=== PATIENT | female | born 1960 | race Caucasian/White ===

== ENCOUNTER 2018-06-08 13:00 | Inpatient (IN) | END 2018-06-13 19:36 | DRG 871 ==

== ENCOUNTER 2018-06-18 10:13 | Emergency (ER) | END 2018-06-18 15:00 | disposition home or self-care (01) ==

== ENCOUNTER 2018-08-02 13:46 | Inpatient (IN) | payer MEDICARE ==
[~2018-08-02] VITALS: Ht 160 cm; Wt 52.5 kg
[~2018-08-02 13:46] MED LIST: DOCU-144 PO; Insulin Glargine SC; LACT20SO2 GTB; LYR75 PO; MIDO10TA PO; NEPH PO; NOVO3I SC; PANT40TA4 PO; RIFA550T4 PO; SEVE800T7 PO; TRAM50TA PO
[2018-08-02] MEDS ORDERED: PANTOPRAZOLE 40 MG INJ IV STA (14:16)
[2018-08-02] MEDS ORDERED: ONDANSETRON 4 MG INJ IV STA (14:16)
[2018-08-02] MEDS ORDERED: PANTOPRAZOLE IV 80 MG in SOD CHLORIDE 0.9% 100 ML IVPB STA (14:16)
[2018-08-02] MEDS ORDERED: PANTOPRAZOLE IV 80 MG in SOD CHLORIDE 0.9% 100 ML IV STA (14:16)
[2018-08-02] MEDS ORDERED: METOCLOPRAMIDE 10 MG INJ IV ONE (14:30)
[2018-08-02] MEDS ORDERED: LANT3I SC (14:56)
[2018-08-02] MEDS: FENTAnyl 50 MCG/ML VIAL IV PRN ×2 (14:56→18:34)
[2018-08-02] MEDS ORDERED: NEPH PO (14:59)
[2018-08-02] MEDS ORDERED: FAMOTIDINE 20 MG INJ IV ONE (15:00)
[2018-08-02] MEDS ORDERED: ONDANSETRON 4 MG INJ IV PRN ×2 (15:00→17:00)
[2018-08-02] MEDS ORDERED: ACETAMINOPHEN 325 MG TAB PO PRN (15:00)
--- NOTE | 2018-08-02 15:15 | ERD ---
ER Documentation Chief Complaint Chief Complaint BIB RA FOR EVAL OF HEMATEMESIS. HX OF HD DID NOT GO TODAY HPI This is a 57-year-old female with a history of end-stage renal disease on hemodialysis every Sunday and Sunday. The patient also has a history of diabetes mellitus type 2. 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 The patient was recently discharged from [facility] yesterday after she had a significant workup and treated for spontaneous bacterial peritonitis with Salmonella bacteremia. She was also encephalopathic but this had resolved. The patient has had pleural effusions and had a thoracentesis on her previous evaluation. The patient this morning upon awakening states she felt very nauseous at her rehab facility. Her daughter was there. Her daughter is also here to provide history and indicated that at 8 AM her mother had an episode of coffee-ground emesis. This was 7 hours prior to arrival. Roughly 1 hour after that she had another episode of coffee-ground emesis. She started to complain of diffuse abdominal pain and a bandlike headache. She was scheduled to have dialysis today but this was missed due to the symptoms and she was immediately transferred to the hospital for further evaluation. There is been no rectal bleeding. The patient indicates that the abdominal pain is more present in the right flank region. The patient does not have a history of alcohol abuse. ROS All systems reviewed and are negative except as per history of present illness. Medications Home Meds Active Scripts Lactulose* (Lactulose*) 20 Gm/30 Ml Solution, 20 GM GTB Q12, #30 Prov:PATRICK LYONS 07/25/18 Rifaximin* (Xifaxan*) 550 Mg Tablet, 550 MG PO BID, #30 TAB Prov:PATRICK LYONS 07/25/18 Reported Medications Multivit/Ca Carb/B Cmplx/Fa* (Brandie-Ledy*) 1 Tab Tab, 1 TAB PO DAILY, TAB 08/02/18 Insulin Glargine* (Lantus*) 100 Unit/Ml Soln, 8 UNIT SC QHS, #1 VIAL 08/02/18 Docusate Sodium* (Colace*) 100 Mg Capsule, 100 MG PO BID, #60 CAP 06/08/18 Tramadol Hcl* (Ultram*) 50 Mg Tablet, 50 MG PO TID PRN for PAIN -04/03, TAB 06/08/18 Sevelamer Carbonate* (Renvela*) 800 Mg Tablet, 0.8 GM PO WITH MEALS, TAB 06/08/18 Pantoprazole* (Pantoprazole*) 40 Mg Tablet.dr, 40 MG PO AC BREAKFAST, TAB 06/08/18 Midodrine* (Midodrine*) 10 Mg Tablet, 10 MG PO TID, TAB HOLD FOR SBP>130 06/08/18 Pregabalin* (Lyrica*) 75 Mg Capsule, 75 MG PO DAILY, CAP 06/08/18 Discontinued Reported Medications Multivit/Ca Carb/B Cmplx/Fa* (Brandie-Ledy*) 1 Tab Tab, 1 TAB PO DAILY, TAB 06/08/18 Discontinued Scripts [Insulin Glargine] 100 UNITS/ML SOLN No Conflict Check, 8 UNITS SC DAILY@1999, #1 VIAL Prov:PATRICK LYONS 07/25/18 Insulin Aspart* (Novolog Insulin Pen*) 100 Unit/Ml Soln, 3 UNIT SC WITH MEALS, #1 VIAL Prov:PATRICK LYONS 07/25/18 Allergies Allergies: Coded Allergies: No Known Allergy (Unverified , 08/02/18) PMhx/Soc History of Surgery: Yes Anesthesia Reaction: No Hx Neurological Disorder: Yes Hx Respiratory Disorders: No Hx Cardiac Disorders: Yes Hx Psychiatric Problems: No Hx Miscellaneous Medical Probl: Yes (HD) Hx Alcohol Use: No Hx Substance Use: No Hx Tobacco Use: No Smoking Status: Never smoker Physical Exam Vitals Vital Signs Date Temp Pulse Resp B/P (MAP) Pulse Ox O2 O2 Flow FiO2 Time Delivery Rate 08/02/18 Nasal 2 14:21 Cannula 08/02/18 97.8 121 18 100/55 99 13:56 (70) Physical Exam Constitutional:Well-developed. Well-nourished. Patient actively vomiting coffee-ground emesis. HEENT:Normocephalic. Atraumatic.Pupils were equal round reactive to light. Moist mucous membranes.No tonsillar exudates. Conjunctival pallor. Neck: No nuchal rigidity. No lymphadenopathy. No posterior cervical spine tenderness or step-offs. Respiratory: Not using accessory muscles of respiration.Lungs were clear to auscultation bilaterally. No rhonchi. No rales. No wheezing. Cardiovascular: Regular rate regular rhythm.No murmurs. No rubs were appreciated.S1, S2 normal. Distal pulses are palpable 2+ bilaterally. GI: Abdomen was soft. Nontender. No fluid thrill or tense ascites. Non Distended. No pulsatile abdominal masses or bruits. No rebound. No guarding. Bowel sounds were present and normal. Ecchymosis over the right lower quadrant and right flank region with mild tenderness and no rebound or guarding. Muscle skeletal: Full range of motion of both the upper and lower extremities bilaterally.Normal muscle tone.No assymetrical calf tenderness or swelling. Skin: No petechia, no purpura. No lesions on the palms or the soles of the feet. No maculopapular rash. Diffuse pallor. Positive thrill and bruit of the left upper extremity AV fistula NEURO: Patient was alert, awake, orientated x3.No facial droop. Gait unobserved as patient was too weak to ambulate. Result Diagram: 08/02/18 1415 08/02/18 1415 Results 24 hrs Laboratory Tests Test 08/02/18 14:15 White Blood Count 11.5 10^3/ul Red Blood Count 2.26 10^6/ul Hemoglobin 7.1 g/dl Hematocrit 23.8 % Mean Corpuscular Volume 105.3 fl Mean Corpuscular Hemoglobin 31.4 pg Mean Corpuscular Hemoglobin Concent 29.8 g/dl Red Cell Distribution Width 25.2 % Platelet Count 34 10^3/UL Mean Platelet Volume 14.1 fl Immature Granulocytes % 0.600 % Neutrophils % % Lymphocytes % % Monocytes % % Eosinophils % % Basophils % % Nucleated Red Blood Cells % 0.3 /100WBC Immature Granulocytes # 0.070 10^3/ul Neutrophils # 10^3/ul Lymphocytes # 10^3/ul Monocytes # 10^3/ul Eosinophils # 10^3/ul Basophils # 10^3/ul Nucleated Red Blood Cells # 10^3/ul Prothrombin Time 18.1 Sec Prothrombin Time Ratio 1.4 INR International Normalized Ratio 1.49 Activated Partial Thromboplast Time 36.4 Sec Sodium Level 137 mmol/L Potassium Level 4.8 mmol/L Chloride Level 100 mmol/L Carbon Dioxide Level 16 mmol/L Anion Gap 21 Blood Urea Nitrogen 38 mg/dl Creatinine 4.23 mg/dl Est Glomerular Filtrat Rate mL/min 11 mL/min Glucose Level 180 mg/dl Calcium Level 9.3 mg/dl Total Bilirubin 0.5 mg/dl Direct Bilirubin 0.00 mg/dl Indirect Bilirubin 0.5 mg/dl Aspartate Amino Transf (AST/SGOT) 22 IU/L Alanine Aminotransferase (ALT/SGPT) < 6 IU/L Alkaline Phosphatase 128 IU/L Troponin I < 0.012 ng/ml Total Protein 7.3 g/dl Albumin 2.8 g/dl Globulin 4.50 g/dl Albumin/Globulin Ratio 0.62 Amylase Level 44 U/L Lipase 73 U/L Current Medications Medications Dose Sig/Alecia Start Time Status Last (Trade) Ordered Route PRN Stop Time Admin Dose Reason Admin 40 mg ONCE STAT 08/02/18 DC 08/02/18 Pantoprazole IV 14:16 08/02/18 14:23 (Protonix 14:17 Iv) Pantoprazole 100 ml @ ONCE STAT 08/02/18 Cancel 80 mg/Sodium 400 mls/hr IVPB 14:16 08/02/18 Chloride 14:30 Pantoprazole 100 ml @ ONCE STAT 08/02/18 80 mg/Sodium 10 mls/hr IV 14:16 08/03/18 Chloride 00:15 Ondansetron 4 mg ONCE STAT 08/02/18 DC 08/02/18 HCl (Zofran IV 14:16 08/02/18 14:23 Inj) 14:17 10 mg ONCE ONCE 08/02/18 DC 08/02/18 Metoclopramid IV 14:30 08/02/18 14:34 e HCl 14:31 (Reglan) Famotidine 20 mg ONCE ONCE 08/02/18 DC 08/02/18 (Pepcid Iv) IV 15:00 08/02/18 14:56 15:01 Fentanyl 50 mcg Q3H PRN 08/02/18 08/02/18 (Sublimaze) IV SEVERE 15:00 14:56 PAIN LEVEL 7-10 Ondansetron 4 mg ER BRIDGE 08/02/18 HCl (Zofran PRN IV 15:00 08/03/18 Inj) NAUSEA/VOMITI 14:59 NG 650 mg ER BRIDGE 08/02/18 Acetaminophen PRN PO 15:00 08/03/18 (Tylenol .MILD PAIN 14:59 Tab) 1-3 OR TEMP Procedures/MDM The patient presented to the emergency department with a presentation of gastrointestinal bleeding. My differential diagnosis included but was not limited to peptic ulcer disease, gastric or esophageal erosions, gastritis, esophageal varices, Yasmin-Echavarria tear, tumor or arteriovenous malformations. The patient was immediately placed on a hot tamale worker continuous pulse oximetry and IV access was established by nursing staff. The patient had coffe e-ground emesis immediately was placed on Protonix IV Pepcid and a Protonix drip. The patient was given antiemetics. The patient did have ecchymosis in the right lower quadrant of her abdomen therefore I did feel it was necessary to obtain a CT scan. This was reviewed by myself and the radiologist there is no signs of intra-abdominal hemorrhage. Her daughter stated that 3 weeks ago she did have a mechanical trip and fall that could have resulted in the ecchymosis. The patient was also complaining of a bandlike headache. She was a very poor historian I did feel is necessary to obtain a CT scan of her head which showed no intracerebral hemorrhage mass-effect or midline shift. The patient was typed and screened. She will be admitted in serious condition to the telemetry service as her emesis had resolved. She will be admitted to the hospitalist Dr. Stover. Critical Care: Time: 70 minutes Treatments/Evaluations: Close monitoring and treatment of unstable vital signs, cardiorespiratory, and neurologic status, while maintaining tight balance of fluid, respiratory, and cardiac interventions. Time does not include performing any of the above billable procedures. 12 Lead EKG tracing ordered and reviewed by myself showed: Sinus tachycardia 122 nonsignificant Q waves present in the inferior leads II, III and aVF bpm and no arrhythmia. DC interval normal. QRS duration normal. No ST segment elevation No ST segment depression. No changes consistent with acute ischemia. Departure Diagnosis: Primary Impression: Hematemesis Nausea presence: with nausea Qualified Codes: K92.0 - Hematemesis Additional Impression: Encephalopathy acute Condition: Serious DVAID ESPAÑA MD Aug 02, 2018 15:15
[2018-08-02 16:22] VITALS: BP 105/64; PULSE 112; RESP 16
--- NOTE | 2018-08-02 16:40 | PREAC ---
Date/Time of Note Date/Time of Note DATE: 08/02/18 TIME: 16:38 Anesthesia Eval and Record Evaluation Time Pre-Procedure Interview DATE: 08/02/18 TIME: 16:38 Age 57 Sex female NPO: 8 hrs Preoperative diagnosis ANEMIA, GI BLEED Planned procedure EGD Past Medical History Past Medical History: Includes Cardio: HTN Endo: Diabetes Renal: ESRD on dialysis Hepatic: Cirrhosis Heme: Anemia Surgery & Anesthesia Issues No known issue Meds Anticoagulation: No Beta Maurisio within 24 hr: No Reason Beta Maurisio not given: Pt. not on B-Maurisio Active Scripts Lactulose* (Lactulose*) 20 Gm/30 Ml Solution, 20 GM GTB Q12, #30 Prov:PATRICK LYONS 07/25/18 Rifaximin* (Xifaxan*) 550 Mg Tablet, 550 MG PO BID, #30 TAB Prov:PATRICK LYONS 07/25/18 Reported Medications Multivit/Ca Carb/B Cmplx/Fa* (Brandie-Ledy*) 1 Tab Tab, 1 TAB PO DAILY, TAB 08/02/18 Insulin Glargine* (Lantus*) 100 Unit/Ml Soln, 8 UNIT SC QHS, #1 VIAL 08/02/18 Docusate Sodium* (Colace*) 100 Mg Capsule, 100 MG PO BID, #60 CAP 06/08/18 Tramadol Hcl* (Ultram*) 50 Mg Tablet, 50 MG PO TID PRN for PAIN -04/03, TAB 06/08/18 Sevelamer Carbonate* (Renvela*) 800 Mg Tablet, 0.8 GM PO WITH MEALS, TAB 06/08/18 Pantoprazole* (Pantoprazole*) 40 Mg Tablet.dr, 40 MG PO AC BREAKFAST, TAB 06/08/18 Midodrine* (Midodrine*) 10 Mg Tablet, 10 MG PO TID, TAB HOLD FOR SBP>130 06/08/18 Pregabalin* (Lyrica*) 75 Mg Capsule, 75 MG PO DAILY, CAP 06/08/18 Discontinued Reported Medications Multivit/Ca Carb/B Cmplx/Fa* (Brandie-Ledy*) 1 Tab Tab, 1 TAB PO DAILY, TAB 06/08/18 Discontinued Scripts [Insulin Glargine] 100 UNITS/ML SOLN No Conflict Check, 8 UNITS SC DAILY@1999, #1 VIAL Prov:PATRICK LYONS 07/25/18 Insulin Aspart* (Novolog Insulin Pen*) 100 Unit/Ml Soln, 3 UNIT SC WITH MEALS, #1 VIAL Prov:PATRICK LYONS 07/25/18 Current Medications Pantoprazole 80 mg/Sodium Chloride 100 ml @ 10 mls/hr ONCE STAT IV Last administered on 08/02/18at 14:16; Admin Dose 10 MLS/HR; Start 08/02/18 at 14:16; Stop 08/03/18 at 00:15 Fentanyl (Sublimaze) 50 mcg Q3H PRN IV SEVERE PAIN LEVEL 7-10 Last administered on 08/02/18at 14:56; Admin Dose 50 MCG; Start 08/02/18 at 15:00 Ondansetron HCl (Zofran Inj) 4 mg ER BRIDGE PRN IV NAUSEA/VOMITING; Start 08/02/18 at 15:00; Stop 08/03/18 at 14:59 Acetaminophen (Tylenol Tab) 650 mg ER BRIDGE PRN PO .MILD PAIN 1-3 OR TEMP; Start 08/02/18 at 15:00; Stop 08/03/18 at 14:59 Meds reviewed: Yes Allergies Coded Allergies: No Known Allergy (Unverified , 08/02/18) Allergies Reviewed: Yes Labs/Studies Labs Reviewed: Reviewed by anesthesiologist Result Diagram: 08/02/18 1415 08/02/18 1415 Laboratory Tests 08/02/18 14:15 Blood Bank Test 08/02/18 14:46 Antibody Screen NEGATIVE Blood Type B POSITIVE test: N/A Pre-procedure Exam Last vitals Vital Signs Date Temp Pulse Resp B/P (MAP) Pulse Ox O2 O2 Flow FiO2 Time Delivery Rate 08/02/18 Nasal 2 14:21 Cannula 08/02/18 97.8 121 18 100/55 99 13:56 (70) Airway: Adequate mouth opening, Adequate thyromental dist Mallampati: Mallampati II Teeth: Normal Lung: Normal Heart: Normal ASA Physical Status ASA physical status: 3 Emergency: None Planned Anesthetic General/MAC: MAC Planned Pain Management Parenteral pain med Pre-operative Attestations Prior to commencing anesthesia and surgery, the patient was re-evaluated, there was verification of: *The patient's identity *The results of appropriate recent lab work and preoperative vital signs *The above evaluation not changing prior to induction *Anesthetic plan, risk benefits, alternative and complications discussed with patient/family; questions answered; patient/family understands, accepts and wishes to proceed. DAREN BERNARDO Aug 02, 2018 16:40
[2018-08-02] MEDS ORDERED: LABETALOL HCL 20MG INJ IV PRN (17:00)
[2018-08-02] MEDS ORDERED: MEPERIDINE 25 MG INJ IV PRN (17:00)
[2018-08-02] MEDS ORDERED: hydrALAzine 20 MG INJ IV PRN (17:00)
[2018-08-02] MEDS ORDERED: DIPHENHYDRAMINE 50 MG INJ IV PRN (17:00)
[2018-08-02] MEDS ORDERED: ALBUTEROL 0.083% (NEB) 2.5 MG/3 ML AMP HHN PRN (17:00)
[2018-08-02] MEDS ORDERED: EPHEDrine SULFATE 50 MG/5 ML SYG IV PRN (17:00)
--- NOTE | 2018-08-02 17:15 | PAC ---
Date/Time of Note Date/Time of Note DATE: 08/02/18 TIME: 17:15 Post-Anesthesia Notes Post-Anesthesia Note Last documented vital signs Vital Signs Date Temp Pulse Resp B/P (MAP) Pulse Ox O2 O2 Flow FiO2 Time Delivery Rate 08/02/18 98.2 112 16 105/64 100 Room Air 17:14 (78) 08/02/18 2 14:21 Activity: WNL Respiratory function: WNL Cardiovascular function: WNL Mental status: Baseline Pain reasonably controlled: Yes Hydration appropriate: Yes Nausea/Vomiting absent: Yes DAREN BERNARDO Aug 02, 2018 17:15
--- NOTE | 2018-08-02 17:21 | HPN ---
Date/Time of Note Date/Time of Note DATE: 08/02/18 TIME: 17:21 Interval H&P Admission Note Pt. seen H&P reviewed: No system changes SOFYA ASCENCIO MD Aug 02, 2018 17:21
--- NOTE | 2018-08-02 17:21 | CONS ---
Assessment/Plan Assessment/Plan Assessment/Plan (Daily) Assessment: Upper GI bleeding. Rule out variceal versus not variceal. Encephalopathy. Recent episode of spontaneous bacterial peritonitis History of post necrotic cirrhosis. History of chronic renal failure. History of diabetes mellitus. Plan: Urgent EGD. Further recommendation will depend on our findings. Consultation Date/Type/Reason Admit Date/Time Date of Consultation: Aug 02, 2018 Type of Consult Gastroenterology/hepatology Reason for Consultation Gastrointestinal bleeding Date/Time of Note DATE: 08/02/18 TIME: 17:13 Hx of Present Illness 57-year-old female with multiple comorbidities including chronic renal failure on dialysis, diabetes mellitus, hepatitis C induced cirrhosis. The patient was recently hospitalized and treated for spontaneous bacterial peritonitis. Patient was recently discharged. She is brought back in today with complaints of changes in mental status and episodes of hematemesis/coffee-ground emesis. Patient is moderately anemic. At this point patient will be evaluated urgently with endoscopy given her previous history the possibility of esophageal varices appears to be significant. The procedure was explained to the patient's daughter who understands Risks, benefits and alternatives. 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 Recent episode of SBP Chronic renal failure on hemodialysis. Diabetes mellitus. Poor nutrition. Home Meds Active Scripts Lactulose* (Lactulose*) 20 Gm/30 Ml Solution, 20 GM GTB Q12, #30 Prov:PATRICK LYONS 07/25/18 Rifaximin* (Xifaxan*) 550 Mg Tablet, 550 MG PO BID, #30 TAB Prov:PATRICK LYONS 07/25/18 Reported Medications Multivit/Ca Carb/B Cmplx/Fa* (Brandie-Ledy*) 1 Tab Tab, 1 TAB PO DAILY, TAB 08/02/18 Insulin Glargine* (Lantus*) 100 Unit/Ml Soln, 8 UNIT SC QHS, #1 VIAL 08/02/18 Docusate Sodium* (Colace*) 100 Mg Capsule, 100 MG PO BID, #60 CAP 06/08/18 Tramadol Hcl* (Ultram*) 50 Mg Tablet, 50 MG PO TID PRN for PAIN 1-04/03, TAB 06/08/18 Sevelamer Carbonate* (Renvela*) 800 Mg Tablet, 0.8 GM PO WITH MEALS, TAB 06/08/18 Pantoprazole* (Pantoprazole*) 40 Mg Tablet.dr, 40 MG PO AC BREAKFAST, TAB 06/08/18 Midodrine* (Midodrine*) 10 Mg Tablet, 10 MG PO TID, TAB HOLD FOR SBP>130 06/08/18 Pregabalin* (Lyrica*) 75 Mg Capsule, 75 MG PO DAILY, CAP 06/08/18 Discontinued Reported Medications Multivit/Ca Carb/B Cmplx/Fa* (Brandie-Ledy*) 1 Tab Tab, 1 TAB PO DAILY, TAB 06/08/18 Discontinued Scripts [Insulin Glargine] 100 UNITS/ML SOLN No Conflict Check, 8 UNITS SC DAILY@1999, #1 VIAL Prov:SERENAKENNETH GLASGOWFrankie 07/25/18 Insulin Aspart* (Novolog Insulin Pen*) 100 Unit/Ml Soln, 3 UNIT SC WITH MEALS, #1 VIAL Prov:SERENA,PATRICK 07/25/18 Medications Current Medications Pantoprazole 80 mg/Sodium Chloride 100 ml @ 10 mls/hr ONCE STAT IV Last administered on 08/02/18at 14:16; Admin Dose 10 MLS/HR; Start 08/02/18 at 14:16; Stop 08/03/18 at 00:15 Fentanyl (Sublimaze) 50 mcg Q3H PRN IV SEVERE PAIN LEVEL 7-10 Last administered on 08/02/18at 14:56; Admin Dose 50 MCG; Start 08/02/18 at 15:00 Ondansetron HCl (Zofran Inj) 4 mg ER BRIDGE PRN IV NAUSEA/VOMITING; Start 08/02/18 at 15:00; Stop 08/03/18 at 14:59 Acetaminophen (Tylenol Tab) 650 mg ER BRIDGE PRN PO .MILD PAIN 1-3 OR TEMP; Start 08/02/18 at 15:00; Stop 08/03/18 at 14:59 Ondansetron HCl (Zofran Inj) 4 mg PACU ORDER PRN IV NAUSEA/VOMITING; Start 08/02/18 at 17:00; Stop 08/02/18 at 21:00 Labetalol HCl (Labetalol) 5 mg PACU ORDER PRN IV HIGH BLOOD PRESSURE; Start 08/02/18 at 17:00; Stop 08/02/18 at 21:00 Hydralazine HCl (Apresoline) 5 mg PACU ORDER PRN IV HIGH BLOOD PRESSURE; Start 08/02/18 at 17:00; Stop 08/02/18 at 21:00 Ephedrine Sulfate 5 mg PACU ORDER PRN IV BLOOD PRESSURE SUPPORT; Start 08/02/18 at 17:00; Stop 08/02/18 at 21:00 Albuterol (Proventil 0.083% (Neb)) 2.5 mg PACU ORDER PRN HHN .WHEEZING; Start 08/02/18 at 17:00; Stop 08/02/18 at 21:00 Meperidine HCl (Demerol) 25 mg PACU ORDER PRN IV .RIGORS; Start 08/02/18 at 17:00; Stop 08/02/18 at 21:00 Diphenhydramine HCl (Benadryl) 25 mg PACU ORDER PRN IV .PRURITUS; Start 08/02/18 at 17:00; Stop 08/02/18 at 21:00 Allergies: Coded Allergies: No Known Allergy (Unverified , 08/02/18) Past Surgical History Past Surgical Hx: no surgical history, other Social History Smoking Status: Never smoker Exam/Review of Systems Exam Vitals Vital Signs Date Temp Pulse Resp B/P (MAP) Pulse Ox O2 O2 Flow FiO2 Time Delivery Rate 08/02/18 98.2 112 16 105/64 100 Room Air 16:22 (78) 08/02/18 2 14:21 Exam PHYSICAL EXAMINATION: GENERAL: Well developed, Poorly nourished, alert, Confused SKIN: No lesions, + stigmata chronic liver disease, no evidence of bleeding diathesis LYMPHATIC: No palpable lymphadenopathy. HEAD: Normocephalic, atraumatic, no tenderness. EYES: Pupils equal reactive to light and accommodation, full extraocular movements, sclera clear, non-icteric, no discharge. EARS/NOSE AND THROAT: Ears normal, nose normal, oropharynx normal, oral membranes well hydrated without lesions. NECK: Supple, no masses, thyroid normal, JVP within normal limits, carotids normal without bruits. CHEST: Inspection within normal limits. CARDIOVASCULAR: Heart: Regular rate and rhythm, no murmurs, gallops or rubs. Peripheral pulses present within normal limits, no cyanosis, clubbing or edemas. No pulsatile abdominal mass RESPIRATORY: Lungs clear to auscultation and percussion, no wheezing, no rubs GASTROINTESTINAL AND LIVER: Abdomen: Soft, non tenderness, non-distended, no hernias, no masses, no organomegaly, no ascites, no guarding, no rebound tenderness, normoactive bowel sounds. Rectal: Deferred. GENITOURINARY: [Female genitalia within normal limits.] EXTREMITIES: No cyanosis, clubbing or edema. Results Result Diagram: 08/02/18 1415 08/02/18 1415 Results 24hrs Laboratory Tests Test 08/02/18 14:15 08/02/18 14:46 White Blood Count 11.5 H Red Blood Count 2.26 #L Hemoglobin 7.1 #L Hematocrit 23.8 #L Mean Corpuscular Volume 105.3 H Mean Corpuscular Hemoglobin 31.4 Mean Corpuscular Hemoglobin Concent 29.8 L Red Cell Distribution Width 25.2 #H Platelet Count 34 #L Mean Platelet Volume 14.1 H Immature Granulocytes % 0.600 H Neutrophils % Segmented Neutrophils % (Manual) 95 H Lymphocytes % Lymphocytes % (Manual) 2 L Monocytes % Monocytes % (Manual) 3 Eosinophils % Basophils % Nucleated Red Blood Cells % 0.3 H Immature Granulocytes # 0.070 H Neutrophils # Lymphocytes (Manual) 0.2 L Lymphocytes # Monocytes # Monocytes # (Manual) 0.3 Eosinophils # Basophils # Nucleated Red Blood Cells # Platelet Estimate DECREASED Giant Platelets 3 H Polychromasia 2+ Hypochromasia 1+ Anisocytosis 2+ Macrocytosis 2+ Prothrombin Time 18.1 H Prothrombin Time Ratio 1.4 INR International Normalized Ratio 1.49 Activated Partial Thromboplast Time 36.4 H Sodium Level 137 Potassium Level 4.8 Chloride Level 100 Carbon Dioxide Level 16 L Anion Gap 21 H Blood Urea Nitrogen 38 H Creatinine 4.23 H Est Glomerular Filtrat Rate mL/min 11 L Glucose Level 180 Calcium Level 9.3 Total Bilirubin 0.5 Direct Bilirubin 0.00 Indirect Bilirubin 0.5 Aspartate Amino Transf (AST/SGOT) 22 Alanine Aminotransferase (ALT/SGPT) < 6 L Alkaline Phosphatase 128 H Troponin I < 0.012 Total Protein 7.3 Albumin 2.8 L Globulin 4.50 H Albumin/Globulin Ratio 0.62 Amylase Level 44 Lipase 73 Ammonia < 9 L Medications Medication Current Medications Pantoprazole 80 mg/Sodium Chloride 100 ml @ 10 mls/hr ONCE STAT IV Last administered on 08/02/18at 14:16; Admin Dose 10 MLS/HR; Start 08/02/18 at 14:16; Stop 08/03/18 at 00:15 Fentanyl (Sublimaze) 50 mcg Q3H PRN IV SEVERE PAIN LEVEL 7-10 Last administered on 08/02/18at 14:56; Admin Dose 50 MCG; Start 08/02/18 at 15:00 Ondansetron HCl (Zofran Inj) 4 mg ER BRIDGE PRN IV NAUSEA/VOMITING; Start 08/02/18 at 15:00; Stop 08/03/18 at 14:59 Acetaminophen (Tylenol Tab) 650 mg ER BRIDGE PRN PO .MILD PAIN 1-3 OR TEMP; Start 08/02/18 at 15:00; Stop 08/03/18 at 14:59 Ondansetron HCl (Zofran Inj) 4 mg PACU ORDER PRN IV NAUSEA/VOMITING; Start 08/02/18 at 17:00; Stop 08/02/18 at 21:00 Labetalol HCl (Labetalol) 5 mg PACU ORDER PRN IV HIGH BLOOD PRESSURE; Start 08/02/18 at 17:00; Stop 08/02/18 at 21:00 Hydralazine HCl (Apresoline) 5 mg PACU ORDER PRN IV HIGH BLOOD PRESSURE; Start 08/02/18 at 17:00; Stop 08/02/18 at 21:00 Ephedrine Sulfate 5 mg PACU ORDER PRN IV BLOOD PRESSURE SUPPORT; Start 08/02/18 at 17:00; Stop 08/02/18 at 21:00 Albuterol (Proventil 0.083% (Neb)) 2.5 mg PACU ORDER PRN HHN .WHEEZING; Start 08/02/18 at 17:00; Stop 08/02/18 at 21:00 Meperidine HCl (Demerol) 25 mg PACU ORDER PRN IV .RIGORS; Start 08/02/18 at 17:00; Stop 08/02/18 at 21:00 Diphenhydramine HCl (Benadryl) 25 mg PACU ORDER PRN IV .PRURITUS; Start 08/02/18 at 17:00; Stop 08/02/18 at 21:00 SOFYA ASCENCIO MD Aug 02, 2018 17:21
[2018-08-02] MEDS ORDERED: traMADol 50 MG TAB PO PRN (17:30)
[2018-08-02 18:00] VITALS: BP 105/57; PULSE 112; RESP 18
[2018-08-02] MEDS: INSULIN ASPART [NOVOLOG] 3 ML PEN SC SCH ×2 (18:00→21:24)
[2018-08-02] MEDS: SEVELAMER CARBONATE 0.8 GM PKT PO SCH (18:00)
--- NOTE | 2018-08-02 18:32 | CONS ---
Assessment/Plan Assessment/Plan Assessment/Plan (Daily) 1. ESRD on HD - MWF schedule , missed HD today 2. Upper GI bleeding variceal vs Non variceal bleeding 3. H/o Liver Cirrhosis 4. H/o HTN 5. Severe anemia duet to acute blood loss anemia 6. let basilar inftilrates with pleural effusion Plan: seen in ED< started on Protonix gtt for GI bleeding s/p GI consult in ED, plan for EGD to rule out variceal vs non variceal bleeding will plan for HD in AM with 2 units PRBC trnasfusion K normal, continue lasix Thanks for consultation, I will continue to follow up will start epogen 6000 units TTS Consultation Date/Type/Reason Admit Date/Time 08/02/2018 Date of Consultation: Aug 02, 2018 Type of Consult NEPHROLOGY Reason for Consultation ESRD on HD missed HD, Presented with GI bleeding, Fluid overload Requesting Provider: REGINA ORNELAS MD Date/Time of Note DATE: 08/02/18 TIME: 18:32 Hx of Present Illness 57 F with PMHx of HTN, 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 pt was sent back from SNF today due to vomiitn gof blood and Hematemesis. she was seen by GI in ED- started on protonix gtt- and plan for EGD Pt is due for her HD tomorrow and her K is stable now, Hb 7.1 on admission . Constitutional: poor po Eyes: no complaints ENT: dysphagia, other (vomiting of blood ) Respiratory: no complaints Cardiovascular: no complaints Gastrointestinal: pain, vomiting, other (vomiting of blood ) Genitourinary: no complaints Musculoskeletal: no complaints Skin: no complaints Neurologic: no complaints Endocrine: no complaints Lymphatic: no complaints Psychological: anxiety Immunologic: no complaints Past Medical History Medical History: hypertension, other Home Meds Active Scripts Lactulose* (Lactulose*) 20 Gm/30 Ml Solution, 20 GM GTB Q12, #30 Prov:PATRICK LYONS 07/25/18 Rifaximin* (Xifaxan*) 550 Mg Tablet, 550 MG PO BID, #30 TAB Prov:PATRICK LYONS 07/25/18 Reported Medications Multivit/Ca Carb/B Cmplx/Fa* (Brandie-Ledy*) 1 Tab Tab, 1 TAB PO DAILY, TAB 08/02/18 Insulin Glargine* (Lantus*) 100 Unit/Ml Soln, 8 UNIT SC QHS, #1 VIAL 08/02/18 Docusate Sodium* (Colace*) 100 Mg Capsule, 100 MG PO BID, #60 CAP 06/08/18 Tramadol Hcl* (Ultram*) 50 Mg Tablet, 50 MG PO TID PRN for PAIN -04/03, TAB 06/08/18 Sevelamer Carbonate* (Renvela*) 800 Mg Tablet, 0.8 GM PO WITH MEALS, TAB 06/08/18 Pantoprazole* (Pantoprazole*) 40 Mg Tablet.dr, 40 MG PO AC BREAKFAST, TAB 06/08/18 Midodrine* (Midodrine*) 10 Mg Tablet, 10 MG PO TID, TAB HOLD FOR SBP>130 06/08/18 Pregabalin* (Lyrica*) 75 Mg Capsule, 75 MG PO DAILY, CAP 06/08/18 Discontinued Reported Medications Multivit/Ca Carb/B Cmplx/Fa* (Brandie-Ledy*) 1 Tab Tab, 1 TAB PO DAILY, TAB 06/08/18 Discontinued Scripts [Insulin Glargine] 100 UNITS/ML SOLN No Conflict Check, 8 UNITS SC DAILY@1999, #1 VIAL Prov:PATRICK LYONS 07/25/18 Insulin Aspart* (Novolog Insulin Pen*) 100 Unit/Ml Soln, 3 UNIT SC WITH MEALS, #1 VIAL Prov:PATRICK LYONS 07/25/18 Medications Current Medications Pantoprazole 80 mg/Sodium Chloride 100 ml @ 10 mls/hr ONCE STAT IV Last administered on 08/02/18at 14:16; Admin Dose 10 MLS/HR; Start 08/02/18 at 14:16; Stop 08/03/18 at 00:15 Fentanyl (Sublimaze) 50 mcg Q3H PRN IV SEVERE PAIN LEVEL 7-10 Last administered on 08/02/18at 14:56; Admin Dose 50 MCG; Start 08/02/18 at 15:00 Ondansetron HCl (Zofran Inj) 4 mg ER BRIDGE PRN IV NAUSEA/VOMITING; Start 08/02/18 at 15:00; Stop 08/03/18 at 14:59 Acetaminophen (Tylenol Tab) 650 mg ER BRIDGE PRN PO .MILD PAIN 1-3 OR TEMP; Start 08/02/18 at 15:00; Stop 08/03/18 at 14:59 Ondansetron HCl (Zofran Inj) 4 mg PACU ORDER PRN IV NAUSEA/VOMITING; Start 08/02/18 at 17:00; Stop 08/02/18 at 21:00 Labetalol HCl (Labetalol) 5 mg PACU ORDER PRN IV HIGH BLOOD PRESSURE; Start 08/02/18 at 17:00; Stop 08/02/18 at 21:00 Hydralazine HCl (Apresoline) 5 mg PACU ORDER PRN IV HIGH BLOOD PRESSURE; Start 08/02/18 at 17:00; Stop 08/02/18 at 21:00 Ephedrine Sulfate 5 mg PACU ORDER PRN IV BLOOD PRESSURE SUPPORT; Start 08/02/18 at 17:00; Stop 08/02/18 at 21:00 Albuterol (Proventil 0.083% (Neb)) 2.5 mg PACU ORDER PRN HHN .WHEEZING; Start 08/02/18 at 17:00; Stop 08/02/18 at 21:00 Meperidine HCl (Demerol) 25 mg PACU ORDER PRN IV .RIGORS; Start 08/02/18 at 17:00; Stop 08/02/18 at 21:00 Diphenhydramine HCl (Benadryl) 25 mg PACU ORDER PRN IV .PRURITUS; Start 08/02/18 at 17:00; Stop 08/02/18 at 21:00 Insulin Glargine (Lantus) 8 units QHS SC ; Start 08/02/18 at 21:00 Lactulose (Enulose) 20 gm Q12 GTB ; Start 08/02/18 at 21:00 Midodrine (Proamatine) 10 mg TID PO ; Start 08/02/18 at 21:00 Multivit/Ca Carb/ B Cmplx/FA/Prenat (Brandie-Ledy) 1 tab DAILY PO ; Start 08/03/18 at 09:00 Pregabalin (Lyrica) 75 mg DAILY PO ; Start 08/03/18 at 09:00 Rifaximin (Xifaxan) 550 mg BID PO ; Start 08/02/18 at 21:00 Sevelamer Carbonate (Renvela) 0.8 gm WITH MEALS PO ; Start 08/02/18 at 18:00 Tramadol HCl (Ultram) 50 mg TID PRN PO PAIN 1-1010; Start 08/02/18 at 17:30 Insulin Aspart (Novolog Insulin Pen) NOVOLOG *MILD* ALGORITHM WITH MEALS BEDTIME SC ; Start 08/02/18 at 18:00 Allergies: Coded Allergies: No Known Allergy (Unverified , 08/02/18) Past Surgical History Past Surgical Hx: other (LUE AVG) Family History Significant Family History: no pertinent family hx Social History Alcohol Use: none Smoking Status: Never smoker Drug Use: none Exam/Review of Systems Exam Vitals Vital Signs Date Temp Pulse Resp B/P (MAP) Pulse Ox O2 O2 Flow FiO2 Time Delivery Rate 08/02/18 98.2 112 16 105/64 100 Room Air 16:22 (78) 08/02/18 2 14:21 Constitutional: distress Head: normocephalic Eyes: nl conjunctiva, other (no jaundice , pale conjunctiva) ENMT: nl external ears & nose Neck: supple, non-tender Respiratory: clear to auscultation, normal air movement, diminished breath sounds Cardiovascular: regular rate and rhythm, nl pulses Gastrointestinal: soft, non-tender Musculoskeletal: joint tenderness, muscle weakness Extremities: normal pulses Neurological: other (little tired, weak, lethragic ) Lymph: nl lymph nodes Results Result Diagram: 08/02/18 1415 08/02/18 1415 Results 24hrs Laboratory Tests Test 08/02/18 14:15 08/02/18 14:46 White Blood Count 11.5 H Red Blood Count 2.26 #L Hemoglobin 7.1 #L Hematocrit 23.8 #L Mean Corpuscular Volume 105.3 H Mean Corpuscular Hemoglobin 31.4 Mean Corpuscular Hemoglobin Concent 29.8 L Red Cell Distribution Width 25.2 #H Platelet Count 34 #L Mean Platelet Volume 14.1 H Immature Granulocytes % 0.600 H Neutrophils % Segmented Neutrophils % (Manual) 95 H Lymphocytes % Lymphocytes % (Manual) 2 L Monocytes % Monocytes % (Manual) 3 Eosinophils % Basophils % Nucleated Red Blood Cells % 0.3 H Immature Granulocytes # 0.070 H Neutrophils # Lymphocytes (Manual) 0.2 L Lymphocytes # Monocytes # Monocytes # (Manual) 0.3 Eosinophils # Basophils # Nucleated Red Blood Cells # Platelet Estimate DECREASED Giant Platelets 3 H Polychromasia 2+ Hypochromasia 1+ Anisocytosis 2+ Macrocytosis 2+ Prothrombin Time 18.1 H Prothrombin Time Ratio 1.4 INR International Normalized Ratio 1.49 Activated Partial Thromboplast Time 36.4 H Sodium Level 137 Potassium Level 4.8 Chloride Level 100 Carbon Dioxide Level 16 L Anion Gap 21 H Blood Urea Nitrogen 38 H Creatinine 4.23 H Est Glomerular Filtrat Rate mL/min 11 L Glucose Level 180 Calcium Level 9.3 Total Bilirubin 0.5 Direct Bilirubin 0.00 Indirect Bilirubin 0.5 Aspartate Amino Transf (AST/SGOT) 22 Alanine Aminotransferase (ALT/SGPT) < 6 L Alkaline Phosphatase 128 H Troponin I < 0.012 Total Protein 7.3 Albumin 2.8 L Globulin 4.50 H Albumin/Globulin Ratio 0.62 Amylase Level 44 Lipase 73 Ammonia < 9 L Medications Medication Current Medications Pantoprazole 80 mg/Sodium Chloride 100 ml @ 10 mls/hr ONCE STAT IV Last administered on 08/02/18at 14:16; Admin Dose 10 MLS/HR; Start 08/02/18 at 14:16; Stop 08/03/18 at 00:15 Fentanyl (Sublimaze) 50 mcg Q3H PRN IV SEVERE PAIN LEVEL 7-10 Last administered on 08/02/18at 14:56; Admin Dose 50 MCG; Start 08/02/18 at 15:00 Ondansetron HCl (Zofran Inj) 4 mg ER BRIDGE PRN IV NAUSEA/VOMITING; Start 08/02/18 at 15:00; Stop 08/03/18 at 14:59 Acetaminophen (Tylenol Tab) 650 mg ER BRIDGE PRN PO .MILD PAIN 1-3 OR TEMP; Start 08/02/18 at 15:00; Stop 08/03/18 at 14:59 Ondansetron HCl (Zofran Inj) 4 mg PACU ORDER PRN IV NAUSEA/VOMITING; Start 08/02/18 at 17:00; Stop 08/02/18 at 21:00 Labetalol HCl (Labetalol) 5 mg PACU ORDER PRN IV HIGH BLOOD PRESSURE; Start 08/02/18 at 17:00; Stop 08/02/18 at 21:00 Hydralazine HCl (Apresoline) 5 mg PACU ORDER PRN IV HIGH BLOOD PRESSURE; Start 08/02/18 at 17:00; Stop 08/02/18 at 21:00 Ephedrine Sulfate 5 mg PACU ORDER PRN IV BLOOD PRESSURE SUPPORT; Start 08/02/18 at 17:00; Stop 08/02/18 at 21:00 Albuterol (Proventil 0.083% (Neb)) 2.5 mg PACU ORDER PRN HHN .WHEEZING; Start 08/02/18 at 17:00; Stop 08/02/18 at 21:00 Meperidine HCl (Demerol) 25 mg PACU ORDER PRN IV .RIGORS; Start 08/02/18 at 17:00; Stop 08/02/18 at 21:00 Diphenhydramine HCl (Benadryl) 25 mg PACU ORDER PRN IV .PRURITUS; Start 08/02/18 at 17:00; Stop 08/02/18 at 21:00 Insulin Glargine (Lantus) 8 units QHS SC ; Start 08/02/18 at 21:00 Lactulose (Enulose) 20 gm Q12 GTB ; Start 08/02/18 at 21:00 Midodrine (Proamatine) 10 mg TID PO ; Start 08/02/18 at 21:00 Multivit/Ca Carb/ B Cmplx/FA/Prenat (Brandie-Ledy) 1 tab DAILY PO ; Start 08/03/18 at 09:00 Pregabalin (Lyrica) 75 mg DAILY PO ; Start 08/03/18 at 09:00 Rifaximin (Xifaxan) 550 mg BID PO ; Start 08/02/18 at 21:00 Sevelamer Carbonate (Renvela) 0.8 gm WITH MEALS PO ; Start 08/02/18 at 18:00 Tramadol HCl (Ultram) 50 mg TID PRN PO PAIN 1-10/10; Start 08/02/18 at 17:30 Insulin Aspart (Novolog Insulin Pen) NOVOLOG *MILD* ALGORITHM WITH MEALS BEDTIME SC ; Start 08/02/18 at 18:00 FERNANDA RODRIGUEZ MD Aug 02, 2018 18:32
[2018-08-02] MEDS ORDERED: SOD CHLORIDE 0.9% 250 ML IV* ONE (18:39)
[2018-08-02 19:00] VITALS: PULSE 107
[2018-08-02] MEDS ORDERED: SODIUM CHLORIDE 0.9% 1L BAG IV PRN (19:00)
[2018-08-02] MEDS ORDERED: HEPARIN 1000 UNITS/ML 10 ML INJ CATHETER SCH (19:00)
--- NOTE | 2018-08-02 19:13 | HP ---
Date/Time of Note Date/Time of Note DATE: 08/02/18 TIME: 19:09 Assessment/Plan VTE Prophylaxis Pharmacological prophylaxis: heparin Lines/Catheters IV Catheter Type (from Nrsg): Peripheral IV Assessment/Plan Hospital Course 57 yo female with h/o ESRD, cirrohsis, DMII recently discharged after hospitalization for SBP and salmonella bacteremia who returns with hematemasis and found to have PUD Acute blood loss anemia 2/2 bleeding peptic ulcer: - Transfuse PRN > Hgb 7 - IV PPI Cirrhosis: - Continue lactulose and rifaxin - No varices on EGD today DMII: - Basal/bolus insulin Protein/calorie malnutrition: - Family again requesting enteral feedings, will discuss again tomorrow as currently NPO ESRD: - Missed HD today. HD per Dr Pascual Discharge back to SNF when stable Result Diagram: 08/02/18 1415 08/02/18 1415 Results 24hrs Laboratory Tests Test 08/02/18 14:15 08/02/18 14:46 08/02/18 18:54 White Blood Count 11.5 H Red Blood Count 2.26 #L Hemoglobin 7.1 #L Hematocrit 23.8 #L Mean Corpuscular Volume 105.3 H Mean Corpuscular Hemoglobin 31.4 Mean Corpuscular Hemoglobin Concent 29.8 L Red Cell Distribution Width 25.2 #H Platelet Count 34 #L Mean Platelet Volume 14.1 H Immature Granulocytes % 0.600 H Neutrophils % Segmented Neutrophils % (Manual) 95 H Lymphocytes % Lymphocytes % (Manual) 2 L Monocytes % Monocytes % (Manual) 3 Eosinophils % Basophils % Nucleated Red Blood Cells % 0.3 H Immature Granulocytes # 0.070 H Neutrophils # Lymphocytes (Manual) 0.2 L Lymphocytes # Monocytes # Monocytes # (Manual) 0.3 Eosinophils # Basophils # Nucleated Red Blood Cells # Platelet Estimate DECREASED Giant Platelets 3 H Polychromasia 2+ Hypochromasia 1+ Anisocytosis 2+ Macrocytosis 2+ Prothrombin Time 18.1 H Prothrombin Time Ratio 1.4 INR International Normalized Ratio 1.49 Activated Partial Thromboplast Time 36.4 H Sodium Level 137 Potassium Level 4.8 Chloride Level 100 Carbon Dioxide Level 16 L Anion Gap 21 H Blood Urea Nitrogen 38 H Creatinine 4.23 H Est Glomerular Filtrat Rate mL/min 11 L Glucose Level 180 Calcium Level 9.3 Total Bilirubin 0.5 Direct Bilirubin 0.00 Indirect Bilirubin 0.5 Aspartate Amino Transf (AST/SGOT) 22 Alanine Aminotransferase (ALT/SGPT) < 6 L Alkaline Phosphatase 128 H Troponin I < 0.012 Total Protein 7.3 Albumin 2.8 L Globulin 4.50 H Albumin/Globulin Ratio 0.62 Amylase Level 44 Lipase 73 Ammonia < 9 L Bedside Glucose 200 HPI/ROS Admit Date/Time Admit Date/Time 08/02/2018 Hx of Present Illness 57 yo female with cirrhosis, ESRD on HD, DMII who was recently hospitalized here for hepatic encephelopathy with SBP and salmonella bacteremia who returns today with hematemasis and abdominal pain Pain started last night in epigastrium. Then she developed hematemasis and was rushed to the ED. She underwent urgent EGD which was negative for varices but did show numerous peptic ulcers. She has had no further bleeding. She is currently sedated following endoscopy PMH/Family/Social Past Medical History Cirrhosis ESRD DMII Medical History: hypertension, other Medications Current Medications Pantoprazole 80 mg/Sodium Chloride 100 ml @ 10 mls/hr ONCE STAT IV Last administered on 08/02/18at 14:16; Admin Dose 10 MLS/HR; Start 08/02/18 at 14:16; Stop 08/03/18 at 00:15 Fentanyl (Sublimaze) 50 mcg Q3H PRN IV SEVERE PAIN LEVEL 7-10 Last administered on 08/02/18at 14:56; Admin Dose 50 MCG; Start 08/02/18 at 15:00 Ondansetron HCl (Zofran Inj) 4 mg ER BRIDGE PRN IV NAUSEA/VOMITING; Start 08/02/18 at 15:00; Stop 08/03/18 at 14:59 Acetaminophen (Tylenol Tab) 650 mg ER BRIDGE PRN PO .MILD PAIN 1-3 OR TEMP; Start 08/02/18 at 15:00; Stop 08/03/18 at 14:59 Ondansetron HCl (Zofran Inj) 4 mg PACU ORDER PRN IV NAUSEA/VOMITING; Start 08/02/18 at 17:00; Stop 08/02/18 at 21:00 Labetalol HCl (Labetalol) 5 mg PACU ORDER PRN IV HIGH BLOOD PRESSURE; Start 08/02/18 at 17:00; Stop 08/02/18 at 21:00 Hydralazine HCl (Apresoline) 5 mg PACU ORDER PRN IV HIGH BLOOD PRESSURE; Start 08/02/18 at 17:00; Stop 08/02/18 at 21:00 Ephedrine Sulfate 5 mg PACU ORDER PRN IV BLOOD PRESSURE SUPPORT; Start 08/02/18 at 17:00; Stop 08/02/18 at 21:00 Albuterol (Proventil 0.083% (Neb)) 2.5 mg PACU ORDER PRN HHN .WHEEZING; Start 08/02/18 at 17:00; Stop 08/02/18 at 21:00 Meperidine HCl (Demerol) 25 mg PACU ORDER PRN IV .RIGORS; Start 08/02/18 at 17:00; Stop 08/02/18 at 21:00 Diphenhydramine HCl (Benadryl) 25 mg PACU ORDER PRN IV .PRURITUS; Start 08/02/18 at 17:00; Stop 08/02/18 at 21:00 Insulin Glargine (Lantus) 8 units QHS SC ; Start 08/02/18 at 21:00 Lactulose (Enulose) 20 gm Q12 GTB ; Start 08/02/18 at 21:00 Midodrine (Proamatine) 10 mg TID PO ; Start 08/02/18 at 21:00 Multivit/Ca Carb/ B Cmplx/FA/Prenat (Brandie-Ledy) 1 tab DAILY PO ; Start 08/03/18 at 09:00 Pregabalin (Lyrica) 75 mg DAILY PO ; Start 08/03/18 at 09:00 Rifaximin (Xifaxan) 550 mg BID PO ; Start 08/02/18 at 21:00 Sevelamer Carbonate (Renvela) 0.8 gm WITH MEALS PO ; Start 08/02/18 at 18:00 Tramadol HCl (Ultram) 50 mg TID PRN PO PAIN 1-10/10; Start 08/02/18 at 17:30 Insulin Aspart (Novolog Insulin Pen) NOVOLOG *MILD* ALGORITHM WITH MEALS BEDTIME SC ; Start 08/02/18 at 18:00 Heparin Sodium (Porcine) (Heparin (1000 Units/ml)) 4,000 unit AFTER DIALYSIS CATHETER ; Start 08/02/18 at 19:00 Albumin Human 100 ml @ 100 mls/hr WITH DIALYSIS PRN IV SBP <90 DURING DIALYSIS; Start 08/02/18 at 19:00 Sodium Chloride (NS) -To prime the dialy... DIRECTED FOR HD PRN IV HD; Start 08/02/18 at 19:00 Pantoprazole (Protonix Iv) 40 mg BID@06,18 IV ; Start 08/03/18 at 06:00 Coded Allergies: No Known Allergy (Unverified , 08/02/18) Past Surgical History Past Surgical Hx: no surgical history, other (LUE AVG) Family History Significant Family History: no pertinent family hx Social History Alcohol Use: none Smoking Status: Never smoker Drug Use: none Exam/Review of Systems Vital Signs Vitals Vital Signs Date Temp Pulse Resp B/P (MAP) Pulse Ox O2 O2 Flow FiO2 Time Delivery Rate 08/02/18 107 19:00 08/02/18 98.2 16 105/64 100 Room Air 16:22 (78) 08/02/18 2 14:21 Exam Exam Lethargic s/p sedation Appears comfortable Neck veins flat Breathing comfortably RRR Clear lungs Abdomen mildly distended but soft and nontender LUE AVF Mild peripheral edema bilaterally REGINA ORNELAS MD Aug 02, 2018 19:13
[2018-08-02 19:42] VITALS: BP 93/53; PULSE 97; RESP 18
[2018-08-02 19:58] VITALS: Ht 160 cm; Wt 52.5 kg
[2018-08-02 20:00] VITALS: PULSE 109
[2018-08-02] MEDS: LACTULOSE 30ML CUP GTB SCH (20:27)
[2018-08-02] MEDS: RIFAXIMIN 550 MG TAB PO SCH (20:27)
[2018-08-02] MEDS: MIDODRINE 5 MG TAB PO SCH (20:27)
[2018-08-02] MEDS ORDERED: PENDING SANTYL ORDER FOR WOUND CARE XX PRN (20:30)
[2018-08-02] MEDS: INSULIN GLARGINE [LANTus] (100 UNITS/ML) SYG SC SCH (21:24)
[2018-08-02] MEDS: COLLAGENASE 5 GM (UD JAR) TOP SCH (21:28)
[2018-08-02 23:54] VITALS: BP 113/56; PULSE 110; RESP 18
[2018-08-03] VITALS (28 sets, daily range): BP systolic 84–138; BP diastolic 43–91; PULSE 107–151; RESP 14–35
[2018-08-03] MEDS: morphine 2 MG INJ IV PRN ×4 (01:30→20:11)
[2018-08-03] MEDS: PANTOPRAZOLE 40 MG INJ IV SCH ×2 (05:20→18:28)
[2018-08-03] MEDS ORDERED: GLUCOSE GEL 15 GRAM TUBE BUCCAL PRN (06:30)
[2018-08-03] MEDS ORDERED: GLUCOSE GEL 15 GRAM TUBE PO PRN ×2 (06:30)
[2018-08-03] MEDS ORDERED: GLUCAGON 1 MG INJ IM PRN (06:30)
[2018-08-03] MEDS ORDERED: DEXTROSE 50% 50 ML SYRINGE IV PRN ×2 (06:30)
[2018-08-03] MEDS: SEVELAMER CARBONATE 0.8 GM PKT PO SCH ×3 (07:32→17:55)
[2018-08-03] MEDS: LACTULOSE 30ML CUP GTB SCH ×2 (08:06→21:00)
[2018-08-03] MEDS: MIDODRINE 5 MG TAB PO SCH ×3 (08:06→21:00)
[2018-08-03] MEDS: PREGABALIN 75 MG CAP PO SCH (08:06)
[2018-08-03] MEDS: MULTIVIT/CA CARB/B CMPLX/FA TAB PO SCH (08:07)
[2018-08-03] MEDS: RIFAXIMIN 550 MG TAB PO SCH ×2 (08:07→21:00)
[2018-08-03] MEDS ORDERED: IOHEXOL 300MG/ML 150 ML BTL ONE (08:42)
[2018-08-03] MEDS ORDERED: SOD CHLORIDE 0.9% 100 ML ONE (08:42)
[2018-08-03] MEDS: INSULIN ASPART [NOVOLOG] 3 ML PEN SC SCH ×4 (09:00→21:00)
[2018-08-03] MEDS: COLLAGENASE 5 GM (UD JAR) TOP SCH (09:40)
--- NOTE | 2018-08-03 11:43 | CONS ---
Consultation Date/Type/Reason Admit Date/Time Aug 02, 2018 at 15:01 Initial Consult Date 08/02/18 Type of Consult NEPHROLOGY Requesting Provider: REGINA ORNELAS MD Date/Time of Note DATE: 08/03/18 TIME: 11:43 Exam/Review of Systems Exam Vitals Vital Signs Date Temp Pulse Resp B/P (MAP) Pulse Ox O2 O2 Flow FiO2 Time Delivery Rate 08/03/18 97.5 125 14 107/58 97 Nasal 11:10 (74) Cannula 08/02/18 2 14:21 Intake and Output 08/02/18 08/02/18 08/03/18 1515:00 23:00 07:00 IntakeIntake Total 0 ml BalanceBalance 0 ml Results Result Diagram: 08/03/18 0747 08/03/18 0747 Results 24hrs Laboratory Tests Test 08/02/18 14:15 08/02/18 14:46 08/02/18 18:54 08/02/18 21:14 White Blood Count 11.5 H Red Blood Count 2.26 #L Hemoglobin 7.1 #L Hematocrit 23.8 #L Mean Corpuscular Volume 105.3 H Mean Corpuscular 31.4 Hemoglobin Mean Corpuscular 29.8 L Hemoglobin Concent Red Cell Distribution 25.2 #H Width Platelet Count 34 #L Mean Platelet Volume 14.1 H Immature Granulocytes % 0.600 H Neutrophils % Segmented Neutrophils 95 H % (Manual) Lymphocytes % Lymphocytes % (Manual) 2 L Monocytes % Monocytes % (Manual) 3 Eosinophils % Basophils % Nucleated Red Blood 0.3 H Cells % Immature Granulocytes # 0.070 H Neutrophils # Lymphocytes (Manual) 0.2 L Lymphocytes # Monocytes # Monocytes # (Manual) 0.3 Eosinophils # Basophils # Nucleated Red Blood Cells # Platelet Estimate DECREASED Giant Platelets 3 H Polychromasia 2+ Hypochromasia 1+ Anisocytosis 2+ Macrocytosis 2+ Prothrombin Time 18.1 H Prothrombin Time Ratio 1.4 INR International 1.49 Normalized Ratio Activated 36.4 H Partial Thromboplast Time Sodium Level 137 Potassium Level 4.8 Chloride Level 100 Carbon Dioxide Level 16 L Anion Gap 21 H Blood Urea Nitrogen 38 H Creatinine 4.23 H Est Glomerular Filtrat 11 L Rate mL/min Glucose Level 180 Calcium Level 9.3 Total Bilirubin 0.5 Direct Bilirubin 0.00 Indirect Bilirubin 0.5 Aspartate Amino 22 Transf (AST/SGOT) Alanine < 6 L Aminotransferase (ALT/SG PT) Alkaline Phosphatase 128 H Troponin I < 0.012 Total Protein 7.3 Albumin 2.8 L Globulin 4.50 H Albumin/Globulin Ratio 0.62 Amylase Level 44 Lipase 73 Ammonia < 9 L Bedside Glucose 200 208 Test 08/03/18 01:28 08/03/18 06:43 08/03/18 07:47 08/03/18 09:37 Bedside Glucose 170 159 181 White Blood Count 12.1 H Red Blood Count 1.95 L Hemoglobin 6.2 *L Hematocrit 20.3 L Mean Corpuscular Volume 104.1 H Mean Corpuscular 31.8 Hemoglobin Mean Corpuscular 30.5 L Hemoglobin Concent Red Cell Distribution 24.6 H Width Platelet Count 34 L Mean Platelet Volume Immature Granulocytes % 0.400 Neutrophils % 90.8 H Lymphocytes % 4.4 L Monocytes % 3.7 Eosinophils % 0.5 Basophils % 0.2 Nucleated Red Blood 0.2 H Cells % Immature Granulocytes # 0.050 H Neutrophils # 11.0 H Lymphocytes # 0.5 L Monocytes # 0.5 Eosinophils # 0.1 Basophils # 0.0 Nucleated Red Blood 0.0 Cells # Prothrombin Time 18.7 H Prothrombin Time Ratio 1.5 INR International 1.55 Normalized Ratio Activated 39.1 H Partial Thromboplast Time Sodium Level 138 Potassium Level 4.3 Chloride Level 104 Carbon Dioxide Level 21 Anion Gap 13 # Blood Urea Nitrogen 48 H Creatinine 4.39 H Est Glomerular Filtrat 10 L Rate mL/min Glucose Level 154 Calcium Level 8.9 Magnesium Level 2.1 Total Bilirubin 0.3 Direct Bilirubin 0.00 Indirect Bilirubin 0.3 Aspartate Amino 19 Transf (AST/SGOT) Alanine 11 L Aminotransferase (ALT/SG PT) Alkaline Phosphatase 97 Total Protein 6.1 # Albumin 2.2 L Globulin 3.90 H Albumin/Globulin Ratio 0.56 Medications Medication Current Medications Fentanyl (Sublimaze) 50 mcg Q3H PRN IV SEVERE PAIN LEVEL 7-10 Last administered on 08/02/18at 14:56; Admin Dose 50 MCG; Start 08/02/18 at 15:00 Ondansetron HCl (Zofran Inj) 4 mg ER BRIDGE PRN IV NAUSEA/VOMITING; Start 08/02/18 at 15:00; Stop 08/03/18 at 14:59 Acetaminophen (Tylenol Tab) 650 mg ER BRIDGE PRN PO .MILD PAIN 1-3 OR TEMP; Start 08/02/18 at 15:00; Stop 08/03/18 at 14:59 Insulin Glargine (Lantus) 8 units QHS SC Last administered on 08/02/18at 21:24; Admin Dose 8 UNITS; Start 08/02/18 at 21:00 Lactulose (Enulose) 20 gm Q12 GTB ; Start 08/02/18 at 21:00 Midodrine (Proamatine) 10 mg TID PO ; Start 08/02/18 at 21:00 Multivit/Ca Carb/ B Cmplx/FA/Prenat (Brandie-Ledy) 1 tab DAILY PO ; Start 08/03/18 at 09:00 Pregabalin (Lyrica) 75 mg DAILY PO ; Start 08/03/18 at 09:00 Rifaximin (Xifaxan) 550 mg BID PO ; Start 08/02/18 at 21:00 Sevelamer Carbonate (Renvela) 0.8 gm WITH MEALS PO ; Start 08/02/18 at 18:00 Tramadol HCl (Ultram) 50 mg TID PRN PO PAIN 1-10/10; Start 08/02/18 at 17:30 Heparin Sodium (Porcine) (Heparin (1000 Units/ml)) 4,000 unit AFTER DIALYSIS CATHETER ; Start 08/02/18 at 19:00 Albumin Human 100 ml @ 100 mls/hr WITH DIALYSIS PRN IV SBP <90 DURING DIALYSIS; Start 08/02/18 at 19:00 Sodium Chloride (NS) -To prime the dialy... DIRECTED FOR HD PRN IV HD; Start 08/02/18 at 19:00 Pantoprazole (Protonix Iv) 40 mg BID@06,18 IV Last administered on 08/03/18at 05:20; Admin Dose 40 MG; Start 08/03/18 at 06:00 Miscellaneous Information (Pending Santyl Order For Wound Care) This patient marie... PRN PRN XX WOUND CARE; Start 08/02/18 at 20:30 Collagenase (Santyl) 1 applic DAILY TOP Last administered on 08/03/18at 09:40; Admin Dose 1 APPLIC; Start 08/02/18 at 20:30 Morphine Sulfate (morphine) 2 mg Q4H PRN IV SEVERE PAIN LEVEL 7-10 Last administered on 08/03/18at 10:22; Admin Dose 2 MG; Start 08/02/18 at 20:30 Insulin Aspart (Novolog Insulin Pen) NOVOLOG *MILD* ALGORI... Q4 SC ; Start 08/03/18 at 09:00 Miscellaneous Information 1 ea NOTE XX ; Start 08/03/18 at 06:30 Glucose (Glutose) 15 gm Q15M PRN PO DECREASED GLUCOSE; Start 08/03/18 at 06:30 Glucose (Glutose) 22.5 gm Q15M PRN PO DECREASED GLUCOSE; Start 08/03/18 at 06:30 Dextrose (D50w Syringe) 25 ml Q15M PRN IV DECREASED GLUCOSE; Start 08/03/18 at 06:30 Dextrose (D50w Syringe) 50 ml Q15M PRN IV DECREASED GLUCOSE; Start 08/03/18 at 06:30 Glucagon (Glucagen) 1 mg Q15M PRN IM DECREASED GLUCOSE; Start 08/03/18 at 06:30 Glucose (Glutose) 15 gm Q15M PRN BUCCAL DECREASED GLUCOSE; Start 08/03/18 at 06:30 FERNANDA RODRIGUEZ MD Aug 03, 2018 11:43
--- NOTE | 2018-08-03 13:25 | CONS ---
Assessment/Plan Assessment/Plan Assessment/Plan (Daily) 1. ESRD on HD - MWF schedule , missed HD yesterday- will get HD; 1 unit PRBC with HD today 2. Upper GI bleeding variceal vs Non variceal bleeding 3. H/o Liver Cirrhosis 4. H/o HTN 5. Severe anemia duet to acute blood loss anemia 6. left basilar infiltrates with pleural effusion 7. Thrombocytopenia Plan: cont on Protonix gtt for GI bleeding s/p GI consult, plan for EGD to rule out variceal vs non variceal bleeding HD today K normal, continue lasix will start epogen 6000 units TTS Patient seen in collaboration with Dr Jesusita Pascual. dw staff. Daughter at bed side- all Qs answered. We will continue to follow up Consultation Date/Type/Reason Admit Date/Time Aug 02, 2018 at 15:01 Initial Consult Date 08/02/18 Type of Consult NEPHROLOGY Requesting Provider: REGINA ORNELAS MD Date/Time of Note DATE: 08/03/18 TIME: 13:24 24 HR Interval Summary Free Text/Dictation - resting; comfortable Hgb low- 2 prbc infusion today daughter at bed side- all Qs`answered Constitutional: requiring O2 Exam/Review of Systems Exam Vitals Vital Signs Date Temp Pulse Resp B/P (MAP) Pulse Ox O2 O2 Flow FiO2 Time Delivery Rate 08/03/18 119 12:02 08/03/18 97.5 14 107/58 97 Nasal 11:10 (74) Cannula 08/02/18 2 14:21 Intake and Output 08/02/18 08/02/18 08/03/18 1515:00 23:00 07:00 IntakeIntake Total 0 ml BalanceBalance 0 ml Constitutional: alert, well developed, frail Psych: nl mood/affect Eyes: nl lids, nl sclera ENMT: nl external ears & nose Neck: non-tender Respiratory: diminished breath sounds (at bases bilatrally) Gastrointestinal: soft, non-tender Musculoskeletal: muscle weakness Extremities: normal pulses Neurological: other (alert/ sleepy ) Results Result Diagram: 08/03/18 0747 08/03/18 0747 Results 24hrs Laboratory Tests Test 08/02/18 14:15 08/02/18 14:46 08/02/18 18:54 08/02/18 21:14 White Blood Count 11.5 H Red Blood Count 2.26 #L Hemoglobin 7.1 #L Hematocrit 23.8 #L Mean Corpuscular Volume 105.3 H Mean Corpuscular 31.4 Hemoglobin Mean Corpuscular 29.8 L Hemoglobin Concent Red Cell Distribution 25.2 #H Width Platelet Count 34 #L Mean Platelet Volume 14.1 H Immature Granulocytes % 0.600 H Neutrophils % Segmented Neutrophils 95 H % (Manual) Lymphocytes % Lymphocytes % (Manual) 2 L Monocytes % Monocytes % (Manual) 3 Eosinophils % Basophils % Nucleated Red Blood 0.3 H Cells % Immature Granulocytes # 0.070 H Neutrophils # Lymphocytes (Manual) 0.2 L Lymphocytes # Monocytes # Monocytes # (Manual) 0.3 Eosinophils # Basophils # Nucleated Red Blood Cells # Platelet Estimate DECREASED Giant Platelets 3 H Polychromasia 2+ Hypochromasia 1+ Anisocytosis 2+ Macrocytosis 2+ Prothrombin Time 18.1 H Prothrombin Time Ratio 1.4 INR International 1.49 Normalized Ratio Activated 36.4 H Partial Thromboplast Time Sodium Level 137 Potassium Level 4.8 Chloride Level 100 Carbon Dioxide Level 16 L Anion Gap 21 H Blood Urea Nitrogen 38 H Creatinine 4.23 H Est Glomerular Filtrat 11 L Rate mL/min Glucose Level 180 Calcium Level 9.3 Total Bilirubin 0.5 Direct Bilirubin 0.00 Indirect Bilirubin 0.5 Aspartate Amino 22 Transf (AST/SGOT) Alanine < 6 L Aminotransferase (ALT/SG PT) Alkaline Phosphatase 128 H Troponin I < 0.012 Total Protein 7.3 Albumin 2.8 L Globulin 4.50 H Albumin/Globulin Ratio 0.62 Amylase Level 44 Lipase 73 Ammonia < 9 L Bedside Glucose 200 208 Test 08/03/18 01:28 08/03/18 06:43 08/03/18 07:47 08/03/18 09:37 Bedside Glucose 170 159 181 White Blood Count 12.1 H Red Blood Count 1.95 L Hemoglobin 6.2 *L Hematocrit 20.3 L Mean Corpuscular Volume 104.1 H Mean Corpuscular 31.8 Hemoglobin Mean Corpuscular 30.5 L Hemoglobin Concent Red Cell Distribution 24.6 H Width Platelet Count 34 L Mean Platelet Volume Immature Granulocytes % 0.400 Neutrophils % 90.8 H Lymphocytes % 4.4 L Monocytes % 3.7 Eosinophils % 0.5 Basophils % 0.2 Nucleated Red Blood 0.2 H Cells % Immature Granulocytes # 0.050 H Neutrophils # 11.0 H Lymphocytes # 0.5 L Monocytes # 0.5 Eosinophils # 0.1 Basophils # 0.0 Nucleated Red Blood 0.0 Cells # Prothrombin Time 18.7 H Prothrombin Time Ratio 1.5 INR International 1.55 Normalized Ratio Activated 39.1 H Partial Thromboplast Time Sodium Level 138 Potassium Level 4.3 Chloride Level 104 Carbon Dioxide Level 21 Anion Gap 13 # Blood Urea Nitrogen 48 H Creatinine 4.39 H Est Glomerular Filtrat 10 L Rate mL/min Glucose Level 154 Calcium Level 8.9 Magnesium Level 2.1 Total Bilirubin 0.3 Direct Bilirubin 0.00 Indirect Bilirubin 0.3 Aspartate Amino 19 Transf (AST/SGOT) Alanine 11 L Aminotransferase (ALT/SG PT) Alkaline Phosphatase 97 Total Protein 6.1 # Albumin 2.2 L Globulin 3.90 H Albumin/Globulin Ratio 0.56 Medications Medication Current Medications Fentanyl (Sublimaze) 50 mcg Q3H PRN IV SEVERE PAIN LEVEL 7-10 Last administered on 08/02/18at 14:56; Admin Dose 50 MCG; Start 08/02/18 at 15:00 Ondansetron HCl (Zofran Inj) 4 mg ER BRIDGE PRN IV NAUSEA/VOMITING; Start 08/02/18 at 15:00; Stop 08/03/18 at 14:59 Acetaminophen (Tylenol Tab) 650 mg ER BRIDGE PRN PO .MILD PAIN 1-3 OR TEMP; Start 08/02/18 at 15:00; Stop 08/03/18 at 14:59 Insulin Glargine (Lantus) 8 units QHS SC Last administered on 08/02/18at 21:24; Admin Dose 8 UNITS; Start 08/02/18 at 21:00 Lactulose (Enulose) 20 gm Q12 GTB ; Start 08/02/18 at 21:00 Midodrine (Proamatine) 10 mg TID PO ; Start 08/02/18 at 21:00 Multivit/Ca Carb/ B Cmplx/FA/Prenat (Brandie-Ledy) 1 tab DAILY PO ; Start 08/03/18 at 09:00 Pregabalin (Lyrica) 75 mg DAILY PO ; Start 08/03/18 at 09:00 Rifaximin (Xifaxan) 550 mg BID PO ; Start 08/02/18 at 21:00 Sevelamer Carbonate (Renvela) 0.8 gm WITH MEALS PO ; Start 08/02/18 at 18:00 Tramadol HCl (Ultram) 50 mg TID PRN PO PAIN 1-10/10; Start 08/02/18 at 17:30 Heparin Sodium (Porcine) (Heparin (1000 Units/ml)) 4,000 unit AFTER DIALYSIS CATHETER ; Start 08/02/18 at 19:00 Albumin Human 100 ml @ 100 mls/hr WITH DIALYSIS PRN IV SBP <90 DURING DIALYSIS; Start 08/02/18 at 19:00 Sodium Chloride (NS) -To prime the dialy... DIRECTED FOR HD PRN IV HD; Start 08/02/18 at 19:00 Pantoprazole (Protonix Iv) 40 mg BID@06,18 IV Last administered on 08/03/18at 05:20; Admin Dose 40 MG; Start 08/03/18 at 06:00 Miscellaneous Information (Pending Santyl Order For Wound Care) This patient marie... PRN PRN XX WOUND CARE; Start 08/02/18 at 20:30 Collagenase (Santyl) 1 applic DAILY TOP Last administered on 08/03/18at 09:40; Admin Dose 1 APPLIC; Start 08/02/18 at 20:30 Insulin Aspart (Novolog Insulin Pen) NOVOLOG *MILD* ALGORI... Q4 SC ; Start 08/03/18 at 09:00 Miscellaneous Information 1 ea NOTE XX ; Start 08/03/18 at 06:30 Glucose (Glutose) 15 gm Q15M PRN PO DECREASED GLUCOSE; Start 08/03/18 at 06:30 Glucose (Glutose) 22.5 gm Q15M PRN PO DECREASED GLUCOSE; Start 08/03/18 at 06:30 Dextrose (D50w Syringe) 25 ml Q15M PRN IV DECREASED GLUCOSE; Start 08/03/18 at 06:30 Dextrose (D50w Syringe) 50 ml Q15M PRN IV DECREASED GLUCOSE; Start 08/03/18 at 06:30 Glucagon (Glucagen) 1 mg Q15M PRN IM DECREASED GLUCOSE; Start 08/03/18 at 06:30 Glucose (Glutose) 15 gm Q15M PRN BUCCAL DECREASED GLUCOSE; Start 08/03/18 at 06:30 Morphine Sulfate (morphine) 2 mg Q4H PRN IV SEVERE PAIN LEVEL 7-10; Start 08/03/18 at 13:30 Lorazepam (Ativan) 1 mg Q8H PRN IV anixety; Start 08/03/18 at 13:30 [place] Aug 03, 2018 13:25
--- NOTE | 2018-08-03 13:38 | PN ---
Date/Time of Note Date/Time of Note DATE: 08/03/18 TIME: 13:24 Assessment/Plan VTE Prophylaxis Risk score (from Ns)>0 risk: 9 SCD applied (from Ns): Yes Pharmacological prophylaxis: heparin Lines/Catheters IV Catheter Type (from Nrs): Peripheral IV Assessment/Plan Hospital Course 57 yo female with h/o ESRD, cirrohsis, DMII recently discharged after hospitalization for SBP and salmonella bacteremia who returns with hematemasis and found to have PUD Acute blood loss anemia 2/2 bleeding peptic ulcer: - Transfuse PRN > Hgb 7 - IV PPI - Maintain NPO for now, pending GI clearance Leg cramps: - Suspect related to cirrhosis and uremia. Morphine PRN, try to limit as possible Cirrhosis: - Continue lactulose and rifaxin - No varices on EGD today DMII: - Basal/bolus insulin Protein/calorie malnutrition: - Family again requesting enteral feedings, will discuss again tomorrow as currently NPO ESRD: - HD per Dr Pascual Discharge back to SNF when stable Again have offered hospice/palliative but daughters decline this Result Diagram: 08/03/18 0747 08/03/18 0747 Results 24hrs Laboratory Tests Test 08/02/18 14:15 08/02/18 14:46 08/02/18 18:54 08/02/18 21:14 White Blood Count 11.5 H Red Blood Count 2.26 #L Hemoglobin 7.1 #L Hematocrit 23.8 #L Mean Corpuscular Volume 105.3 H Mean Corpuscular 31.4 Hemoglobin Mean Corpuscular 29.8 L Hemoglobin Concent Red Cell Distribution 25.2 #H Width Platelet Count 34 #L Mean Platelet Volume 14.1 H Immature Granulocytes % 0.600 H Neutrophils % Segmented Neutrophils 95 H % (Manual) Lymphocytes % Lymphocytes % (Manual) 2 L Monocytes % Monocytes % (Manual) 3 Eosinophils % Basophils % Nucleated Red Blood 0.3 H Cells % Immature Granulocytes # 0.070 H Neutrophils # Lymphocytes (Manual) 0.2 L Lymphocytes # Monocytes # Monocytes # (Manual) 0.3 Eosinophils # Basophils # Nucleated Red Blood Cells # Platelet Estimate DECREASED Giant Platelets 3 H Polychromasia 2+ Hypochromasia 1+ Anisocytosis 2+ Macrocytosis 2+ Prothrombin Time 18.1 H Prothrombin Time Ratio 1.4 INR International 1.49 Normalized Ratio Activated 36.4 H Partial Thromboplast Time Sodium Level 137 Potassium Level 4.8 Chloride Level 100 Carbon Dioxide Level 16 L Anion Gap 21 H Blood Urea Nitrogen 38 H Creatinine 4.23 H Est Glomerular Filtrat 11 L Rate mL/min Glucose Level 180 Calcium Level 9.3 Total Bilirubin 0.5 Direct Bilirubin 0.00 Indirect Bilirubin 0.5 Aspartate Amino 22 Transf (AST/SGOT) Alanine < 6 L Aminotransferase (ALT/SG PT) Alkaline Phosphatase 128 H Troponin I < 0.012 Total Protein 7.3 Albumin 2.8 L Globulin 4.50 H Albumin/Globulin Ratio 0.62 Amylase Level 44 Lipase 73 Ammonia < 9 L Bedside Glucose 200 208 Test 08/03/18 01:28 08/03/18 06:43 08/03/18 07:47 08/03/18 09:37 Bedside Glucose 170 159 181 White Blood Count 12.1 H Red Blood Count 1.95 L Hemoglobin 6.2 *L Hematocrit 20.3 L Mean Corpuscular Volume 104.1 H Mean Corpuscular 31.8 Hemoglobin Mean Corpuscular 30.5 L Hemoglobin Concent Red Cell Distribution 24.6 H Width Platelet Count 34 L Mean Platelet Volume Immature Granulocytes % 0.400 Neutrophils % 90.8 H Lymphocytes % 4.4 L Monocytes % 3.7 Eosinophils % 0.5 Basophils % 0.2 Nucleated Red Blood 0.2 H Cells % Immature Granulocytes # 0.050 H Neutrophils # 11.0 H Lymphocytes # 0.5 L Monocytes # 0.5 Eosinophils # 0.1 Basophils # 0.0 Nucleated Red Blood 0.0 Cells # Prothrombin Time 18.7 H Prothrombin Time Ratio 1.5 INR International 1.55 Normalized Ratio Activated 39.1 H Partial Thromboplast Time Sodium Level 138 Potassium Level 4.3 Chloride Level 104 Carbon Dioxide Level 21 Anion Gap 13 # Blood Urea Nitrogen 48 H Creatinine 4.39 H Est Glomerular Filtrat 10 L Rate mL/min Glucose Level 154 Calcium Level 8.9 Magnesium Level 2.1 Total Bilirubin 0.3 Direct Bilirubin 0.00 Indirect Bilirubin 0.3 Aspartate Amino 19 Transf (AST/SGOT) Alanine 11 L Aminotransferase (ALT/SG PT) Alkaline Phosphatase 97 Total Protein 6.1 # Albumin 2.2 L Globulin 3.90 H Albumin/Globulin Ratio 0.56 Subjective 24 Hr Interval Summary Free Text/Dictation Patinet with intermittent painful leg cramping. Her daughters are essenitally demanding morhpine be given for this. I explained the risk of oversedation (which seems present clinically) but they are willing to take this risk. I again offered referral to hospice care but they are against this. Patient is unable to participate in conversation. Daughters also requesting NG tube to be placed to provide nutrition. Exam/Review of Systems Exam Vitals Vital Signs Date Temp Pulse Resp B/P (MAP) Pulse Ox O2 O2 Flow FiO2 Time Delivery Rate 08/03/18 119 12:02 08/03/18 97.5 14 107/58 97 Nasal 11:10 (74) Cannula 08/02/18 2 14:21 Intake and Output 08/02/18 08/02/18 08/03/18 1515:00 23:00 07:00 IntakeIntake Total 0 ml BalanceBalance 0 ml Exam Lethargic, does not appear in any distress Arousable to stimuli RRR Breathign mildly labroed, + JVD Belly nontender + peripheral edema Results Results 24hrs Laboratory Tests Test 08/02/18 14:15 08/02/18 14:46 08/02/18 18:54 08/02/18 21:14 White Blood Count 11.5 H Red Blood Count 2.26 #L Hemoglobin 7.1 #L Hematocrit 23.8 #L Mean Corpuscular Volume 105.3 H Mean Corpuscular 31.4 Hemoglobin Mean Corpuscular 29.8 L Hemoglobin Concent Red Cell Distribution 25.2 #H Width Platelet Count 34 #L Mean Platelet Volume 14.1 H Immature Granulocytes % 0.600 H Neutrophils % Segmented Neutrophils 95 H % (Manual) Lymphocytes % Lymphocytes % (Manual) 2 L Monocytes % Monocytes % (Manual) 3 Eosinophils % Basophils % Nucleated Red Blood 0.3 H Cells % Immature Granulocytes # 0.070 H Neutrophils # Lymphocytes (Manual) 0.2 L Lymphocytes # Monocytes # Monocytes # (Manual) 0.3 Eosinophils # Basophils # Nucleated Red Blood Cells # Platelet Estimate DECREASED Giant Platelets 3 H Polychromasia 2+ Hypochromasia 1+ Anisocytosis 2+ Macrocytosis 2+ Prothrombin Time 18.1 H Prothrombin Time Ratio 1.4 INR International 1.49 Normalized Ratio Activated 36.4 H Partial Thromboplast Time Sodium Level 137 Potassium Level 4.8 Chloride Level 100 Carbon Dioxide Level 16 L Anion Gap 21 H Blood Urea Nitrogen 38 H Creatinine 4.23 H Est Glomerular Filtrat 11 L Rate mL/min Glucose Level 180 Calcium Level 9.3 Total Bilirubin 0.5 Direct Bilirubin 0.00 Indirect Bilirubin 0.5 Aspartate Amino 22 Transf (AST/SGOT) Alanine < 6 L Aminotransferase (ALT/SG PT) Alkaline Phosphatase 128 H Troponin I < 0.012 Total Protein 7.3 Albumin 2.8 L Globulin 4.50 H Albumin/Globulin Ratio 0.62 Amylase Level 44 Lipase 73 Ammonia < 9 L Bedside Glucose 200 208 Test 08/03/18 01:28 08/03/18 06:43 08/03/18 07:47 08/03/18 09:37 Bedside Glucose 170 159 181 White Blood Count 12.1 H Red Blood Count 1.95 L Hemoglobin 6.2 *L Hematocrit 20.3 L Mean Corpuscular Volume 104.1 H Mean Corpuscular 31.8 Hemoglobin Mean Corpuscular 30.5 L Hemoglobin Concent Red Cell Distribution 24.6 H Width Platelet Count 34 L Mean Platelet Volume Immature Granulocytes % 0.400 Neutrophils % 90.8 H Lymphocytes % 4.4 L Monocytes % 3.7 Eosinophils % 0.5 Basophils % 0.2 Nucleated Red Blood 0.2 H Cells % Immature Granulocytes # 0.050 H Neutrophils # 11.0 H Lymphocytes # 0.5 L Monocytes # 0.5 Eosinophils # 0.1 Basophils # 0.0 Nucleated Red Blood 0.0 Cells # Prothrombin Time 18.7 H Prothrombin Time Ratio 1.5 INR International 1.55 Normalized Ratio Activated 39.1 H Partial Thromboplast Time Sodium Level 138 Potassium Level 4.3 Chloride Level 104 Carbon Dioxide Level 21 Anion Gap 13 # Blood Urea Nitrogen 48 H Creatinine 4.39 H Est Glomerular Filtrat 10 L Rate mL/min Glucose Level 154 Calcium Level 8.9 Magnesium Level 2.1 Total Bilirubin 0.3 Direct Bilirubin 0.00 Indirect Bilirubin 0.3 Aspartate Amino 19 Transf (AST/SGOT) Alanine 11 L Aminotransferase (ALT/SG PT) Alkaline Phosphatase 97 Total Protein 6.1 # Albumin 2.2 L Globulin 3.90 H Albumin/Globulin Ratio 0.56 Medications Medication Current Medications Fentanyl (Sublimaze) 50 mcg Q3H PRN IV SEVERE PAIN LEVEL 7-10 Last administered on 08/02/18at 14:56; Admin Dose 50 MCG; Start 08/02/18 at 15:00 Ondansetron HCl (Zofran Inj) 4 mg ER BRIDGE PRN IV NAUSEA/VOMITING; Start 08/02/18 at 15:00; Stop 08/03/18 at 14:59 Acetaminophen (Tylenol Tab) 650 mg ER BRIDGE PRN PO .MILD PAIN 1-3 OR TEMP; Start 08/02/18 at 15:00; Stop 08/03/18 at 14:59 Insulin Glargine (Lantus) 8 units QHS SC Last administered on 08/02/18at 21:24; Admin Dose 8 UNITS; Start 08/02/18 at 21:00 Lactulose (Enulose) 20 gm Q12 GTB ; Start 08/02/18 at 21:00 Midodrine (Proamatine) 10 mg TID PO ; Start 08/02/18 at 21:00 Multivit/Ca Carb/ B Cmplx/FA/Prenat (Brandie-Ledy) 1 tab DAILY PO ; Start 08/03/18 at 09:00 Pregabalin (Lyrica) 75 mg DAILY PO ; Start 08/03/18 at 09:00 Rifaximin (Xifaxan) 550 mg BID PO ; Start 08/02/18 at 21:00 Sevelamer Carbonate (Renvela) 0.8 gm WITH MEALS PO ; Start 08/02/18 at 18:00 Tramadol HCl (Ultram) 50 mg TID PRN PO PAIN 1-04/03; Start 08/02/18 at 17:30 Heparin Sodium (Porcine) (Heparin (1000 Units/ml)) 4,000 unit AFTER DIALYSIS CATHETER ; Start 08/02/18 at 19:00 Albumin Human 100 ml @ 100 mls/hr WITH DIALYSIS PRN IV SBP <90 DURING DIALYSIS; Start 08/02/18 at 19:00 Sodium Chloride (NS) -To prime the dialy... DIRECTED FOR HD PRN IV HD; Start 08/02/18 at 19:00 Pantoprazole (Protonix Iv) 40 mg BID@06,18 IV Last administered on 08/03/18at 05:20; Admin Dose 40 MG; Start 08/03/18 at 06:00 Miscellaneous Information (Pending Santyl Order For Wound Care) This patient marie... PRN PRN XX WOUND CARE; Start 08/02/18 at 20:30 Collagenase (Santyl) 1 applic DAILY TOP Last administered on 08/03/18at 09:40; Admin Dose 1 APPLIC; Start 08/02/18 at 20:30 Insulin Aspart (Novolog Insulin Pen) NOVOLOG *MILD* ALGORI... Q4 SC ; Start 08/03/18 at 09:00 Miscellaneous Information 1 ea NOTE XX ; Start 08/03/18 at 06:30 Glucose (Glutose) 15 gm Q15M PRN PO DECREASED GLUCOSE; Start 08/03/18 at 06:30 Glucose (Glutose) 22.5 gm Q15M PRN PO DECREASED GLUCOSE; Start 08/03/18 at 06:30 Dextrose (D50w Syringe) 25 ml Q15M PRN IV DECREASED GLUCOSE; Start 08/03/18 at 06:30 Dextrose (D50w Syringe) 50 ml Q15M PRN IV DECREASED GLUCOSE; Start 08/03/18 at 06:30 Glucagon (Glucagen) 1 mg Q15M PRN IM DECREASED GLUCOSE; Start 08/03/18 at 06:30 Glucose (Glutose) 15 gm Q15M PRN BUCCAL DECREASED GLUCOSE; Start 08/03/18 at 06:30 Morphine Sulfate (morphine) 2 mg Q4H PRN IV SEVERE PAIN LEVEL 7-10; Start 08/03/18 at 13:30 Lorazepam (Ativan) 1 mg Q8H PRN IV anixety; Start 08/03/18 at 13:30 REGINA ORNELAS MD Aug 03, 2018 13:34
--- NOTE | 2018-08-03 14:15 | PN ---
Date/Time of Note Date/Time of Note DATE: 08/03/18 TIME: 13:50 Assessment/Plan VTE Prophylaxis Risk score (from [facility] [place]0 risk: 9 SCD applied (from [facility] [place]): Yes Pharmacological prophylaxis: NA/contraindicated Pharm contraindication: liver dx Lines/Catheters IV Catheter Type (from [facility]): Peripheral IV Assessment/Plan Assessment/Plan Assessment: Upper GI bleeding. S/p EGD 08/02/18 - Atypical Duodenal Ulcer -GOO -Moderate diffuse gastritis -Severe erosive esophagitis Rule out variceal versus not variceal. Encephalopathy. Liver cirrhosis d/t Hep C - treated. Constipation Recent episode of spontaneous bacterial peritonitis History of post necrotic cirrhosis. History of chronic renal failure. History of diabetes mellitus. Plan: GI cocktail Continue Protonix gtt. Stool for H Pylori Monitor H and H Transfuse for Hgb less then 7.5 Patient seen in collaboration with Dr. Patrick Subjective: Patient remains slightly confused. C/o severe epigastric pain. CT of the abdomen shows Cirrhosis with ascites and Constipation. Will insert NG tube and order upper GI series to R/O obstruction. Once obstruction ruled out OK to start feeding. Transfusion in progress for Hgb of 6.2. Continue observation. PHYSICAL EXAMINATION: GENERAL: Well developed, Poorly nourished, alert, Confused SKIN: No lesions, + stigmata chronic liver disease, no evidence of bleeding diathesis LYMPHATIC: No palpable lymphadenopathy. HEAD: Normocephalic, atraumatic, no tenderness. EYES: Pupils equal reactive to light and accommodation, full extraocular movements, sclera clear, non-icteric, no discharge. EARS/NOSE AND THROAT: Ears normal, nose normal, oropharynx normal, oral membranes well hydrated without lesions. NECK: Supple, no masses, thyroid normal, JVP within normal limits, carotids normal without bruits. CHEST: Inspection within normal limits. CARDIOVASCULAR: Heart: Regular rate and rhythm, no murmurs, gallops or rubs. Peripheral pulses present within normal limits, no cyanosis, clubbing or edemas. No pulsatile abdominal mass RESPIRATORY: Lungs clear to auscultation and percussion, no wheezing, no rubs GASTROINTESTINAL AND LIVER: Abdomen: Soft, upper abdominal tenderness, non- distended, no hernias, no masses, no organomegaly, ascites, no guarding, no rebound tenderness, normoactive bowel sounds. Rectal: Deferred. GENITOURINARY: Female genitalia within normal limits. EXTREMITIES: No cyanosis, clubbing or edema. Result Diagram: 08/03/18 0747 08/03/18 0747 Results 24hrs Laboratory Tests Test 08/02/18 14:15 08/02/18 14:46 08/02/18 18:54 08/02/18 21:14 White Blood Count 11.5 H Red Blood Count 2.26 #L Hemoglobin 7.1 #L Hematocrit 23.8 #L Mean Corpuscular Volume 105.3 H Mean Corpuscular 31.4 Hemoglobin Mean Corpuscular 29.8 L Hemoglobin Concent Red Cell Distribution 25.2 #H Width Platelet Count 34 #L Mean Platelet Volume 14.1 H Immature Granulocytes % 0.600 H Neutrophils % Segmented Neutrophils 95 H % (Manual) Lymphocytes % Lymphocytes % (Manual) 2 L Monocytes % Monocytes % (Manual) 3 Eosinophils % Basophils % Nucleated Red Blood 0.3 H Cells % Immature Granulocytes # 0.070 H Neutrophils # Lymphocytes (Manual) 0.2 L Lymphocytes # Monocytes # Monocytes # (Manual) 0.3 Eosinophils # Basophils # Nucleated Red Blood Cells # Platelet Estimate DECREASED Giant Platelets 3 H Polychromasia 2+ Hypochromasia 1+ Anisocytosis 2+ Macrocytosis 2+ Prothrombin Time 18.1 H Prothrombin Time Ratio 1.4 INR International 1.49 Normalized Ratio Activated 36.4 H Partial Thromboplast Time Sodium Level 137 Potassium Level 4.8 Chloride Level 100 Carbon Dioxide Level 16 L Anion Gap 21 H Blood Urea Nitrogen 38 H Creatinine 4.23 H Est Glomerular Filtrat 11 L Rate mL/min Glucose Level 180 Calcium Level 9.3 Total Bilirubin 0.5 Direct Bilirubin 0.00 Indirect Bilirubin 0.5 Aspartate Amino 22 Transf (AST/SGOT) Alanine < 6 L Aminotransferase (ALT/SG PT) Alkaline Phosphatase 128 H Troponin I < 0.012 Total Protein 7.3 Albumin 2.8 L Globulin 4.50 H Albumin/Globulin Ratio 0.62 Amylase Level 44 Lipase 73 Ammonia < 9 L Bedside Glucose 200 208 Test 08/03/18 01:28 08/03/18 06:43 08/03/18 07:47 08/03/18 09:37 Bedside Glucose 170 159 181 White Blood Count 12.1 H Red Blood Count 1.95 L Hemoglobin 6.2 *L Hematocrit 20.3 L Mean Corpuscular Volume 104.1 H Mean Corpuscular 31.8 Hemoglobin Mean Corpuscular 30.5 L Hemoglobin Concent Red Cell Distribution 24.6 H Width Platelet Count 34 L Mean Platelet Volume Immature Granulocytes % 0.400 Neutrophils % 90.8 H Lymphocytes % 4.4 L Monocytes % 3.7 Eosinophils % 0.5 Basophils % 0.2 Nucleated Red Blood 0.2 H Cells % Immature Granulocytes # 0.050 H Neutrophils # 11.0 H Lymphocytes # 0.5 L Monocytes # 0.5 Eosinophils # 0.1 Basophils # 0.0 Nucleated Red Blood 0.0 Cells # Prothrombin Time 18.7 H Prothrombin Time Ratio 1.5 INR International 1.55 Normalized Ratio Activated 39.1 H Partial Thromboplast Time Sodium Level 138 Potassium Level 4.3 Chloride Level 104 Carbon Dioxide Level 21 Anion Gap 13 # Blood Urea Nitrogen 48 H Creatinine 4.39 H Est Glomerular Filtrat 10 L Rate mL/min Glucose Level 154 Calcium Level 8.9 Magnesium Level 2.1 Total Bilirubin 0.3 Direct Bilirubin 0.00 Indirect Bilirubin 0.3 Aspartate Amino 19 Transf (AST/SGOT) Alanine 11 L Aminotransferase (ALT/SG PT) Alkaline Phosphatase 97 Total Protein 6.1 # Albumin 2.2 L Globulin 3.90 H Albumin/Globulin Ratio 0.56 Test 08/03/18 13:44 Bedside Glucose 140 CC: SOFYA PATRICK MD ; Exam/Review of Systems Exam Vitals Vital Signs Date Temp Pulse Resp B/P (MAP) Pulse Ox O2 O2 Flow FiO2 Time Delivery Rate 08/03/18 119 12:02 08/03/18 97.5 14 107/58 97 Nasal 11:10 (74) Cannula 08/02/18 2 14:21 Intake and Output 08/02/18 08/02/18 08/03/18 1515:00 23:00 07:00 IntakeIntake Total 0 ml BalanceBalance 0 ml Results Results 24hrs Laboratory Tests Test 08/02/18 14:15 08/02/18 14:46 08/02/18 18:54 08/02/18 21:14 White Blood Count 11.5 H Red Blood Count 2.26 #L Hemoglobin 7.1 #L Hematocrit 23.8 #L Mean Corpuscular Volume 105.3 H Mean Corpuscular 31.4 Hemoglobin Mean Corpuscular 29.8 L Hemoglobin Concent Red Cell Distribution 25.2 #H Width Platelet Count 34 #L Mean Platelet Volume 14.1 H Immature Granulocytes % 0.600 H Neutrophils % Segmented Neutrophils 95 H % (Manual) Lymphocytes % Lymphocytes % (Manual) 2 L Monocytes % Monocytes % (Manual) 3 Eosinophils % Basophils % Nucleated Red Blood 0.3 H Cells % Immature Granulocytes # 0.070 H Neutrophils # Lymphocytes (Manual) 0.2 L Lymphocytes # Monocytes # Monocytes # (Manual) 0.3 Eosinophils # Basophils # Nucleated Red Blood Cells # Platelet Estimate DECREASED Giant Platelets 3 H Polychromasia 2+ Hypochromasia 1+ Anisocytosis 2+ Macrocytosis 2+ Prothrombin Time 18.1 H Prothrombin Time Ratio 1.4 INR International 1.49 Normalized Ratio Activated 36.4 H Partial Thromboplast Time Sodium Level 137 Potassium Level 4.8 Chloride Level 100 Carbon Dioxide Level 16 L Anion Gap 21 H Blood Urea Nitrogen 38 H Creatinine 4.23 H Est Glomerular Filtrat 11 L Rate mL/min Glucose Level 180 Calcium Level 9.3 Total Bilirubin 0.5 Direct Bilirubin 0.00 Indirect Bilirubin 0.5 Aspartate Amino 22 Transf (AST/SGOT) Alanine < 6 L Aminotransferase (ALT/SG PT) Alkaline Phosphatase 128 H Troponin I < 0.012 Total Protein 7.3 Albumin 2.8 L Globulin 4.50 H Albumin/Globulin Ratio 0.62 Amylase Level 44 Lipase 73 Ammonia < 9 L Bedside Glucose 200 208 Test 08/03/18 01:28 08/03/18 06:43 08/03/18 07:47 08/03/18 09:37 Bedside Glucose 170 159 181 White Blood Count 12.1 H Red Blood Count 1.95 L Hemoglobin 6.2 *L Hematocrit 20.3 L Mean Corpuscular Volume 104.1 H Mean Corpuscular 31.8 Hemoglobin Mean Corpuscular 30.5 L Hemoglobin Concent Red Cell Distribution 24.6 H Width Platelet Count 34 L Mean Platelet Volume Immature Granulocytes % 0.400 Neutrophils % 90.8 H Lymphocytes % 4.4 L Monocytes % 3.7 Eosinophils % 0.5 Basophils % 0.2 Nucleated Red Blood 0.2 H Cells % Immature Granulocytes # 0.050 H Neutrophils # 11.0 H Lymphocytes # 0.5 L Monocytes # 0.5 Eosinophils # 0.1 Basophils # 0.0 Nucleated Red Blood 0.0 Cells # Prothrombin Time 18.7 H Prothrombin Time Ratio 1.5 INR International 1.55 Normalized Ratio Activated 39.1 H Partial Thromboplast Time Sodium Level 138 Potassium Level 4.3 Chloride Level 104 Carbon Dioxide Level 21 Anion Gap 13 # Blood Urea Nitrogen 48 H Creatinine 4.39 H Est Glomerular Filtrat 10 L Rate mL/min Glucose Level 154 Calcium Level 8.9 Magnesium Level 2.1 Total Bilirubin 0.3 Direct Bilirubin 0.00 Indirect Bilirubin 0.3 Aspartate Amino 19 Transf (AST/SGOT) Alanine 11 L Aminotransferase (ALT/SG PT) Alkaline Phosphatase 97 Total Protein 6.1 # Albumin 2.2 L Globulin 3.90 H Albumin/Globulin Ratio 0.56 Test 08/03/18 13:44 Bedside Glucose 140 Medications Medication Current Medications Fentanyl (Sublimaze) 50 mcg Q3H PRN IV SEVERE PAIN LEVEL 7-10 Last administered on 08/02/18at 14:56; Admin Dose 50 MCG; Start 08/02/18 at 15:00 Ondansetron HCl (Zofran Inj) 4 mg ER BRIDGE PRN IV NAUSEA/VOMITING; Start 08/02/18 at 15:00; Stop 08/03/18 at 14:59 Acetaminophen (Tylenol Tab) 650 mg ER BRIDGE PRN PO .MILD PAIN 1-3 OR TEMP; Start 08/02/18 at 15:00; Stop 08/03/18 at 14:59 Insulin Glargine (Lantus) 8 units QHS SC Last administered on 08/02/18at 21:24; Admin Dose 8 UNITS; Start 08/02/18 at 21:00 Lactulose (Enulose) 20 gm Q12 GTB ; Start 08/02/18 at 21:00 Midodrine (Proamatine) 10 mg TID PO ; Start 08/02/18 at 21:00 Multivit/Ca Carb/ B Cmplx/FA/Prenat (Brandie-Ledy) 1 tab DAILY PO ; Start 08/03/18 at 09:00 Pregabalin (Lyrica) 75 mg DAILY PO ; Start 08/03/18 at 09:00 Rifaximin (Xifaxan) 550 mg BID PO ; Start 08/02/18 at 21:00 Sevelamer Carbonate (Renvela) 0.8 gm WITH MEALS PO ; Start 08/02/18 at 18:00 Tramadol HCl (Ultram) 50 mg TID PRN PO PAIN 1-10/10; Start 08/02/18 at 17:30 Heparin Sodium (Porcine) (Heparin (1000 Units/ml)) 4,000 unit AFTER DIALYSIS CATHETER ; Start 08/02/18 at 19:00 Albumin Human 100 ml @ 100 mls/hr WITH DIALYSIS PRN IV SBP <90 DURING DIALYSIS; Start 08/02/18 at 19:00 Sodium Chloride (NS) -To prime the dialy... DIRECTED FOR HD PRN IV HD; Start 08/02/18 at 19:00 Pantoprazole (Protonix Iv) 40 mg BID@06,18 IV Last administered on 08/03/18at 05:20; Admin Dose 40 MG; Start 08/03/18 at 06:00 Miscellaneous Information (Pending Santyl Order For Wound Care) This patient marie... PRN PRN XX WOUND CARE; Start 08/02/18 at 20:30 Collagenase (Santyl) 1 applic DAILY TOP Last administered on 08/03/18at 09:40; Admin Dose 1 APPLIC; Start 08/02/18 at 20:30 Insulin Aspart (Novolog Insulin Pen) NOVOLOG *MILD* ALGORI... Q4 SC ; Start 08/03/18 at 09:00 Miscellaneous Information 1 ea NOTE XX ; Start 08/03/18 at 06:30 Glucose (Glutose) 15 gm Q15M PRN PO DECREASED GLUCOSE; Start 08/03/18 at 06:30 Glucose (Glutose) 22.5 gm Q15M PRN PO DECREASED GLUCOSE; Start 08/03/18 at 06:30 Dextrose (D50w Syringe) 25 ml Q15M PRN IV DECREASED GLUCOSE; Start 08/03/18 at 06:30 Dextrose (D50w Syringe) 50 ml Q15M PRN IV DECREASED GLUCOSE; Start 08/03/18 at 06:30 Glucagon (Glucagen) 1 mg Q15M PRN IM DECREASED GLUCOSE; Start 08/03/18 at 06:30 Glucose (Glutose) 15 gm Q15M PRN BUCCAL DECREASED GLUCOSE; Start 08/03/18 at 06:30 Morphine Sulfate (morphine) 2 mg Q4H PRN IV SEVERE PAIN LEVEL 7-10; Start 08/03/18 at 13:30 Lorazepam (Ativan) 1 mg Q8H PRN IV anixety; Start 08/03/18 at 13:30 KINGSLEY ZUNIGA NP Aug 03, 2018 14:06
[2018-08-03] MEDS ORDERED: LIDOCAINE/MYLANTA 40 ML BTL PO ONE (15:30)
[2018-08-03] MEDS: LORAZEPAM 2 MG INJ IV PRN (18:28)
[2018-08-03] MEDS: ALBUMIN HUMAN 25% 100 ML IV PRN (20:26)
[2018-08-03] MEDS: INSULIN GLARGINE [LANTus] (100 UNITS/ML) SYG SC SCH (21:00)
[2018-08-03] MEDS: BALSAM PERU/CASTOR OIL 60 GM TUBE TOP SCH (21:00)
[2018-08-03] MEDS ORDERED: LEVALBUTEROL (NEB) 1.25 MG/0.5 ML AMP HHN PRN (23:25)
[2018-08-03] MEDS ORDERED: LEVALBUTEROL (NEB) 1.25 MG/0.5 ML AMP ONE (23:29)
--- NOTE | 2018-08-03 23:47 | EN ---
Date/Time of Note Date/Time of Note DATE: 08/03/18 TIME: 23:47 Event Note Medicine Medicine Event Note MIXER OPERATOR [employer]OT METAL note MIXER OPERATOR [employer]AL was called at approximately 23:08 PM. MIXER OPERATOR [employer] was called as patient was noted to be in respiratory distress as well as hypoxic and hypertensive. Patient was seen and examined at the bedside. Patient appeared to be in acute respiratory distress. Patient had undergone dialysis earlier however it had to be finished early secondary to patient's blood pressure was not tolerating the dialysis. She did receive dialysis earlier along with 2 units of packed red blood cells as the patient was dealing with GI bleed. Patient was noted to have dry blood in her tongue. Oxygenation at the bedside was very difficult to obtain using multiple pulse ox monitors were the highest coming at around 87% on nonrebreather. Stat chest x-ray was ordered which did show almost complete whiteout of bilateral lungs. Vitals: Blood pressure: 120/68 heart rate 130s, respirations 27 satting 87% on nonrebreather. Temp 98 General: Patient in visible respiratory distress, pulling off her nonrebreather mask CVS: Sinus tachycardia Lungs: Bilateral rales/wheezing, coarse breath sounds, labored breathing Neuro: Alert and oriented x1 ABG: PH 7.4/CO2 38/O2 52/bicarb 24 Stat chest x-ray: Complete whiteout of bilateral lungs which looks worse from previous chest x-ray Assessment and plan: #1 Acute hypoxic respiratory failure: Stat breathing treatment of Xopenex, will transfer the patient to the ICU and put the patient on BiPAP. Stat CBC BMP and lactate acid level. Will call nephro to set up emergent dialysis as the patient does appear to be volume overloaded likely from her blood transfusions that she received secondary to her GI bleed. I did call the daughter and discussed the case with her and she will be arriving with her sisters to the ICU to see the patient and they will decide on further goals of care. Greater than 35 minutes of critical care time was spent on care management this patient. AMEYA SHETH Aug 03, 2018 23:47
[2018-08-04] VITALS (105 sets, daily range): BP systolic 66–138; BP diastolic 43–79; PULSE 99–154; RESP 24–40
[2018-08-04] MEDS ORDERED: LORAZEPAM 2 MG INJ IV ONE (00:30)
[2018-08-04] MEDS: INSULIN ASPART [NOVOLOG] 3 ML PEN SC SCH ×6 (01:00→21:02)
[2018-08-04] MEDS ORDERED: ALBUMIN HUMAN 25% 100 ML IV STA (01:48)
[2018-08-04] MEDS ORDERED: PHENYLephrine 20MG IN 250 ML 250 ML ONE (02:25)
--- NOTE | 2018-08-04 02:37 | QN ---
Documentation Comment Extensive discussion had with 3 daughters at the bedside. I did explain the patient's situation to the daughters. They understand that their mother is really sick. They would like to make her a DNR but okay to intubate. At the current time they would like to do dialysis and see if she would be able to tolerate it. They are also okay with getting a central line if needed. AMEYA SHETH Aug 04, 2018 02:37
[2018-08-04] MEDS: PHENYLephrine 80 MG in DEXTROSE 5% 242 ML IV SCH ×2 (02:46→07:39)
[2018-08-04] MEDS ORDERED: ALBUMIN HUMAN 25% 100 ML IV ONE (03:00)
[2018-08-04] MEDS ORDERED: LIDOCAINE 1% (MPF) 5 ML VIAL SC ONE (03:30)
[2018-08-04] MEDS: NORepinephrine 8MG/250 ML (PMX 250 ML IV SCH (04:37)
[2018-08-04] MEDS ORDERED: VANCOMYCIN IV PER PHARMACY XX SCH ×2 (05:00→11:00)
[2018-08-04] MEDS: ALBUMIN HUMAN 25% 100 ML IV PRN ×2 (06:00→08:15)
[2018-08-04] MEDS ORDERED: VANCOMYCIN 1 GM 250 ML IVPB ONE (07:00)
[2018-08-04] MEDS ORDERED: SUCCINYLCHOLINE CHLORIDE 100 MG/5 ML SYG IV ONE (07:00)
[2018-08-04] MEDS ORDERED: ETOMIDATE 20 MG INJ ONE (07:00)
[2018-08-04] MEDS: SEVELAMER CARBONATE 0.8 GM PKT PO SCH ×3 (07:35→17:54)
[2018-08-04] MEDS: LORAZEPAM 2 MG INJ IV PRN (08:35)
[2018-08-04] MEDS: PANTOPRAZOLE 40 MG INJ IV SCH ×2 (08:48→17:54)
[2018-08-04] MEDS: PIPER-TAZO 2.25 GM (PMX) 50 ML IVPB SCH ×3 (08:53→22:42)
[2018-08-04] MEDS: MIDODRINE 5 MG TAB PO SCH ×3 (08:57→20:48)
[2018-08-04] MEDS: LACTULOSE 30ML CUP GTB SCH ×4 (08:57→21:00)
[2018-08-04] MEDS: PREGABALIN 75 MG CAP PO SCH (08:57)
[2018-08-04] MEDS: MULTIVIT/CA CARB/B CMPLX/FA TAB PO SCH (08:57)
[2018-08-04] MEDS: RIFAXIMIN 550 MG TAB PO SCH (08:57)
[2018-08-04] MEDS: BALSAM PERU/CASTOR OIL 60 GM TUBE TOP SCH ×2 (09:08→21:10)
[2018-08-04] MEDS: COLLAGENASE 5 GM (UD JAR) TOP SCH (09:09)
[2018-08-04] MEDS ORDERED: DEXTROSE 5% 1,000 ML IV SCH (09:30)
[2018-08-04] MEDS ORDERED: FENTAnyl 50 MCG/ML VIAL IV ONE (10:30)
--- NOTE | 2018-08-04 10:39 | PN ---
Date/Time of Note Date/Time of Note DATE: 08/04/18 TIME: 10:30 Assessment/Plan VTE Prophylaxis Risk score (from Ns)>0 risk: 5 SCD applied (from [facility] [place]): Yes SCD contraindicated: low risk/ambulating Pharmacological prophylaxis: NA/contraindicated Pharm contraindication: bleeding Lines/Catheters IV Catheter Type (from [facility]): Intraosseous Central line still needed: Yes Urinary Cath still in place: No Assessment/Plan Hospital Course 57 yo female with h/o ESRD, cirrohsis, DMII recently discharged after hospitalization for SBP and salmonella bacteremia who returns with hematemasis and found to have PUD PULM Acute respiratory failure: - XR suggestive of pneumonia, she is now on broad spectrum antibiotics with vancomycin and zosyn - Intubation CV: Septic shock: - Vasopressors to MAP > 65 HEME: Thrombocytopenia: - Transfuse platelets PRN Acute blood loss anemia 2/2 bleeding peptic ulcer: - Transfuse PRN > Hgb 7 - IV PPI - Maintain NPO for now, pending GI clearance GI: Cirrhosis: - Continue lactulose and rifaxin - No varices on EGD today PUD: - IV PPI ENDO DMII: - Basal/bolus insulin Protein/calorie malnutrition: - Family again requesting enteral feedings, will discuss again tomorrow as currently NPO ESRD: - HD per Dr Pascual DNR. Poor prognosis. Again have offered hospice/palliative but daughters decli ne this Result Diagram: 08/03/18 2313 08/03/18 2313 Results 24hrs Laboratory Tests Test 08/03/18 13:44 08/03/18 18:01 08/03/18 20:51 08/03/18 23:13 Bedside Glucose 140 156 111 White Blood 13.1 H Count Red Blood Count 3.29 #L Hemoglobin 11.0 #L Hematocrit 33.5 #L Mean 101.8 H Corpuscular Volume Mean 33.4 H Corpuscular Hemoglobin Mean 32.8 Corpuscular Hemoglobin Conc ent Red Cell 20.1 H Distribution Width Platelet Count 38 L Mean Platelet 11.9 H Volume Immature 0.700 H Granulocytes % Neutrophils % Segmented 75 Neutrophils % (Manual) Band 19 H Neutrophils % (Manual) Lymphocytes % Lymphocytes % 4 L (Manual) Monocytes % Monocytes % 2 (Manual) Eosinophils % Basophils % Nucleated Red 0.2 H Blood Cells % Immature 0.090 H Granulocytes # Neutrophils # Neutrophils # 10.1 H (Manual) Band 2.4 H Neutrophils # Lymphocytes 0.5 L (Manual) Lymphocytes # Monocytes # Monocytes # 0.2 L (Manual) Eosinophils # Basophils # Nucleated Red Blood Cells # Platelet SIG DECREASED Estimate Giant Platelets 3 H Polychromasia 3+ Hypochromasia 1+ Poikilocytosis 1+ Anisocytosis 2+ Macrocytosis 2+ Sodium Level 144 Potassium Level 4.6 Chloride Level 105 Carbon Dioxide 26 Level Anion Gap 13 Blood Urea 23 #H Nitrogen Creatinine 2.36 #H Est Glomerular 21 L Filtrat Rate mL/min Glucose Level 110 # Calcium Level 9.1 Total Bilirubin 1.2 Direct 0.40 #H Bilirubin Indirect 0.8 Bilirubin Aspartate Amino 42 Transf (AST/SGO T) Alanine 13 Aminotransferas e (ALT/SGPT) Alkaline 111 Phosphatase Total Protein 7.7 # Albumin 3.2 #L Globulin 4.50 H Albumin/Globuli 0.71 n Ratio Test 08/03/18 23:20 08/04/18 01:00 08/04/18 01:24 08/04/18 03:38 Blood Gas Blood arterial Blood arterial Specimen Source Arterial Blood 08/03/2018 11:20: 08/04/2018 1:10: Date Drawn 53 PM 24 AM Arterial Blood 7.423 7.420 pH (Temp corrected ) Arterial Blood 38.4 38.4 pCO2 (Temp correct) Arterial Blood 52.5 *L 92.9 pO2 (Temp corrected ) Arterial Blood 24.5 24.3 HCO3 Arterial Blood 0.2 0 Base Excess Arterial Blood 87.2 L 97.1 Oxygen Saturati on Barrie Test ACCEPTAB ACCEPTAB Arterial Blood Right Radial Right Radial Gas Puncture Site Arterial 1.0 0.7 Blood Carboxyhe moglobin Arterial Blood 0.2 0.2 Methemoglobin Blood Gas A-a 622.1 H 581.7 H O2 Differential Oxyhemoglobin 86.2 L 96.2 Percent Blood Gas 37.0 37.0 Temperature Blood Gas MASK - NRB MASK - BIPAP Modality FiO2 100.0 100.0 Blood Gas Claude SHETH MD Critical Value Read Back Blood Gas MICHEAL BURTON Notified Whom Blood Gas 08/03/2018 11:34: 08/04/2018 1:19: Notified Time 36 PM 04 AM Blood Gas 16.0 Respiration Rate Blood Gas 25 Actual Respiration Rat e Blood Gas 10 Pressure Support Blood Gas 15/5 IPAP/EPAP Ratio Bedside Glucose 103 Lactic Acid 3.8 *H Level Test 08/04/18 05:29 08/04/18 09:00 08/04/18 09:17 08/04/18 10:00 Bedside Glucose 119 193 219 White Blood Pending Count Red Blood Count Pending Hemoglobin Pending Hematocrit Pending Mean Pending Corpuscular Volume Mean Pending Corpuscular Hemoglobin Mean Pending Corpuscular Hemoglobin Conc ent Red Cell Pending Distribution Width Platelet Count Pending Mean Platelet Pending Volume Subjective 24 Hr Interval Summary Free Text/Dictation The patient decompensated overnight, went into respiratory distress. XR showing diffuse patchy infiltrates b/l. Started on BIPAP and antibiotics. Now on two vasopressors via I/O line in shoulder. She was made DNR in accordance with family wishes Discussed with the patient's daughters at bedside that she is at advanced state of illness at baseline, and is now critically ill and unlikely to survive. I stated that intubation is necessary if we want to pursue aggressive care and I again offered alternative option of palliative care. They want to pursue every option to prolong life so agree to intubation. Exam/Review of Systems Exam Vitals Vital Signs Date Temp Pulse Resp B/P (MAP) Pulse Ox O2 O2 Flow FiO2 Time Delivery Rate 08/04/18 114 28 112/67 09:30 (82) 08/04/18 BIPAP 09:00 08/04/18 97.8 08:00 08/04/18 100 08:00 08/04/18 100 05:35 08/03/18 15.0 23:25 Intake and Output 08/03/18 08/03/18 08/04/18 1515:00 23:00 07:00 IntakeIntake Total 0 ml 416.85 ml OutputOutput Total 2000 ml 0 ml BalanceBalance -2000 ml 416.85 ml Exam Lethargic Tachypneic on BIPAP Accessory muscle use Dry oral mucosa + JVD Tachy, regular Rhoncorous Cachectic appearance Results Results 24hrs Laboratory Tests Test 08/03/18 13:44 08/03/18 18:01 08/03/18 20:51 08/03/18 23:13 Bedside Glucose 140 156 111 White Blood 13.1 H Count Red Blood Count 3.29 #L Hemoglobin 11.0 #L Hematocrit 33.5 #L Mean 101.8 H Corpuscular Volume Mean 33.4 H Corpuscular Hemoglobin Mean 32.8 Corpuscular Hemoglobin Conc ent Red Cell 20.1 H Distribution Width Platelet Count 38 L Mean Platelet 11.9 H Volume Immature 0.700 H Granulocytes % Neutrophils % Segmented 75 Neutrophils % (Manual) Band 19 H Neutrophils % (Manual) Lymphocytes % Lymphocytes % 4 L (Manual) Monocytes % Monocytes % 2 (Manual) Eosinophils % Basophils % Nucleated Red 0.2 H Blood Cells % Immature 0.090 H Granulocytes # Neutrophils # Neutrophils # 10.1 H (Manual) Band 2.4 H Neutrophils # Lymphocytes 0.5 L (Manual) Lymphocytes # Monocytes # Monocytes # 0.2 L (Manual) Eosinophils # Basophils # Nucleated Red Blood Cells # Platelet SIG DECREASED Estimate Giant Platelets 3 H Polychromasia 3+ Hypochromasia 1+ Poikilocytosis 1+ Anisocytosis 2+ Macrocytosis 2+ Sodium Level 144 Potassium Level 4.6 Chloride Level 105 Carbon Dioxide 26 Level Anion Gap 13 Blood Urea 23 #H Nitrogen Creatinine 2.36 #H Est Glomerular 21 L Filtrat Rate mL/min Glucose Level 110 # Calcium Level 9.1 Total Bilirubin 1.2 Direct 0.40 #H Bilirubin Indirect 0.8 Bilirubin Aspartate Amino 42 Transf (AST/SGO T) Alanine 13 Aminotransferas e (ALT/SGPT) Alkaline 111 Phosphatase Total Protein 7.7 # Albumin 3.2 #L Globulin 4.50 H Albumin/Globuli 0.71 n Ratio Test 08/03/18 23:20 08/04/18 01:00 08/04/18 01:24 08/04/18 03:38 Blood Gas Blood arterial Blood arterial Specimen Source Arterial Blood 08/03/2018 11:20: 08/04/2018 1:10: Date Drawn 53 PM 24 AM Arterial Blood 7.423 7.420 pH (Temp corrected ) Arterial Blood 38.4 38.4 pCO2 (Temp correct) Arterial Blood 52.5 *L 92.9 pO2 (Temp corrected ) Arterial Blood 24.5 24.3 HCO3 Arterial Blood 0.2 0 Base Excess Arterial Blood 87.2 L 97.1 Oxygen Saturati on Barrie Test ACCEPTAB ACCEPTAB Arterial Blood Right Radial Right Radial Gas Puncture Site Arterial 1.0 0.7 Blood Carboxyhe moglobin Arterial Blood 0.2 0.2 Methemoglobin Blood Gas A-a 622.1 H 581.7 H O2 Differential Oxyhemoglobin 86.2 L 96.2 Percent Blood Gas 37.0 37.0 Temperature Blood Gas MASK - NRB MASK - BIPAP Modality FiO2 100.0 100.0 Blood Gas Claude SHETH MD Critical Value Read Back Blood Gas MICHEAL MICHEAL Notified Whom Blood Gas 08/03/2018 11:34: 08/04/2018 1:19: Notified Time 36 PM 04 AM Blood Gas 16.0 Respiration Rate Blood Gas 25 Actual Respiration Rat e Blood Gas 10 Pressure Support Blood Gas 15/ IPAP/EPAP Ratio Bedside Glucose 103 Lactic Acid 3.8 *H Level Test 08/04/18 05:29 08/04/18 09:00 08/04/18 09:17 08/04/18 10:00 Bedside Glucose 119 193 219 White Blood Pending Count Red Blood Count Pending Hemoglobin Pending Hematocrit Pending Mean Pending Corpuscular Volume Mean Pending Corpuscular Hemoglobin Mean Pending Corpuscular Hemoglobin Conc ent Red Cell Pending Distribution Width Platelet Count Pending Mean Platelet Pending Volume Medications Medication Current Medications Fentanyl (Sublimaze) 50 mcg Q3H PRN IV SEVERE PAIN LEVEL 7-10 Last administered on 08/02/18at 14:56; Admin Dose 50 MCG; Start 08/02/18 at 15:00 Insulin Glargine (Lantus) 8 units QHS SC Last administered on 08/02/18at 21:24; Admin Dose 8 UNITS; Start 08/02/18 at 21:00 Lactulose (Enulose) 20 gm Q12 GTB ; Start 08/02/18 at 21:00 Midodrine (Proamatine) 10 mg TID PO ; Start 08/02/18 at 21:00 Multivit/Ca Carb/ B Cmplx/FA/Prenat (Brandie-Ledy) 1 tab DAILY PO ; Start 08/03/18 at 09:00 Pregabalin (Lyrica) 75 mg DAILY PO ; Start 08/03/18 at 09:00 Rifaximin (Xifaxan) 550 mg BID PO ; Start 08/02/18 at 21:00 Sevelamer Carbonate (Renvela) 0.8 gm WITH MEALS PO ; Start 08/02/18 at 18:00 Tramadol HCl (Ultram) 50 mg TID PRN PO PAIN 1-04/03; Start 08/02/18 at 17:30 Heparin Sodium (Porcine) (Heparin (1000 Units/ml)) 4,000 unit AFTER DIALYSIS CATHETER ; Start 08/02/18 at 19:00 Albumin Human 100 ml @ 100 mls/hr WITH DIALYSIS PRN IV SBP <90 DURING DIALYSIS Last administered on 08/04/18at 06:00; Admin Dose 100 MLS/HR; Start 08/02/18 at 19:00 Sodium Chloride (NS) -To prime the dialy... DIRECTED FOR HD PRN IV HD; Start 08/02/18 at 19:00 Pantoprazole (Protonix Iv) 40 mg BID@06,18 IV Last administered on 08/04/18at 08:48; Admin Dose 40 MG; Start 08/03/18 at 06:00 Miscellaneous Information (Pending Santyl Order For Wound Care) This patient marie... PRN PRN XX WOUND CARE; Start 08/02/18 at 20:30 Collagenase (Santyl) 1 applic DAILY TOP Last administered on 08/04/18at 09:09; Admin Dose 1 APPLIC; Start 08/02/18 at 20:30 Insulin Aspart (Novolog Insulin Pen) NOVOLOG *MILD* ALGORI... Q4 SC ; Start 08/03/18 at 09:00 Miscellaneous Information 1 ea NOTE XX ; Start 08/03/18 at 06:30 Glucose (Glutose) 15 gm Q15M PRN PO DECREASED GLUCOSE; Start 08/03/18 at 06:30 Glucose (Glutose) 22.5 gm Q15M PRN PO DECREASED GLUCOSE; Start 08/03/18 at 06:30 Dextrose (D50w Syringe) 25 ml Q15M PRN IV DECREASED GLUCOSE; Start 08/03/18 at 06:30 Dextrose (D50w Syringe) 50 ml Q15M PRN IV DECREASED GLUCOSE Last administered on 08/04/18at 08:41; Admin Dose 50 ML; Start 08/03/18 at 06:30 Glucagon (Glucagen) 1 mg Q15M PRN IM DECREASED GLUCOSE; Start 08/03/18 at 06:30 Glucose (Glutose) 15 gm Q15M PRN BUCCAL DECREASED GLUCOSE; Start 08/03/18 at 06:30 Morphine Sulfate (morphine) 2 mg Q4H PRN IV SEVERE PAIN LEVEL 7-10 Last administered on 08/03/18 20:11; Admin Dose 2 MG; Start 08/03/18 at 13:30 Lorazepam (Ativan) 1 mg Q8H PRN IV anixety Last administered on 08/04/18 08:35; Admin Dose 1 MG; Start 08/03/18 at 13:30 Levalbuterol (Xopenex Neb) 1.25 mg Q4H RESP THERAPY PRN HHN SHORTNESS OF BREATH; Start 08/03/18 at 23:25 Phenylephrine HCl 80 mg/Dextrose 250 ml @ 18.75 mls/ hr TITRATE IV Last administered on 08/04/18 07:39; Admin Dose 56.25 MLS/HR; Start 08/04/18 at 02:30 Norepinephrine 250 ml @ 1.875 mls/ hr TITRATE IV Last administered on 08/04/18 04:37; Admin Dose 1.875 MLS/HR; Start 08/04/18 at 04:00 Vancomycin HCl (Vanco Iv Per Pharmacy) VANCOMYCIN PER PHARMACY PER PROTOCOL XX ; Start 08/04/18 at 05:00 Piperacillin Sod/ Tazobactam Sod 50 ml @ 100 mls/hr Q8 IVPB Last administered on 08/04/18 08:53; Admin Dose 100 MLS/HR; Start 08/04/18 at 06:00 Dextrose 1,000 ml @ 50 mls/hr Q20H IV Last administered on 08/04/18 09:38; Admin Dose 50 MLS/HR; Start 08/04/18 at 09:30 REGINA ORNELAS MD Aug 04, 2018 10:39
--- NOTE | 2018-08-04 10:41 | CONS ---
Assessment/Plan Assessment/Plan Assessment/Plan (Daily) IMP: 1. Septic Shock 2. Multifocal pneumonia 3. Hypoxemic Resp Failure 4. UGIB 5. ESLD with numerous complications 6. ERSD on HD RECS: 1. Needs intubation 2. CV access 3. Broad spectrum abx 4. IVFs/colloids 5. Follow H/H and coags; replete as needed 6. PPI gtt +/- octreotide 7. Hydrocortisone 50 mg IV q6; vit C and thiamine 8. Lactulose and rifaxamin 9. May not tolerate HD; may need CRRT 10. Prognosis very poor; discussed in detail with family. 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 The patient was recently hospitalized and treated for spontaneous bacterial peritonitis. Patient was recently discharged. She is brought back in yesterday with complaints of changes in mental status and episodes of hematemesis/coffee-ground emesis. Over night noted to have multifocal pneumonia with increased oxygen requirements and bipap as well as 2 pressors. Subjective hx not possible: pt non-verbal Past Medical History Medical History: hypertension, other Home Meds Active Scripts Lactulose* (Lactulose*) 20 Gm/30 Ml Solution, 20 GM GTB Q12, #30 Prov:PATRICK LYONS 07/25/18 Rifaximin* (Xifaxan*) 550 Mg Tablet, 550 MG PO BID, #30 TAB Prov:PATRICK LYONS 07/25/18 Reported Medications Multivit/Ca Carb/B Cmplx/Fa* (Brandie-Ledy*) 1 Tab Tab, 1 TAB PO DAILY, TAB 08/02/18 Insulin Glargine* (Lantus*) 100 Unit/Ml Soln, 8 UNIT SC QHS, #1 VIAL 08/02/18 Docusate Sodium* (Colace*) 100 Mg Capsule, 100 MG PO BID, #60 CAP 06/08/18 Tramadol Hcl* (Ultram*) 50 Mg Tablet, 50 MG PO TID PRN for PAIN -04/03, TAB 06/08/18 Sevelamer Carbonate* (Renvela*) 800 Mg Tablet, 0.8 GM PO WITH MEALS, TAB 06/08/18 Pantoprazole* (Pantoprazole*) 40 Mg Tablet.dr, 40 MG PO AC BREAKFAST, TAB 06/08/18 Midodrine* (Midodrine*) 10 Mg Tablet, 10 MG PO TID, TAB HOLD FOR SBP>130 06/08/18 Pregabalin* (Lyrica*) 75 Mg Capsule, 75 MG PO DAILY, CAP 06/08/18 Discontinued Reported Medications Multivit/Ca Carb/B Cmplx/Fa* (Brandie-Ledy*) 1 Tab Tab, 1 TAB PO DAILY, TAB 06/08/18 Discontinued Scripts [Insulin Glargine] 100 UNITS/ML SOLN No Conflict Check, 8 UNITS SC DAILY@1999, #1 VIAL Prov:PATRICK LYONS 07/25/18 Insulin Aspart* (Novolog Insulin Pen*) 100 Unit/Ml Soln, 3 UNIT SC WITH MEALS, #1 VIAL Prov:PATRICK LYONS 07/25/18 Medications Current Medications Fentanyl (Sublimaze) 50 mcg Q3H PRN IV SEVERE PAIN LEVEL 7-10 Last administered on 08/02/18at 14:56; Admin Dose 50 MCG; Start 08/02/18 at 15:00 Insulin Glargine (Lantus) 8 units QHS SC Last administered on 08/02/18at 21:24; Admin Dose 8 UNITS; Start 08/02/18 at 21:00 Lactulose (Enulose) 20 gm Q12 GTB ; Start 08/02/18 at 21:00 Midodrine (Proamatine) 10 mg TID PO ; Start 08/02/18 at 21:00 Multivit/Ca Carb/ B Cmplx/FA/Prenat (Brandie-Ledy) 1 tab DAILY PO ; Start 08/03/18 at 09:00 Pregabalin (Lyrica) 75 mg DAILY PO ; Start 08/03/18 at 09:00 Rifaximin (Xifaxan) 550 mg BID PO ; Start 08/02/18 at 21:00 Sevelamer Carbonate (Renvela) 0.8 gm WITH MEALS PO ; Start 08/02/18 at 18:00 Tramadol HCl (Ultram) 50 mg TID PRN PO PAIN 1-04/03; Start 08/02/18 at 17:30 Heparin Sodium (Porcine) (Heparin (1000 Units/ml)) 4,000 unit AFTER DIALYSIS CA THETER ; Start 08/02/18 at 19:00 Albumin Human 100 ml @ 100 mls/hr WITH DIALYSIS PRN IV SBP <90 DURING DIALYSIS Last administered on 08/04/18at 06:00; Admin Dose 100 MLS/HR; Start 08/02/18 at 19:00 Sodium Chloride (NS) -To prime the dialy... DIRECTED FOR HD PRN IV HD; Start 08/02/18 at 19:00 Pantoprazole (Protonix Iv) 40 mg BID@06,18 IV Last administered on 08/04/18at 08:48; Admin Dose 40 MG; Start 08/03/18 at 06:00 Miscellaneous Information (Pending Santyl Order For Wound Care) This patient marie. .. PRN PRN XX WOUND CARE; Start 08/02/18 at 20:30 Collagenase (Santyl) 1 applic DAILY TOP Last administered on 08/04/18at 09:09; Admin Dose 1 APPLIC; Start 08/02/18 at 20:30 Insulin Aspart (Novolog Insulin Pen) NOVOLOG *MILD* ALGORI... Q4 SC ; Start 08/03/18 at 09:00 Miscellaneous Information 1 ea NOTE XX ; Start 08/03/18 at 06:30 Glucose (Glutose) 15 gm Q15M PRN PO DECREASED GLUCOSE; Start 08/03/18 at 06:30 Glucose (Glutose) 22.5 gm Q15M PRN PO DECREASED GLUCOSE; Start 08/03/18 at 06:30 Dextrose (D50w Syringe) 25 ml Q15M PRN IV DECREASED GLUCOSE; Start 08/03/18 at 06:30 Dextrose (D50w Syringe) 50 ml Q15M PRN IV DECREASED GLUCOSE Last administered on 08/04/18at 08:41; Admin Dose 50 ML; Start 08/03/18 at 06:30 Glucagon (Glucagen) 1 mg Q15M PRN IM DECREASED GLUCOSE; Start 08/03/18 at 06:30 Glucose (Glutose) 15 gm Q15M PRN BUCCAL DECREASED GLUCOSE; Start 08/03/18 at 06:30 Morphine Sulfate (morphine) 2 mg Q4H PRN IV SEVERE PAIN LEVEL 7-10 Last administered on 08/03/18at 20:11; Admin Dose 2 MG; Start 08/03/18 at 13:30 Lorazepam (Ativan) 1 mg Q8H PRN IV anixety Last administered on 08/04/18at 08 :35; Admin Dose 1 MG; Start 08/03/18 at 13:30 Levalbuterol (Xopenex Neb) 1.25 mg Q4H RESP THERAPY PRN HHN SHORTNESS OF BREATH; Start 08/03/18 at 23:25 Phenylephrine HCl 80 mg/Dextrose 250 ml @ 18.75 mls/ hr TITRATE IV Last administered on 08/04/18at 07:39; Admin Dose 56.25 MLS/HR; Start 08/04/18 at 02:30 Norepinephrine 250 ml @ 1.875 mls/ hr TITRATE IV Last administered on 08/04/18at 04:37; Admin Dose 1.875 MLS/HR; Start 08/04/18 at 04:00 Vancomycin HCl (Vanco Iv Per Pharmacy) VANCOMYCIN PER PHARMACY PER PROTOCOL XX ; Start 08/04/18 at 05:00 Piperacillin Sod/ Tazobactam Sod 50 ml @ 100 mls/hr Q8 IVPB Last administered on 08/04/18at 08:53; Admin Dose 100 MLS/HR; Start 08/04/18 at 06:00 Dextrose 1,000 ml @ 50 mls/hr Q20H IV Last administered on 08/04/18at 09:38; Admin Dose 50 MLS/HR; Start 08/04/18 at 09:30 Allergies: Coded Allergies: No Known Allergy (Unverified , 08/02/18) Past Surgical History Past Surgical Hx: no surgical history, other (LUE AVG) Social History Alcohol Use: none Smoking Status: Never smoker Drug Use: none Exam/Review of Systems Exam Vitals Vital Signs Date Temp Pulse Resp B/P (MAP) Pulse Ox O2 O2 Flow FiO2 Time Delivery Rate 08/04/18 114 28 112/67 09:30 (82) 08/04/18 BIPAP 09:00 08/04/18 97.8 08:00 08/04/18 100 08:00 08/04/18 100 05:35 08/03/18 15.0 23:25 Intake and Output 208/03/18 08/04/18 1515:00 23:00 07:00 IntakeIntake Total 0 ml 416.85 ml OutputOutput Total 2000 ml 0 ml BalanceBalance -2000 ml 416.85 ml Constitutional: non-verbal Head: normocephalic, atraumatic Eyes: nl conjunctiva, icteric ENMT: nl external ears & nose, nl lips & teeth, mucosa pink and moist Neck: supple, non-tender Respiratory: crackles/rales, diminished breath sounds, intercostal retraction, labored breathing Cardiovascular: regular rate and rhythm Gastrointestinal: soft, ascites Musculoskeletal: nl extremities to inspection Extremities: normal pulses Neurological: confused Results Result Diagram: 08/03/18 2313 08/03/18 2313 Results 24hrs Laboratory Tests Test 08/03/18 13:44 08/03/18 18:01 08/03/18 20:51 08/03/18 23:13 Bedside Glucose 140 156 111 White Blood 13.1 H Count Red Blood Count 3.29 #L Hemoglobin 11.0 #L Hematocrit 33.5 #L Mean 101.8 H Corpuscular Volume Mean 33.4 H Corpuscular Hemoglobin Mean 32.8 Corpuscular Hemoglobin Conc ent Red Cell 20.1 H Distribution Width Platelet Count 38 L Mean Platelet 11.9 H Volume Immature 0.700 H Granulocytes % Neutrophils % Segmented 75 Neutrophils % (Manual) Band 19 H Neutrophils % (Manual) Lymphocytes % Lymphocytes % 4 L (Manual) Monocytes % Monocytes % 2 (Manual) Eosinophils % Basophils % Nucleated Red 0.2 H Blood Cells % Immature 0.090 H Granulocytes # Neutrophils # Neutrophils # 10.1 H (Manual) Band 2.4 H Neutrophils # Lymphocytes 0.5 L (Manual) Lymphocytes # Monocytes # Monocytes # 0.2 L (Manual) Eosinophils # Basophils # Nucleated Red Blood Cells # Platelet SIG DECREASED Estimate Giant Platelets 3 H Polychromasia 3+ Hypochromasia 1+ Poikilocytosis 1+ Anisocytosis 2+ Macrocytosis 2+ Sodium Level 144 Potassium Level 4.6 Chloride Level 105 Carbon Dioxide 26 Level Anion Gap 13 Blood Urea 23 #H Nitrogen Creatinine 2.36 #H Est Glomerular 21 L Filtrat Rate mL/min Glucose Level 110 # Calcium Level 9.1 Total Bilirubin 1.2 Direct 0.40 #H Bilirubin Indirect 0.8 Bilirubin Aspartate Amino 42 Transf (AST/SGO T) Alanine 13 Aminotransferas e (ALT/SGPT) Alkaline 111 Phosphatase Total Protein 7.7 # Albumin 3.2 #L Globulin 4.50 H Albumin/Globuli 0.71 n Ratio Test 08/03/18 23:20 08/04/18 01:00 08/04/18 01:24 08/04/18 03:38 Blood Gas Blood arterial Blood arterial Specimen Source Arterial Blood 08/03/2018 11:20: 08/04/2018 1:10: Date Drawn 53 PM 24 AM Arterial Blood 7.423 7.420 pH (Temp corrected ) Arterial Blood 38.4 38.4 pCO2 (Temp correct) Arterial Blood 52.5 *L 92.9 pO2 (Temp corrected ) Arterial Blood 24.5 24.3 HCO3 Arterial Blood 0.2 0 Base Excess Arterial Blood 87.2 L 97.1 Oxygen Saturati on Barrie Test ACCEPTAB ACCEPTAB Arterial Blood Right Radial Right Radial Gas Puncture Site Arterial 1.0 0.7 Blood Carboxyhe moglobin Arterial Blood 0.2 0.2 Methemoglobin Blood Gas A-a 622.1 H 581.7 H O2 Differential Oxyhemoglobin 86.2 L 96.2 Percent Blood Gas 37.0 37.0 Temperature Blood Gas MASK - NRB MASK - BIPAP Modality FiO2 100.0 100.0 Blood Gas Claude SHETH MD Critical Value Read Back Blood Gas MICHEAL BURTON Notified Whom Blood Gas 08/03/2018 11:34: 08/04/2018 1:19: Notified Time 36 PM 04 AM Blood Gas 16.0 Respiration Rate Blood Gas 25 Actual Respiration Rat e Blood Gas 10 Pressure Support Blood Gas 15/5 IPAP/EPAP Ratio Bedside Glucose 103 Lactic Acid 3.8 *H Level Test 08/04/18 05:29 08/04/18 09:00 08/04/18 09:17 08/04/18 10:00 Bedside Glucose 119 193 219 White Blood Pending Count Red Blood Count Pending Hemoglobin Pending Hematocrit Pending Mean Pending Corpuscular Volume Mean Pending Corpuscular Hemoglobin Mean Pending Corpuscular Hemoglobin Conc ent Red Cell Pending Distribution Width Platelet Count Pending Mean Platelet Pending Volume Medications Medication Current Medications Fentanyl (Sublimaze) 50 mcg Q3H PRN IV SEVERE PAIN LEVEL 7-10 Last administered on 08/02/18at 14:56; Admin Dose 50 MCG; Start 08/02/18 at 15:00 Insulin Glargine (Lantus) 8 units QHS SC Last administered on 08/02/18at 21:24; Admin Dose 8 UNITS; Start 08/02/18 at 21:00 Lactulose (Enulose) 20 gm Q12 GTB ; Start 08/02/18 at 21:00 Midodrine (Proamatine) 10 mg TID PO ; Start 08/02/18 at 21:00 Multivit/Ca Carb/ B Cmplx/FA/Prenat (Brandie-Ledy) 1 tab DAILY PO ; Start 08/03/18 at 09:00 Pregabalin (Lyrica) 75 mg DAILY PO ; Start 08/03/18 at 09:00 Rifaximin (Xifaxan) 550 mg BID PO ; Start 08/02/18 at 21:00 Sevelamer Carbonate (Renvela) 0.8 gm WITH MEALS PO ; Start 08/02/18 at 18:00 Tramadol HCl (Ultram) 50 mg TID PRN PO PAIN -04/03; Start 08/02/18 at 17:30 Heparin Sodium (Porcine) (Heparin (1000 Units/ml)) 4,000 unit AFTER DIALYSIS CATHETER ; Start 08/02/18 at 19:00 Albumin Human 100 ml @ 100 mls/hr WITH DIALYSIS PRN IV SBP <90 DURING DIALYSIS Last administered on 08/04/18at 06:00; Admin Dose 100 MLS/HR; Start 08/02/18 at 19:00 Sodium Chloride (NS) -To prime the dialy... DIRECTED FOR HD PRN IV HD; Start 08/02/18 at 19:00 Pantoprazole (Protonix Iv) 40 mg BID@06,18 IV Last administered on 08/04/18at 08:48; Admin Dose 40 MG; Start 08/03/18 at 06:00 Miscellaneous Information (Pending Santyl Order For Wound Care) This patient marie... PRN PRN XX WOUND CARE; Start 08/02/18 at 20:30 Collagenase (Santyl) 1 applic DAILY TOP Last administered on 08/04/18at 09:09; Admin Dose 1 APPLIC; Start 08/02/18 at 20:30 Insulin Aspart (Novolog Insulin Pen) NOVOLOG *MILD* ALGORI... Q4 SC ; Start 08/03/18 at 09:00 Miscellaneous Information 1 ea NOTE XX ; Start 08/03/18 at 06:30 Glucose (Glutose) 15 gm Q15M PRN PO DECREASED GLUCOSE; Start 08/03/18 at 06:30 Glucose (Glutose) 22.5 gm Q15M PRN PO DECREASED GLUCOSE; Start 08/03/18 at 06:30 Dextrose (D50w Syringe) 25 ml Q15M PRN IV DECREASED GLUCOSE; Start 08/03/18 at 06:30 Dextrose (D50w Syringe) 50 ml Q15M PRN IV DECREASED GLUCOSE Last administered on 08/04/18at 08:41; Admin Dose 50 ML; Start 08/03/18 at 06:30 Glucagon (Glucagen) 1 mg Q15M PRN IM DECREASED GLUCOSE; Start 08/03/18 at 06:30 Glucose (Glutose) 15 gm Q15M PRN BUCCAL DECREASED GLUCOSE; Start 08/03/18 at 06:30 Morphine Sulfate (morphine) 2 mg Q4H PRN IV SEVERE PAIN LEVEL 7-10 Last administered on 08/03/18at 20:11; Admin Dose 2 MG; Start 08/03/18 at 13:30 Lorazepam (Ativan) 1 mg Q8H PRN IV anixety Last administered on 08/04/18at 08:35; Admin Dose 1 MG; Start 08/03/18 at 13:30 Levalbuterol (Xopenex Neb) 1.25 mg Q4H RESP THERAPY PRN HHN SHORTNESS OF BREATH; Start 08/03/18 at 23:25 Phenylephrine HCl 80 mg/Dextrose 250 ml @ 18.75 mls/ hr TITRATE IV Last administered on 08/04/18at 07:39; Admin Dose 56.25 MLS/HR; Start 08/04/18 at 02:30 Norepinephrine 250 ml @ 1.875 mls/ hr TITRATE IV Last administered on 08/04/18at 04:37; Admin Dose 1.875 MLS/HR; Start 08/04/18 at 04:00 Vancomycin HCl (Vanco Iv Per Pharmacy) VANCOMYCIN PER PHARMACY PER PROTOCOL XX ; Start 08/04/18 at 05:00 Piperacillin Sod/ Tazobactam Sod 50 ml @ 100 mls/hr Q8 IVPB Last administered on 08/04/18at 08:53; Admin Dose 100 MLS/HR; Start 08/04/18 at 06:00 Dextrose 1,000 ml @ 50 mls/hr Q20H IV Last administered on 08/04/18at 09:38; Admin Dose 50 MLS/HR; Start 08/04/18 at 09:30 LOLI COBOS MD Aug 04, 2018 10:41
[2018-08-04] MEDS ORDERED: ALBUMIN HUMAN 25% 50 ML IV ONE (11:00)
--- NOTE | 2018-08-04 11:02 | EN ---
Date/Time of Note Date/Time of Note DATE: 08/04/18 TIME: 11:02 Event Note Medicine Medicine Event Note PROCEDURE: intubation INDICATION: respiratory failure and septic shock PROCEDURE CULTURE MEDIA LABORATORY ASSISTANT: Katelynn CONSENT: Consent was implied due to the emergent nature of the procedure. MEDS: Fentanyl 50 mcg IV Etomidate 10 mg IV Succinylcholine 60 mg IV PROCEDURE SUMMARY: The patient was placed on 1.0 FiO2 via BiPAP. Upon induction of anesthesia, a grade II view was noted. Using a MAC 3 blade on a Weatherly fiberoptic laryngoscope, a 7.5 ET tube was advanced past the vocal cords and secured at 21 cm at lips. Cuff inflated. Maintained SpO2 above 95% at all times. +ET CO2 and bilateral breath sounds. ESTIMATED BLOOD LOSS: None LOLI COBOS MD Aug 04, 2018 11:02
--- NOTE | 2018-08-04 11:05 | EN ---
Date/Time of Note Date/Time of Note DATE: 08/04/18 TIME: 11:03 Event Note Medicine Medicine Event Note PROCEDURE: Fiberoptic-guided placement of orogastric tube. INDICATION: need for enteral access PROCEDURE BELT PUNCHER: Katelynn CONSENT: Consent was implied due to the emergent nature of the procedure. MEDS: See intubation note PROCEDURE SUMMARY: Upon induction of anesthesia following endotracheal intubation, the fiberoptic laryngoscope was used to direct the placement of a 14 F NG tube. Tube was secured at 50 cm. ESTIMATED BLOOD LOSS: None LOLI COBOS MD Aug 04, 2018 11:05
[2018-08-04] MEDS ORDERED: MIDAZOLAM 1 MG/ML 2 ML INJ ONE (11:24)
[2018-08-04] MEDS ORDERED: FENTAnyl (DRIP) 1000 mcg/100mL 100 ML IV SCH (11:30)
[2018-08-04] MEDS ORDERED: MIDAZOLAM 1 MG/ML 2 ML INJ IV ONE (11:30)
--- NOTE | 2018-08-04 12:03 | PRO ---
Date/Time of Note Date/Time of Note DATE: 08/04/18 TIME: 12:01 Femoral CV Placement PROCEDURE NOTE PROCEDURE: Femoral central venous catheter INDICATION: Need for intravenous access due to septic shock PROCEDURE SUBWAY CAR REPAIRER: Katelynn CONSENT: Consent was implied due to the emergent nature of the procedure. PROCEDURE SUMMARY: The patient was prepped and draped in the usual sterile manner. 1% lidocaine was used to numb the region. The vessel was localized using bedside U/S. The finder needle was used to locate the right femoral vein. A triple lumen 8.5 Nepali 20 cm catheter was inserted using the Seldinger technique. All ports aspirate and flushed without difficulty. The patient tolerated the procedure well without any immediate complications. The line was sutured into place and the area was cleaned and Tegaderm applied. ESTIMATED BLOOD LOSS: 2 ml LOLI COBOS MD Aug 04, 2018 12:03
[2018-08-04] MEDS: DEXMEDETOMIDINE HCL 200 MCG in SOD CHLORIDE 0.9% 48 ML IV SCH ×2 (12:28→18:59)
--- NOTE | 2018-08-04 12:59 | CONS ---
Assessment/Plan Assessment/Plan Assessment/Plan (Daily) DO NOT RESUSCITATE CODE status -Respirator distress- sp INTUBATED - cont ICU CARE - Pulmonary follows - pressors per PMD 1. ESRD on HD - MWF schedule , missed HD yesterday- will get HD; 1 unit PRBC 2. Upper GI bleeding variceal vs Non variceal bleeding 3. H/o Liver Cirrhosis 4. H/o HTN 5. Severe anemia duet to acute blood loss anemia 6. let basilar inftilrates with pleural effusion Plan: seen in ED< started on Protonix gtt for GI bleeding s/p GI consult in ED, plan for EGD to rule out variceal vs non variceal bleeding HD in TODAY with 2 units PRBC transfusion K normal, continue lasix will start epogen 6000 units TTS Consultation Date/Type/Reason Admit Date/Time Aug 02, 2018 at 15:01 Initial Consult Date 08/02/18 Type of Consult nephroloy Reason for Consultation ESRD Requesting Provider: REGINA ORNELAS MD Date/Time of Note DATE: 08/04/18 TIME: 12:56 24 HR Interval Summary Free Text/Dictation SP [employer] this morning. Cont ICU care; on pressors - sp intubation - will get central line today - HD today-2.5 L removed Subjective hx not possible: pt non-verbal Constitutional: requiring IVF, requiring O2 Exam/Review of Systems Exam Vitals Vital Signs Date Temp Pulse Resp B/P (MAP) Pulse Ox O2 O2 Flow FiO2 Time Delivery Rate 08/04/18 104 30 100 100 10:50 08/04/18 112/67 09:30 (82) 08/04/18 BIPAP 09:00 08/04/18 97.8 08:00 08/03/18 15.0 23:25 Intake and Output 08/03/18 08/03/18 08/04/18 1515:00 23:00 07:00 IntakeIntake Total 0 ml 416.85 ml OutputOutput Total 2000 ml 0 ml BalanceBalance -2000 ml 416.85 ml Constitutional: well developed, non-verbal Psych: nl mood/affect Eyes: nl lids ENMT: nl external ears & nose Neck: non-tender, other (ET tube intact) Respiratory: diminished breath sounds Cardiovascular: nl pulses Gastrointestinal: soft Musculoskeletal: nl extremities to inspection Results Result Diagram: 08/04/18 1000 08/04/18 1000 Results 24hrs Laboratory Tests Test 08/03/18 13:44 08/03/18 18:01 08/03/18 20:51 08/03/18 23:13 Bedside Glucose 140 156 111 White Blood 13.1 H Count Red Blood Count 3.29 #L Hemoglobin 11.0 #L Hematocrit 33.5 #L Mean 101.8 H Corpuscular Volume Mean 33.4 H Corpuscular Hemoglobin Mean 32.8 Corpuscular Hemoglobin Conc ent Red Cell 20.1 H Distribution Width Platelet Count 38 L Mean Platelet 11.9 H Volume Immature 0.700 H Granulocytes % Neutrophils % Segmented 75 Neutrophils % (Manual) Band 19 H Neutrophils % (Manual) Lymphocytes % Lymphocytes % 4 L (Manual) Monocytes % Monocytes % 2 (Manual) Eosinophils % Basophils % Nucleated Red 0.2 H Blood Cells % Immature 0.090 H Granulocytes # Neutrophils # Neutrophils # 10.1 H (Manual) Band 2.4 H Neutrophils # Lymphocytes 0.5 L (Manual) Lymphocytes # Monocytes # Monocytes # 0.2 L (Manual) Eosinophils # Basophils # Nucleated Red Blood Cells # Platelet SIG DECREASED Estimate Giant Platelets 3 H Polychromasia 3+ Hypochromasia 1+ Poikilocytosis 1+ Anisocytosis 2+ Macrocytosis 2+ Sodium Level 144 Potassium Level 4.6 Chloride Level 105 Carbon Dioxide 26 Level Anion Gap 13 Blood Urea 23 #H Nitrogen Creatinine 2.36 #H Est Glomerular 21 L Filtrat Rate mL/min Glucose Level 110 # Calcium Level 9.1 Total Bilirubin 1.2 Direct 0.40 #H Bilirubin Indirect 0.8 Bilirubin Aspartate Amino 42 Transf (AST/SGO T) Alanine 13 Aminotransferas e (ALT/SGPT) Alkaline 111 Phosphatase Total Protein 7.7 # Albumin 3.2 #L Globulin 4.50 H Albumin/Globuli 0.71 n Ratio Test 08/03/18 23:20 08/04/18 01:00 08/04/18 01:24 08/04/18 03:38 Blood Gas Blood arterial Blood arterial Specimen Source Arterial Blood 08/03/2018 11:20: 08/04/2018 1:10: Date Drawn 53 PM 24 AM Arterial Blood 7.423 7.420 pH (Temp corrected ) Arterial Blood 38.4 38.4 pCO2 (Temp correct) Arterial Blood 52.5 *L 92.9 pO2 (Temp corrected ) Arterial Blood 24.5 24.3 HCO3 Arterial Blood 0.2 0 Base Excess Arterial Blood 87.2 L 97.1 Oxygen Saturati on Barrie Test ACCEPTAB ACCEPTAB Arterial Blood Right Radial Right Radial Gas Puncture Site Arterial 1.0 0.7 Blood Carboxyhe moglobin Arterial Blood 0.2 0.2 Methemoglobin Blood Gas A-a 622.1 H 581.7 H O2 Differential Oxyhemoglobin 86.2 L 96.2 Percent Blood Gas 37.0 37.0 Temperature Blood Gas MASK - NRB MASK - BIPAP Modality FiO2 100.0 100.0 Blood Gas Claude SHETH MD Critical Value Read Back Blood Gas MICHEAL BURTON Notified Whom Blood Gas 08/03/2018 11:34: 08/04/2018 1:19: Notified Time 36 PM 04 AM Blood Gas 16.0 Respiration Rate Blood Gas 25 Actual Respiration Rat e Blood Gas 10 Pressure Support Blood Gas 15/5 IPAP/EPAP Ratio Bedside Glucose 103 Lactic Acid 3.8 *H Level Test 08/04/18 05:29 08/04/18 09:00 08/04/18 09:17 08/04/18 10:00 Bedside Glucose 119 193 219 White Blood 11.8 H Count Red Blood Count 2.91 L Hemoglobin 9.7 L Hematocrit 29.9 L Mean 102.7 H Corpuscular Volume Mean 33.3 H Corpuscular Hemoglobin Mean 32.4 Corpuscular Hemoglobin Conc ent Red Cell 20.8 H Distribution Width Platelet Count 29 #*L Mean Platelet 12.4 H Volume Immature 0.300 Granulocytes % Neutrophils % Segmented 84 H Neutrophils % (Manual) Band 13 H Neutrophils % (Manual) Lymphocytes % Lymphocytes % 1 L (Manual) Monocytes % Monocytes % 1 (Manual) Eosinophils % Basophils % Metamyelocytes 1 H % (manual) Nucleated Red 0.3 H Blood Cells % Immature 0.030 Granulocytes # Neutrophils # Neutrophils # 10.1 H (Manual) Band 1.5 H Neutrophils # Lymphocytes 0.1 L (Manual) Lymphocytes # Monocytes # Monocytes # 0.1 L (Manual) Eosinophils # Basophils # Metamyelocytes 0.1 H # Nucleated Red Blood Cells # Platelet SIG DECREASED Estimate Giant Platelets 4 H Polychromasia 3+ Anisocytosis 2+ Macrocytosis 2+ Sodium Level 142 Potassium Level 4.0 Chloride Level 100 Carbon Dioxide 24 Level Anion Gap 18 H Blood Urea 17 Nitrogen Creatinine 1.80 H Est Glomerular 29 L Filtrat Rate mL/min Glucose Level 204 Calcium Level 9.1 Total Bilirubin 2.5 H Direct 1.10 #H Bilirubin Indirect 1.4 H Bilirubin Aspartate Amino 41 Transf (AST/SGO T) Alanine 12 L Aminotransferas e (ALT/SGPT) Alkaline 84 Phosphatase Total Protein 7.1 Albumin 4.0 Globulin 3.10 Albumin/Globuli 1.29 n Ratio Test 08/04/18 10:51 Blood Gas Blood arterial Specimen Source Arterial Blood 08/04/2018 12:32 Date Drawn :01 PM Arterial Blood 7.453 H pH (Temp corrected ) Arterial Blood 34.5 L pCO2 (Temp correct) Arterial Blood 139.2 H pO2 (Temp corrected ) Arterial Blood 23.6 HCO3 Arterial Blood -0.1 Base Excess Arterial Blood 98.2 H Oxygen Saturati on Barrie Test ACCEPTAB Arterial Blood Right Radial Gas Puncture Site Arterial 0.5 Blood Carboxyhe moglobin Arterial Blood 0.1 Methemoglobin Blood Gas A-a 539.3 H O2 Differential Oxyhemoglobin 97.6 Percent Blood Gas 37.0 Temperature Blood Gas 30.0 Respiration Rate Blood Gas 30 Actual Respiration Rat e Blood Gas VENT - AC Modality FiO2 100.0 Blood Gas Tidal 350.0 Volume Blood Gas Low 5.0 PEEP Setting Blood Gas DT Notified Whom Blood Gas 08/04/2018 12:49 Notified Time :13 PM Medications Medication Current Medications Fentanyl (Sublimaze) 50 mcg Q3H PRN IV SEVERE PAIN LEVEL 7-10 Last administered on 08/02/18at 14:56; Admin Dose 50 MCG; Start 08/02/18 at 15:00 Insulin Glargine (Lantus) 8 units QHS SC Last administered on 08/02/18at 21:24; Admin Dose 8 UNITS; Start 08/02/18 at 21:00 Lactulose (Enulose) 20 gm Q12 GTB ; Start 08/02/18 at 21:00 Midodrine (Proamatine) 10 mg TID PO ; Start 08/02/18 at 21:00 Multivit/Ca Carb/ B Cmplx/FA/Prenat (Brandie-Ledy) 1 tab DAILY PO ; Start 08/03/18 at 09:00 Sevelamer Carbonate (Renvela) 0.8 gm WITH MEALS PO ; Start 08/02/18 at 18:00 Tramadol HCl (Ultram) 50 mg TID PRN PO PAIN 1-04/03; Start 08/02/18 at 17:30 Heparin Sodium (Porcine) (Heparin (1000 Units/ml)) 4,000 unit AFTER DIALYSIS CATHETER ; Start 08/02/18 at 19:00 Albumin Human 100 ml @ 100 mls/hr WITH DIALYSIS PRN IV SBP <90 DURING DIALYSIS Last administered on 08/04/18at 06:00; Admin Dose 100 MLS/HR; Start 08/02/18 at 19:00 Sodium Chloride (NS) -To prime the dialy... DIRECTED FOR HD PRN IV HD; Start 08/02/18 at 19:00 Pantoprazole (Protonix Iv) 40 mg BID@06,18 IV Last administered on 08/04/18at 08:48; Admin Dose 40 MG; Start 08/03/18 at 06:00 Miscellaneous Information (Pending Santyl Order For Wound Care) This patient marie... PRN PRN XX WOUND CARE; Start 08/02/18 at 20:30 Collagenase (Santyl) 1 applic DAILY TOP Last administered on 08/04/18at 09:09; Admin Dose 1 APPLIC; Start 08/02/18 at 20:30 Insulin Aspart (Novolog Insulin Pen) NOVOLOG *MILD* ALGORI... Q4 SC ; Start 08/03/18 at 09:00 Miscellaneous Information 1 ea NOTE XX ; Start 08/03/18 at 06:30 Glucose (Glutose) 15 gm Q15M PRN PO DECREASED GLUCOSE; Start 08/03/18 at 06:30 Glucose (Glutose) 22.5 gm Q15M PRN PO DECREASED GLUCOSE; Start 08/03/18 at 06:30 Dextrose (D50w Syringe) 25 ml Q15M PRN IV DECREASED GLUCOSE; Start 08/03/18 at 06:30 Dextrose (D50w Syringe) 50 ml Q15M PRN IV DECREASED GLUCOSE Last administered on 08/04/18at 08:41; Admin Dose 50 ML; Start 08/03/18 at 06:30 Glucagon (Glucagen) 1 mg Q15M PRN IM DECREASED GLUCOSE; Start 08/03/18 at 06:30 Glucose (Glutose) 15 gm Q15M PRN BUCCAL DECREASED GLUCOSE; Start 08/03/18 at 06:30 Morphine Sulfate (morphine) 2 mg Q4H PRN IV SEVERE PAIN LEVEL 7-10 Last administered on 08/03/18 20:11; Admin Dose 2 MG; Start 08/03/18 at 13:30 Lorazepam (Ativan) 1 mg Q8H PRN IV anixety Last administered on 08/04/18 08:35; Admin Dose 1 MG; Start 08/03/18 at 13:30 Levalbuterol (Xopenex Neb) 1.25 mg Q4H RESP THERAPY PRN HHN SHORTNESS OF BREATH; Start 08/03/18 at 23:25 Phenylephrine HCl 80 mg/Dextrose 250 ml @ 18.75 mls/ hr TITRATE IV Last administered on 08/04/18 07:39; Admin Dose 56.25 MLS/HR; Start 08/04/18 at 02:30 Norepinephrine 250 ml @ 1.875 mls/ hr TITRATE IV Last administered on 08/04/18a t 04:37; Admin Dose 1.875 MLS/HR; Start 08/04/18 at 04:00 Vancomycin HCl (Vanco Iv Per Pharmacy) VANCOMYCIN PER PHARMACY PER PROTOCOL XX ; Start 08/04/18 at 05:00 Piperacillin Sod/ Tazobactam Sod 50 ml @ 100 mls/hr Q8 IVPB Last administered on 08/04/18 08:53; Admin Dose 100 MLS/HR; Start 08/04/18 at 06:00 Dextrose 1,000 ml @ 50 mls/hr Q20H IV Last administered on 08/04/18 09:38; Admin Dose 50 MLS/HR; Start 08/04/18 at 09:30 Hydrocortisone (Solu-Cortef) 100 mg Q8 IV ; Start 08/04/18 at 14:00 Rifaximin (Xifaxan) 550 mg BID NGT ; Start 08/04/18 at 11:00 Lactulose (Enulose) 20 gm Q6 GTB ; Start 08/04/18 at 12:00 Fentanyl 100 ml @ 5 mls/hr TITRATE IV Last administered on 08/04/18 12:35; A dmin Dose 2.5 MLS/HR; Start 08/04/18 at 11:30 Dexmedetomidine HCl 200 mcg/ Sodium Chloride 50 ml @ 2.63 mls/hr TITRATE IV Last administered on 2/10/19at 12:28; Admin Dose 2.63 MLS/HR; Start 08/04/18 at 12:30 [place] [place] Aug 04, 2018 12:59
[2018-08-04] MEDS: RIFAXIMIN 550 MG TAB NGT SCH ×2 (13:06→20:48)
--- NOTE | 2018-08-04 13:40 | PN ---
Date/Time of Note Date/Time of Note DATE: 08/04/18 TIME: 13:03 Assessment/Plan VTE Prophylaxis Risk score (from Ns)>0 risk: 5 SCD applied (from Ns): Yes Pharmacological prophylaxis: NA/contraindicated Pharm contraindication: bleeding Lines/Catheters IV C[facility]ter Type (from [facility]): Intraosseous Central line still needed: Yes Urinary Cath still in place: No Assessment/Plan Assessment/Plan Assessment: Status post respiratory distress Upper GI bleeding. S/p EGD 08/02/18 - Atypical Duodenal Ulcer -GOO -Moderate diffuse gastritis -Severe erosive esophagitis Rule out variceal versus not variceal. Encephalopathy. Thrombocytopenia Liver cirrhosis d/t Hep C - treated. Constipation Recent episode of spontaneous bacterial peritonitis History of post necrotic cirrhosis. History of chronic renal failure. History of diabetes mellitus. Plan: Continue Protonix Monitor H and H Transfuse for Hgb less then 7.5 Patient seen in collaboration with Dr. Patrick Subjective: Patient went into respiratory distress, was transferred to ICU and intubated today. She is currently on pressors, sedated. No evidence of upper GI bleeding. No stool today. Hemoglobin today is 9.7. Continue observation. PHYSICAL EXAMINATION: GENERAL: Well developed, Poorly nourished, sedated, on the ventilator, intubated, in no acute distress SKIN: No lesions, + stigmata chronic liver disease, no evidence of bleeding diathesis LYMPHATIC: No palpable lymphadenopathy. HEAD: Normocephalic, atraumatic, no tenderness. EYES: Pupils equal reactive to light and accommodation, full extraocular movements, sclera clear, non-icteric, no discharge. EARS/NOSE AND THROAT: Ears normal, nose normal, oropharynx normal, oral membranes well hydrated without lesions. OG tube in place NECK: Supple, no masses, thyroid normal, JVP within normal limits, carotids normal without bruits. CHEST: Inspection within normal limits. CARDIOVASCULAR: Heart: Regular rate and rhythm, no murmurs, gallops or rubs. Peripheral pulses present within normal limits, no cyanosis, clubbing or edemas. No pulsatile abdominal mass RESPIRATORY: Lungs clear to auscultation and percussion, no wheezing, no rubs GASTROINTESTINAL AND LIVER: Abdomen: Soft, upper abdominal tenderness, non- distended, no hernias, no masses, no organomegaly, ascites, no guarding, no rebound tenderness, normoactive bowel sounds. Rectal: Deferred. GENITOURINARY: Female genitalia within normal limits. EXTREMITIES: No cyanosis, clubbing, lower extremities edema. Result Diagram: 08/04/18 1000 08/04/18 1000 Results 24hrs Laboratory Tests Test 08/03/18 13:44 08/03/18 18:01 08/03/18 20:51 08/03/18 23:13 Bedside Glucose 140 156 111 White Blood 13.1 H Count Red Blood Count 3.29 #L Hemoglobin 11.0 #L Hematocrit 33.5 #L Mean 101.8 H Corpuscular Volume Mean 33.4 H Corpuscular Hemoglobin Mean 32.8 Corpuscular Hemoglobin Conc ent Red Cell 20.1 H Distribution Width Platelet Count 38 L Mean Platelet 11.9 H Volume Immature 0.700 H Granulocytes % Neutrophils % Segmented 75 Neutrophils % (Manual) Band 19 H Neutrophils % (Manual) Lymphocytes % Lymphocytes % 4 L (Manual) Monocytes % Monocytes % 2 (Manual) Eosinophils % Basophils % Nucleated Red 0.2 H Blood Cells % Immature 0.090 H Granulocytes # Neutrophils # Neutrophils # 10.1 H (Manual) Band 2.4 H Neutrophils # Lymphocytes 0.5 L (Manual) Lymphocytes # Monocytes # Monocytes # 0.2 L (Manual) Eosinophils # Basophils # Nucleated Red Blood Cells # Platelet SIG DECREASED Estimate Giant Platelets 3 H Polychromasia 3+ Hypochromasia 1+ Poikilocytosis 1+ Anisocytosis 2+ Macrocytosis 2+ Sodium Level 144 Potassium Level 4.6 Chloride Level 105 Carbon Dioxide 26 Level Anion Gap 13 Blood Urea 23 #H Nitrogen Creatinine 2.36 #H Est Glomerular 21 L Filtrat Rate mL/min Glucose Level 110 # Calcium Level 9.1 Total Bilirubin 1.2 Direct 0.40 #H Bilirubin Indirect 0.8 Bilirubin Aspartate Amino 42 Transf (AST/SGO T) Alanine 13 Aminotransferas e (ALT/SGPT) Alkaline 111 Phosphatase Total Protein 7.7 # Albumin 3.2 #L Globulin 4.50 H Albumin/Globuli 0.71 n Ratio Test 08/03/18 23:20 08/04/18 01:00 08/04/18 01:24 08/04/18 03:38 Blood Gas Blood arterial Blood arterial Specimen Source Arterial Blood 08/03/2018 11:20: 08/04/2018 1:10: Date Drawn 53 PM 24 AM Arterial Blood 7.423 7.420 pH (Temp corrected ) Arterial Blood 38.4 38.4 pCO2 (Temp correct) Arterial Blood 52.5 *L 92.9 pO2 (Temp corrected ) Arterial Blood 24.5 24.3 HCO3 Arterial Blood 0.2 0 Base Excess Arterial Blood 87.2 L 97.1 Oxygen Saturati on Barrie Test ACCEPTAB ACCEPTAB Arterial Blood Right Radial Right Radial Gas Puncture Site Arterial 1.0 0.7 Blood Carboxyhe moglobin Arterial Blood 0.2 0.2 Methemoglobin Blood Gas A-a 622.1 H 581.7 H O2 Differential Oxyhemoglobin 86.2 L 96.2 Percent Blood Gas 37.0 37.0 Temperature Blood Gas MASK - NRB MASK - BIPAP Modality FiO2 100.0 100.0 Blood Gas Claude SHETH MD Critical Value Read Back Blood Gas MICHEAL BURTON Notified Whom Blood Gas 08/03/2018 11:34: 08/04/2018 1:19: Notified Time 36 PM 04 AM Blood Gas 16.0 Respiration Rate Blood Gas 25 Actual Respiration Rat e Blood Gas 10 Pressure Support Blood Gas 15/5 IPAP/EPAP Ratio Bedside Glucose 103 Lactic Acid 3.8 *H Level Test 08/04/18 05:29 08/04/18 09:00 08/04/18 09:17 08/04/18 10:00 Bedside Glucose 119 193 219 White Blood 11.8 H Count Red Blood Count 2.91 L Hemoglobin 9.7 L Hematocrit 29.9 L Mean 102.7 H Corpuscular Volume Mean 33.3 H Corpuscular Hemoglobin Mean 32.4 Corpuscular Hemoglobin Conc ent Red Cell 20.8 H Distribution Width Platelet Count 29 #*L Mean Platelet 12.4 H Volume Immature 0.300 Granulocytes % Neutrophils % Segmented 84 H Neutrophils % (Manual) Band 13 H Neutrophils % (Manual) Lymphocytes % Lymphocytes % 1 L (Manual) Monocytes % Monocytes % 1 (Manual) Eosinophils % Basophils % Metamyelocytes 1 H % (manual) Nucleated Red 0.3 H Blood Cells % Immature 0.030 Granulocytes # Neutrophils # Neutrophils # 10.1 H (Manual) Band 1.5 H Neutrophils # Lymphocytes 0.1 L (Manual) Lymphocytes # Monocytes # Monocytes # 0.1 L (Manual) Eosinophils # Basophils # Metamyelocytes 0.1 H # Nucleated Red Blood Cells # Platelet SIG DECREASED Estimate Giant Platelets 4 H Polychromasia 3+ Anisocytosis 2+ Macrocytosis 2+ Sodium Level 142 Potassium Level 4.0 Chloride Level 100 Carbon Dioxide 24 Level Anion Gap 18 H Blood Urea 17 Nitrogen Creatinine 1.80 H Est Glomerular 29 L Filtrat Rate mL/min Glucose Level 204 Calcium Level 9.1 Total Bilirubin 2.5 H Direct 1.10 #H Bilirubin Indirect 1.4 H Bilirubin Aspartate Amino 41 Transf (AST/SGO T) Alanine 12 L Aminotransferas e (ALT/SGPT) Alkaline 84 Phosphatase Total Protein 7.1 Albumin 4.0 Globulin 3.10 Albumin/Globuli 1.29 n Ratio Test 08/04/18 10:51 Blood Gas Blood arterial Specimen Source Arterial Blood 08/04/2018 12:32 Date Drawn :01 PM Arterial Blood 7.453 H pH (Temp corrected ) Arterial Blood 34.5 L pCO2 (Temp correct) Arterial Blood 139.2 H pO2 (Temp corrected ) Arterial Blood 23.6 HCO3 Arterial Blood -0.1 Base Excess Arterial Blood 98.2 H Oxygen Saturati on Barrie Test ACCEPTAB Arterial Blood Right Radial Gas Puncture Site Arterial 0.5 Blood Carboxyhe moglobin Arterial Blood 0.1 Methemoglobin Blood Gas A-a 539.3 H O2 Differential Oxyhemoglobin 97.6 Percent Blood Gas 37.0 Temperature Blood Gas 30.0 Respiration Rate Blood Gas 30 Actual Respiration Rat e Blood Gas VENT - AC Modality FiO2 100.0 Blood Gas Tidal 350.0 Volume Blood Gas Low 5.0 PEEP Setting Blood Gas DT Notified Whom Blood Gas 08/04/2018 12:49 Notified Time :13 PM CC: SOFYA PATRICK MD ; Exam/Review of Systems Exam Vitals Vital Signs Date Temp Pulse Resp B/P (MAP) Pulse Ox O2 O2 Flow FiO2 Time Delivery Rate 08/04/18 104 30 100 100 10:50 08/04/18 112/67 09:30 (82) 08/04/18 BIPAP 09:00 08/04/18 97.8 08:00 08/03/18 15.0 23:25 Intake and Output 08/03/18 08/03/18 08/04/18 1515:00 23:00 07:00 IntakeIntake Total 0 ml 416.85 ml OutputOutput Total 2000 ml 0 ml BalanceBalance -2000 ml 416.85 ml Results Results 24hrs Laboratory Tests Test 08/03/18 13:44 08/03/18 18:01 08/03/18 20:51 08/03/18 23:13 Bedside Glucose 140 156 111 White Blood 13.1 H Count Red Blood Count 3.29 #L Hemoglobin 11.0 #L Hematocrit 33.5 #L Mean 101.8 H Corpuscular Volume Mean 33.4 H Corpuscular Hemoglobin Mean 32.8 Corpuscular Hemoglobin Conc ent Red Cell 20.1 H Distribution Width Platelet Count 38 L Mean Platelet 11.9 H Volume Immature 0.700 H Granulocytes % Neutrophils % Segmented 75 Neutrophils % (Manual) Band 19 H Neutrophils % (Manual) Lymphocytes % Lymphocytes % 4 L (Manual) Monocytes % Monocytes % 2 (Manual) Eosinophils % Basophils % Nucleated Red 0.2 H Blood Cells % Immature 0.090 H Granulocytes # Neutrophils # Neutrophils # 10.1 H (Manual) Band 2.4 H Neutrophils # Lymphocytes 0.5 L (Manual) Lymphocytes # Monocytes # Monocytes # 0.2 L (Manual) Eosinophils # Basophils # Nucleated Red Blood Cells # Platelet SIG DECREASED Estimate Giant Platelets 3 H Polychromasia 3+ Hypochromasia 1+ Poikilocytosis 1+ Anisocytosis 2+ Macrocytosis 2+ Sodium Level 144 Potassium Level 4.6 Chloride Level 105 Carbon Dioxide 26 Level Anion Gap 13 Blood Urea 23 #H Nitrogen Creatinine 2.36 #H Est Glomerular 21 L Filtrat Rate mL/min Glucose Level 110 # Calcium Level 9.1 Total Bilirubin 1.2 Direct 0.40 #H Bilirubin Indirect 0.8 Bilirubin Aspartate Amino 42 Transf (AST/SGO T) Alanine 13 Aminotransferas e (ALT/SGPT) Alkaline 111 Phosphatase Total Protein 7.7 # Albumin 3.2 #L Globulin 4.50 H Albumin/Globuli 0.71 n Ratio Test 08/03/18 23:20 08/04/18 01:00 08/04/18 01:24 08/04/18 03:38 Blood Gas Blood arterial Blood arterial Specimen Source Arterial Blood 08/03/2018 11:20: 08/04/2018 1:10: Date Drawn 53 PM 24 AM Arterial Blood 7.423 7.420 pH (Temp corrected ) Arterial Blood 38.4 38.4 pCO2 (Temp correct) Arterial Blood 52.5 *L 92.9 pO2 (Temp corrected ) Arterial Blood 24.5 24.3 HCO3 Arterial Blood 0.2 0 Base Excess Arterial Blood 87.2 L 97.1 Oxygen Saturati on Barrie Test ACCEPTAB ACCEPTAB Arterial Blood Right Radial Right Radial Gas Puncture Site Arterial 1.0 0.7 Blood Carboxyhe moglobin Arterial Blood 0.2 0.2 Methemoglobin Blood Gas A-a 622.1 H 581.7 H O2 Differential Oxyhemoglobin 86.2 L 96.2 Percent Blood Gas 37.0 37.0 Temperature Blood Gas MASK - NRB MASK - BIPAP Modality FiO2 100.0 100.0 Blood Gas Claude SHETH MD Critical Value Read Back Blood Gas MICHEAL BURTON Notified Whom Blood Gas 08/03/2018 11:34: 08/04/2018 1:19: Notified Time 36 PM 04 AM Blood Gas 16.0 Respiration Rate Blood Gas 25 Actual Respiration Rat e Blood Gas 10 Pressure Support Blood Gas 15/5 IPAP/EPAP Ratio Bedside Glucose 103 Lactic Acid 3.8 *H Level Test 08/04/18 05:29 08/04/18 09:00 08/04/18 09:17 08/04/18 10:00 Bedside Glucose 119 193 219 White Blood 11.8 H Count Red Blood Count 2.91 L Hemoglobin 9.7 L Hematocrit 29.9 L Mean 102.7 H Corpuscular Volume Mean 33.3 H Corpuscular Hemoglobin Mean 32.4 Corpuscular Hemoglobin Conc ent Red Cell 20.8 H Distribution Width Platelet Count 29 #*L Mean Platelet 12.4 H Volume Immature 0.300 Granulocytes % Neutrophils % Segmented 84 H Neutrophils % (Manual) Band 13 H Neutrophils % (Manual) Lymphocytes % Lymphocytes % 1 L (Manual) Monocytes % Monocytes % 1 (Manual) Eosinophils % Basophils % Metamyelocytes 1 H % (manual) Nucleated Red 0.3 H Blood Cells % Immature 0.030 Granulocytes # Neutrophils # Neutrophils # 10.1 H (Manual) Band 1.5 H Neutrophils # Lymphocytes 0.1 L (Manual) Lymphocytes # Monocytes # Monocytes # 0.1 L (Manual) Eosinophils # Basophils # Metamyelocytes 0.1 H # Nucleated Red Blood Cells # Platelet SIG DECREASED Estimate Giant Platelets 4 H Polychromasia 3+ Anisocytosis 2+ Macrocytosis 2+ Sodium Level 142 Potassium Level 4.0 Chloride Level 100 Carbon Dioxide 24 Level Anion Gap 18 H Blood Urea 17 Nitrogen Creatinine 1.80 H Est Glomerular 29 L Filtrat Rate mL/min Glucose Level 204 Calcium Level 9.1 Total Bilirubin 2.5 H Direct 1.10 #H Bilirubin Indirect 1.4 H Bilirubin Aspartate Amino 41 Transf (AST/SGO T) Alanine 12 L Aminotransferas e (ALT/SGPT) Alkaline 84 Phosphatase Total Protein 7.1 Albumin 4.0 Globulin 3.10 Albumin/Globuli 1.29 n Ratio Test 08/04/18 10:51 Blood Gas Blood arterial Specimen Source Arterial Blood 08/04/2018 12:32 Date Drawn :01 PM Arterial Blood 7.453 H pH (Temp corrected ) Arterial Blood 34.5 L pCO2 (Temp correct) Arterial Blood 139.2 H pO2 (Temp corrected ) Arterial Blood 23.6 HCO3 Arterial Blood -0.1 Base Excess Arterial Blood 98.2 H Oxygen Saturati on Barrie Test ACCEPTAB Arterial Blood Right Radial Gas Puncture Site Arterial 0.5 Blood Carboxyhe moglobin Arterial Blood 0.1 Methemoglobin Blood Gas A-a 539.3 H O2 Differential Oxyhemoglobin 97.6 Percent Blood Gas 37.0 Temperature Blood Gas 30.0 Respiration Rate Blood Gas 30 Actual Respiration Rat e Blood Gas VENT - AC Modality FiO2 100.0 Blood Gas Tidal 350.0 Volume Blood Gas Low 5.0 PEEP Setting Blood Gas DT Notified Whom Blood Gas 08/04/2018 12:49 Notified Time :13 PM Medications Medication Current Medications Fentanyl (Sublimaze) 50 mcg Q3H PRN IV SEVERE PAIN LEVEL 7-10 Last administered on 08/02/18at 14:56; Admin Dose 50 MCG; Start 08/02/18 at 15:00 Insulin Glargine (Lantus) 8 units QHS SC Last administered on 08/02/18at 21:24; Admin Dose 8 UNITS; Start 08/02/18 at 21:00 Lactulose (Enulose) 20 gm Q12 GTB ; Start 08/02/18 at 21:00 Midodrine (Proamatine) 10 mg TID PO ; Start 08/02/18 at 21:00 Multivit/Ca Carb/ B Cmplx/FA/Prenat (Brandie-Ledy) 1 tab DAILY PO ; Start 08/03/18 at 09:00 Sevelamer Carbonate (Renvela) 0.8 gm WITH MEALS PO ; Start 08/02/18 at 18:00 Tramadol HCl (Ultram) 50 mg TID PRN PO PAIN 1-10/10; Start 08/02/18 at 17:30 Heparin Sodium (Porcine) (Heparin (1000 Units/ml)) 4,000 unit AFTER DIALYSIS CATHETER ; Start 08/02/18 at 19:00 Albumin Human 100 ml @ 100 mls/hr WITH DIALYSIS PRN IV SBP <90 DURING DIALYSIS Last administered on 08/04/18at 06:00; Admin Dose 100 MLS/HR; Start 08/02/18 at 19:00 Sodium Chloride (NS) -To prime the dialy... DIRECTED FOR HD PRN IV HD; Start 08/02/18 at 19:00 Pantoprazole (Protonix Iv) 40 mg BID@06,18 IV Last administered on 08/04/18at 08:48; Admin Dose 40 MG; Start 08/03/18 at 06:00 Miscellaneous Information (Pending Santyl Order For Wound Care) This patient marie... PRN PRN XX WOUND CARE; Start 08/02/18 at 20:30 Collagenase (Santyl) 1 applic DAILY TOP Last administered on 08/04/18at 09:09; Admin Dose 1 APPLIC; Start 08/02/18 at 20:30 Insulin Aspart (Novolog Insulin Pen) NOVOLOG *MILD* ALGORI... Q4 SC ; Start 08/03/18 at 09:00 Miscellaneous Information 1 ea NOTE XX ; Start 08/03/18 at 06:30 Glucose (Glutose) 15 gm Q15M PRN PO DECREASED GLUCOSE; Start 08/03/18 at 06:30 Glucose (Glutose) 22.5 gm Q15M PRN PO DECREASED GLUCOSE; Start 08/03/18 at 06:30 Dextrose (D50w Syringe) 25 ml Q15M PRN IV DECREASED GLUCOSE; Start 08/03/18 at 06:30 Dextrose (D50w Syringe) 50 ml Q15M PRN IV DECREASED GLUCOSE Last administered on 08/04/18at 08:41; Admin Dose 50 ML; Start 08/03/18 at 06:30 Glucagon (Glucagen) 1 mg Q15M PRN IM DECREASED GLUCOSE; Start 08/03/18 at 06:30 Glucose (Glutose) 15 gm Q15M PRN BUCCAL DECREASED GLUCOSE; Start 08/03/18 at 06:30 Morphine Sulfate (morphine) 2 mg Q4H PRN IV SEVERE PAIN LEVEL 7-10 Last administered on 08/03/18 20:11; Admin Dose 2 MG; Start 08/03/18 at 13:30 Lorazepam (Ativan) 1 mg Q8H PRN IV anixety Last administered on 08/04/18 08:35; Admin Dose 1 MG; Start 08/03/18 at 13:30 Levalbuterol (Xopenex Neb) 1.25 mg Q4H RESP THERAPY PRN HHN SHORTNESS OF BREATH; Start 08/03/18 at 23:25 Phenylephrine HCl 80 mg/Dextrose 250 ml @ 18.75 mls/ hr TITRATE IV Last administered on 08/04/18 07:39; Admin Dose 56.25 MLS/HR; Start 08/04/18 at 02:30 Norepinephrine 250 ml @ 1.875 mls/ hr TITRATE IV Last administered on 08/04/18 04:37; Admin Dose 1.875 MLS/HR; Start 08/04/18 at 04:00 Vancomycin HCl (Vanco Iv Per Pharmacy) VANCOMYCIN PER PHARMACY PER PROTOCOL XX ; Start 08/04/18 at 05:00 Piperacillin Sod/ Tazobactam Sod 50 ml @ 100 mls/hr Q8 IVPB Last administered on 08/04/18 08:53; Admin Dose 100 MLS/HR; Start 08/04/18 at 06:00 Dextrose 1,000 ml @ 50 mls/hr Q20H IV Last administered on 08/04/18 09:38; Admin Dose 50 MLS/HR; Start 08/04/18 at 09:30 Hydrocortisone (Solu-Cortef) 100 mg Q8 IV ; Start 08/04/18 at 14:00 Rifaximin (Xifaxan) 550 mg BID NGT ; Start 08/04/18 at 11:00 Lactulose (Enulose) 20 gm Q6 GTB ; Start 08/04/18 at 12:00 Fentanyl 100 ml @ 5 mls/hr TITRATE IV Last administered on 08/04/18 12:35; Admin Dose 2.5 MLS/HR; Start 08/04/18 at 11:30 Dexmedetomidine HCl 200 mcg/ Sodium Chloride 50 ml @ 2.63 mls/hr TITRATE IV Last administered on 08/04/18 12:28; Admin Dose 2.63 MLS/HR; Start 08/04/18 at 12:30 KINGSLEY ZUNIGA [employer] Aug 04, 2018 13:13
[2018-08-04] MEDS: HYDROCORTISONE 100 MG INJ IV SCH ×2 (14:18→22:42)
[2018-08-04] MEDS: INSULIN GLARGINE [LANTus] (100 UNITS/ML) SYG SC SCH (21:01)
[2018-08-04] MEDS: FENTAnyl (DRIP) 1000 mcg/100mL 100 ML IV SCH (21:31)
[2018-08-05] VITALS (116 sets, daily range): BP systolic 84–142; BP diastolic 44–70; PULSE 68–117; RESP 22–31
[2018-08-05] MEDS: LACTULOSE 30ML CUP GTB SCH ×5 (00:29→23:49)
[2018-08-05] MEDS: NORepinephrine 8MG/250 ML (PMX 250 ML IV SCH (00:31)
[2018-08-05] MEDS: INSULIN ASPART [NOVOLOG] 3 ML PEN SC SCH ×6 (01:33→22:20)
[2018-08-05] MEDS: DEXMEDETOMIDINE HCL 200 MCG in SOD CHLORIDE 0.9% 48 ML IV SCH ×3 (03:09→21:09)
[2018-08-05] MEDS: PIPER-TAZO 2.25 GM (PMX) 50 ML IVPB SCH ×3 (05:56→23:45)
[2018-08-05] MEDS: PANTOPRAZOLE 40 MG INJ IV SCH ×2 (05:56→18:03)
[2018-08-05] MEDS: HYDROCORTISONE 100 MG INJ IV SCH ×3 (05:56→22:00)
[2018-08-05] MEDS: ALBUMIN HUMAN 25% 100 ML IV SCH ×2 (05:57→07:33)
[2018-08-05] MEDS: FENTAnyl (DRIP) 1000 mcg/100mL 100 ML IV SCH ×2 (07:34→21:12)
[2018-08-05] MEDS: SEVELAMER CARBONATE 0.8 GM PKT PO SCH ×3 (09:44→18:01)
[2018-08-05] MEDS: MULTIVIT/CA CARB/B CMPLX/FA TAB PO SCH (09:45)
[2018-08-05] MEDS: RIFAXIMIN 550 MG TAB NGT SCH ×2 (09:45→22:25)
[2018-08-05] MEDS: MIDODRINE 5 MG TAB PO SCH ×3 (09:45→22:25)
[2018-08-05] MEDS: COLLAGENASE 5 GM (UD JAR) TOP SCH (09:46)
[2018-08-05] MEDS: BALSAM PERU/CASTOR OIL 60 GM TUBE TOP SCH ×2 (09:46→23:46)
--- NOTE | 2018-08-05 09:48 | CONS ---
Consult Date/Type/Reason Admit Date/Time Aug 02, 2018 at 15:01 Initial Consult Date 08/04/18 Type of Consult Pulmonary Requesting Provider: REGINA ORNELAS MD Date/Time of Note DATE: 08/05/18 TIME: 09:46 Subjective Patient comfortable this morning. No events remains intubated sedated on mechanical ventilation low-dose vasopressor support. FiO2 is 60%. Continues fentanyl Precedex and Levophed. Objective Vital Signs Date Temp Pulse Resp B/P (MAP) Pulse Ox O2 O2 Flow FiO2 Time Delivery Rate 08/05/18 93 28 103/53 100 08:45 (70) 08/05/18 [place] 08:30 l Ventilato r 08/05/18 70 08:17 08/05/18 100.0 08:00 08/03/18 15.0 23:25 Intake and Output 08/04/18 08/04/18 08/05/18 1515:00 23:00 07:00 IntakeIntake Total 561.640 ml 613.55 ml 550.58 ml OutputOutput Total 3000 ml 0 ml 0 ml BalanceBalance -2438.360 ml 613.55 ml 550.58 ml Exam GENERAL: Chronically ill-appearing lady orally intubated on mechanical ventilation VITAL SIGNS: per chart NECK: Supple. No JVD or lymphadenopathy. CARDIAC EXAM: S1, S2. No added sounds or murmurs. CHEST: Diminished air entry bilaterally with rales ABDOMEN: Soft, nontender. No guarding or rebound. EXTREMITIES: No cyanosis, clubbing or edema. NEUROLOGIC: Generalized weakness. No focal deficits. Vent Setting Ventilator Support Mode: AC, VC plus Fraction of Inspired Oxygen pe: 70 Positive End Expiratory Pressu: 5.0 Results/Medications Result Diagram: 08/05/18 0400 08/05/18 0400 Results 24 hrs Laboratory Tests Test 08/04/18 10:00 08/04/18 10:51 08/04/18 13:03 08/04/18 17:53 White Blood 11.8 H Count Red Blood Count 2.91 L Hemoglobin 9.7 L Hematocrit 29.9 L Mean 102.7 H Corpuscular Volume Mean 33.3 H Corpuscular Hemoglobin Mean 32.4 Corpuscular Hemoglobin Conc ent Red Cell 20.8 H Distribution Width Platelet Count 29 #*L Mean Platelet 12.4 H Volume Immature 0.300 Granulocytes % Neutrophils % Segmented 84 H Neutrophils % (Manual) Band 13 H Neutrophils % (Manual) Lymphocytes % Lymphocytes % 1 L (Manual) Monocytes % Monocytes % 1 (Manual) Eosinophils % Basophils % Metamyelocytes 1 H % (manual) Nucleated Red 0.3 H Blood Cells % Immature 0.030 Granulocytes # Neutrophils # Neutrophils # 10.1 H (Manual) Band 1.5 H Neutrophils # Lymphocytes 0.1 L (Manual) Lymphocytes # Monocytes # Monocytes # 0.1 L (Manual) Eosinophils # Basophils # Metamyelocytes 0.1 H # Nucleated Red Blood Cells # Platelet SIG DECREASED Estimate Giant Platelets 4 H Polychromasia 3+ Anisocytosis 2+ Macrocytosis 2+ Sodium Level 142 Potassium Level 4.0 Chloride Level 100 Carbon Dioxide 24 Level Anion Gap 18 H Blood Urea 17 Nitrogen Creatinine 1.80 H Est Glomerular 29 L Filtrat Rate mL/min Glucose Level 204 Calcium Level 9.1 Total Bilirubin 2.5 H Direct 1.10 #H Bilirubin Indirect 1.4 H Bilirubin Aspartate Amino 41 Transf (AST/SGO T) Alanine 12 L Aminotransferas e (ALT/SGPT) Alkaline 84 Phosphatase Total Protein 7.1 Albumin 4.0 Globulin 3.10 Albumin/Globuli 1.29 n Ratio Blood Gas Blood arterial Specimen Source Arterial Blood 08/04/2018 12:32 Date Drawn :01 PM Arterial Blood 7.453 H pH (Temp corrected ) Arterial Blood 34.5 L pCO2 (Temp correct) Arterial Blood 139.2 H pO2 (Temp corrected ) Arterial Blood 23.6 HCO3 Arterial Blood -0.1 Base Excess Arterial Blood 98.2 H Oxygen Saturati on Barrie Test ACCEPTAB Arterial Blood Right Radial Gas Puncture Site Arterial 0.5 Blood Carboxyhe moglobin Arterial Blood 0.1 Methemoglobin Blood Gas A-a 539.3 H O2 Differential Oxyhemoglobin 97.6 Percent Blood Gas 37.0 Temperature Blood Gas 30.0 Respiration Rate Blood Gas 30 Actual Respiration Rat e Blood Gas VENT - AC Modality FiO2 100.0 Blood Gas Tidal 350.0 Volume Blood Gas Low 5.0 PEEP Setting Blood Gas DT Notified Whom Blood Gas 08/04/2018 12:49 Notified Time :13 PM Bedside Glucose 184 222 H Test 08/04/18 20:57 08/05/18 01:31 08/05/18 04:00 08/05/18 04:54 Bedside Glucose 224 H 194 153 White Blood 14.1 H Count Red Blood Count 2.49 L Hemoglobin 8.3 L Hematocrit 25.8 L Mean 103.6 H Corpuscular Volume Mean 33.3 H Corpuscular Hemoglobin Mean 32.2 Corpuscular Hemoglobin Conc ent Red Cell 20.5 H Distribution Width Platelet Count 40 #L Mean Platelet 12.6 H Volume Immature 0.900 H Granulocytes % Neutrophils % Lymphocytes % Monocytes % Eosinophils % Basophils % Nucleated Red 0.2 H Blood Cells % Immature 0.120 H Granulocytes # Neutrophils # Lymphocytes # Monocytes # Eosinophils # Basophils # Nucleated Red Blood Cells # Prothrombin 26.4 #H Time Prothrombin 2.1 Time Ratio INR 2.42 International Normalized Rati o Activated 47.3 H Partial Thrombo plast Time Sodium Level 143 Potassium Level 4.0 Chloride Level 105 Carbon Dioxide 29 Level Anion Gap 9 # Blood Urea 23 H Nitrogen Creatinine 2.25 H Est Glomerular 22 L Filtrat Rate mL/min Glucose Level 150 Lactic Acid 6.4 *H Level Calcium Level 8.6 Total Bilirubin 1.4 H Direct 0.60 #H Bilirubin Indirect 0.8 Bilirubin Aspartate Amino 31 Transf (AST/SGO T) Alanine 8 L Aminotransferas e (ALT/SGPT) Alkaline 57 Phosphatase Ammonia 38 #H Total Protein 6.3 Albumin 3.0 #L Globulin 3.30 H Albumin/Globuli 0.90 n Ratio Test 08/05/18 05:00 08/05/18 05:14 08/05/18 08:00 Blood Gas Blood arterial Blood Specimen arterial Source Arterial Blood 08/05/2018 5:00: 08/05/2018 7:33 Date Drawn 15 AM :32 AM Arterial Blood 7.305 L 7.489 H pH (Temp corrected ) Arterial Blood 52.5 H 33.2 L pCO2 (Temp correct) Arterial Blood 75.3 L 92.7 pO2 (Temp corrected ) Arterial Blood 25.5 24.7 HCO3 Arterial Blood -1.2 1.4 Base Excess Arterial Blood 94.6 L 97.4 Oxygen Saturati on Barrie Test ACCEPTAB ACCEPTAB Arterial Blood Right Radial Right Radial Gas Puncture Site Arterial 0.9 0.8 Blood Carboxyhe moglobin Arterial Blood 0.6 0.6 Methemoglobin Blood Gas A-a 367.4 H 370.7 H O2 Differential Oxyhemoglobin 93.2 96.0 Percent Blood Gas 37.0 37.0 Temperature Blood Gas 28.0 28.0 Respiration Rate Blood Gas 28 28 Actual Respiration Rat e Blood Gas VENT - AC VENT - AC Modality FiO2 70.0 70.0 Blood Gas Tidal 300.0 400.0 Volume Blood Gas Low 5.0 5.0 PEEP Setting Blood Gas MA TM Notified Whom Blood Gas 08/05/2018 5:10: 08/05/2018 7:50 Notified Time 17 AM :08 AM Lab Scanned BLOOD TRANSFUSI Report ON Medications Current Medications Fentanyl (Sublimaze) 50 mcg Q3H PRN IV SEVERE PAIN LEVEL 7-10 Last administered on 08/02/18 14:56; Admin Dose 50 MCG; Start 08/02/18 at 15:00 Insulin Glargine (Lantus) 8 units QHS SC Last administered on 08/04/18 21:01; Admin Dose 8 UNITS; Start 08/02/18 at 21:00 Midodrine (Proamatine) 10 mg TID PO Last administered on 08/04/18 20:48; Admin Dose 10 MG; Start 08/02/18 at 21:00 Multivit/Ca Carb/ B Cmplx/FA/Prenat (Brandie-Ledy) 1 tab DAILY PO ; Start 08/03/18 at 09:00 Sevelamer Carbonate (Renvela) 0.8 gm WITH MEALS PO Last administered on 08/04/18 17:54; Admin Dose 0.8 GM; Start 08/02/18 at 18:00 Tramadol HCl (Ultram) 50 mg TID PRN PO PAIN 1-10/10; Start 08/02/18 at 17:30 Heparin Sodium (Porcine) (Heparin (1000 Units/ml)) 4,000 unit AFTER DIALYSIS CATHETER ; Start 08/02/18 at 19:00 Albumin Human 100 ml @ 100 mls/hr WITH DIALYSIS PRN IV SBP <90 DURING DIALYSIS Last administered on 08/04/18 06:00; Admin Dose 100 MLS/HR; Start 08/02/18 at 19:00 Sodium Chloride (NS) -To prime the dialy... DIRECTED FOR HD PRN IV HD; Start 08/02/18 at 19:00 Pantoprazole (Protonix Iv) 40 mg BID@06,18 IV Last administered on 08/05/18 05:56; Admin Dose 40 MG; Start 08/03/18 at 06:00 Miscellaneous Information (Pending Santyl Order For Wound Care) This patient marie... PRN PRN XX WOUND CARE; Start 08/02/18 at 20:30 Collagenase (Santyl) 1 applic DAILY TOP Last administered on 08/04/18at 09:09; Admin Dose 1 APPLIC; Start 08/02/18 at 20:30 Insulin Aspart (Novolog Insulin Pen) NOVOLOG *MILD* ALGORI... Q4 SC Last admin istered on 08/05/18at 04:56; Admin Dose 1 UNIT; Start 08/03/18 at 09:00 Miscellaneous Information 1 ea NOTE XX ; Start 08/03/18 at 06:30 Glucose (Glutose) 15 gm Q15M PRN PO DECREASED GLUCOSE; Start 08/03/18 at 06:30 Glucose (Glutose) 22.5 gm Q15M PRN PO DECREASED GLUCOSE; Start 08/03/18 at 06:30 Dextrose (D50w Syringe) 25 ml Q15M PRN IV DECREASED GLUCOSE; Start 08/03/18 at 06:30 Dextrose (D50w Syringe) 50 ml Q15M PRN IV DECREASED GLUCOSE Last administered on 08/04/18at 08:41; Admin Dose 50 ML; Start 08/03/18 at 06:30 Glucagon (Glucagen) 1 mg Q15M PRN IM DECREASED GLUCOSE; Start 08/03/18 at 06:30 Glucose (Glutose) 15 gm Q15M PRN BUCCAL DECREASED GLUCOSE; Start 08/03/18 at 06:30 Morphine Sulfate (morphine) 2 mg Q4H PRN IV SEVERE PAIN LEVEL 7-10 Last administered on 08/03/18at 20:11; Admin Dose 2 MG; Start 08/03/18 at 13:30 Lorazepam (Ativan) 1 mg Q8H PRN IV anixety Last administered on 08/04/18at 08:35; Admin Dose 1 MG; Start 08/03/18 at 13:30 Levalbuterol (Xopenex Neb) 1.25 mg Q4H RESP THERAPY PRN HHN SHORTNESS OF BREATH; Start 08/03/18 at 23:25 Phenylephrine HCl 80 mg/Dextrose 250 ml @ 18.75 mls/ hr TITRATE IV Last administered on 08/04/18at 07:39; Admin Dose 56.25 MLS/HR; Start 08/04/18 at 02:30 Norepinephrine 250 ml @ 1.875 mls/ hr TITRATE IV Last administered on 08/05/18at 00:31; Admin Dose 22.5 MLS/HR; Start 08/04/18 at 04:00 Vancomycin HCl (Vanco Iv Per Pharmacy) VANCOMYCIN PER PHARMACY PER PROTOCOL XX ; Start 08/04/18 at 05:00 Piperacillin Sod/ Tazobactam Sod 50 ml @ 100 mls/hr Q8 IVPB Last administered on 08/05/18at 05:56; Admin Dose 100 MLS/HR; Start 08/04/18 at 06:00 Hydrocortisone (Solu-Cortef) 100 mg Q8 IV Last administered on 08/05/18 05:56; Admin Dose 100 MG; Start 08/04/18 at 14:00 Rifaximin (Xifaxan) 550 mg BID NGT Last administered on 08/04/18at 20:48; Admin Dose 550 MG; Start 08/04/18 at 11:00 Lactulose (Enulose) 20 gm Q6 GTB Last administered on 08/05/18at 05:56; Admin Dose 20 GM; Start 08/04/18 at 12:00 Dexmedetomidine HCl 200 mcg/ Sodium Chloride 50 ml @ 2.63 mls/hr TITRATE IV Last administered on 08/05/18at 03:09; Admin Dose 6.56 MLS/HR; Start 08/04/18 at 12:30 Fentanyl 100 ml @ 5 mls/hr TITRATE IV Last administered on 08/05/18at 07:34; Admin Dose 10 MLS/HR; Start 08/04/18 at 16:00 Assessment/Plan Hospital Course (Demo Recall) Assessment/Plan (Daily) IMP: 1. Septic Shock 2. Multifocal pneumonia 3. Hypoxemic Resp Failure 4. UGIB 5. ESLD with numerous complications 6. ERSD on HD RECS: 1. Continue mechanical ventilation 2. Decrease vasopressors as tolerated 3. Broad spectrum abx 4. IVFs/colloids 5. Follow H/H and coags; replete as needed 6. PPI gtt +/- octreotide 7. Hydrocortisone 50 mg IV q6; vit C and thiamine 8. Lactulose and rifaxamin 9. May not tolerate HD; 10. Prognosis very poor; discussed in detail with family. 11. Start tube feeding as tolerated CODE STATUS DNR/DNI Critical care time 40 minutes. SEHLLY CHRISTIAN MD, [facility] Aug 05, 2018 09:48
--- NOTE | 2018-08-05 11:16 | CONS ---
Assessment/Plan Assessment/Plan Assessment/Plan (Daily) 1. acute hypoxemic resp failure intubaed on ventilator 2. ESRD on HD - MWF schedule , missed HD yesterday- will get HD; 1 unit PRBC 3. Upper GI bleeidng S/p EGD showing Peptic ulcer disease 4. septic shock on levophed 5. H/o Liver Cirrhosis 6. H/o HTN 7. let basilar inftilrates with pleural effusion Plan: Levophed for BP suppor pt remains intubated on ventilator FiO2 60, ventilator management as per pulmonary s/p HD today 1100ml removed, BP still labile will continue HD on MWF schedule DNR code status will follow up Consultation Date/Type/Reason Admit Date/Time Aug 02, 2018 at 15:01 Initial Consult Date 08/02/18 Type of Consult NEPHROLOGY Requesting Provider: REGINA ORNELAS MD Date/Time of Note DATE: 08/05/18 TIME: 11:16 24 HR Interval Summary Free Text/Dictation pt remains intubated, on FiO2 60%, BP stable,a febrile Exam/Review of Systems Exam Vitals Vital Signs Date Temp Pulse Resp B/P (MAP) Pulse Ox O2 O2 Flow FiO2 Time Delivery Rate 08/05/18 88 28 100/52 98 [place] 10:38 (68) l Ventilato r 08/05/18 70 08:17 08/05/18 100.0 08:00 08/03/18 15.0 23:25 Intake and Output 08/04/18 08/04/18 08/05/18 1515:00 23:00 07:00 IntakeIntake Total 561.640 ml 613.55 ml 550.58 ml OutputOutput Total 3000 ml 0 ml 0 ml BalanceBalance -2438.360 ml 613.55 ml 550.58 ml Results Result Diagram: 08/05/18 0400 08/05/18 0400 Results 24hrs Laboratory Tests Test 08/04/18 13:03 08/04/18 17:53 08/04/18 20:57 08/05/18 01:31 Bedside Glucose 184 222 H 224 H 194 Test 08/05/18 04:00 08/05/18 04:54 08/05/18 05:00 08/05/18 05:14 White Blood 14.1 H Count Red Blood Count 2.49 L Hemoglobin 8.3 L Hematocrit 25.8 L Mean 103.6 H Corpuscular Volume Mean 33.3 H Corpuscular Hemoglobin Mean 32.2 Corpuscular Hemoglobin Conc ent Red Cell 20.5 H Distribution Width Platelet Count 40 #L Mean Platelet 12.6 H Volume Immature 0.900 H Granulocytes % Neutrophils % Lymphocytes % Monocytes % Eosinophils % Basophils % Nucleated Red 0.2 H Blood Cells % Immature 0.120 H Granulocytes # Neutrophils # Lymphocytes # Monocytes # Eosinophils # Basophils # Nucleated Red Blood Cells # Prothrombin 26.4 #H Time Prothrombin 2.1 Time Ratio INR 2.42 International Normalized Rati o Activated 47.3 H Partial Thrombo plast Time Sodium Level 143 Potassium Level 4.0 Chloride Level 105 Carbon Dioxide 29 Level Anion Gap 9 # Blood Urea 23 H Nitrogen Creatinine 2.25 H Est Glomerular 22 L Filtrat Rate mL/min Glucose Level 150 Lactic Acid 6.4 *H Level Calcium Level 8.6 Total Bilirubin 1.4 H Direct 0.60 #H Bilirubin Indirect 0.8 Bilirubin Aspartate Amino 31 Transf (AST/SGO T) Alanine 8 L Aminotransferas e (ALT/SGPT) Alkaline 57 Phosphatase Ammonia 38 #H Total Protein 6.3 Albumin 3.0 #L Globulin 3.30 H Albumin/Globuli 0.90 n Ratio Bedside Glucose 153 Blood Gas Blood arterial Specimen Source Arterial Blood 08/05/2018 5:00: Date Drawn 15 AM Arterial Blood 7.305 L pH (Temp corrected ) Arterial Blood 52.5 H pCO2 (Temp correct) Arterial Blood 75.3 L pO2 (Temp corrected ) Arterial Blood 25.5 HCO3 Arterial Blood -1.2 Base Excess Arterial Blood 94.6 L Oxygen Saturati on Barrie Test ACCEPTAB Arterial Blood Right Radial Gas Puncture Site Arterial 0.9 Blood Carboxyhe moglobin Arterial Blood 0.6 Methemoglobin Blood Gas A-a 367.4 H O2 Differential Oxyhemoglobin 93.2 Percent Blood Gas 37.0 Temperature Blood Gas 28.0 Respiration Rate Blood Gas 28 Actual Respiration Rat e Blood Gas VENT - AC Modality FiO2 70.0 Blood Gas Tidal 300.0 Volume Blood Gas Low 5.0 PEEP Setting Blood Gas MA Notified Whom Blood Gas 08/05/2018 5:10: Notified Time 17 AM Lab Scanned BLOOD TRANSFUS Report ION Test 08/05/18 08:00 08/05/18 09:48 Blood Gas Blood arterial Specimen Source Arterial Blood 08/05/2018 7:33: Date Drawn 32 AM Arterial Blood 7.489 H pH (Temp corrected ) Arterial Blood 33.2 L pCO2 (Temp correct) Arterial Blood 92.7 pO2 (Temp corrected ) Arterial Blood 24.7 HCO3 Arterial Blood 1.4 Base Excess Arterial Blood 97.4 Oxygen Saturati on Barrie Test ACCEPTAB Arterial Blood Right Radial Gas Puncture Site Arterial 0.8 Blood Carboxyhe moglobin Arterial Blood 0.6 Methemoglobin Blood Gas A-a 370.7 H O2 Differential Oxyhemoglobin 96.0 Percent Blood Gas 37.0 Temperature Blood Gas 28.0 Respiration Rate Blood Gas 28 Actual Respiration Rat e Blood Gas VENT - AC Modality FiO2 70.0 Blood Gas Tidal 400.0 Volume Blood Gas Low 5.0 PEEP Setting Blood Gas TM Notified Whom Blood Gas 08/05/2018 7:50: Notified Time 08 AM Bedside Glucose 139 Medications Medication Current Medications Fentanyl (Sublimaze) 50 mcg Q3H PRN IV SEVERE PAIN LEVEL 7-10 Last administered on 08/02/18 14:56; Admin Dose 50 MCG; Start 08/02/18 at 15:00 Insulin Glargine (Lantus) 8 units QHS SC Last administered on 08/04/18 21:01; Admin Dose 8 UNITS; Start 08/02/18 at 21:00 Midodrine (Proamatine) 10 mg TID PO Last administered on 08/05/18 09:45; Admin Dose 10 MG; Start 08/02/18 at 21:00 Multivit/Ca Carb/ B Cmplx/FA/Prenat (Brandie-Ledy) 1 tab DAILY PO Last administered on 08/05/18 09:45; Admin Dose 1 TAB; Start 08/03/18 at 09:00 Sevelamer Carbonate (Renvela) 0.8 gm WITH MEALS PO Last administered on 07/26 09:44; Admin Dose 0.8 GM; Start 08/02/18 at 18:00 Tramadol HCl (Ultram) 50 mg TID PRN PO PAIN 1-10/10; Start 08/02/18 at 17:30 Heparin Sodium (Porcine) (Heparin (1000 Units/ml)) 4,000 unit AFTER DIALYSIS CATHETER ; Start 08/02/18 at 19:00 Albumin Human 100 ml @ 100 mls/hr WITH DIALYSIS PRN IV SBP <90 DURING DIALYSIS Last administered on 08/04/18 06:00; Admin Dose 100 MLS/HR; Start 08/02/18 at 19:00 Sodium Chloride (NS) -To prime the dialy... DIRECTED FOR HD PRN IV HD; Start 08/02/18 at 19:00 Pantoprazole (Protonix Iv) 40 mg BID@06,18 IV Last administered on 08/05/18 05:56; Admin Dose 40 MG; Start 08/03/18 at 06:00 Miscellaneous Information (Pending Santyl Order For Wound Care) This patient marie... PRN PRN XX WOUND CARE; Start 08/02/18 at 20:30 Collagenase (Santyl) 1 applic DAILY TOP Last administered on 08/05/18 09:46; Admin Dose 1 APPLIC; Start 08/02/18 at 20:30 Insulin Aspart (Novolog Insulin Pen) NOVOLOG *MILD* ALGORI... Q4 SC Last administered on 08/05/18 04:56; Admin Dose 1 UNIT; Start 08/03/18 at 09:00 Miscellaneous Information 1 ea NOTE XX ; Start 08/03/18 at 06:30 Glucose (Glutose) 15 gm Q15M PRN PO DECREASED GLUCOSE; Start 08/03/18 at 06:30 Glucose (Glutose) 22.5 gm Q15M PRN PO DECREASED GLUCOSE; Start 08/03/18 at 06:30 Dextrose (D50w Syringe) 25 ml Q15M PRN IV DECREASED GLUCOSE; Start 08/03/18 at 06:30 Dextrose (D50w Syringe) 50 ml Q15M PRN IV DECREASED GLUCOSE Last administered on 08/04/18at 08:41; Admin Dose 50 ML; Start 08/03/18 at 06:30 Glucagon (Glucagen) 1 mg Q15M PRN IM DECREASED GLUCOSE; Start 08/03/18 at 06:30 Glucose (Glutose) 15 gm Q15M PRN BUCCAL DECREASED GLUCOSE; Start 08/03/18 at 06:30 Morphine Sulfate (morphine) 2 mg Q4H PRN IV SEVERE PAIN LEVEL 7-10 Last administered on 08/03/18at 20:11; Admin Dose 2 MG; Start 08/03/18 at 13:30 Lorazepam (Ativan) 1 mg Q8H PRN IV anixety Last administered on 2/10/19at 08:35; Admin Dose 1 MG; Start 08/03/18 at 13:30 Levalbuterol (Xopenex Neb) 1.25 mg Q4H RESP THERAPY PRN HHN SHORTNESS OF BREATH; Start 08/03/18 at 23:25 Phenylephrine HCl 80 mg/Dextrose 250 ml @ 18.75 mls/ hr TITRATE IV Last administered on 08/04/18 07:39; Admin Dose 56.25 MLS/HR; Start 08/04/18 at 02:30 Norepinephrine 250 ml @ 1.875 mls/ hr TITRATE IV Last administered on 08/05/18 00:31; Admin Dose 22.5 MLS/HR; Start 08/04/18 at 04:00 Vancomycin HCl (Vanco Iv Per Pharmacy) VANCOMYCIN PER PHARMACY PER PROTOCOL XX ; Start 08/04/18 at 05:00 Piperacillin Sod/ Tazobactam Sod 50 ml @ 100 mls/hr Q8 IVPB Last administered on 08/05/18 05:56; Admin Dose 100 MLS/HR; Start 08/04/18 at 06:00 Hydrocortisone (Solu-Cortef) 100 mg Q8 IV Last administered on 08/05/18 05:56; Admin Dose 100 MG; Start 08/04/18 at 14:00 Rifaximin (Xifaxan) 550 mg BID NGT Last administered on 08/05/18 09:45; Admin Dose 550 MG; Start 08/04/18 at 11:00 Lactulose (Enulose) 20 gm Q6 GTB Last administered on 08/05/18 05:56; Admin Dose 20 GM; Start 08/04/18 at 12:00 Dexmedetomidine HCl 200 mcg/ Sodium Chloride 50 ml @ 2.63 mls/hr TITRATE IV Last administered on 08/05/18 10:10; Admin Dose 6.56 MLS/HR; Start 08/04/18 at 12:30 Fentanyl 100 ml @ 5 mls/hr TITRATE IV Last administered on 08/05/18 07:34; Admin Dose 10 MLS/HR; Start 08/04/18 at 16:00 FERNANDA RODRIGUEZ MD Aug 05, 2018 11:16
--- NOTE | 2018-08-05 11:42 | PN ---
Date/Time of Note Date/Time of Note DATE: 08/05/18 TIME: 11:34 Assessment/Plan VTE Prophylaxis Risk score (from Ns)>0 risk: 10 Pharmacological prophylaxis: NA/contraindicated Pharm contraindication: liver dx Lines/Catheters Urinary Cath still in place: No Assessment/Plan Hospital Course 57 yo female with h/o ESRD, cirrhosis, DMII recently discharged after hospitalization for SBP and salmonella bacteremia who returns with hematemesis and found to have PUD PULM Acute respiratory failure: - XR suggestive of pneumonia and/or volume overload, continue broad spectrum antibiotics with vancomycin and zosyn - Intubation, wean off vent as able -Pulmonology following CV: Septic shock: - Vasopressors to MAP > 65 HEME: Thrombocytopenia: - Transfuse platelets PRN Acute blood loss anemia 2/2 bleeding peptic ulcer: - Transfuse PRN > Hgb 7 - IV PPI - Maintain NPO for now, pending GI clearance GI: Cirrhosis: - Continue lactulose and rifaxin - No varices on EGD, duodenal ulcer noted, moderate diffuse gastritis with severe erosive esophagitis - IV PPI ENDO DMII: - Basal/bolus insulin Protein/calorie malnutrition: - Family again requesting enteral feedings, will discuss again as currently NPO ESRD: - HD per Dr Pascual DNR. Poor prognosis. Have offered hospice/palliative but daughters decline this Result Diagram: 08/05/18 0400 08/05/18 0400 Results 24hrs Laboratory Tests Test 08/04/18 13:03 08/04/18 17:53 08/04/18 20:57 08/05/18 01:31 Bedside Glucose 184 222 H 224 H 194 Test 08/05/18 04:00 08/05/18 04:54 08/05/18 05:00 08/05/18 05:14 White Blood 14.1 H Count Red Blood Count 2.49 L Hemoglobin 8.3 L Hematocrit 25.8 L Mean 103.6 H Corpuscular Volume Mean 33.3 H Corpuscular Hemoglobin Mean 32.2 Corpuscular Hemoglobin Conc ent Red Cell 20.5 H Distribution Width Platelet Count 40 #L Mean Platelet 12.6 H Volume Immature 0.900 H Granulocytes % Neutrophils % Lymphocytes % Monocytes % Eosinophils % Basophils % Nucleated Red 0.2 H Blood Cells % Immature 0.120 H Granulocytes # Neutrophils # Lymphocytes # Monocytes # Eosinophils # Basophils # Nucleated Red Blood Cells # Prothrombin 26.4 #H Time Prothrombin 2.1 Time Ratio INR 2.42 International Normalized Rati o Activated 47.3 H Partial Thrombo plast Time Sodium Level 143 Potassium Level 4.0 Chloride Level 105 Carbon Dioxide 29 Level Anion Gap 9 # Blood Urea 23 H Nitrogen Creatinine 2.25 H Est Glomerular 22 L Filtrat Rate mL/min Glucose Level 150 Lactic Acid 6.4 *H Level Calcium Level 8.6 Total Bilirubin 1.4 H Direct 0.60 #H Bilirubin Indirect 0.8 Bilirubin Aspartate Amino 31 Transf (AST/SGO T) Alanine 8 L Aminotransferas e (ALT/SGPT) Alkaline 57 Phosphatase Ammonia 38 #H Total Protein 6.3 Albumin 3.0 #L Globulin 3.30 H Albumin/Globuli 0.90 n Ratio Bedside Glucose 153 Blood Gas Blood arterial Specimen Source Arterial Blood 08/05/2018 5:00: Date Drawn 15 AM Arterial Blood 7.305 L pH (Temp corrected ) Arterial Blood 52.5 H pCO2 (Temp correct) Arterial Blood 75.3 L pO2 (Temp corrected ) Arterial Blood 25.5 HCO3 Arterial Blood -1.2 Base Excess Arterial Blood 94.6 L Oxygen Saturati on Barrie Test ACCEPTAB Arterial Blood Right Radial Gas Puncture Site Arterial 0.9 Blood Carboxyhe moglobin Arterial Blood 0.6 Methemoglobin Blood Gas A-a 367.4 H O2 Differential Oxyhemoglobin 93.2 Percent Blood Gas 37.0 Temperature Blood Gas 28.0 Respiration Rate Blood Gas 28 Actual Respiration Rat e Blood Gas VENT - AC Modality FiO2 70.0 Blood Gas Tidal 300.0 Volume Blood Gas Low 5.0 PEEP Setting Blood Gas CT Notified Whom Blood Gas 08/05/2018 5:10: Notified Time 17 AM Lab Scanned BLOOD TRANSFUS Report ION Test 08/05/18 08:00 08/05/18 09:48 08/05/18 09:54 Blood Gas Blood arterial Specimen Source Arterial Blood 08/05/2018 7:33: Date Drawn 32 AM Arterial Blood 7.489 H pH (Temp corrected ) Arterial Blood 33.2 L pCO2 (Temp correct) Arterial Blood 92.7 pO2 (Temp corrected ) Arterial Blood 24.7 HCO3 Arterial Blood 1.4 Base Excess Arterial Blood 97.4 Oxygen Saturati on Barrie Test ACCEPTAB Arterial Blood Right Radial Gas Puncture Site Arterial 0.8 Blood Carboxyhe moglobin Arterial Blood 0.6 Methemoglobin Blood Gas A-a 370.7 H O2 Differential Oxyhemoglobin 96.0 Percent Blood Gas 37.0 Temperature Blood Gas 28.0 Respiration Rate Blood Gas 28 Actual Respiration Rat e Blood Gas VENT - AC Modality FiO2 70.0 Blood Gas Tidal 400.0 Volume Blood Gas Low 5.0 PEEP Setting Blood Gas TM Notified Whom Blood Gas 08/05/2018 7:50: Notified Time 08 AM Bedside Glucose 139 Lactic Acid 5.6 *H Level Subjective 24 Hr Interval Summary Subjective hx not possible: pt non-verbal Exam/Review of Systems Exam Vitals Vital Signs Date Temp Pulse Resp B/P (MAP) Pulse Ox O2 O2 Flow FiO2 Time Delivery Rate 08/05/18 88 11:20 08/05/18 28 98 50 11:08 08/05/18 100/52 Mechanica 10:38 (68) l Ventilato r 08/05/18 100.0 08:00 08/03/18 15.0 23:25 Intake and Output 08/04/18 08/04/18 08/05/18 1515:00 23:00 07:00 IntakeIntake Total 561.640 ml 613.55 ml 550.58 ml OutputOutput Total 3000 ml 0 ml 0 ml BalanceBalance -2438.360 ml 613.55 ml 550.58 ml Constitutional: non-verbal ENMT: intubated Respiratory: clear to auscultation Cardiovascular: regular rate and rhythm Gastrointestinal: soft; No distended Musculoskeletal: nl extremities to inspection Results Results 24hrs Laboratory Tests Test 08/04/18 13:03 08/04/18 17:53 08/04/18 20:57 08/05/18 01:31 Bedside Glucose 184 222 H 224 H 194 Test 08/05/18 04:00 08/05/18 04:54 08/05/18 05:00 08/05/18 05:14 White Blood 14.1 H Count Red Blood Count 2.49 L Hemoglobin 8.3 L Hematocrit 25.8 L Mean 103.6 H Corpuscular Volume Mean 33.3 H Corpuscular Hemoglobin Mean 32.2 Corpuscular Hemoglobin Conc ent Red Cell 20.5 H Distribution Width Platelet Count 40 #L Mean Platelet 12.6 H Volume Immature 0.900 H Granulocytes % Neutrophils % Lymphocytes % Monocytes % Eosinophils % Basophils % Nucleated Red 0.2 H Blood Cells % Immature 0.120 H Granulocytes # Neutrophils # Lymphocytes # Monocytes # Eosinophils # Basophils # Nucleated Red Blood Cells # Prothrombin 26.4 #H Time Prothrombin 2.1 Time Ratio INR 2.42 International Normalized Rati o Activated 47.3 H Partial Thrombo plast Time Sodium Level 143 Potassium Level 4.0 Chloride Level 105 Carbon Dioxide 29 Level Anion Gap 9 # Blood Urea 23 H Nitrogen Creatinine 2.25 H Est Glomerular 22 L Filtrat Rate mL/min Glucose Level 150 Lactic Acid 6.4 *H Level Calcium Level 8.6 Total Bilirubin 1.4 H Direct 0.60 #H Bilirubin Indirect 0.8 Bilirubin Aspartate Amino 31 Transf (AST/SGO T) Alanine 8 L Aminotransferas e (ALT/SGPT) Alkaline 57 Phosphatase Ammonia 38 #H Total Protein 6.3 Albumin 3.0 #L Globulin 3.30 H Albumin/Globuli 0.90 n Ratio Bedside Glucose 153 Blood Gas Blood arterial Specimen Source Arterial Blood 08/05/2018 5:00: Date Drawn 15 AM Arterial Blood 7.305 L pH (Temp corrected ) Arterial Blood 52.5 H pCO2 (Temp correct) Arterial Blood 75.3 L pO2 (Temp corrected ) Arterial Blood 25.5 HCO3 Arterial Blood -1.2 Base Excess Arterial Blood 94.6 L Oxygen Saturati on Barrie Test ACCEPTAB Arterial Blood Right Radial Gas Puncture Site Arterial 0.9 Blood Carboxyhe moglobin Arterial Blood 0.6 Methemoglobin Blood Gas A-a 367.4 H O2 Differential Oxyhemoglobin 93.2 Percent Blood Gas 37.0 Temperature Blood Gas 28.0 Respiration Rate Blood Gas 28 Actual Respiration Rat e Blood Gas VENT - AC Modality FiO2 70.0 Blood Gas Tidal 300.0 Volume Blood Gas Low 5.0 PEEP Setting Blood Gas CT Notified Whom Blood Gas 08/05/2018 5:10: Notified Time 17 AM Lab Scanned BLOOD TRANSFUS Report ION Test 08/05/18 08:00 08/05/18 09:48 08/05/18 09:54 Blood Gas Blood arterial Specimen Source Arterial Blood 08/05/2018 7:33: Date Drawn 32 AM Arterial Blood 7.489 H pH (Temp corrected ) Arterial Blood 33.2 L pCO2 (Temp correct) Arterial Blood 92.7 pO2 (Temp corrected ) Arterial Blood 24.7 HCO3 Arterial Blood 1.4 Base Excess Arterial Blood 97.4 Oxygen Saturati on Barrie Test ACCEPTAB Arterial Blood Right Radial Gas Puncture Site Arterial 0.8 Blood Carboxyhe moglobin Arterial Blood 0.6 Methemoglobin Blood Gas A-a 370.7 H O2 Differential Oxyhemoglobin 96.0 Percent Blood Gas 37.0 Temperature Blood Gas 28.0 Respiration Rate Blood Gas 28 Actual Respiration Rat e Blood Gas VENT - AC Modality FiO2 70.0 Blood Gas Tidal 400.0 Volume Blood Gas Low 5.0 PEEP Setting Blood Gas TM Notified Whom Blood Gas 08/05/2018 7:50: Notified Time 08 AM Bedside Glucose 139 Lactic Acid 5.6 *H Level Medications Medication Current Medications Fentanyl (Sublimaze) 50 mcg Q3H PRN IV SEVERE PAIN LEVEL 7-10 Last administered on 08/02/18 14:56; Admin Dose 50 MCG; Start 08/02/18 at 15:00 Insulin Glargine (Lantus) 8 units QHS SC Last administered on 08/04/18 21:01; Admin Dose 8 UNITS; Start 08/02/18 at 21:00 Midodrine (Proamatine) 10 mg TID PO Last administered on 08/05/18 09:45; Admin Dose 10 MG; Start 08/02/18 at 21:00 Multivit/Ca Carb/ B Cmplx/FA/Prenat (Brandie-Ledy) 1 tab DAILY PO Last administered on 08/05/18 09:45; Admin Dose 1 TAB; Start 08/03/18 at 09:00 Sevelamer Carbonate (Renvela) 0.8 gm WITH MEALS PO Last administered on 08/05/18 09:44; Admin Dose 0.8 GM; Start 08/02/18 at 18:00 Tramadol HCl (Ultram) 50 mg TID PRN PO PAIN 1-10/10; Start 08/02/18 at 17:30 Heparin Sodium (Porcine) (Heparin (1000 Units/ml)) 4,000 unit AFTER DIALYSIS CATHETER ; Start 08/02/18 at 19:00 Albumin Human 100 ml @ 100 mls/hr WITH DIALYSIS PRN IV SBP <90 DURING DIALYSIS Last administered on 08/04/18 06:00; Admin Dose 100 MLS/HR; Start 08/02/18 at 19:00 Sodium Chloride (NS) -To prime the dialy... DIRECTED FOR HD PRN IV HD; Start 08/02/18 at 19:00 Pantoprazole (Protonix Iv) 40 mg BID@06,18 IV Last administered on 08/05/18at 05:56; Admin Dose 40 MG; Start 08/03/18 at 06:00 Miscellaneous Information (Pending Santyl Order For Wound Care) This patient marie... PRN PRN XX WOUND CARE; Start 08/02/18 at 20:30 Collagenase (Santyl) 1 applic DAILY TOP Last administered on 08/05/18at 09:46; Admin Dose 1 APPLIC; Start 08/02/18 at 20:30 Insulin Aspart (Novolog Insulin Pen) NOVOLOG *MILD* ALGORI... Q4 SC Last administered on 08/05/18at 04:56; Admin Dose 1 UNIT; Start 08/03/18 at 09:00 Miscellaneous Information 1 ea NOTE XX ; Start 08/03/18 at 06:30 Glucose (Glutose) 15 gm Q15M PRN PO DECREASED GLUCOSE; Start 08/03/18 at 06:30 Glucose (Glutose) 22.5 gm Q15M PRN PO DECREASED GLUCOSE; Start 08/03/18 at 06:30 Dextrose (D50w Syringe) 25 ml Q15M PRN IV DECREASED GLUCOSE; Start 08/03/18 at 06:30 Dextrose (D50w Syringe) 50 ml Q15M PRN IV DECREASED GLUCOSE Last administered on 08/04/18at 08:41; Admin Dose 50 ML; Start 08/03/18 at 06:30 Glucagon (Glucagen) 1 mg Q15M PRN IM DECREASED GLUCOSE; Start 08/03/18 at 06:30 Glucose (Glutose) 15 gm Q15M PRN BUCCAL DECREASED GLUCOSE; Start 08/03/18 at 06:30 Morphine Sulfate (morphine) 2 mg Q4H PRN IV SEVERE PAIN LEVEL 7-10 Last administered on 08/03/18at 20:11; Admin Dose 2 MG; Start 08/03/18 at 13:30 Lorazepam (Ativan) 1 mg Q8H PRN IV anixety Last administered on 08/04/18at 08:35; Admin Dose 1 MG; Start 08/03/18 at 13:30 Levalbuterol (Xopenex Neb) 1.25 mg Q4H RESP THERAPY PRN HHN SHORTNESS OF BREAT H; Start 08/03/18 at 23:25 Phenylephrine HCl 80 mg/Dextrose 250 ml @ 18.75 mls/ hr TITRATE IV Last administered on 08/04/18 07:39; Admin Dose 56.25 MLS/HR; Start 08/04/18 at 02:30 Norepinephrine 250 ml @ 1.875 mls/ hr TITRATE IV Last administered on 08/05/18 00:31; Admin Dose 22.5 MLS/HR; Start 08/04/18 at 04:00 Vancomycin HCl (Vanco Iv Per Pharmacy) VANCOMYCIN PER PHARMACY PER PROTOCOL XX ; Start 08/04/18 at 05:00 Piperacillin Sod/ Tazobactam Sod 50 ml @ 100 mls/hr Q8 IVPB Last administered on 08/05/18 05:56; Admin Dose 100 MLS/HR; Start 08/04/18 at 06:00 Hydrocortisone (Solu-Cortef) 100 mg Q8 IV Last administered on 08/05/18 05:56; Admin Dose 100 MG; Start 08/04/18 at 14:00 Rifaximin (Xifaxan) 550 mg BID NGT Last administered on 08/05/18 09:45; Admin Dose 550 MG; Start 08/04/18 at 11:00 Lactulose (Enulose) 20 gm Q6 GTB Last administered on 08/05/18 05:56; Admin Dose 20 GM; Start 08/04/18 at 12:00 Dexmedetomidine HCl 200 mcg/ Sodium Chloride 50 ml @ 2.63 mls/hr TITRATE IV Last administered on 08/05/18 10:10; Admin Dose 6.56 MLS/HR; Start 08/04/18 at 12:30 Fentanyl 100 ml @ 5 mls/hr TITRATE IV Last administered on 08/05/18 07:34; Admin Dose 10 MLS/HR; Start 08/04/18 at 16:00 PATRICK LYONS Aug 05, 2018 11:42
--- NOTE | 2018-08-05 16:00 | PN ---
Date/Time of Note Date/Time of Note DATE: 08/05/18 TIME: 15:53 Assessment/Plan VTE Prophylaxis Risk score (from Nsg)>0 risk: 4 Pharmacological prophylaxis: other (scds) Lines/Catheters Urinary Cath still in place: No Assessment/Plan Hospital Course Assessment: Status post respiratory distress Upper GI bleeding. S/p EGD 08/02/18 - Atypical Duodenal Ulcer -GOO -Moderate diffuse gastritis -Severe erosive esophagitis Rule out variceal versus not variceal. Encephalopathy. Thrombocytopenia Liver cirrhosis d/t Hep C - treated. Constipation Recent episode of spontaneous bacterial peritonitis History of chronic renal failure. History of diabetes mellitus. Plan: Continue Protonix Monitor H and H Transfuse for Hgb less then 7.5 Patient seen in collaboration with Dr. Patrick/Marko Subjective: Patient remains in ICU, intubated, sedated on pressures Currently in isolation ro r/o MRSA nares. OG in place tolerating well. Overall poor prognosis, Will continue to monitor PHYSICAL EXAMINATION: GENERAL: Poorly nourished, sedated, on the ventilator, intubated, in no acute distress SKIN: No lesions, + stigmata chronic liver disease, no evidence of bleeding diathesis EARS/NOSE AND THROAT: Ears normal, nose normal, oropharynx normal, oral membranes well hydrated without lesions. OG tube in place NECK: Supple, no masses CHEST: Inspection within normal limits. CARDIOVASCULAR: Heart: Regular rate and rhythm RESPIRATORY: Lungs clear to auscultation GASTROINTESTINAL AND LIVER: Abdomen: Soft, no abdominal tenderness, non-dist ended, no hernias, no masses, no organomegaly, ascites, no guarding, no rebound tenderness, normoactive bowel sounds. Rectal: Deferred. EXTREMITIES: , no clubbing, lower extremities edema. discoloration to BLE Result Diagram: 08/05/18 04008/05/180 Results 24hrs Laboratory Tests Test 08/04/18 17:53 08/04/18 20:57 08/05/18 01:31 08/05/18 04:00 Bedside Glucose 222 H 224 H 194 White Blood 14.1 H Count Red Blood Count 2.49 L Hemoglobin 8.3 L Hematocrit 25.8 L Mean 103.6 H Corpuscular Volume Mean 33.3 H Corpuscular Hemoglobin Mean 32.2 Corpuscular Hemoglobin Conc ent Red Cell 20.5 H Distribution Width Platelet Count 40 #L Mean Platelet 12.6 H Volume Immature 0.900 H Granulocytes % Neutrophils % Lymphocytes % Monocytes % Eosinophils % Basophils % Nucleated Red 0.2 H Blood Cells % Immature 0.120 H Granulocytes # Neutrophils # Lymphocytes # Monocytes # Eosinophils # Basophils # Nucleated Red Blood Cells # Prothrombin 26.4 #H Time Prothrombin 2.1 Time Ratio INR 2.42 International Normalized Rati o Activated 47.3 H Partial Thrombo plast Time Sodium Level 143 Potassium Level 4.0 Chloride Level 105 Carbon Dioxide 29 Level Anion Gap 9 # Blood Urea 23 H Nitrogen Creatinine 2.25 H Est Glomerular 22 L Filtrat Rate mL/min Glucose Level 150 Lactic Acid 6.4 *H Level Calcium Level 8.6 Total Bilirubin 1.4 H Direct 0.60 #H Bilirubin Indirect 0.8 Bilirubin Aspartate Amino 31 Transf (AST/SGO T) Alanine 8 L Aminotransferas e (ALT/SGPT) Alkaline 57 Phosphatase Ammonia 38 #H Total Protein 6.3 Albumin 3.0 #L Globulin 3.30 H Albumin/Globuli 0.90 n Ratio Test 08/05/18 04:54 08/05/18 05:00 08/05/18 05:14 08/05/18 08:00 Bedside Glucose 153 Blood Gas Blood arterial Blood Specimen arterial Source Arterial Blood 08/05/2018 5:00: 08/05/2018 7:33 Date Drawn 15 AM :32 AM Arterial Blood 7.305 L 7.489 H pH (Temp corrected ) Arterial Blood 52.5 H 33.2 L pCO2 (Temp correct) Arterial Blood 75.3 L 92.7 pO2 (Temp corrected ) Arterial Blood 25.5 24.7 HCO3 Arterial Blood -1.2 1.4 Base Excess Arterial Blood 94.6 L 97.4 Oxygen Saturati on Barrie Test ACCEPTAB ACCEPTAB Arterial Blood Right Radial Right Radial Gas Puncture Site Arterial 0.9 0.8 Blood Carboxyhe moglobin Arterial Blood 0.6 0.6 Methemoglobin Blood Gas A-a 367.4 H 370.7 H O2 Differential Oxyhemoglobin 93.2 96.0 Percent Blood Gas 37.0 37.0 Temperature Blood Gas 28.0 28.0 Respiration Rate Blood Gas 28 28 Actual Respiration Rat e Blood Gas VENT - AC VENT - AC Modality FiO2 70.0 70.0 Blood Gas Tidal 300.0 400.0 Volume Blood Gas Low 5.0 5.0 PEEP Setting Blood Gas MA TM Notified Whom Blood Gas 08/05/2018 5:10: 08/05/2018 7:50 Notified Time 17 AM :08 AM Lab Scanned BLOOD TRANSFUSI Report ON Test 08/05/18 09:48 08/05/18 09:54 08/05/18 14:17 Bedside Glucose 139 121 Lactic Acid 5.6 *H Level Exam/Review of Systems Exam Vitals Vital Signs Date Temp Pulse Resp B/P (MAP) Pulse Ox O2 O2 Flow FiO2 Time Delivery Rate 08/05/18 91 28 132/70 100 Mechanica 13:07 (90) l Ventilato r 08/05/18 50 11:08 08/05/18 100.0 08:00 08/03/18 15.0 23:25 Intake and Output 08/04/18 08/04/18 08/05/18 1515:00 23:00 07:00 IntakeIntake Total 561.640 ml 613.55 ml 550.58 ml OutputOutput Total 3000 ml 0 ml 0 ml BalanceBalance -2438.360 ml 613.55 ml 550.58 ml Results Results 24hrs Laboratory Tests Test 08/04/18 17:53 08/04/18 20:57 08/05/18 01:31 08/05/18 04:00 Bedside Glucose 222 H 224 H 194 White Blood 14.1 H Count Red Blood Count 2.49 L Hemoglobin 8.3 L Hematocrit 25.8 L Mean 103.6 H Corpuscular Volume Mean 33.3 H Corpuscular Hemoglobin Mean 32.2 Corpuscular Hemoglobin Conc ent Red Cell 20.5 H Distribution Width Platelet Count 40 #L Mean Platelet 12.6 H Volume Immature 0.900 H Granulocytes % Neutrophils % Lymphocytes % Monocytes % Eosinophils % Basophils % Nucleated Red 0.2 H Blood Cells % Immature 0.120 H Granulocytes # Neutrophils # Lymphocytes # Monocytes # Eosinophils # Basophils # Nucleated Red Blood Cells # Prothrombin 26.4 #H Time Prothrombin 2.1 Time Ratio INR 2.42 International Normalized Rati o Activated 47.3 H Partial Thrombo plast Time Sodium Level 143 Potassium Level 4.0 Chloride Level 105 Carbon Dioxide 29 Level Anion Gap 9 # Blood Urea 23 H Nitrogen Creatinine 2.25 H Est Glomerular 22 L Filtrat Rate mL/min Glucose Level 150 Lactic Acid 6.4 *H Level Calcium Level 8.6 Total Bilirubin 1.4 H Direct 0.60 #H Bilirubin Indirect 0.8 Bilirubin Aspartate Amino 31 Transf (AST/SGO T) Alanine 8 L Aminotransferas e (ALT/SGPT) Alkaline 57 Phosphatase Ammonia 38 #H Total Protein 6.3 Albumin 3.0 #L Globulin 3.30 H Albumin/Globuli 0.90 n Ratio Test 08/05/18 04:54 08/05/18 05:00 08/05/18 05:14 08/05/18 08:00 Bedside Glucose 153 Blood Gas Blood arterial Blood Specimen arterial Source Arterial Blood 08/05/2018 5:00: 08/05/2018 7:33 Date Drawn 15 AM :32 AM Arterial Blood 7.305 L 7.489 H pH (Temp corrected ) Arterial Blood 52.5 H 33.2 L pCO2 (Temp correct) Arterial Blood 75.3 L 92.7 pO2 (Temp corrected ) Arterial Blood 25.5 24.7 HCO3 Arterial Blood -1.2 1.4 Base Excess Arterial Blood 94.6 L 97.4 Oxygen Saturati on Barrie Test ACCEPTAB ACCEPTAB Arterial Blood Right Radial Right Radial Gas Puncture Site Arterial 0.9 0.8 Blood Carboxyhe moglobin Arterial Blood 0.6 0.6 Methemoglobin Blood Gas A-a 367.4 H 370.7 H O2 Differential Oxyhemoglobin 93.2 96.0 Percent Blood Gas 37.0 37.0 Temperature Blood Gas 28.0 28.0 Respiration Rate Blood Gas 28 28 Actual Respiration Rat e Blood Gas VENT - AC VENT - AC Modality FiO2 70.0 70.0 Blood Gas Tidal 300.0 400.0 Volume Blood Gas Low 5.0 5.0 PEEP Setting Blood Gas ID TM Notified Whom Blood Gas 08/05/2018 5:10: 08/05/2018 7:50 Notified Time 17 AM :08 AM Lab Scanned BLOOD TRANSFUSI Report ON Test 08/05/18 09:48 08/05/18 09:54 08/05/18 14:17 Bedside Glucose 139 121 Lactic Acid 5.6 *H Level Medications Medication Current Medications Fentanyl (Sublimaze) 50 mcg Q3H PRN IV SEVERE PAIN LEVEL 7-10 Last administered on 08/02/18at 14:56; Admin Dose 50 MCG; Start 08/02/18 at 15:00 Insulin Glargine (Lantus) 8 units QHS SC Last administered on 08/04/18at 21:01; Admin Dose 8 UNITS; Start 08/02/18 at 21:00 Midodrine (Proamatine) 10 mg TID PO Last administered on 08/05/18 14:10; Admin Dose 10 MG; Start 08/02/18 at 21:00 Multivit/Ca Carb/ B Cmplx/FA/Prenat (Brandie-Ledy) 1 tab DAILY PO Last administered on 08/05/18 09:45; Admin Dose 1 TAB; Start 08/03/18 at 09:00 Sevelamer Carbonate (Renvela) 0.8 gm WITH MEALS PO Last administered on 08/05/18 14:09; Admin Dose 0.8 GM; Start 08/02/18 at 18:00 Tramadol HCl (Ultram) 50 mg TID PRN PO PAIN 1-04/03; Start 08/02/18 at 17:30 Heparin Sodium (Porcine) (Heparin (1000 Units/ml)) 4,000 unit AFTER DIALYSIS CATHETER ; Start 08/02/18 at 19:00 Albumin Human 100 ml @ 100 mls/hr WITH DIALYSIS PRN IV SBP <90 DURING DIALYSIS Last administered on 08/04/18 06:00; Admin Dose 100 MLS/HR; Start 08/02/18 at 19:00 Sodium Chloride (NS) -To prime the dialy... DIRECTED FOR HD PRN IV HD; Start 08/02/18 at 19:00 Pantoprazole (Protonix Iv) 40 mg BID@06,18 IV Last administered on 08/05/18 05:56; Admin Dose 40 MG; Start 08/03/18 at 06:00 Miscellaneous Information (Pending Santyl Order For Wound Care) This patient marie... PRN PRN XX WOUND CARE; Start 08/02/18 at 20:30 Collagenase (Santyl) 1 applic DAILY TOP Last administered on 08/05/18 09:46; Admin Dose 1 APPLIC; Start 08/02/18 at 20:30 Insulin Aspart (Novolog Insulin Pen) NOVOLOG *MILD* ALGORI... Q4 SC Last administered on 08/05/18 04:56; Admin Dose 1 UNIT; Start 08/03/18 at 09:00 Miscellaneous Information 1 ea NOTE XX ; Start 08/03/18 at 06:30 Glucose (Glutose) 15 gm Q15M PRN PO DECREASED GLUCOSE; Start 08/03/18 at 06:30 Glucose (Glutose) 22.5 gm Q15M PRN PO DECREASED GLUCOSE; Start 08/03/18 at 06:30 Dextrose (D50w Syringe) 25 ml Q15M PRN IV DECREASED GLUCOSE; Start 08/03/18 at 06:30 Dextrose (D50w Syringe) 50 ml Q15M PRN IV DECREASED GLUCOSE Last administered on 08/04/18at 08:41; Admin Dose 50 ML; Start 08/03/18 at 06:30 Glucagon (Glucagen) 1 mg Q15M PRN IM DECREASED GLUCOSE; Start 08/03/18 at 06:30 Glucose (Glutose) 15 gm Q15M PRN BUCCAL DECREASED GLUCOSE; Start 08/03/18 at 06:30 Morphine Sulfate (morphine) 2 mg Q4H PRN IV SEVERE PAIN LEVEL 7-10 Last admin istered on 08/03/18at 20:11; Admin Dose 2 MG; Start 08/03/18 at 13:30 Lorazepam (Ativan) 1 mg Q8H PRN IV anixety Last administered on 08/04/18at 08:35; Admin Dose 1 MG; Start 08/03/18 at 13:30 Levalbuterol (Xopenex Neb) 1.25 mg Q4H RESP THERAPY PRN HHN SHORTNESS OF BREATH; Start 08/03/18 at 23:25 Phenylephrine HCl 80 mg/Dextrose 250 ml @ 18.75 mls/ hr TITRATE IV Last administered on 08/04/18at 07:39; Admin Dose 56.25 MLS/HR; Start 08/04/18 at 02:30 Norepinephrine 250 ml @ 1.875 mls/ hr TITRATE IV Last administered on 08/05/18at 00:31; Admin Dose 22.5 MLS/HR; Start 08/04/18 at 04:00 Vancomycin HCl (Vanco Iv Per Pharmacy) VANCOMYCIN PER PHARMACY PER PROTOCOL XX ; Start 08/04/18 at 05:00 Piperacillin Sod/ Tazobactam Sod 50 ml @ 100 mls/hr Q8 IVPB Last administered on 08/05/18at 14:09; Admin Dose 100 MLS/HR; Start 08/04/18 at 06:00 Hydrocortisone (Solu-Cortef) 100 mg Q8 IV Last administered on 08/05/18at 14:09; Admin Dose 100 MG; Start 08/04/18 at 14:00 Rifaximin (Xifaxan) 550 mg BID NGT Last administered on 08/05/18 09:45; Admin Dose 550 MG; Start 08/04/18 at 11:00 Lactulose (Enulose) 20 gm Q6 GTB Last administered on 08/05/18 14:09; Admin Dose 20 GM; Start 08/04/18 at 12:00 Dexmedetomidine HCl 200 mcg/ Sodium Chloride 50 ml @ 2.63 mls/hr TITRATE IV Last administered on 08/05/18at 10:10; Admin Dose 6.56 MLS/HR; Start 08/04/18 at 12:30 Fentanyl 100 ml @ 5 mls/hr TITRATE IV Last administered on 08/05/18at 07:34; Admin Dose 10 MLS/HR; Start 08/04/18 at 16:00 Miscellaneous Information (*Rx Drug Level Order Reminder*) RANDOM VANCOMYCIN LEVEL 2... ONCE ONCE XX ; Start 08/06/18 at 05:00; Stop 08/06/18 at 05:01 WILLI CHRISTIAN Aug 05, 2018 16:00
[2018-08-05] MEDS: INSULIN GLARGINE [LANTus] (100 UNITS/ML) SYG SC SCH (22:20)
[2018-08-06] VITALS (99 sets, daily range): BP systolic 85–134; BP diastolic 43–67; PULSE 66–98; RESP 25–28
[2018-08-06] MEDS: INSULIN ASPART [NOVOLOG] 3 ML PEN SC SCH ×6 (01:32→21:33)
[2018-08-06] MEDS: DEXMEDETOMIDINE HCL 200 MCG in SOD CHLORIDE 0.9% 48 ML IV SCH (01:38)
[2018-08-06] MEDS: LACTULOSE 30ML CUP GTB SCH ×3 (06:00→21:25)
[2018-08-06] MEDS: HYDROCORTISONE 100 MG INJ IV SCH ×3 (06:44→21:25)
[2018-08-06] MEDS: PANTOPRAZOLE 40 MG INJ IV SCH ×2 (06:44→18:18)
[2018-08-06] MEDS: PIPER-TAZO 2.25 GM (PMX) 50 ML IVPB SCH ×3 (06:44→21:25)
[2018-08-06] MEDS: MIDODRINE 5 MG TAB PO SCH ×3 (09:13→21:25)
[2018-08-06] MEDS: SEVELAMER CARBONATE 0.8 GM PKT PO SCH ×3 (09:13→18:18)
[2018-08-06] MEDS: MULTIVIT/CA CARB/B CMPLX/FA TAB PO SCH (09:13)
[2018-08-06] MEDS: RIFAXIMIN 550 MG TAB NGT SCH ×2 (09:13→21:25)
[2018-08-06] MEDS: COLLAGENASE 5 GM (UD JAR) TOP SCH (09:13)
[2018-08-06] MEDS: BALSAM PERU/CASTOR OIL 60 GM TUBE TOP SCH ×2 (09:14→21:26)
--- NOTE | 2018-08-06 09:51 | CONS ---
Assessment/Plan Assessment/Plan Assessment/Plan (Daily) 1. acute hypoxemic resp failure intubaed on ventilator 2. ESRD on HD - MWF schedule , missed HD yesterday- will get HD; 1 unit PRBC 3. Upper GI bleeidng S/p EGD showing Peptic ulcer disease 4. septic shock on levophed 5. H/o Liver Cirrhosis 6. H/o HTN 7. let basilar inftilrates with pleural effusion Plan: Levophed for BP support, s/p HD yesterday 1.1 L removed pt remains intubated on ventilator FiO2 60, ventilator management as per pulmonary HD ordered for tomorrow, - will continue HD on MWF schedule DNR code status will follow up Consultation Date/Type/Reason Admit Date/Time Aug 02, 2018 at 15:01 Initial Consult Date 08/02/18 Type of Consult NEPHROLOGY Requesting Provider: REGINA ORNELAS MD Date/Time of Note DATE: 08/06/18 TIME: 09:51 24 HR Interval Summary Free Text/Dictation pr remains intubated,s/p Hd yesterday 1.1 L removed, afebrile, Bp stable Exam/Review of Systems Exam Vitals Vital Signs Date Temp Pulse Resp B/P (MAP) Pulse Ox O2 O2 Flow FiO2 Time Delivery Rate 08/06/18 75 08:00 08/06/18 28 95 40 05:05 08/06/18 87/50 (62) 00:15 08/06/18 97.5 Mechanical 00:00 Ventilator 08/03/18 15.0 23:25 Intake and Output 08/05/18 08/05/18 08/06/18 1515:00 23:00 07:00 IntakeIntake Total 534.26 ml 351 ml 490 ml OutputOutput Total 1500 ml 0 ml BalanceBalance -965.74 ml 351 ml 490 ml Constitutional: distress ENMT: intubated Neck: supple, non-tender Respiratory: congested cough, crackles/rales, diminished breath sounds Cardiovascular: regular rate and rhythm, nl pulses Gastrointestinal: soft, non-tender Musculoskeletal: muscle weakness, swelling Extremities: normal pulses Neurological: other (sedated intubated on ventilator ) Skin: nl turgor Results Result Diagram: 08/06/1844908/06/18 0450 Results 24hrs Laboratory Tests Test 08/05/18 09:54 2/11/19 14:17 08/05/18 18:01 08/05/18 22:18 Lactic Acid Level 5.6 *H Bedside Glucose 121 164 222 H Test 08/06/18 01:29 08/06/18 04:50 08/06/18 06:32 08/06/18 09:21 Bedside Glucose 223 H 271 H 324 H White Blood Count 9.4 # Red Blood Count 2.46 L Hemoglobin 8.2 L Hematocrit 25.3 L Mean Corpuscular 102.8 H Volume Mean Corpuscular 33.3 H Hemoglobin Mean Corpuscular 32.4 Hemoglobin Concent Red Cell 20.5 H Distribution Width Platelet Count 21 #*L Mean Platelet 14.2 H Volume Immature 0.700 H Granulocytes % Neutrophils % Segmented 81 H Neutrophils % (Manual) Band Neutrophils % 14 H (Manual) Lymphocytes % Lymphocytes % 4 L (Manual) Monocytes % Monocytes % 1 (Manual) Eosinophils % Basophils % Nucleated Red 0.2 H Blood Cells % Immature 0.070 H Granulocytes # Neutrophils # Neutrophils # 7.7 H (Manual) Band Neutrophils # 1.3 H Lymphocytes 0.3 L (Manual) Lymphocytes # Monocytes # Monocytes # 0.0 L (Manual) Eosinophils # Basophils # Nucleated Red Blood Cells # Platelet Estimate SIG DECREASED Giant Platelets 2 H Polychromasia 2+ Anisocytosis 2+ Macrocytosis 2+ Ovalocytes 1+ Echinocytes 1+ Sodium Level 142 Potassium Level 3.2 L Chloride Level 105 Carbon Dioxide 21 Level Anion Gap 16 #H Blood Urea 20 Nitrogen Creatinine 1.85 H Est Glomerular 28 L Filtrat Rate mL/min Glucose Level 242 H Calcium Level 9.2 Random Vancomycin 11.3 Level Medications Medication Current Medications Fentanyl (Sublimaze) 50 mcg Q3H PRN IV SEVERE PAIN LEVEL 7-10 Last administered on 08/02/18at 14:56; Admin Dose 50 MCG; Start 08/02/18 at 15:00 Insulin Glargine (Lantus) 8 units QHS SC Last administered on 08/05/18at 22:20; Admin Dose 8 UNITS; Start 08/02/18 at 21:00 Midodrine (Proamatine) 10 mg TID PO Last administered on 08/06/18at 09:13; Admin Dose 10 MG; Start 08/02/18 at 21:00 Multivit/Ca Carb/ B Cmplx/FA/Prenat (Brandie-Ledy) 1 tab DAILY PO Last administered on 08/06/18 09:13; Admin Dose 1 TAB; Start 08/03/18 at 09:00 Sevelamer Carbonate (Renvela) 0.8 gm WITH MEALS PO Last administered on 08/06/18 09:13; Admin Dose 0.8 GM; Start 08/02/18 at 18:00 Tramadol HCl (Ultram) 50 mg TID PRN PO PAIN 1-04/03; Start 08/02/18 at 17:30 Heparin Sodium (Porcine) (Heparin (1000 Units/ml)) 4,000 unit AFTER DIALYSIS CATHETER ; Start 08/02/18 at 19:00 Albumin Human 100 ml @ 100 mls/hr WITH DIALYSIS PRN IV SBP <90 DURING DIALYSIS Last administered on 08/04/18 06:00; Admin Dose 100 MLS/HR; Start 08/02/18 at 19:00 Sodium Chloride (NS) -To prime the dialy... DIRECTED FOR HD PRN IV HD; Start 08/02/18 at 19:00 Pantoprazole (Protonix Iv) 40 mg BID@06,18 IV Last administered on 08/06/18at 06:44; Admin Dose 40 MG; Start 08/03/18 at 06:00 Miscellaneous Information (Pending Santyl Order For Wound Care) This patient marie... PRN PRN XX WOUND CARE; Start 08/02/18 at 20:30 Collagenase (Santyl) 1 applic DAILY TOP Last administered on 08/06/18 09:13; Admin Dose 1 APPLIC; Start 08/02/18 at 20:30 Insulin Aspart (Novolog Insulin Pen) NOVOLOG *MILD* ALGORI... Q4 SC Last administered on 08/06/18 09:23; Admin Dose 5 UNIT; Start 08/03/18 at 09:00 Miscellaneous Information 1 ea NOTE XX ; Start 08/03/18 at 06:30 Glucose (Glutose) 15 gm Q15M PRN PO DECREASED GLUCOSE; Start 08/03/18 at 06:30 Glucose (Glutose) 22.5 gm Q15M PRN PO DECREASED GLUCOSE; Start 08/03/18 at 06:30 Dextrose (D50w Syringe) 25 ml Q15M PRN IV DECREASED GLUCOSE; Start 08/03/18 at 06:30 Dextrose (D50w Syringe) 50 ml Q15M PRN IV DECREASED GLUCOSE Last administered on 08/04/18at 08:41; Admin Dose 50 ML; Start 08/03/18 at 06:30 Glucagon (Glucagen) 1 mg Q15M PRN IM DECREASED GLUCOSE; Start 08/03/18 at 06:30 Glucose (Glutose) 15 gm Q15M PRN BUCCAL DECREASED GLUCOSE; Start 08/03/18 at 06:30 Morphine Sulfate (morphine) 2 mg Q4H PRN IV SEVERE PAIN LEVEL 7-10 Last administered on 08/03/18at 20:11; Admin Dose 2 MG; Start 08/03/18 at 13:30 Lorazepam (Ativan) 1 mg Q8H PRN IV anixety Last administered on 08/04/18at 08:35; Admin Dose 1 MG; Start 08/03/18 at 13:30 Levalbuterol (Xopenex Neb) 1.25 mg Q4H RESP THERAPY PRN HHN SHORTNESS OF BREATH; Start 08/03/18 at 23:25 Phenylephrine HCl 80 mg/Dextrose 250 ml @ 18.75 mls/ hr TITRATE IV Last administered on 08/04/18at 07:39; Admin Dose 56.25 MLS/HR; Start 08/04/18 at 02:30 Norepinephrine 250 ml @ 1.875 mls/ hr TITRATE IV Last administered on 08/05/18at 00:31; Admin Dose 22.5 MLS/HR; Start 08/04/18 at 04:00 Vancomycin HCl (Vanco Iv Per Pharmacy) VANCOMYCIN PER PHARMACY PER PROTOCOL XX ; Start 08/04/18 at 05:00 Piperacillin Sod/ Tazobactam Sod 50 ml @ 100 mls/hr Q8 IVPB Last administered on 08/06/18 06:44; Admin Dose 100 MLS/HR; Start 08/04/18 at 06:00 Hydrocortisone (Solu-Cortef) 100 mg Q8 IV Last administered on 08/06/18 06:44; Admin Dose 100 MG; Start 08/04/18 at 14:00 Rifaximin (Xifaxan) 550 mg BID NGT Last administered on 08/06/18 09:13; Admin Dose 550 MG; Start 08/04/18 at 11:00 Lactulose (Enulose) 20 gm Q6 GTB Last administered on 08/05/18at 18:01; Admin Dose 20 GM; Start 08/04/18 at 12:00 Dexmedetomidine HCl 200 mcg/ Sodium Chloride 50 ml @ 2.63 mls/hr TITRATE IV Last administered on 08/06/18at 01:38; Admin Dose 9.19 MLS/HR; Start 08/04/18 at 12:30 Fentanyl 100 ml @ 5 mls/hr TITRATE IV Last administered on 08/05/18at 21:12; Admin Dose 6 MLS/HR; Start 08/04/18 at 16:00 FERNANDA RODRIGUEZ MD Aug 06, 2018 09:51
--- NOTE | 2018-08-06 10:18 | CONS ---
Consult Date/Type/Reason Admit Date/Time Aug 02, 2018 at 15:01 Initial Consult Date 08/04/18 Type of Consult Pulmonary Requesting Provider: REGINA ORNELAS MD Date/Time of Note DATE: 08/06/18 TIME: 10:17 Subjective Somnolent on mechanical ventilation. Objective Vital Signs Date Temp Pulse Resp B/P (MAP) Pulse Ox O2 O2 Flow FiO2 Time Delivery Rate 08/06/18 75 08:00 08/06/18 28 95 40 05:05 08/06/18 87/50 (62) 00:15 08/06/18 97.5 Mechanical 00:00 Ventilator 08/03/18 15.0 23:25 Intake and Output 08/05/18 08/05/18 08/06/18 1515:00 23:00 07:00 IntakeIntake Total 534.26 ml 351 ml 490 ml OutputOutput Total 1500 ml 0 ml BalanceBalance -965.74 ml 351 ml 490 ml Exam GENERAL: Chronically ill-appearing lady orally intubated on mechanical ventilation. Jaundiced VITAL SIGNS: per chart NECK: Supple. No JVD or lymphadenopathy. CARDIAC EXAM: S1, S2. No added sounds or murmurs. CHEST: Diminished air entry bilaterally with rales ABDOMEN: Soft, nontender. No guarding or rebound. EXTREMITIES: No cyanosis, clubbing or edema. NEUROLOGIC: Generalized weakness. No focal deficits. Vent Setting Ventilator Support Mode: AC, VC plus Fraction of Inspired Oxygen pe: 40 Positive End Expiratory Pressu: 5.0 Results/Medications Result Diagram: 08/06/18 0450 08/06/18 0450 Results 24 hrs Laboratory Tests Test 08/05/18 14:17 08/05/18 18:01 08/05/18 22:18 08/06/18 01:29 Bedside Glucose 121 164 222 H 223 H Test 08/06/18 04:50 08/06/18 06:32 08/06/18 09:21 White Blood Count 9.4 # Red Blood Count 2.46 L Hemoglobin 8.2 L Hematocrit 25.3 L Mean Corpuscular 102.8 H Volume Mean Corpuscular 33.3 H Hemoglobin Mean Corpuscular 32.4 Hemoglobin Concent Red Cell 20.5 H Distribution Width Platelet Count 21 #*L Mean Platelet 14.2 H Volume Immature 0.700 H Granulocytes % Neutrophils % Segmented 81 H Neutrophils % (Manual) Band Neutrophils % 14 H (Manual) Lymphocytes % Lymphocytes % 4 L (Manual) Monocytes % Monocytes % 1 (Manual) Eosinophils % Basophils % Nucleated Red 0.2 H Blood Cells % Immature 0.070 H Granulocytes # Neutrophils # Neutrophils # 7.7 H (Manual) Band Neutrophils # 1.3 H Lymphocytes 0.3 L (Manual) Lymphocytes # Monocytes # Monocytes # 0.0 L (Manual) Eosinophils # Basophils # Nucleated Red Blood Cells # Platelet Estimate SIG DECREASED Giant Platelets 2 H Polychromasia 2+ Anisocytosis 2+ Macrocytosis 2+ Ovalocytes 1+ Echinocytes 1+ Sodium Level 142 Potassium Level 3.2 L Chloride Level 105 Carbon Dioxide 21 Level Anion Gap 16 #H Blood Urea 20 Nitrogen Creatinine 1.85 H Est Glomerular 28 L Filtrat Rate mL/min Glucose Level 242 H Calcium Level 9.2 Random Vancomycin 11.3 Level Bedside Glucose 271 H 324 H Medications Current Medications Fentanyl (Sublimaze) 50 mcg Q3H PRN IV SEVERE PAIN LEVEL 7-10 Last administered on 08/02/18 14:56; Admin Dose 50 MCG; Start 08/02/18 at 15:00 Insulin Glargine (Lantus) 8 units QHS SC Last administered on 08/05/18 22:20; Admin Dose 8 UNITS; Start 08/02/18 at 21:00 Midodrine (Proamatine) 10 mg TID PO Last administered on 08/06/18 09:13; Admin Dose 10 MG; Start 08/02/18 at 21:00 Multivit/Ca Carb/ B Cmplx/FA/Prenat (Brandie-Ledy) 1 tab DAILY PO Last administered on 08/06/18 09:13; Admin Dose 1 TAB; Start 08/03/18 at 09:00 Sevelamer Carbonate (Renvela) 0.8 gm WITH MEALS PO Last administered on 08/06/18 09:13; Admin Dose 0.8 GM; Start 08/02/18 at 18:00 Tramadol HCl (Ultram) 50 mg TID PRN PO PAIN 1-10/10; Start 08/02/18 at 17:30 Heparin Sodium (Porcine) (Heparin (1000 Units/ml)) 4,000 unit AFTER DIALYSIS CATHETER ; Start 08/02/18 at 19:00 Albumin Human 100 ml @ 100 mls/hr WITH DIALYSIS PRN IV SBP <90 DURING DIALYSIS Last administered on 08/04/18at 06:00; Admin Dose 100 MLS/HR; Start 08/02/18 at 19:00 Sodium Chloride (NS) -To prime the dialy... DIRECTED FOR HD PRN IV HD; Start 08/02/18 at 19:00 Pantoprazole (Protonix Iv) 40 mg BID@06,18 IV Last administered on 08/06/18at 06:44; Admin Dose 40 MG; Start 08/03/18 at 06:00 Miscellaneous Information (Pending Santyl Order For Wound Care) This patient marie... PRN PRN XX WOUND CARE; Start 08/02/18 at 20:30 Collagenase (Santyl) 1 applic DAILY TOP Last administered on 08/06/18at 09:13; Admin Dose 1 APPLIC; Start 08/02/18 at 20:30 Insulin Aspart (Novolog Insulin Pen) NOVOLOG *MILD* ALGORI... Q4 SC Last administered on 08/06/18at 09:23; Admin Dose 5 UNIT; Start 08/03/18 at 09:00 Miscellaneous Information 1 ea NOTE XX ; Start 08/03/18 at 06:30 Glucose (Glutose) 15 gm Q15M PRN PO DECREASED GLUCOSE; Start 08/03/18 at 06:30 Glucose (Glutose) 22.5 gm Q15M PRN PO DECREASED GLUCOSE; Start 08/03/18 at 06:30 Dextrose (D50w Syringe) 25 ml Q15M PRN IV DECREASED GLUCOSE; Start 08/03/18 at 06:30 Dextrose (D50w Syringe) 50 ml Q15M PRN IV DECREASED GLUCOSE Last administered on 08/04/18at 08:41; Admin Dose 50 ML; Start 08/03/18 at 06:30 Glucagon (Glucagen) 1 mg Q15M PRN IM DECREASED GLUCOSE; Start 08/03/18 at 06:30 Glucose (Glutose) 15 gm Q15M PRN BUCCAL DECREASED GLUCOSE; Start 08/03/18 at 06:30 Morphine Sulfate (morphine) 2 mg Q4H PRN IV SEVERE PAIN LEVEL 7-10 Last administered on 08/03/18at 20:11; Admin Dose 2 MG; Start 08/03/18 at 13:30 Lorazepam (Ativan) 1 mg Q8H PRN IV anixety Last administered on 08/04/18 08:35; Admin Dose 1 MG; Start 08/03/18 at 13:30 Levalbuterol (Xopenex Neb) 1.25 mg Q4H RESP THERAPY PRN HHN SHORTNESS OF BREATH; Start 08/03/18 at 23:25 Phenylephrine HCl 80 mg/Dextrose 250 ml @ 18.75 mls/ hr TITRATE IV Last administered on 08/04/18 07:39; Admin Dose 56.25 MLS/HR; Start 08/04/18 at 02:30 Norepinephrine 250 ml @ 1.875 mls/ hr TITRATE IV Last administered on 08/05/18 00:31; Admin Dose 22.5 MLS/HR; Start 08/04/18 at 04:00 Vancomycin HCl (Vanco Iv Per Pharmacy) VANCOMYCIN PER PHARMACY PER PROTOCOL XX ; Start 08/04/18 at 05:00 Piperacillin Sod/ Tazobactam Sod 50 ml @ 100 mls/hr Q8 IVPB Last administered on 08/06/18 06:44; Admin Dose 100 MLS/HR; Start 08/04/18 at 06:00 Hydrocortisone (Solu-Cortef) 100 mg Q8 IV Last administered on 08/06/18 06:44; Admin Dose 100 MG; Start 08/04/18 at 14:00 Rifaximin (Xifaxan) 550 mg BID NGT Last administered on 08/06/18 09:13; Admin Dose 550 MG; Start 08/04/18 at 11:00 Lactulose (Enulose) 20 gm Q6 GTB Last administered on 08/05/18 18:01; Admin Dose 20 GM; Start 08/04/18 at 12:00 Dexmedetomidine HCl 200 mcg/ Sodium Chloride 50 ml @ 2.63 mls/hr TITRATE IV Last administered on 08/06/18 01:38; Admin Dose 9.19 MLS/HR; Start 08/04/18 at 12:30 Fentanyl 100 ml @ 5 mls/hr TITRATE IV Last administered on 08/05/18 21:12; Admin Dose 6 MLS/HR; Start 08/04/18 at 16:00 Assessment/Plan Hospital Course (Demo Recall) Assessment/Plan (Daily) IMP: 1. Septic Shock 2. Multifocal pneumonia 3. Hypoxemic Resp Failure 4. UGIB 5. ESLD with numerous complications 6. ERSD on HD RECS: 1. Continue mechanical ventilation 2. Decrease vasopressors as tolerated 3. Broad spectrum abx 4. IVFs/colloids 5. Follow H/H and coags; replete as needed 6. PPI gtt +/- octreotide 7. Hydrocortisone 50 mg IV q6; vit C and thiamine 8. Lactulose and rifaxamin 9. May not tolerate HD; 10. Prognosis very poor; discussed in detail with family. 11. Start tube feeding as tolerated Very poor prognosis. May benefit from transition to palliative care. CODE STATUS DNR/DNI Critical care time 40 minutes. SHELLY CHRISTIAN MD, FCCP Aug 06, 2018 10:18
[2018-08-06] MEDS ORDERED: VANCOMYCIN 750 MG (PMX) 250 ML IVPB ONE (12:00)
[2018-08-06] MEDS: FENTAnyl (DRIP) 1000 mcg/100mL 100 ML IV SCH (12:44)
--- NOTE | 2018-08-06 14:36 | PN ---
Date/Time of Note Date/Time of Note DATE: 08/06/18 TIME: 14:34 Assessment/Plan VTE Prophylaxis Risk score (from Ns)>0 risk: 7 Pharmacological prophylaxis: NA/contraindicated Pharm contraindication: liver dx Lines/Catheters Urinary Cath still in place: No Assessment/Plan Hospital Course 57 yo female with h/o ESRD, cirrhosis, DMII recently discharged after hospitalization for SBP and salmonella bacteremia who returns with hematemesis and found to have PUD PULM Acute respiratory failure: - XR suggestive of pneumonia and/or volume overload, continue broad spectrum antibiotics with vancomycin and zosyn - Intubation, wean off vent as able -Pulmonology following CV: Septic shock: - Vasopressors to MAP > 65 HEME: Thrombocytopenia: - Transfuse platelets PRN Acute blood loss anemia 2/2 bleeding peptic ulcer: - Transfuse PRN > Hgb 7 - IV PPI - Maintain NPO for now, pending GI clearance GI: Cirrhosis: - Continue lactulose and rifaxin - No varices on EGD, duodenal ulcer noted, moderate diffuse gastritis with severe erosive esophagitis - IV PPI ENDO DMII: - Basal/bolus insulin Protein/calorie malnutrition: - Family again requesting enteral feedings, will discuss again as currently NPO ESRD: - HD per Dr Pascual DNR. Poor prognosis. Have offered hospice/palliative but daughters decline this Result Diagram: 08/06/180 08/06/18 0450 Results 24hrs Laboratory Tests Test 08/05/18 18:01 08/05/18 22:18 08/06/18 01:29 08/06/18 04:50 Bedside Glucose 164 222 H 223 H White Blood Count 9.4 # Red Blood Count 2.46 L Hemoglobin 8.2 L Hematocrit 25.3 L Mean Corpuscular 102.8 H Volume Mean Corpuscular 33.3 H Hemoglobin Mean Corpuscular 32.4 Hemoglobin Concent Red Cell 20.5 H Distribution Width Platelet Count 21 #*L Mean Platelet 14.2 H Volume Immature 0.700 H Granulocytes % Neutrophils % Segmented 81 H Neutrophils % (Manual) Band Neutrophils % 14 H (Manual) Lymphocytes % Lymphocytes % 4 L (Manual) Monocytes % Monocytes % 1 (Manual) Eosinophils % Basophils % Nucleated Red 0.2 H Blood Cells % Immature 0.070 H Granulocytes # Neutrophils # Neutrophils # 7.7 H (Manual) Band Neutrophils # 1.3 H Lymphocytes 0.3 L (Manual) Lymphocytes # Monocytes # Monocytes # 0.0 L (Manual) Eosinophils # Basophils # Nucleated Red Blood Cells # Platelet Estimate SIG DECREASED Giant Platelets 2 H Polychromasia 2+ Anisocytosis 2+ Macrocytosis 2+ Ovalocytes 1+ Echinocytes 1+ Sodium Level 142 Potassium Level 3.2 L Chloride Level 105 Carbon Dioxide 21 Level Anion Gap 16 #H Blood Urea 20 Nitrogen Creatinine 1.85 H Est Glomerular 28 L Filtrat Rate mL/min Glucose Level 242 H Calcium Level 9.2 Random Vancomycin 11.3 Level Test 08/06/18 06:32 08/06/18 09:21 08/06/18 12:44 Bedside Glucose 271 H 324 H 295 H Subjective 24 Hr Interval Summary Subjective hx not possible: pt non-verbal Exam/Review of Systems Exam Vitals Vital Signs Date Temp Pulse Resp B/P (MAP) Pulse Ox O2 O2 Flow FiO2 Time Delivery Rate 08/06/18 86 28 113/52 94 Mechanical 14:00 (72) Ventilator 08/06/18 99.5 12:00 08/06/18 40 11:15 08/03/18 15.0 23:25 Intake and Output 08/05/18 08/05/18 08/06/18 1414:59 22:59 06:59 IntakeIntake Total 623.94 ml 361 ml 460 ml OutputOutput Total 1500 ml 0 ml BalanceBalance -876.06 ml 361 ml 460 ml Constitutional: non-verbal ENMT: intubated Respiratory: clear to auscultation Cardiovascular: regular rate and rhythm Gastrointestinal: soft; No distended Musculoskeletal: nl extremities to inspection Results Results 24hrs Laboratory Tests Test 08/05/18 18:01 08/05/18 22:18 08/06/18 01:29 08/06/18 04:50 Bedside Glucose 164 222 H 223 H White Blood Count 9.4 # Red Blood Count 2.46 L Hemoglobin 8.2 L Hematocrit 25.3 L Mean Corpuscular 102.8 H Volume Mean Corpuscular 33.3 H Hemoglobin Mean Corpuscular 32.4 Hemoglobin Concent Red Cell 20.5 H Distribution Width Platelet Count 21 #*L Mean Platelet 14.2 H Volume Immature 0.700 H Granulocytes % Neutrophils % Segmented 81 H Neutrophils % (Manual) Band Neutrophils % 14 H (Manual) Lymphocytes % Lymphocytes % 4 L (Manual) Monocytes % Monocytes % 1 (Manual) Eosinophils % Basophils % Nucleated Red 0.2 H Blood Cells % Immature 0.070 H Granulocytes # Neutrophils # Neutrophils # 7.7 H (Manual) Band Neutrophils # 1.3 H Lymphocytes 0.3 L (Manual) Lymphocytes # Monocytes # Monocytes # 0.0 L (Manual) Eosinophils # Basophils # Nucleated Red Blood Cells # Platelet Estimate SIG DECREASED Giant Platelets 2 H Polychromasia 2+ Anisocytosis 2+ Macrocytosis 2+ Ovalocytes 1+ Echinocytes 1+ Sodium Level 142 Potassium Level 3.2 L Chloride Level 105 Carbon Dioxide 21 Level Anion Gap 16 #H Blood Urea 20 Nitrogen Creatinine 1.85 H Est Glomerular 28 L Filtrat Rate mL/min Glucose Level 242 H Calcium Level 9.2 Random Vancomycin 11.3 Level Test 08/06/18 06:32 08/06/18 09:21 08/06/18 12:44 Bedside Glucose 271 H 324 H 295 H Medications Medication Current Medications Fentanyl (Sublimaze) 50 mcg Q3H PRN IV SEVERE PAIN LEVEL 7-10 Last administered on 08/02/18 14:56; Admin Dose 50 MCG; Start 08/02/18 at 15:00 Insulin Glargine (Lantus) 8 units QHS SC Last administered on 08/05/18 22:20; Admin Dose 8 UNITS; Start 08/02/18 at 21:00 Midodrine (Proamatine) 10 mg TID PO Last administered on 08/06/18 12:43; Admin Dose 10 MG; Start 08/02/18 at 21:00 Multivit/Ca Carb/ B Cmplx/FA/Prenat (Brandie-Ledy) 1 tab DAILY PO Last administered on 08/06/18 09:13; Admin Dose 1 TAB; Start 08/03/18 at 09:00 Sevelamer Carbonate (Renvela) 0.8 gm WITH MEALS PO Last administered on 08/06/18 12:43; Admin Dose 0.8 GM; Start 08/02/18 at 18:00 Tramadol HCl (Ultram) 50 mg TID PRN PO PAIN 1-10/10; Start 08/02/18 at 17:30 Heparin Sodium (Porcine) (Heparin (1000 Units/ml)) 4,000 unit AFTER DIALYSIS CATHETER ; Start 08/02/18 at 19:00 Albumin Human 100 ml @ 100 mls/hr WITH DIALYSIS PRN IV SBP <90 DURING DIALYSIS Last administered on 08/04/18at 06:00; Admin Dose 100 MLS/HR; Start 08/02/18 at 19:00 Sodium Chloride (NS) -To prime the dialy... DIRECTED FOR HD PRN IV HD; Start 08/02/18 at 19:00 Pantoprazole (Protonix Iv) 40 mg BID@06,18 IV Last administered on 08/06/18at 06:44; Admin Dose 40 MG; Start 08/03/18 at 06:00 Miscellaneous Information (Pending Santyl Order For Wound Care) This patient marie... PRN PRN XX WOUND CARE; Start 08/02/18 at 20:30 Collagenase (Santyl) 1 applic DAILY TOP Last administered on 08/06/18at 09:13; Admin Dose 1 APPLIC; Start 08/02/18 at 20:30 Insulin Aspart (Novolog Insulin Pen) NOVOLOG *MILD* ALGORI... Q4 SC Last administered on 08/06/18at 12:51; Admin Dose 4 UNIT; Start 08/03/18 at 09:00 Miscellaneous Information 1 ea NOTE XX ; Start 08/03/18 at 06:30 Glucose (Glutose) 15 gm Q15M PRN PO DECREASED GLUCOSE; Start 08/03/18 at 06:30 Glucose (Glutose) 22.5 gm Q15M PRN PO DECREASED GLUCOSE; Start 08/03/18 at 06:30 Dextrose (D50w Syringe) 25 ml Q15M PRN IV DECREASED GLUCOSE; Start 08/03/18 at 06:30 Dextrose (D50w Syringe) 50 ml Q15M PRN IV DECREASED GLUCOSE Last administered o n 08/04/18at 08:41; Admin Dose 50 ML; Start 08/03/18 at 06:30 Glucagon (Glucagen) 1 mg Q15M PRN IM DECREASED GLUCOSE; Start 08/03/18 at 06:30 Glucose (Glutose) 15 gm Q15M PRN BUCCAL DECREASED GLUCOSE; Start 08/03/18 at 06:30 Morphine Sulfate (morphine) 2 mg Q4H PRN IV SEVERE PAIN LEVEL 7-10 Last admi nistered on 08/03/18at 20:11; Admin Dose 2 MG; Start 08/03/18 at 13:30 Lorazepam (Ativan) 1 mg Q8H PRN IV anixety Last administered on 08/04/18 08:35; Admin Dose 1 MG; Start 08/03/18 at 13:30 Levalbuterol (Xopenex Neb) 1.25 mg Q4H RESP THERAPY PRN HHN SHORTNESS OF BREATH; Start 08/03/18 at 23:25 Phenylephrine HCl 80 mg/Dextrose 250 ml @ 18.75 mls/ hr TITRATE IV Last administered on 08/04/18 07:39; Admin Dose 56.25 MLS/HR; Start 08/04/18 at 02:30 Norepinephrine 250 ml @ 1.875 mls/ hr TITRATE IV Last administered on 08/05/18 00:31; Admin Dose 22.5 MLS/HR; Start 08/04/18 at 04:00 Vancomycin HCl (Vanco Iv Per Pharmacy) VANCOMYCIN PER PHARMACY PER PROTOCOL XX ; Start 08/04/18 at 05:00 Piperacillin Sod/ Tazobactam Sod 50 ml @ 100 mls/hr Q8 IVPB Last administered on 08/06/18 06:44; Admin Dose 100 MLS/HR; Start 08/04/18 at 06:00 Hydrocortisone (Solu-Cortef) 100 mg Q8 IV Last administered on 08/06/18 14:16; Admin Dose 100 MG; Start 08/04/18 at 14:00 Rifaximin (Xifaxan) 550 mg BID NGT Last administered on 08/06/18 09:13; Admin Dose 550 MG; Start 08/04/18 at 11:00 Lactulose (Enulose) 20 gm Q6 GTB Last administered on 08/06/18 12:43; Admin Dose 20 GM; Start 08/04/18 at 12:00 Fentanyl 100 ml @ 5 mls/hr TITRATE IV Last administered on 08/06/18 12:44; Admin Dose 5 MLS/HR; Start 08/04/18 at 16:00 PATRICK LYONS Aug 06, 2018 14:35
--- NOTE | 2018-08-06 15:41 | PN ---
Date/Time of Note Date/Time of Note DATE: 08/06/18 TIME: 15:39 Assessment/Plan VTE Prophylaxis Risk score (from Nsg)>0 risk: 7 Pharmacological prophylaxis: other (scds) Lines/Catheters Urinary Cath still in place: No Assessment/Plan Hospital Course Assessment: Status post respiratory distress Upper GI bleeding. S/p EGD 08/02/18 - Atypical Duodenal Ulcer -GOO -Moderate diffuse gastritis -Severe erosive esophagitis Rule out variceal versus not variceal. Encephalopathy. Thrombocytopenia Liver cirrhosis d/t Hep C - treated. Constipation Recent episode of spontaneous bacterial peritonitis History of chronic renal failure. History of diabetes mellitus. Plan: Continue Protonix Monitor H and H ,Transfuse for Hgb less then 7.5 Pt with liquid diarrhea requiring rectal tube- will decrease lactulose to q8hrs Patient seen in collaboration with Dr. Patrick/Nicole Subjective: Patient remains in ICU, able to open eyes today. Remains intubated Family requesting to give mother alkaline tea from [employer]??- spoke with daughter who will bring in tea to assess possible reaction with current meds Patient currently DNR hospice has previously been offered family has declined Overall poor prognosis. PHYSICAL EXAMINATION: GENERAL: Poorly nourished, sedated, on the ventilator, intubated, in no acute distress SKIN: No lesions, + stigmata chronic liver disease, no evidence of bleeding diathesis EARS/NOSE AND THROAT: Ears normal, nose normal, oropharynx normal, oral membranes well hydrated without lesions. OG tube in place NECK: Supple, no masses CHEST: Inspection within normal limits. CARDIOVASCULAR: Heart: Regular rate and rhythm RESPIRATORY: Lungs clear to auscultation GASTROINTESTINAL AND LIVER: Abdomen: Soft, no abdominal tenderness, non- distended, no hernias, no masses, no organomegaly, ascites, no guarding, no rebound tenderness, normoactive bowel sounds. Rectal: Deferred. EXTREMITIES: , no clubbing, lower extremities edema. discoloration to BLE Result Diagram: 08/06/1844908/06/18449 Results 24hrs Laboratory Tests Test 08/05/18 18:01 08/05/18 22:18 08/06/18 01:29 08/06/18 04:50 Bedside Glucose 164 222 H 223 H White Blood Count 9.4 # Red Blood Count 2.46 L Hemoglobin 8.2 L Hematocrit 25.3 L Mean Corpuscular 102.8 H Volume Mean Corpuscular 33.3 H Hemoglobin Mean Corpuscular 32.4 Hemoglobin Concent Red Cell 20.5 H Distribution Width Platelet Count 21 #*L Mean Platelet 14.2 H Volume Immature 0.700 H Granulocytes % Neutrophils % Segmented 81 H Neutrophils % (Manual) Band Neutrophils % 14 H (Manual) Lymphocytes % Lymphocytes % 4 L (Manual) Monocytes % Monocytes % 1 (Manual) Eosinophils % Basophils % Nucleated Red 0.2 H Blood Cells % Immature 0.070 H Granulocytes # Neutrophils # Neutrophils # 7.7 H (Manual) Band Neutrophils # 1.3 H Lymphocytes 0.3 L (Manual) Lymphocytes # Monocytes # Monocytes # 0.0 L (Manual) Eosinophils # Basophils # Nucleated Red Blood Cells # Platelet Estimate SIG DECREASED Giant Platelets 2 H Polychromasia 2+ Anisocytosis 2+ Macrocytosis 2+ Ovalocytes 1+ Echinocytes 1+ Sodium Level 142 Potassium Level 3.2 L Chloride Level 105 Carbon Dioxide 21 Level Anion Gap 16 #H Blood Urea 20 Nitrogen Creatinine 1.85 H Est Glomerular 28 L Filtrat Rate mL/min Glucose Level 242 H Calcium Level 9.2 Random Vancomycin 11.3 Level Test 08/06/18 06:32 08/06/18 09:21 08/06/18 12:44 Bedside Glucose 271 H 324 H 295 H Exam/Review of Systems Exam Vitals Vital Signs Date Temp Pulse Resp B/P (MAP) Pulse Ox O2 O2 Flow FiO2 Time Delivery Rate 08/06/18 86 28 113/52 94 Mechanical 14:00 (72) Ventilator 08/06/18 99.5 12:00 08/06/18 40 11:15 08/03/18 15.0 23:25 Intake and Output 08/05/18 08/05/18 08/06/18 1515:00 23:00 07:00 IntakeIntake Total 534.26 ml 351 ml 490 ml OutputOutput Total 1500 ml 0 ml BalanceBalance -965.74 ml 351 ml 490 ml Results Results 24hrs Laboratory Tests Test 08/05/18 18:01 08/05/18 22:18 08/06/18 01:29 08/06/18 04:50 Bedside Glucose 164 222 H 223 H White Blood Count 9.4 # Red Blood Count 2.46 L Hemoglobin 8.2 L Hematocrit 25.3 L Mean Corpuscular 102.8 H Volume Mean Corpuscular 33.3 H Hemoglobin Mean Corpuscular 32.4 Hemoglobin Concent Red Cell 20.5 H Distribution Width Platelet Count 21 #*L Mean Platelet 14.2 H Volume Immature 0.700 H Granulocytes % Neutrophils % Segmented 81 H Neutrophils % (Manual) Band Neutrophils % 14 H (Manual) Lymphocytes % Lymphocytes % 4 L (Manual) Monocytes % Monocytes % 1 (Manual) Eosinophils % Basophils % Nucleated Red 0.2 H Blood Cells % Immature 0.070 H Granulocytes # Neutrophils # Neutrophils # 7.7 H (Manual) Band Neutrophils # 1.3 H Lymphocytes 0.3 L (Manual) Lymphocytes # Monocytes # Monocytes # 0.0 L (Manual) Eosinophils # Basophils # Nucleated Red Blood Cells # Platelet Estimate SIG DECREASED Giant Platelets 2 H Polychromasia 2+ Anisocytosis 2+ Macrocytosis 2+ Ovalocytes 1+ Echinocytes 1+ Sodium Level 142 Potassium Level 3.2 L Chloride Level 105 Carbon Dioxide 21 Level Anion Gap 16 #H Blood Urea 20 Nitrogen Creatinine 1.85 H Est Glomerular 28 L Filtrat Rate mL/min Glucose Level 242 H Calcium Level 9.2 Random Vancomycin 11.3 Level Test 08/06/18 06:32 08/06/18 09:21 08/06/18 12:44 Bedside Glucose 271 H 324 H 295 H Medications Medication Current Medications Fentanyl (Sublimaze) 50 mcg Q3H PRN IV SEVERE PAIN LEVEL 7-10 Last administered on 08/02/18 14:56; Admin Dose 50 MCG; Start 08/02/18 at 15:00 Insulin Glargine (Lantus) 8 units QHS SC Last administered on 08/05/18 22:20; Admin Dose 8 UNITS; Start 08/02/18 at 21:00 Midodrine (Proamatine) 10 mg TID PO Last administered on 08/06/18 12:43; Admin Dose 10 MG; Start 08/02/18 at 21:00 Multivit/Ca Carb/ B Cmplx/FA/Prenat (Brandie-Ledy) 1 tab DAILY PO Last administered on 08/06/18 09:13; Admin Dose 1 TAB; Start 08/03/18 at 09:00 Sevelamer Carbonate (Renvela) 0.8 gm WITH MEALS PO Last administered on 08/06/18 12:43; Admin Dose 0.8 GM; Start 08/02/18 at 18:00 Tramadol HCl (Ultram) 50 mg TID PRN PO PAIN 1-04/03; Start 08/02/18 at 17:30 Heparin Sodium (Porcine) (Heparin (1000 Units/ml)) 4,000 unit AFTER DIALYSIS CATHETER ; Start 08/02/18 at 19:00 Albumin Human 100 ml @ 100 mls/hr WITH DIALYSIS PRN IV SBP <90 DURING DIALYSIS Last administered on 08/04/18at 06:00; Admin Dose 100 MLS/HR; Start 08/02/18 at 19:00 Sodium Chloride (NS) -To prime the dialy... DIRECTED FOR HD PRN IV HD; Start 08/02/18 at 19:00 Pantoprazole (Protonix Iv) 40 mg BID@06,18 IV Last administered on 08/06/18at 06:44; Admin Dose 40 MG; Start 08/03/18 at 06:00 Miscellaneous Information (Pending Santyl Order For Wound Care) This patient marie... PRN PRN XX WOUND CARE; Start 08/02/18 at 20:30 Collagenase (Santyl) 1 applic DAILY TOP Last administered on 08/06/18at 09:13; Admin Dose 1 APPLIC; Start 08/02/18 at 20:30 Insulin Aspart (Novolog Insulin Pen) NOVOLOG *MILD* ALGORI... Q4 SC Last administered on 08/06/18at 12:51; Admin Dose 4 UNIT; Start 08/03/18 at 09:00 Miscellaneous Information 1 ea NOTE XX ; Start 08/03/18 at 06:30 Glucose (Glutose) 15 gm Q15M PRN PO DECREASED GLUCOSE; Start 08/03/18 at 06:30 Glucose (Glutose) 22.5 gm Q15M PRN PO DECREASED GLUCOSE; Start 08/03/18 at 06:30 Dextrose (D50w Syringe) 25 ml Q15M PRN IV DECREASED GLUCOSE; Start 08/03/18 at 06:30 Dextrose (D50w Syringe) 50 ml Q15M PRN IV DECREASED GLUCOSE Last administered on 08/04/18at 08:41; Admin Dose 50 ML; Start 08/03/18 at 06:30 Glucagon (Glucagen) 1 mg Q15M PRN IM DECREASED GLUCOSE; Start 08/03/18 at 06:30 Glucose (Glutose) 15 gm Q15M PRN BUCCAL DECREASED GLUCOSE; Start 08/03/18 at 06:30 Morphine Sulfate (morphine) 2 mg Q4H PRN IV SEVERE PAIN LEVEL 7-10 Last administered on 08/03/18 20:11; Admin Dose 2 MG; Start 08/03/18 at 13:30 Lorazepam (Ativan) 1 mg Q8H PRN IV anixety Last administered on 08/04/18 08:35; Admin Dose 1 MG; Start 08/03/18 at 13:30 Levalbuterol (Xopenex Neb) 1.25 mg Q4H RESP THERAPY PRN HHN SHORTNESS OF BREATH; Start 08/03/18 at 23:25 Phenylephrine HCl 80 mg/Dextrose 250 ml @ 18.75 mls/ hr TITRATE IV Last administered on 08/04/18 07:39; Admin Dose 56.25 MLS/HR; Start 08/04/18 at 02:30 Norepinephrine 250 ml @ 1.875 mls/ hr TITRATE IV Last administered on 08/05/18 00:31; Admin Dose 22.5 MLS/HR; Start 08/04/18 at 04:00 Vancomycin HCl (Vanco Iv Per Pharmacy) VANCOMYCIN PER PHARMACY PER PROTOCOL XX ; Start 08/04/18 at 05:00 Piperacillin Sod/ Tazobactam Sod 50 ml @ 100 mls/hr Q8 IVPB Last administered on 08/06/18 15:17; Admin Dose 100 MLS/HR; Start 08/04/18 at 06:00 Hydrocortisone (Solu-Cortef) 100 mg Q8 IV Last administered on 08/06/18 14:16; Admin Dose 100 MG; Start 08/04/18 at 14:00 Rifaximin (Xifaxan) 550 mg BID NGT Last administered on 08/06/18 09:13; Admin Dose 550 MG; Start 08/04/18 at 11:00 Lactulose (Enulose) 20 gm Q6 GTB Last administered on 08/06/18 12:43; Admin Dose 20 GM; Start 08/04/18 at 12:00 Fentanyl 100 ml @ 5 mls/hr TITRATE IV Last administered on 08/06/18 12:44; Admin Dose 5 MLS/HR; Start 08/04/18 at 16:00 Midazolam HCl 50 ml @ 1 mls/hr TITRATE IV ; Start 08/06/18 at 15:30 WILLI CHRISTIAN Aug 06, 2018 15:41
[2018-08-06] MEDS: MIDAZOLAM (DRIP) 50 mg/50 mL 50 ML IV SCH (15:56)
[2018-08-06] MEDS ORDERED: INDOMETHACIN 50 MG SUPP PR ONE (16:30)
[2018-08-06] MEDS: NORepinephrine 8MG/250 ML (PMX 250 ML IV SCH (18:19)
[2018-08-06] MEDS: INSULIN GLARGINE [LANTus] (100 UNITS/ML) SYG SC SCH (21:37)
[2018-08-06] MEDS ORDERED: DEXTROSE 50% 50 ML SYRINGE IV PRN ×2 (23:30)
[2018-08-06] MEDS ORDERED: INSULIN HUMAN REGULAR 100 UNIT in SOD CHLORIDE 0.9% 99 ML IV SCH (23:30)
[2018-08-07] VITALS (121 sets, daily range): BP systolic 82–146; BP diastolic 45–89; PULSE 70–125; RESP 18–33
[2018-08-07] MEDS: ACCU-CHEK XX SCH ×14 (00:46→13:21)
[2018-08-07] MEDS ORDERED: DEXTROSE 5% 1,000 ML IV SCH (01:00)
[2018-08-07] MEDS: LACTULOSE 30ML CUP GTB SCH ×3 (06:00→21:05)
[2018-08-07] MEDS: PANTOPRAZOLE 40 MG INJ IV SCH ×2 (06:26→18:41)
[2018-08-07] MEDS: HYDROCORTISONE 100 MG INJ IV SCH ×3 (06:26→21:06)
[2018-08-07] MEDS: PIPER-TAZO 2.25 GM (PMX) 50 ML IVPB SCH ×3 (06:26→21:06)
[2018-08-07] MEDS: SEVELAMER CARBONATE 0.8 GM PKT PO SCH ×3 (08:21→18:41)
[2018-08-07] MEDS: MULTIVIT/CA CARB/B CMPLX/FA TAB PO SCH (08:21)
[2018-08-07] MEDS: RIFAXIMIN 550 MG TAB NGT SCH ×2 (08:21→20:35)
[2018-08-07] MEDS: MIDODRINE 5 MG TAB PO SCH ×3 (08:22→20:35)
[2018-08-07] MEDS: BALSAM PERU/CASTOR OIL 60 GM TUBE TOP SCH ×2 (08:34→20:45)
[2018-08-07] MEDS: COLLAGENASE 5 GM (UD JAR) TOP SCH (08:36)
--- NOTE | 2018-08-07 08:47 | CONS ---
Assessment/Plan Assessment/Plan Assessment/Plan (Daily) 1. acute hypoxemic resp failure intubaed on ventilator 2. ESRD on HD - MWF schedule , missed HD yesterday- will get HD; 1 unit PRBC 3. Upper GI bleeidng S/p EGD showing Peptic ulcer disease 4. septic shock on levophed 5. H/o Liver Cirrhosis 6. H/o HTN 7. let basilar inftilrates with pleural effusion Plan: Levophed for BP support, s/p HD today 2 L removed, will keep pt on MWF schedule pt remains intubated on ventilator FiO2 60, ventilator management as per pulmonary DNR code status , s/p family meeting today will follow up Consultation Date/Type/Reason Admit Date/Time Aug 02, 2018 at 15:01 Initial Consult Date 08/02/18 Type of Consult NEPHROLOGY Requesting Provider: REGINA ORNELAS MD Date/Time of Note DATE: 08/07/18 TIME: 08:47 24 HR Interval Summary Free Text/Dictation remains intubated, s/p family meetint yashira, S/p HD today 2 L removed Exam/Review of Systems Exam Vitals Vital Signs Date Temp Pulse Resp B/P (MAP) Pulse Ox O2 O2 Flow FiO2 Time Delivery Rate 08/07/18 73 28 85/53 (64) 96 06:45 08/07/18 Mechanical 06:00 Ventilator 08/07/18 40 05:51 08/07/18 98.6 04:00 08/03/18 15.0 23:25 Intake and Output 08/06/18 08/06/18 08/07/18 1515:00 23:00 07:00 IntakeIntake Total 1092.750 ml 274.75 ml 147.750 ml OutputOutput Total 0 ml 0 ml BalanceBalance 1092.750 ml 274.75 ml 147.750 ml Exam Constitutional: distress ENMT: intubated Neck: supple, non-tender Respiratory: congested cough, crackles/rales, diminished breath sounds Cardiovascular: regular rate and rhythm, nl pulses Gastrointestinal: soft, non-tender Musculoskeletal: muscle weakness, swelling Extremities: normal pulses Neurological: other (sedated intubated on ventilator ) Skin: nl turgor Results Result Diagram: 08/07/18 0500 08/07/18 0500 Results 24hrs Laboratory Tests Test 08/06/18 09:21 2/12/19 12:44 08/06/18 16:02 08/06/18 21:31 Bedside Glucose 324 H 295 H 319 H 388 H Test 08/07/18 00:56 08/07/18 01:59 08/07/18 03:07 08/07/18 03:56 Bedside Glucose 427 *H 355 H 377 H 295 H Test 08/07/18 05:00 08/07/18 05:05 08/07/18 06:04 08/07/18 07:04 White Blood Count 8.7 Red Blood Count 2.59 L Hemoglobin 8.4 L Hematocrit 25.6 L Mean Corpuscular 98.8 Volume Mean Corpuscular 32.4 Hemoglobin Mean Corpuscular 32.8 Hemoglobin Concent Red Cell 19.6 H Distribution Width Platelet Count 30 #L Mean Platelet Volume 13.4 H Immature 0.800 H Granulocytes % Neutrophils % Lymphocytes % Monocytes % Eosinophils % Basophils % Nucleated Red Blood 0.2 H Cells % Immature 0.070 H Granulocytes # Neutrophils # Lymphocytes # Monocytes # Eosinophils # Basophils # Nucleated Red Blood Cells # Sodium Level 140 Potassium Level 2.8 *L Chloride Level 100 Carbon Dioxide Level 23 Anion Gap 17 H Blood Urea Nitrogen 34 #H Creatinine 2.07 H Est Glomerular 25 L Filtrat Rate mL/min Glucose Level 266 H Calcium Level 10.0 Ammonia 11 # Bedside Glucose 252 H 222 H 185 Test 08/07/18 08:15 Bedside Glucose 136 Medications Medication Current Medications Fentanyl (Sublimaze) 50 mcg Q3H PRN IV SEVERE PAIN LEVEL 7-10 Last administered on 08/02/18at 14:56; Admin Dose 50 MCG; Start 08/02/18 at 15:00 Midodrine (Proamatine) 10 mg TID PO Last administered on 08/07/18 08:22; Admin Dose 10 MG; Start 08/02/18 at 21:00 Multivit/Ca Carb/ B Cmplx/FA/Prenat (Brandie-Ledy) 1 tab DAILY PO Last administered on 08/07/18 08:21; Admin Dose 1 TAB; Start 08/03/18 at 09:00 Sevelamer Carbonate (Renvela) 0.8 gm WITH MEALS PO Last administered on 08/07/18 08:21; Admin Dose 0.8 GM; Start 08/02/18 at 18:00 Tramadol HCl (Ultram) 50 mg TID PRN PO PAIN 1-10/10; Start 08/02/18 at 17:30 Heparin Sodium (Porcine) (Heparin (1000 Units/ml)) 4,000 unit AFTER DIALYSIS CATHETER ; Start 08/02/18 at 19:00 Albumin Human 100 ml @ 100 mls/hr WITH DIALYSIS PRN IV SBP <90 DURING DIALYSIS Last administered on 08/04/18at 06:00; Admin Dose 100 MLS/HR; Start 08/02/18 at 19:00 Sodium Chloride (NS) -To prime the dialy... DIRECTED FOR HD PRN IV HD; Start 08/02/18 at 19:00 Pantoprazole (Protonix Iv) 40 mg BID@06,18 IV Last administered on 08/07/18at 06:26; Admin Dose 40 MG; Start 08/03/18 at 06:00 Miscellaneous Information (Pending Santyl Order For Wound Care) This patient marie... PRN PRN XX WOUND CARE; Start 08/02/18 at 20:30 Collagenase (Santyl) 1 applic DAILY TOP Last administered on 08/07/18at 08:36; Admin Dose 1 APPLIC; Start 08/02/18 at 20:30 Miscellaneous Information 1 ea NOTE XX ; Start 08/03/18 at 06:30 Glucose (Glutose) 15 gm Q15M PRN PO DECREASED GLUCOSE; Start 08/03/18 at 06:30 Glucose (Glutose) 22.5 gm Q15M PRN PO DECREASED GLUCOSE; Start 08/03/18 at 06:30 Glucagon (Glucagen) 1 mg Q15M PRN IM DECREASED GLUCOSE; Start 08/03/18 at 06:30 Glucose (Glutose) 15 gm Q15M PRN BUCCAL DECREASED GLUCOSE; Start 08/03/18 at 06:30 Morphine Sulfate (morphine) 2 mg Q4H PRN IV SEVERE PAIN LEVEL 7-10 Last administered on 08/03/18at 20:11; Admin Dose 2 MG; Start 08/03/18 at 13:30 Lorazepam (Ativan) 1 mg Q8H PRN IV anixety Last administered on 08/04/18at 08:35; Admin Dose 1 MG; Start 08/03/18 at 13:30 Levalbuterol (Xopenex Neb) 1.25 mg Q4H RESP THERAPY PRN HHN SHORTNESS OF BREATH; Start 08/03/18 at 23:25 Phenylephrine HCl 80 mg/Dextrose 250 ml @ 18.75 mls/ hr TITRATE IV Last administered on 08/04/18 07:39; Admin Dose 56.25 MLS/HR; Start 08/04/18 at 02:30 Norepinephrine 250 ml @ 1.875 mls/ hr TITRATE IV Last administered on 08/06/18 18:19; Admin Dose 3.75 MLS/HR; Start 08/04/18 at 04:00 Vancomycin HCl (Vanco Iv Per Pharmacy) VANCOMYCIN PER PHARMACY PER PROTOCOL XX ; Start 08/04/18 at 05:00 Piperacillin Sod/ Tazobactam Sod 50 ml @ 100 mls/hr Q8 IVPB Last administered on 08/07/18 06:26; Admin Dose 100 MLS/HR; Start 08/04/18 at 06:00 Hydrocortisone (Solu-Cortef) 100 mg Q8 IV Last administered on 08/07/18 06:26; Admin Dose 100 MG; Start 08/04/18 at 14:00 Rifaximin (Xifaxan) 550 mg BID NGT Last administered on 08/07/18 08:21; Admin Dose 550 MG; Start 08/04/18 at 11:00 Fentanyl 100 ml @ 5 mls/hr TITRATE IV Last administered on 08/06/18 12:44; Admin Dose 5 MLS/HR; Start 08/04/18 at 16:00 Midazolam HCl 50 ml @ 1 mls/hr TITRATE IV Last administered on 08/06/18 15:56; Admin Dose 2 MLS/HR; Start 08/06/18 at 15:30 Lactulose (Enulose) 20 gm Q8 GTB Last administered on 08/06/18 21:25; Admin Dose 20 GM; Start 08/06/18 at 22:00 Diagnostic Test (Pha) (Accu-Chek) 1 ea Q1H XX Last administered on 08/07/18 08:22; Admin Dose 1 EA; Start 08/06/18 at 23:30 Insulin Human Regular 100 unit/ Sodium Chloride 100 ml @ 0 mls/hr PER PROTOCOL IV Last administered on 08/07/18 00:58; Admin Dose 6 MLS/HR; Start 08/06/18 at 23:30 Miscellaneous Information (* Miscellaneous Pharmacy Order) Treatment of Hypoglycemia: 1.BG 51... Per protocol XX ; Start 08/06/18 at 23:30 Dextrose (D50w Syringe) 25 ml Q15M PRN IV .DECREASED GLUCOSE; Start 08/06/18 at 23:30 Dextrose (D50w Syringe) 50 ml Q15M PRN IV .DECREASED GLUCOSE; Start 08/06/18 at 23:30 Dextrose 1,000 ml @ 40 mls/hr Q24H IV Last administered on 08/07/18at 00:47; Admin Dose 40 MLS/HR; Start 08/07/18 at 01:00 FERNANDA RODRIGUEZ MD Aug 07, 2018 08:47
--- NOTE | 2018-08-07 10:48 | CONS ---
Consult Date/Type/Reason Admit Date/Time Aug 02, 2018 at 15:01 Initial Consult Date 08/04/18 Type of Consult Pulmonary Requesting Provider: REGINA ORNELAS MD Date/Time of Note DATE: 08/07/18 TIME: 10:47 Subjective Remains somnolent on mechanical ventilation. Low-dose Levophed fentanyl and Versed. Objective Vital Signs Date Temp Pulse Resp B/P (MAP) Pulse Ox O2 O2 Flow FiO2 Time Delivery Rate 08/07/18 74 28 117/65 97 08:45 (82) 08/07/18 98.3 Mechanical 08:00 Ventilator 08/07/18 40 08:00 08/03/18 15.0 23:25 Intake and Output 08/06/18 08/06/18 08/07/18 1515:00 23:00 07:00 IntakeIntake Total 1092.750 ml 274.75 ml 147.750 ml OutputOutput Total 0 ml 0 ml BalanceBalance 1092.750 ml 274.75 ml 147.750 ml Exam GENERAL: Chronically ill-appearing lady orally intubated on mechanical ventilation. Jaundiced VITAL SIGNS: per chart NECK: Supple. No JVD or lymphadenopathy. CARDIAC EXAM: S1, S2. No added sounds or murmurs. CHEST: Diminished air entry bilaterally with rales ABDOMEN: Soft, nontender. No guarding or rebound. EXTREMITIES: No cyanosis, clubbing or edema. NEUROLOGIC: Generalized weakness. No focal deficits. Vent Setting Ventilator Support Mode: AC Fraction of Inspired Oxygen pe: 40 Positive End Expiratory Pressu: 5.0 Results/Medications Result Diagram: 08/07/18 0500 08/07/18 0500 Results 24 hrs Laboratory Tests Test 08/06/18 12:44 08/06/18 16:02 08/06/18 21:31 08/07/18 00:56 Bedside Glucose 295 H 319 H 388 H 427 *H Test 08/07/18 01:59 08/07/18 03:07 08/07/18 03:56 08/07/18 05:00 Bedside Glucose 355 H 377 H 295 H White Blood Count 8.7 Red Blood Count 2.59 L Hemoglobin 8.4 L Hematocrit 25.6 L Mean Corpuscular 98.8 Volume Mean Corpuscular 32.4 Hemoglobin Mean Corpuscular 32.8 Hemoglobin Concent Red Cell 19.6 H Distribution Width Platelet Count 30 #L Mean Platelet Volume 13.4 H Immature 0.800 H Granulocytes % Neutrophils % Segmented 94 H Neutrophils % (Manual) Band Neutrophils % 4 (Manual) Lymphocytes % Lymphocytes % 1 L (Manual) Reactive Lymphocytes 1 H % (Manual) Monocytes % Eosinophils % Basophils % Nucleated Red Blood 0.2 H Cells % Immature 0.070 H Granulocytes # Neutrophils # Neutrophils # 8.2 H (Manual) Band Neutrophils # 0.3 Lymphocytes (Manual) 0.0 L Lymphocytes # Reactive Lymphocytes 0.0 # Monocytes # Eosinophils # Basophils # Nucleated Red Blood Cells # Platelet Estimate DECREASED Giant Platelets 2 H Polychromasia 1+ Hypochromasia 1+ Anisocytosis 2+ Macrocytosis 2+ Target Cells 1+ Sodium Level 140 Potassium Level 2.8 *L Chloride Level 100 Carbon Dioxide Level 23 Anion Gap 17 H Blood Urea Nitrogen 34 #H Creatinine 2.07 H Est Glomerular 25 L Filtrat Rate mL/min Glucose Level 266 H Calcium Level 10.0 Ammonia 11 # Test 08/07/18 05:05 08/07/18 06:04 08/07/18 07:04 08/07/18 08:15 Bedside Glucose 252 H 222 H 185 136 Test 08/07/18 09:13 08/07/18 10:43 Bedside Glucose 119 100 Medications Current Medications Fentanyl (Sublimaze) 50 mcg Q3H PRN IV SEVERE PAIN LEVEL 7-10 Last administered on 08/02/18at 14:56; Admin Dose 50 MCG; Start 08/02/18 at 15:00 Midodrine (Proamatine) 10 mg TID PO Last administered on 08/07/18at 08:22; Admin Dose 10 MG; Start 08/02/18 at 21:00 Multivit/Ca Carb/ B Cmplx/FA/Prenat (Brandie-Ledy) 1 tab DAILY PO Last administered on 08/07/18 08:21; Admin Dose 1 TAB; Start 08/03/18 at 09:00 Sevelamer Carbonate (Renvela) 0.8 gm WITH MEALS PO Last administered on 08/07/18at 08:21; Admin Dose 0.8 GM; Start 08/02/18 at 18:00 Tramadol HCl (Ultram) 50 mg TID PRN PO PAIN 1-10/10; Start 08/02/18 at 17:30 Heparin Sodium (Porcine) (Heparin (1000 Units/ml)) 4,000 unit AFTER DIALYSIS CATHETER ; Start 08/02/18 at 19:00 Albumin Human 100 ml @ 100 mls/hr WITH DIALYSIS PRN IV SBP <90 DURING DIALYSIS Last administered on 08/04/18at 06:00; Admin Dose 100 MLS/HR; Start 08/02/18 at 19:00 Sodium Chloride (NS) -To prime the dialy... DIRECTED FOR HD PRN IV HD; Start 08/02/18 at 19:00 Pantoprazole (Protonix Iv) 40 mg BID@06,18 IV Last administered on 08/07/18at 06:26; Admin Dose 40 MG; Start 08/03/18 at 06:00 Miscellaneous Information (Pending Santyl Order For Wound Care) This patient marie... PRN PRN XX WOUND CARE; Start 08/02/18 at 20:30 Collagenase (Santyl) 1 applic DAILY TOP Last administered on 08/07/18at 08:36; Admin Dose 1 APPLIC; Start 08/02/18 at 20:30 Miscellaneous Information 1 ea NOTE XX ; Start 08/03/18 at 06:30 Glucose (Glutose) 15 gm Q15M PRN PO DECREASED GLUCOSE; Start 08/03/18 at 06:30 Glucose (Glutose) 22.5 gm Q15M PRN PO DECREASED GLUCOSE; Start 08/03/18 at 06:30 Glucagon (Glucagen) 1 mg Q15M PRN IM DECREASED GLUCOSE; Start 08/03/18 at 06:30 Glucose (Glutose) 15 gm Q15M PRN BUCCAL DECREASED GLUCOSE; Start 08/03/18 at 06:30 Morphine Sulfate (morphine) 2 mg Q4H PRN IV SEVERE PAIN LEVEL 7-10 Last administered on 08/03/18at 20:11; Admin Dose 2 MG; Start 08/03/18 at 13:30 Lorazepam (Ativan) 1 mg Q8H PRN IV anixety Last administered on 08/04/18at 08:35; Admin Dose 1 MG; Start 08/03/18 at 13:30 Levalbuterol (Xopenex Neb) 1.25 mg Q4H RESP THERAPY PRN HHN SHORTNESS OF BREATH; Start 08/03/18 at 23:25 Phenylephrine HCl 80 mg/Dextrose 250 ml @ 18.75 mls/ hr TITRATE IV Last administered on 08/04/18 07:39; Admin Dose 56.25 MLS/HR; Start 08/04/18 at 02:30 Norepinephrine 250 ml @ 1.875 mls/ hr TITRATE IV Last administered on 08/06/18 18:19; Admin Dose 3.75 MLS/HR; Start 08/04/18 at 04:00 Vancomycin HCl (Vanco Iv Per Pharmacy) VANCOMYCIN PER PHARMACY PER PROTOCOL XX ; Start 08/04/18 at 05:00 Piperacillin Sod/ Tazobactam Sod 50 ml @ 100 mls/hr Q8 IVPB Last administered on 08/07/18 06:26; Admin Dose 100 MLS/HR; Start 08/04/18 at 06:00 Hydrocortisone (Solu-Cortef) 100 mg Q8 IV Last administered on 08/07/18 06:26; Admin Dose 100 MG; Start 08/04/18 at 14:00 Rifaximin (Xifaxan) 550 mg BID NGT Last administered on 08/07/18 08:21; Admin Dose 550 MG; Start 08/04/18 at 11:00 Fentanyl 100 ml @ 5 mls/hr TITRATE IV Last administered on 08/06/18 12:44; Admin Dose 5 MLS/HR; Start 08/04/18 at 16:00 Midazolam HCl 50 ml @ 1 mls/hr TITRATE IV Last administered on 08/06/18 15:56; Admin Dose 2 MLS/HR; Start 08/06/18 at 15:30 Lactulose (Enulose) 20 gm Q8 GTB Last administered on 08/06/18 21:25; Admin Dose 20 GM; Start 08/06/18 at 22:00 Diagnostic Test (Pha) (Accu-Chek) 1 ea Q1H XX Last administered on 08/07/18 10:44; Admin Dose 1 EA; Start 08/06/18 at 23:30 Insulin Human Regular 100 unit/ Sodium Chloride 100 ml @ 0 mls/hr PER PROTOCOL IV Last administered on 08/07/18 00:58; Admin Dose 6 MLS/HR; Start 08/06/18 at 23:30 Miscellaneous Information (* Miscellaneous Pharmacy Order) Treatment of Hypoglycemia: 1.BG 51... Per protocol XX ; Start 08/06/18 at 23:30 Dextrose (D50w Syringe) 25 ml Q15M PRN IV .DECREASED GLUCOSE; Start 08/06/18 at 23:30 Dextrose (D50w Syringe) 50 ml Q15M PRN IV .DECREASED GLUCOSE; Start 08/06/18 at 23:30 Dextrose 1,000 ml @ 40 mls/hr Q24H IV Last administered on 08/07/18at 00:47; Admin Dose 40 MLS/HR; Start 08/07/18 at 01:00 Assessment/Plan Hospital Course (Demo Recall) Assessment/Plan (Daily) IMP: 1. Septic Shock 2. Multifocal pneumonia 3. Hypoxemic Resp Failure 4. UGIB 5. ESLD with numerous complications including thrombocytopenia 6. ERSD on HD RECS: 1. Continue mechanical ventilation, will decrease sedation and attempt CPAP trial prior to scheduled terminal extubation. 2. Decrease vasopressors as tolerated 3. Broad spectrum abx 4. IVFs/colloids 5. Follow H/H and coags; replete as needed 6. PPI gtt +/- octreotide 7. Hydrocortisone 8. Lactulose and rifaxamin 9. Hemodialysis as tolerated Palliative care recommendations. Family considering terminal extubation end of this week. Critical care time 40 minutes. SHELLY [facility]STIAN MD[facility] Aug 07, 2018 10:48
--- NOTE | 2018-08-07 10:48 | CONS ---
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 Her 3 daughters one daughter is the DPOA she has made it very clear she does not want to continue with ongoing level of care. Other daughters are in agreement however they would like to have 2 more days to be with her mother prior to terminal extubation. They feel that the quality of life that she has currently and if she survive this and the goals of care will be changed to comfort measures on Sunday with terminal extubation. Consultation Date/Type/Reason Admit Date/Time Aug 02, 2018 at 15:01 Date/Time of Note DATE: 08/07/18 TIME: 10:44 Hx of Present Illness This is a palliative care consultation on this 57-year-old female who was admit loren to [facility] on August 02, 2018. Patient has a long-standing history of end-stage liver disease secondary to hepatitis C, end-stage renal disease on hemodialysis and hepatic encephalopathy who did a precipitous decline in her overall clinical condition after developing Salmonella bacteremia in March 2018. Since that time patient has deteriorated and was discharged to a correction unit after treatment of her bacteremia. Developed hemoptysis and was transferred back to [facility] currently she is in the intensive care unit. Patient required intubation and has been on low-dose pressors. Etiology of upper GI bleed secondary to peptic ulcer disease, patient with a diagnosis also of cirrhosis currently being treated with lactulose and rifampin, history of type 2 diabetes, history of protein malnutrition and end-stage renal disease on hemodialysis. Patient is noncommunicative intubated and sedated she has been seen by multiple consultants and has a poor prognosis. Subjective hx not possible: other (Patient is noncommunicative) Past Medical History Medical History: hepatitis, hypertension, peptic ulcer disease, renal disease, other Home Meds Active Scripts Lactulose* (Lactulose*) 20 Gm/30 Ml Solution, 20 GM GTB Q12, #30 Prov:PATRICK LYONS 07/25/18 Rifaximin* (Xifaxan*) 550 Mg Tablet, 550 MG PO BID, #30 TAB Prov:PATRICK LYONS 07/25/18 Reported Medications Multivit/Ca Carb/B Cmplx/Fa* (Brandie-Ledy*) 1 Tab Tab, 1 TAB PO DAILY, TAB 08/02/18 Insulin Glargine* (Lantus*) 100 Unit/Ml Soln, 8 UNIT SC QHS, #1 VIAL 08/02/18 Docusate Sodium* (Colace*) 100 Mg Capsule, 100 MG PO BID, #60 CAP 06/08/18 Tramadol Hcl* (Ultram*) 50 Mg Tablet, 50 MG PO TID PRN for PAIN -04/03, TAB 06/08/18 Sevelamer Carbonate* (Renvela*) 800 Mg Tablet, 0.8 GM PO WITH MEALS, TAB 06/08/18 Pantoprazole* (Pantoprazole*) 40 Mg Tablet.dr, 40 MG PO AC BREAKFAST, TAB 06/08/18 Midodrine* (Midodrine*) 10 Mg Tablet, 10 MG PO TID, TAB HOLD FOR SBP>130 06/08/18 Pregabalin* (Lyrica*) 75 Mg Capsule, 75 MG PO DAILY, CAP 06/08/18 Discontinued Reported Medications Multivit/Ca Carb/B Cmplx/Fa* (Brandie-Ledy*) 1 Tab Tab, 1 TAB PO DAILY, TAB 06/08/18 Discontinued Scripts [Insulin Glargine] 100 UNITS/ML SOLN No Conflict Check, 8 UNITS SC DAILY@1999, #1 VIAL Prov:PATRICK LYONS 07/25/18 Insulin Aspart* (Novolog Insulin Pen*) 100 Unit/Ml Soln, 3 UNIT SC WITH MEALS, #1 VIAL Prov:PATRICK LYONS 07/25/18 Medications Current Medications Fentanyl (Sublimaze) 50 mcg Q3H PRN IV SEVERE PAIN LEVEL 7-10 Last administered on 08/02/18at 14:56; Admin Dose 50 MCG; Start 08/02/18 at 15:00 Midodrine (Proamatine) 10 mg TID PO Last administered on 08/07/18at 08:22; Admin Dose 10 MG; Start 08/02/18 at 21:00 Multivit/Ca Carb/ B Cmplx/FA/Prenat (Brandie-Ledy) 1 tab DAILY PO Last administered on 08/07/18 08:21; Admin Dose 1 TAB; Start 08/03/18 at 09:00 Sevelamer Carbonate (Renvela) 0.8 gm WITH MEALS PO Last administered on 08/07/18 08:21; Admin Dose 0.8 GM; Start 08/02/18 at 18:00 Tramadol HCl (Ultram) 50 mg TID PRN PO PAIN 1-10/10; Start 08/02/18 at 17:30 Heparin Sodium (Porcine) (Heparin (1000 Units/ml)) 4,000 unit AFTER DIALYSIS CATHETER ; Start 08/02/18 at 19:00 Albumin Human 100 ml @ 100 mls/hr WITH DIALYSIS PRN IV SBP <90 DURING DIALYSIS Last administered on 08/04/18 06:00; Admin Dose 100 MLS/HR; Start 08/02/18 at 19:00 Sodium Chloride (NS) -To prime the dialy... DIRECTED FOR HD PRN IV HD; Start 08/02/18 at 19:00 Pantoprazole (Protonix Iv) 40 mg BID@06,18 IV Last administered on 08/07/18 06:26; Admin Dose 40 MG; Start 08/03/18 at 06:00 Miscellaneous Information (Pending Santyl Order For Wound Care) This patient marie... PRN PRN XX WOUND CARE; Start 08/02/18 at 20:30 Collagenase (Santyl) 1 applic DAILY TOP Last administered on 08/07/18 08:36; Admin Dose 1 APPLIC; Start 08/02/18 at 20:30 Miscellaneous Information 1 ea NOTE XX ; Start 08/03/18 at 06:30 Glucose (Glutose) 15 gm Q15M PRN PO DECREASED GLUCOSE; Start 08/03/18 at 06:30 Glucose (Glutose) 22.5 gm Q15M PRN PO DECREASED GLUCOSE; Start 08/03/18 at 06:30 Glucagon (Glucagen) 1 mg Q15M PRN IM DECREASED GLUCOSE; Start 08/03/18 at 06:30 Glucose (Glutose) 15 gm Q15M PRN BUCCAL DECREASED GLUCOSE; Start 08/03/18 at 06:30 Morphine Sulfate (morphine) 2 mg Q4H PRN IV SEVERE PAIN LEVEL 7-10 Last administered on 08/03/18 20:11; Admin Dose 2 MG; Start 08/03/18 at 13:30 Lorazepam (Ativan) 1 mg Q8H PRN IV anixety Last administered on 08/04/18 08:35; Admin Dose 1 MG; Start 08/03/18 at 13:30 Levalbuterol (Xopenex Neb) 1.25 mg Q4H RESP THERAPY PRN HHN SHORTNESS OF BREATH; Start 08/03/18 at 23:25 Phenylephrine HCl 80 mg/Dextrose 250 ml @ 18.75 mls/ hr TITRATE IV Last administered on 08/04/18 07:39; Admin Dose 56.25 MLS/HR; Start 08/04/18 at 02:30 Norepinephrine 250 ml @ 1.875 mls/ hr TITRATE IV Last administered on 18:19; Admin Dose 3.75 MLS/HR; Start 08/04/18 at 04:00 Vancomycin HCl (Vanco Iv Per Pharmacy) VANCOMYCIN PER PHARMACY PER PROTOCOL XX ; Start 08/04/18 at 05:00 Piperacillin Sod/ Tazobactam Sod 50 ml @ 100 mls/hr Q8 IVPB Last administered on 08/07/18 06:26; Admin Dose 100 MLS/HR; Start 08/04/18 at 06:00 Hydrocortisone (Solu-Cortef) 100 mg Q8 IV Last administered on 08/07/18 06:26; Admin Dose 100 MG; Start 08/04/18 at 14:00 Rifaximin (Xifaxan) 550 mg BID NGT Last administered on 08/07/18 08:21; Admin Dose 550 MG; Start 08/04/18 at 11:00 Fentanyl 100 ml @ 5 mls/hr TITRATE IV Last administered on 08/06/18 12:44; Admin Dose 5 MLS/HR; Start 08/04/18 at 16:00 Midazolam HCl 50 ml @ 1 mls/hr TITRATE IV Last administered on 08/06/18 15:56; Admin Dose 2 MLS/HR; Start 08/06/18 at 15:30 Lactulose (Enulose) 20 gm Q8 GTB Last administered on 08/06/18 21:25; Admin Dose 20 GM; Start 08/06/18 at 22:00 Diagnostic Test (Pha) (Accu-Chek) 1 ea Q1H XX Last administered on 2/13/19at 09:14; Admin Dose 1 EA; Start 08/06/18 at 23:30 Insulin Human Regular 100 unit/ Sodium Chloride 100 ml @ 0 mls/hr PER PROTOCOL IV Last administered on 08/07/18at 00:58; Admin Dose 6 MLS/HR; Start 08/06/18 at 23:30 Miscellaneous Information (* Miscellaneous Pharmacy Order) Treatment of Hypoglycemia: 1.BG 51... Per protocol XX ; Start 08/06/18 at 23:30 Dextrose (D50w Syringe) 25 ml Q15M PRN IV .DECREASED GLUCOSE; Start 08/06/18 at 23:30 Dextrose (D50w Syringe) 50 ml Q15M PRN IV .DECREASED GLUCOSE; Start 08/06/18 at 23:30 Dextrose 1,000 ml @ 40 mls/hr Q24H IV Last administered on 08/07/18at 00:47; Ad min Dose 40 MLS/HR; Start 08/07/18 at 01:00 Allergies: Coded Allergies: No Known Allergy (Unverified , 08/02/18) Past Surgical History Past Surgical Hx: no surgical history, other (Unknown) Social History Alcohol Use: none Smoking Status: Never smoker Drug Use: none Exam/Review of Systems Exam Vitals Vital Signs Date Temp Pulse Resp B/P (MAP) Pulse Ox O2 O2 Flow FiO2 Time Delivery Rate 08/07/18 74 28 117/65 97 08:45 (82) 08/07/18 98.3 Mechanical 08:00 Ventilator 08/07/18 40 08:00 08/03/18 15.0 23:25 Intake and Output 08/06/18 08/06/18 08/07/18 1515:00 23:00 07:00 IntakeIntake Total 1092.750 ml 274.75 ml 147.750 ml OutputOutput Total 0 ml 0 ml BalanceBalance 1092.750 ml 274.75 ml 147.750 ml Constitutional: frail, other (Sedated) Head: normocephalic, atraumatic; No lacerations, No hematomas, No other Neck: supple, non-tender Respiratory: clear to auscultation, normal air movement; No congested cough, No crackles/rales, No diminished breath sounds, No intercostal retraction, No labored breathing, No respirations, No tactile fremit us, No wheezing, No other Cardiovascular: regular rate and rhythm, nl pulses; No bruits, No diastolic murmur, No edema, No gallop, No irregular rhythm, No jugular venous distention (JVD), No murmurs/extra sounds, No rub, No systolic murmur, No S3, No S4, No other Results Result Diagram: 08/07/18 0500 08/07/18 0500 Results 24hrs Laboratory Tests Test 08/06/18 12:44 08/06/18 16:02 08/06/18 21:31 08/07/18 00:56 Bedside Glucose 295 H 319 H 388 H 427 *H Test 08/07/18 01:59 08/07/18 03:07 08/07/18 03:56 08/07/18 05:00 Bedside Glucose 355 H 377 H 295 H White Blood Count 8.7 Red Blood Count 2.59 L Hemoglobin 8.4 L Hematocrit 25.6 L Mean Corpuscular 98.8 Volume Mean Corpuscular 32.4 Hemoglobin Mean Corpuscular 32.8 Hemoglobin Concent Red Cell 19.6 H Distribution Width Platelet Count 30 #L Mean Platelet Volume 13.4 H Immature 0.800 H Granulocytes % Neutrophils % Segmented 94 H Neutrophils % (Manual) Band Neutrophils % 4 (Manual) Lymphocytes % Lymphocytes % 1 L (Manual) Reactive Lymphocytes 1 H % (Manual) Monocytes % Eosinophils % Basophils % Nucleated Red Blood 0.2 H Cells % Immature 0.070 H Granulocytes # Neutrophils # Neutrophils # 8.2 H (Manual) Band Neutrophils # 0.3 Lymphocytes (Manual) 0.0 L Lymphocytes # Reactive Lymphocytes 0.0 # Monocytes # Eosinophils # Basophils # Nucleated Red Blood Cells # Platelet Estimate DECREASED Giant Platelets 2 H Polychromasia 1+ Hypochromasia 1+ Anisocytosis 2+ Macrocytosis 2+ Target Cells 1+ Sodium Level 140 Potassium Level 2.8 *L Chloride Level 100 Carbon Dioxide Level 23 Anion Gap 17 H Blood Urea Nitrogen 34 #H Creatinine 2.07 H Est Glomerular 25 L Filtrat Rate mL/min Glucose Level 266 H Calcium Level 10.0 Ammonia 11 # Test 08/07/18 05:05 08/07/18 06:04 08/07/18 07:04 08/07/18 08:15 Bedside Glucose 252 H 222 H 185 136 Test 08/07/18 09:13 Bedside Glucose 119 Medications Medication Current Medications Fentanyl (Sublimaze) 50 mcg Q3H PRN IV SEVERE PAIN LEVEL 7-10 Last administered on 08/02/18 14:56; Admin Dose 50 MCG; Start 08/02/18 at 15:00 Midodrine (Proamatine) 10 mg TID PO Last administered on 08/07/18 08:22; Admin Dose 10 MG; Start 08/02/18 at 21:00 Multivit/Ca Carb/ B Cmplx/FA/Prenat (Brandie-Ledy) 1 tab DAILY PO Last administered on 08/07/18 08:21; Admin Dose 1 TAB; Start 08/03/18 at 09:00 Sevelamer Carbonate (Renvela) 0.8 gm WITH MEALS PO Last administered on 08/07/18 08:21; Admin Dose 0.8 GM; Start 08/02/18 at 18:00 Tramadol HCl (Ultram) 50 mg TID PRN PO PAIN 1-10/10; Start 08/02/18 at 17:30 Heparin Sodium (Porcine) (Heparin (1000 Units/ml)) 4,000 unit AFTER DIALYSIS CATHETER ; Start 08/02/18 at 19:00 Albumin Human 100 ml @ 100 mls/hr WITH DIALYSIS PRN IV SBP <90 DURING DIALYSIS Last administered on 08/04/18 06:00; Admin Dose 100 MLS/HR; Start 08/02/18 at 19:00 Sodium Chloride (NS) -To prime the dialy... DIRECTED FOR HD PRN IV HD; Start 08/02/18 at 19:00 Pantoprazole (Protonix Iv) 40 mg BID@06,18 IV Last administered on 08/07/18 06:26; Admin Dose 40 MG; Start 08/03/18 at 06:00 Miscellaneous Information (Pending Santyl Order For Wound Care) This patient marie... PRN PRN XX WOUND CARE; Start 08/02/18 at 20:30 Collagenase (Santyl) 1 applic DAILY TOP Last administered on 08/07/18 08:36; Admin Dose 1 APPLIC; Start 08/02/18 at 20:30 Miscellaneous Information 1 ea NOTE XX ; Start 08/03/18 at 06:30 Glucose (Glutose) 15 gm Q15M PRN PO DECREASED GLUCOSE; Start 08/03/18 at 06:30 Glucose (Glutose) 22.5 gm Q15M PRN PO DECREASED GLUCOSE; Start 08/03/18 at 06:30 Glucagon (Glucagen) 1 mg Q15M PRN IM DECREASED GLUCOSE; Start 08/03/18 at 06:30 Glucose (Glutose) 15 gm Q15M PRN BUCCAL DECREASED GLUCOSE; Start 08/03/18 at 06:30 Morphine Sulfate (morphine) 2 mg Q4H PRN IV SEVERE PAIN LEVEL 7-10 Last administered on 08/03/18 20:11; Admin Dose 2 MG; Start 08/03/18 at 13:30 Lorazepam (Ativan) 1 mg Q8H PRN IV anixety Last administered on 08/04/18 08:35; Admin Dose 1 MG; Start 08/03/18 at 13:30 Levalbuterol (Xopenex Neb) 1.25 mg Q4H RESP THERAPY PRN HHN SHORTNESS OF BREATH; Start 08/03/18 at 23:25 Phenylephrine HCl 80 mg/Dextrose 250 ml @ 18.75 mls/ hr TITRATE IV Last administered on 08/04/18 07:39; Admin Dose 56.25 MLS/HR; Start 08/04/18 at 02:30 Norepinephrine 250 ml @ 1.875 mls/ hr TITRATE IV Last administered on 08/06/18 18:19; Admin Dose 3.75 MLS/HR; Start 08/04/18 at 04:00 Vancomycin HCl (Vanco Iv Per Pharmacy) VANCOMYCIN PER PHARMACY PER PROTOCOL XX ; Start 08/04/18 at 05:00 Piperacillin Sod/ Tazobactam Sod 50 ml @ 100 mls/hr Q8 IVPB Last administered on 08/07/18 06:26; Admin Dose 100 MLS/HR; Start 08/04/18 at 06:00 Hydrocortisone (Solu-Cortef) 100 mg Q8 IV Last administered on 08/07/18 06:26; Admin Dose 100 MG; Start 08/04/18 at 14:00 Rifaximin (Xifaxan) 550 mg BID NGT Last administered on 08/07/18 08:21; Admin Dose 550 MG; Start 08/04/18 at 11:00 Fentanyl 100 ml @ 5 mls/hr TITRATE IV Last administered on 08/06/18 12:44; Admin Dose 5 MLS/HR; Start 08/04/18 at 16:00 Midazolam HCl 50 ml @ 1 mls/hr TITRATE IV Last administered on 08/06/18 15:56; Admin Dose 2 MLS/HR; Start 08/06/18 at 15:30 Lactulose (Enulose) 20 gm Q8 GTB Last administered on 08/06/18 21:25; Admin Dose 20 GM; Start 08/06/18 at 22:00 Diagnostic Test (Pha) (Accu-Chek) 1 ea Q1H XX Last administered on 08/07/18 09:14; Admin Dose 1 EA; Start 08/06/18 at 23:30 Insulin Human Regular 100 unit/ Sodium Chloride 100 ml @ 0 mls/hr PER PROTOCOL IV Last administered on 08/07/18 00:58; Admin Dose 6 MLS/HR; Start 08/06/18 at 23:30 Miscellaneous Information (* Miscellaneous Pharmacy Order) Treatment of Hypoglycemia: 1.BG 51... Per protocol XX ; Start 08/06/18 at 23:30 Dextrose (D50w Syringe) 25 ml Q15M PRN IV .DECREASED GLUCOSE; Start 08/06/18 at 23:30 Dextrose (D50w Syringe) 50 ml Q15M PRN IV .DECREASED GLUCOSE; Start 08/06/18 at 23:30 Dextrose 1,000 ml @ 40 mls/hr Q24H IV Last administered on 08/07/18 00:47; Admin Dose 40 MLS/HR; Start 08/07/18 at 01:00 FIDENCIO WALKER Aug 07, 2018 10:48
--- NOTE | 2018-08-07 16:01 | PN ---
Date/Time of Note Date/Time of Note DATE: 08/07/18 TIME: 15:48 Assessment/Plan VTE Prophylaxis Risk score (from Ns)>0 risk: 8 SCD applied (from Ns): No SCD contraindicated: other (scds) Pharmacological prophylaxis: other (scds) Lines/Catheters IV Catheter Type (from [facility]): Peripheral IV Urinary Cath still in place: No Assessment/Plan Hospital Course Assessment: Status post respiratory distress Upper GI bleeding. S/p EGD 08/02/18 - Atypical Duodenal Ulcer -GOO -Moderate diffuse gastritis -Severe erosive esophagitis Rule out variceal Encephalopathy. Thrombocytopenia Liver cirrhosis d/t Hep C - treated. Constipation Recent episode of spontaneous bacterial peritonitis History of chronic renal failure. History of diabetes mellitus. Plan: Continue current regimen Pt evaluated by palliative care- plan for terminal extubation, and if she does survive goals with be changes to comfort measures only. No further recommendation, GI will sign off but will be available as needed for reconsult Patient seen in collaboration with Dr. Patrick/Marko Subjective: No over night events, pt remains in ICU currently intubated. Family at bedside, less rectal out-put noted with decrease in lactulose. PHYSICAL EXAMINATION: GENERAL: Poorly nourished, opens eyes, on the ventilator, intubated, in no acute distress SKIN: No lesions, + stigmata chronic liver disease, no evidence of bleeding diathesis EARS/NOSE AND THROAT: Ears normal, nose normal. OG tube in place NECK: Supple, no masses CHEST: Inspection within normal limits. CARDIOVASCULAR: Heart: Regular rate and rhythm RESPIRATORY: Lungs clear to auscultation GASTROINTESTINAL AND LIVER: Abdomen: Soft, no abdominal tenderness, non- distended, no hernias, no masses, no organomegaly, ascites, no guarding, no rebound tenderness, normoactive bowel sounds. Rectal: Deferred. EXTREMITIES: , no clubbing, lower extremities edema. discoloration to BLE Result Diagram: 08/07/18 0500 08/07/18 0500 Results 24hrs Laboratory Tests Test 08/06/18 16:02 08/06/18 21:31 08/07/18 00:56 08/07/18 01:59 Bedside Glucose 319 H 388 H 427 *H 355 H Test 08/07/18 03:07 08/07/18 03:56 08/07/18 05:00 08/07/18 05:05 Bedside Glucose 377 H 295 H 252 H White Blood Count 8.7 Red Blood Count 2.59 L Hemoglobin 8.4 L Hematocrit 25.6 L Mean Corpuscular 98.8 Volume Mean Corpuscular 32.4 Hemoglobin Mean Corpuscular 32.8 Hemoglobin Concent Red Cell 19.6 H Distribution Width Platelet Count 30 #L Mean Platelet Volume 13.4 H Immature 0.800 H Granulocytes % Neutrophils % Segmented 94 H Neutrophils % (Manual) Band Neutrophils % 4 (Manual) Lymphocytes % Lymphocytes % 1 L (Manual) Reactive Lymphocytes 1 H % (Manual) Monocytes % Eosinophils % Basophils % Nucleated Red Blood 0.2 H Cells % Immature 0.070 H Granulocytes # Neutrophils # Neutrophils # 8.2 H (Manual) Band Neutrophils # 0.3 Lymphocytes (Manual) 0.0 L Lymphocytes # Reactive Lymphocytes 0.0 # Monocytes # Eosinophils # Basophils # Nucleated Red Blood Cells # Platelet Estimate DECREASED Giant Platelets 2 H Polychromasia 1+ Hypochromasia 1+ Anisocytosis 2+ Macrocytosis 2+ Target Cells 1+ Sodium Level 140 Potassium Level 2.8 *L Chloride Level 100 Carbon Dioxide Level 23 Anion Gap 17 H Blood Urea Nitrogen 34 #H Creatinine 2.07 H Est Glomerular 25 L Filtrat Rate mL/min Glucose Level 266 H Calcium Level 10.0 Ammonia 11 # Test 08/07/18 06:04 08/07/18 07:04 08/07/18 08:15 08/07/18 09:13 Bedside Glucose 222 H 185 136 119 Test 08/07/18 10:43 08/07/18 11:37 08/07/18 13:20 08/07/18 15:13 Bedside Glucose 100 76 77 79 Exam/Review of Systems Exam Vitals Vital Signs Date Temp Pulse Resp B/P (MAP) Pulse Ox O2 O2 Flow FiO2 Time Delivery Rate 08/07/18 95 24 146/67 100 Mechanical 14:08 (93) Ventilator 08/07/18 97.8 12:00 08/07/18 40 08:00 08/03/18 15.0 23:25 Intake and Output 08/06/18 08/06/18 08/07/18 1515:00 23:00 07:00 IntakeIntake Total 1092.750 ml 274.75 ml 147.750 ml OutputOutput Total 0 ml 0 ml 0 ml BalanceBalance 1092.750 ml 274.75 ml 147.750 ml Results Results 24hrs Laboratory Tests Test 08/06/18 16:02 08/06/18 21:31 08/07/18 00:56 08/07/18 01:59 Bedside Glucose 319 H 388 H 427 *H 355 H Test 08/07/18 03:07 08/07/18 03:56 08/07/18 05:00 08/07/18 05:05 Bedside Glucose 377 H 295 H 252 H White Blood Count 8.7 Red Blood Count 2.59 L Hemoglobin 8.4 L Hematocrit 25.6 L Mean Corpuscular 98.8 Volume Mean Corpuscular 32.4 Hemoglobin Mean Corpuscular 32.8 Hemoglobin Concent Red Cell 19.6 H Distribution Width Platelet Count 30 #L Mean Platelet Volume 13.4 H Immature 0.800 H Granulocytes % Neutrophils % Segmented 94 H Neutrophils % (Manual) Band Neutrophils % 4 (Manual) Lymphocytes % Lymphocytes % 1 L (Manual) Reactive Lymphocytes 1 H % (Manual) Monocytes % Eosinophils % Basophils % Nucleated Red Blood 0.2 H Cells % Immature 0.070 H Granulocytes # Neutrophils # Neutrophils # 8.2 H (Manual) Band Neutrophils # 0.3 Lymphocytes (Manual) 0.0 L Lymphocytes # Reactive Lymphocytes 0.0 # Monocytes # Eosinophils # Basophils # Nucleated Red Blood Cells # Platelet Estimate DECREASED Giant Platelets 2 H Polychromasia 1+ Hypochromasia 1+ Anisocytosis 2+ Macrocytosis 2+ Target Cells 1+ Sodium Level 140 Potassium Level 2.8 *L Chloride Level 100 Carbon Dioxide Level 23 Anion Gap 17 H Blood Urea Nitrogen 34 #H Creatinine 2.07 H Est Glomerular 25 L Filtrat Rate mL/min Glucose Level 266 H Calcium Level 10.0 Ammonia 11 # Test 08/07/18 06:04 08/07/18 07:04 08/07/18 08:15 08/07/18 09:13 Bedside Glucose 222 H 185 136 119 Test 08/07/18 10:43 08/07/18 11:37 08/07/18 13:20 08/07/18 15:13 Bedside Glucose 100 76 77 79 Medications Medication Current Medications Fentanyl (Sublimaze) 50 mcg Q3H PRN IV SEVERE PAIN LEVEL 7-10 Last administered on 08/02/18at 14:56; Admin Dose 50 MCG; Start 08/02/18 at 15:00 Midodrine (Proamatine) 10 mg TID PO Last administered on 08/07/18 08:22; Admin Dose 10 MG; Start 08/02/18 at 21:00 Multivit/Ca Carb/ B Cmplx/FA/Prenat (Brandie-Ledy) 1 tab DAILY PO Last administered on 08/07/18 08:21; Admin Dose 1 TAB; Start 08/03/18 at 09:00 Sevelamer Carbonate (Renvela) 0.8 gm WITH MEALS PO Last administered on 08/07/18 08:21; Admin Dose 0.8 GM; Start 08/02/18 at 18:00 Tramadol HCl (Ultram) 50 mg TID PRN PO PAIN 1-04/03; Start 08/02/18 at 17:30 Heparin Sodium (Porcine) (Heparin (1000 Units/ml)) 4,000 unit AFTER DIALYSIS CATHETER ; Start 08/02/18 at 19:00 Albumin Human 100 ml @ 100 mls/hr WITH DIALYSIS PRN IV SBP <90 DURING DIALYSIS Last administered on 08/04/18 06:00; Admin Dose 100 MLS/HR; Start 08/02/18 at 19:00 Sodium Chloride (NS) -To prime the dialy... DIRECTED FOR HD PRN IV HD; Start 08/02/18 at 19:00 Pantoprazole (Protonix Iv) 40 mg BID@06,18 IV Last administered on 08/07/18 06:26; Admin Dose 40 MG; Start 08/03/18 at 06:00 Miscellaneous Information (Pending Santyl Order For Wound Care) This patient marie... PRN PRN XX WOUND CARE; Start 08/02/18 at 20:30 Collagenase (Santyl) 1 applic DAILY TOP Last administered on 08/07/18at 08:36; Admin Dose 1 APPLIC; Start 08/02/18 at 20:30 Miscellaneous Information 1 ea NOTE XX ; Start 08/03/18 at 06:30 Glucose (Glutose) 15 gm Q15M PRN PO DECREASED GLUCOSE; Start 08/03/18 at 06:30 Glucose (Glutose) 22.5 gm Q15M PRN PO DECREASED GLUCOSE; Start 08/03/18 at 06:30 Glucagon (Glucagen) 1 mg Q15M PRN IM DECREASED GLUCOSE; Start 08/03/18 at 06:30 Glucose (Glutose) 15 gm Q15M PRN BUCCAL DECREASED GLUCOSE; Start 08/03/18 at 06:30 Morphine Sulfate (morphine) 2 mg Q4H PRN IV SEVERE PAIN LEVEL 7-10 Last administered on 08/03/18 20:11; Admin Dose 2 MG; Start 08/03/18 at 13:30 Lorazepam (Ativan) 1 mg Q8H PRN IV anixety Last administered on 08/04/18 08:35; Admin Dose 1 MG; Start 08/03/18 at 13:30 Levalbuterol (Xopenex Neb) 1.25 mg Q4H RESP THERAPY PRN HHN SHORTNESS OF BREATH; Start 08/03/18 at 23:25 Phenylephrine HCl 80 mg/Dextrose 250 ml @ 18.75 mls/ hr TITRATE IV Last administered on 08/04/18 07:39; Admin Dose 56.25 MLS/HR; Start 08/04/18 at 02:30 Norepinephrine 250 ml @ 1.875 mls/ hr TITRATE IV Last administered on 08/06/18 18:19; Admin Dose 3.75 MLS/HR; Start 08/04/18 at 04:00 Vancomycin HCl (Vanco Iv Per Pharmacy) VANCOMYCIN PER PHARMACY PER PROTOCOL XX ; Start 08/04/18 at 05:00 Piperacillin Sod/ Tazobactam Sod 50 ml @ 100 mls/hr Q8 IVPB Last administered on 08/07/18 06:26; Admin Dose 100 MLS/HR; Start 08/04/18 at 06:00 Hydrocortisone (Solu-Cortef) 100 mg Q8 IV Last administered on 08/07/18 06:26; Admin Dose 100 MG; Start 08/04/18 at 14:00 Rifaximin (Xifaxan) 550 mg BID NGT Last administered on 08/07/18 08:21; Admin Dose 550 MG; Start 08/04/18 at 11:00 Fentanyl 100 ml @ 5 mls/hr TITRATE IV Last administered on 08/06/18 12:44; Admin Dose 5 MLS/HR; Start 08/04/18 at 16:00 Midazolam HCl 50 ml @ 1 mls/hr TITRATE IV Last administered on 08/06/18 15:56; Admin Dose 2 MLS/HR; Start 08/06/18 at 15:30 Lactulose (Enulose) 20 gm Q8 GTB Last administered on 08/06/18at 21:25; Admin Dose 20 GM; Start 08/06/18 at 22:00 Diagnostic Test (Pha) (Accu-Chek) 1 ea Q1H XX Last administered on 08/07/18at 13:21; Admin Dose 1 EA; Start 08/06/18 at 23:30 Insulin Human Regular 100 unit/ Sodium Chloride 100 ml @ 0 mls/hr PER PROTOCOL IV Last administered on 08/07/18at 00:58; Admin Dose 6 MLS/HR; Start 08/06/18 at 23:30 Miscellaneous Information (* Miscellaneous Pharmacy Order) Treatment of Hypoglycemia: 1.BG 51... Per protocol XX ; Start 08/06/18 at 23:30 Dextrose (D50w Syringe) 25 ml Q15M PRN IV .DECREASED GLUCOSE; Start 08/06/18 at 23:30 Dextrose (D50w Syringe) 50 ml Q15M PRN IV .DECREASED GLUCOSE; Start 08/06/18 at 23:30 WILLI CHRISTIAN Aug 07, 2018 15:58
--- NOTE | 2018-08-07 16:12 | PN ---
Date/Time of Note Date/Time of Note DATE: 08/07/18 TIME: 16:08 Assessment/Plan VTE Prophylaxis Risk score (from Nsg)>0 risk: 8 Pharmacological prophylaxis: NA/contraindicated Pharm contraindication: liver dx Lines/Catheters IV Catheter Type (from Nrsg): Peripheral IV Urinary Cath still in place: No Assessment/Plan Hospital Course 57 yo female with h/o ESRD, cirrhosis, DMII recently discharged after hospitalization for SBP and salmonella bacteremia who returns with hematemesis and found to have PUD PULM Acute respiratory failure: - XR suggestive of pneumonia and/or volume overload, continue broad spectrum antibiotics with vancomycin and zosyn - Intubation, wean off vent as able -Pulmonology following CV: Septic shock: - Vasopressors to MAP > 65 HEME: Thrombocytopenia: - Transfuse platelets PRN Acute blood loss anemia 2/2 bleeding peptic ulcer: - Transfuse PRN > Hgb 7 - IV PPI - Maintain NPO for now, pending GI clearance GI: Cirrhosis: - Continue lactulose and rifaxin - No varices on EGD, duodenal ulcer noted, moderate diffuse gastritis with severe erosive esophagitis - IV PPI ENDO DMII: - Basal/bolus insulin Protein/calorie malnutrition: -Continue enteral feeding -Continue steroids for adrenal support ESRD: - HD per Dr Ankur SILVERIO planning: Patient is a DNR, palliative care consultation appreciated family conference held today, plan is for extubation this coming Sunday Result Diagram: 08/07/18 0500 08/07/18 0500 Results 24hrs Laboratory Tests Test 08/06/18 21:31 08/07/18 00:56 08/07/18 01:59 08/07/18 03:07 Bedside Glucose 388 H 427 *H 355 H 377 H Test 08/07/18 03:56 08/07/18 05:00 08/07/18 05:05 08/07/18 06:04 Bedside Glucose 295 H 252 H 222 H White Blood Count 8.7 Red Blood Count 2.59 L Hemoglobin 8.4 L Hematocrit 25.6 L Mean Corpuscular 98.8 Volume Mean Corpuscular 32.4 Hemoglobin Mean Corpuscular 32.8 Hemoglobin Concent Red Cell 19.6 H Distribution Width Platelet Count 30 #L Mean Platelet Volume 13.4 H Immature 0.800 H Granulocytes % Neutrophils % Segmented 94 H Neutrophils % (Manual) Band Neutrophils % 4 (Manual) Lymphocytes % Lymphocytes % 1 L (Manual) Reactive Lymphocytes 1 H % (Manual) Monocytes % Eosinophils % Basophils % Nucleated Red Blood 0.2 H Cells % Immature 0.070 H Granulocytes # Neutrophils # Neutrophils # 8.2 H (Manual) Band Neutrophils # 0.3 Lymphocytes (Manual) 0.0 L Lymphocytes # Reactive Lymphocytes 0.0 # Monocytes # Eosinophils # Basophils # Nucleated Red Blood Cells # Platelet Estimate DECREASED Giant Platelets 2 H Polychromasia 1+ Hypochromasia 1+ Anisocytosis 2+ Macrocytosis 2+ Target Cells 1+ Sodium Level 140 Potassium Level 2.8 *L Chloride Level 100 Carbon Dioxide Level 23 Anion Gap 17 H Blood Urea Nitrogen 34 #H Creatinine 2.07 H Est Glomerular 25 L Filtrat Rate mL/min Glucose Level 266 H Calcium Level 10.0 Ammonia 11 # Test 08/07/18 07:04 08/07/18 08:15 08/07/18 09:13 08/07/18 10:43 Bedside Glucose 185 136 119 100 Test 08/07/18 11:37 08/07/18 13:20 08/07/18 15:13 Bedside Glucose 76 77 79 Subjective 24 Hr Interval Summary Subjective hx not possible: pt non-verbal Exam/Review of Systems Exam Vitals Vital Signs Date Temp Pulse Resp B/P (MAP) Pulse Ox O2 O2 Flow FiO2 Time Delivery Rate 08/07/18 95 24 146/67 100 Mechanical 14:08 (93) Ventilator 08/07/18 97.8 12:00 08/07/18 40 08:00 08/03/18 15.0 23:25 Intake and Output 08/06/18 08/06/18 08/07/18 1515:00 23:00 07:00 IntakeIntake Total 1092.750 ml 274.75 ml 147.750 ml OutputOutput Total 0 ml 0 ml 0 ml BalanceBalance 1092.750 ml 274.75 ml 147.750 ml Constitutional: non-verbal Respiratory: clear to auscultation Cardiovascular: regular rate and rhythm Gastrointestinal: soft; No distended Musculoskeletal: nl extremities to inspection Results Results 24hrs Laboratory Tests Test 08/06/18 21:31 08/07/18 00:56 08/07/18 01:59 08/07/18 03:07 Bedside Glucose 388 H 427 *H 355 H 377 H Test 08/07/18 03:56 08/07/18 05:00 08/07/18 05:05 08/07/18 06:04 Bedside Glucose 295 H 252 H 222 H White Blood Count 8.7 Red Blood Count 2.59 L Hemoglobin 8.4 L Hematocrit 25.6 L Mean Corpuscular 98.8 Volume Mean Corpuscular 32.4 Hemoglobin Mean Corpuscular 32.8 Hemoglobin Concent Red Cell 19.6 H Distribution Width Platelet Count 30 #L Mean Platelet Volume 13.4 H Immature 0.800 H Granulocytes % Neutrophils % Segmented 94 H Neutrophils % (Manual) Band Neutrophils % 4 (Manual) Lymphocytes % Lymphocytes % 1 L (Manual) Reactive Lymphocytes 1 H % (Manual) Monocytes % Eosinophils % Basophils % Nucleated Red Blood 0.2 H Cells % Immature 0.070 H Granulocytes # Neutrophils # Neutrophils # 8.2 H (Manual) Band Neutrophils # 0.3 Lymphocytes (Manual) 0.0 L Lymphocytes # Reactive Lymphocytes 0.0 # Monocytes # Eosinophils # Basophils # Nucleated Red Blood Cells # Platelet Estimate DECREASED Giant Platelets 2 H Polychromasia 1+ Hypochromasia 1+ Anisocytosis 2+ Macrocytosis 2+ Target Cells 1+ Sodium Level 140 Potassium Level 2.8 *L Chloride Level 100 Carbon Dioxide Level 23 Anion Gap 17 H Blood Urea Nitrogen 34 #H Creatinine 2.07 H Est Glomerular 25 L Filtrat Rate mL/min Glucose Level 266 H Calcium Level 10.0 Ammonia 11 # Test 08/07/18 07:04 08/07/18 08:15 08/07/18 09:13 08/07/18 10:43 Bedside Glucose 185 136 119 100 Test 08/07/18 11:37 08/07/18 13:20 08/07/18 15:13 Bedside Glucose 76 77 79 Medications Medication Current Medications Fentanyl (Sublimaze) 50 mcg Q3H PRN IV SEVERE PAIN LEVEL 7-10 Last administered on 08/02/18at 14:56; Admin Dose 50 MCG; Start 08/02/18 at 15:00 Midodrine (Proamatine) 10 mg TID PO Last administered on 08/07/18at 15:57; Admin Dose 10 MG; Start 08/02/18 at 21:00 Multivit/Ca Carb/ B Cmplx/FA/Prenat (Brandie-Ledy) 1 tab DAILY PO Last administered on 08/07/18at 08:21; Admin Dose 1 TAB; Start 08/03/18 at 09:00 Sevelamer Carbonate (Renvela) 0.8 gm WITH MEALS PO Last administered on 08/07/18at 08:21; Admin Dose 0.8 GM; Start 08/02/18 at 18:00 Tramadol HCl (Ultram) 50 mg TID PRN PO PAIN 1-10/10; Start 08/02/18 at 17:30 Heparin Sodium (Porcine) (Heparin (1000 Units/ml)) 4,000 unit AFTER DIALYSIS CATHETER ; Start 08/02/18 at 19:00 Albumin Human 100 ml @ 100 mls/hr WITH DIALYSIS PRN IV SBP <90 DURING DIALYSIS Last administered on 08/04/18at 06:00; Admin Dose 100 MLS/HR; Start 08/02/18 at 19:00 Sodium Chloride (NS) -To prime the dialy... DIRECTED FOR HD PRN IV HD; Start 08/02/18 at 19:00 Pantoprazole (Protonix Iv) 40 mg BID@06,18 IV Last administered on 08/07/18at 06:26; Admin Dose 40 MG; Start 08/03/18 at 06:00 Miscellaneous Information (Pending Santyl Order For Wound Care) This patient marie... PRN PRN XX WOUND CARE; Start 08/02/18 at 20:30 Collagenase (Santyl) 1 applic DAILY TOP Last administered on 08/07/18at 08:36; Admin Dose 1 APPLIC; Start 08/02/18 at 20:30 Miscellaneous Information 1 ea NOTE XX ; Start 08/03/18 at 06:30 Glucose (Glutose) 15 gm Q15M PRN PO DECREASED GLUCOSE; Start 08/03/18 at 06:30 Glucose (Glutose) 22.5 gm Q15M PRN PO DECREASED GLUCOSE; Start 08/03/18 at 06:30 Glucagon (Glucagen) 1 mg Q15M PRN IM DECREASED GLUCOSE; Start 08/03/18 at 06:30 Glucose (Glutose) 15 gm Q15M PRN BUCCAL DECREASED GLUCOSE; Start 08/03/18 at 06:30 Morphine Sulfate (morphine) 2 mg Q4H PRN IV SEVERE PAIN LEVEL 7-10 Last administered on 08/03/18at 20:11; Admin Dose 2 MG; Start 08/03/18 at 13:30 Lorazepam (Ativan) 1 mg Q8H PRN IV anixety Last administered on 08/04/18 08:35; Admin Dose 1 MG; Start 08/03/18 at 13:30 Levalbuterol (Xopenex Neb) 1.25 mg Q4H RESP THERAPY PRN HHN SHORTNESS OF BREATH; Start 08/03/18 at 23:25 Phenylephrine HCl 80 mg/Dextrose 250 ml @ 18.75 mls/ hr TITRATE IV Last administered on 08/04/18 07:39; Admin Dose 56.25 MLS/HR; Start 08/04/18 at 02:30 Norepinephrine 250 ml @ 1.875 mls/ hr TITRATE IV Last administered on 08/06/18 18:19; Admin Dose 3.75 MLS/HR; Start 08/04/18 at 04:00 Vancomycin HCl (Vanco Iv Per Pharmacy) VANCOMYCIN PER PHARMACY PER PROTOCOL XX ; Start 08/04/18 at 05:00 Piperacillin Sod/ Tazobactam Sod 50 ml @ 100 mls/hr Q8 IVPB Last administered on 08/07/18 15:57; Admin Dose 100 MLS/HR; Start 08/04/18 at 06:00 Hydrocortisone (Solu-Cortef) 100 mg Q8 IV Last administered on 08/07/18 15:56; Admin Dose 100 MG; Start 08/04/18 at 14:00 Rifaximin (Xifaxan) 550 mg BID NGT Last administered on 08/07/18 08:21; Admin Dose 550 MG; Start 08/04/18 at 11:00 Fentanyl 100 ml @ 5 mls/hr TITRATE IV Last administered on 08/06/18 12:44; Admin Dose 5 MLS/HR; Start 08/04/18 at 16:00 Midazolam HCl 50 ml @ 1 mls/hr TITRATE IV Last administered on 08/06/18 15:56; Admin Dose 2 MLS/HR; Start 08/06/18 at 15:30 Lactulose (Enulose) 20 gm Q8 GTB Last administered on 08/07/18 15:55; Admin Dose 20 GM; Start 08/06/18 at 22:00 Miscellaneous Information (* Miscellaneous Pharmacy Order) Treatment of Hypoglycemia: 1.BG 51... Per protocol XX ; Start 08/06/18 at 23:30 Dextrose (D50w Syringe) 25 ml Q15M PRN IV .DECREASED GLUCOSE; Start 08/06/18 at 23:30 Dextrose (D50w Syringe) 50 ml Q15M PRN IV .DECREASED GLUCOSE; Start 08/06/18 at 23:30 Miscellaneous Information (* Miscellaneous Pharmacy Order) Discontinue current oral sulfonylur... ONCE ONCE XX ; Start 08/07/18 at 16:00; Stop 08/07/18 at 16:01; Status UNV Diagnostic Test (Pha) (Accu-Chek) 1 XX ; Start 08/08/18 at 02:00; Status UNV Miscellaneous Information (* Miscellaneous Pharmacy Order) HYPOGLYCEMIA PROTOCOL w... ONCE ONCE XX ; Start 08/07/18 at 16:00; Stop 08/07/18 at 16:01; Status UNV Insulin Aspart (Novolog Insulin Pen) NOVOLOG *MILD* ALGORI... Q4 SC ; Start 08/07/18 at 17:00; Status UNV Miscellaneous Information (* Miscellaneous Pharmacy Order) Discontinue all previ... ONCE ONCE XX ; Start 08/07/18 at 16:00; Stop 08/07/18 at 16:01; Status UNV PATRICK LYONS Aug 07, 2018 16:11
[2018-08-07] MEDS: INSULIN ASPART [NOVOLOG] 3 ML PEN SC SCH ×2 (18:39→20:49)
[2018-08-07] MEDS: NORepinephrine 8MG/250 ML (PMX 250 ML IV SCH (19:18)
[2018-08-07] MEDS: MIDAZOLAM (DRIP) 50 mg/50 mL 50 ML IV SCH (19:32)
[2018-08-07] MEDS ORDERED: ACETAMINOPHEN 650MG/20.3ML CUP NGT PRN (21:00)
[2018-08-08] VITALS (100 sets, daily range): BP systolic 82–113; BP diastolic 51–77; PULSE 90–110; RESP 19–33
[2018-08-08] MEDS: INSULIN ASPART [NOVOLOG] 3 ML PEN SC SCH ×6 (01:14→21:40)
[2018-08-08] MEDS: ACCU-CHEK XX SCH (01:16)
[2018-08-08] MEDS: FENTAnyl (DRIP) 1000 mcg/100mL 100 ML IV SCH (04:49)
[2018-08-08] MEDS: HYDROCORTISONE 100 MG INJ IV SCH (06:26)
[2018-08-08] MEDS: PANTOPRAZOLE 40 MG INJ IV SCH ×2 (06:26→17:43)
[2018-08-08] MEDS: LACTULOSE 30ML CUP GTB SCH ×3 (06:26→21:26)
[2018-08-08] MEDS: PIPER-TAZO 2.25 GM (PMX) 50 ML IVPB SCH ×3 (06:26→21:27)
[2018-08-08] MEDS: MIDODRINE 5 MG TAB PO SCH ×3 (08:49→21:26)
[2018-08-08] MEDS: RIFAXIMIN 550 MG TAB NGT SCH ×2 (08:49→21:26)
[2018-08-08] MEDS: SEVELAMER CARBONATE 0.8 GM PKT PO SCH ×3 (08:50→17:42)
[2018-08-08] MEDS: COLLAGENASE 5 GM (UD JAR) TOP SCH (08:50)
[2018-08-08] MEDS: MULTIVIT/CA CARB/B CMPLX/FA TAB PO SCH (08:51)
[2018-08-08] MEDS: BALSAM PERU/CASTOR OIL 60 GM TUBE TOP SCH ×2 (08:51→21:26)
--- NOTE | 2018-08-08 09:51 | CONS ---
Consult Date/Type/Reason Admit Date/Time Aug 02, 2018 at 15:01 Initial Consult Date 08/04/18 Type of Consult Pulmonary Requesting Provider: REGINA ORNELAS MD Date/Time of Note DATE: 08/08/18 TIME: 09:47 Subjective Sedated somnolent on mechanical ventilation. Chest x-ray showsRight side greater than left infiltrates somewhat improved. Objective Vital Signs Date Temp Pulse Resp B/P (MAP) Pulse Ox O2 O2 Flow FiO2 Time Delivery Rate 08/08/18 99 08:00 08/08/18 28 99 40 06:02 08/08/18 100/65 Mechanical 06:00 (77) Ventilator 08/08/18 99.7 04:00 Intake and Output 08/07/18 08/07/18 08/08/18 1515:00 23:00 07:00 IntakeIntake Total 131.875 ml 348.0 ml 272.25 ml OutputOutput Total 2600 ml 200 ml 150 ml BalanceBalance -2468.125 ml 148.0 ml 122.25 ml Exam GENERAL: Chronically ill-appearing lady orally intubated on mechanical ventilation. Jaundiced VITAL SIGNS: per chart NECK: Supple. No JVD or lymphadenopathy. CARDIAC EXAM: S1, S2. No added sounds or murmurs. CHEST: Diminished air entry bilaterally with rales ABDOMEN: Soft, nontender. No guarding or rebound. EXTREMITIES: No cyanosis, clubbing or edema. NEUROLOGIC: Generalized weakness. No focal deficits. Vent Setting Ventilator Support Mode: AC, VC plus Fraction of Inspired Oxygen pe: 40 Positive End Expiratory Pressu: 5.0 Results/Medications Result Diagram: 08/08/18 0530 08/08/18 0530 Results 24 hrs Laboratory Tests Test 08/07/18 10:43 08/07/18 11:37 08/07/18 13:20 08/07/18 15:13 Bedside Glucose 100 76 77 79 Test 08/07/18 18:39 08/07/18 20:46 08/08/18 01:11 08/08/18 04:45 Bedside Glucose 144 178 286 H 296 H Test 08/08/18 05:30 08/08/18 07:00 08/08/18 08:55 White Blood 8.4 Count Red Blood Count 2.97 L Hemoglobin 9.8 L Hematocrit 29.1 L Mean Corpuscular 98.0 Volume Mean Corpuscular 33.0 Hemoglobin Mean Corpuscular 33.7 Hemoglobin Melanie nt Red Cell 19.9 H Distribution Width Platelet Count 26 *L Mean Platelet 11.3 H Volume Immature 1.000 H Granulocytes % Neutrophils % Segmented 91 H Neutrophils % (Manual) Lymphocytes % Lymphocytes % 4 L (Manual) Reactive 1 H Lymphocytes % (Manual) Monocytes % Monocytes % 4 (Manual) Eosinophils % Basophils % Nucleated Red 1 H Blood Cells % Immature 0.080 H Granulocytes # Neutrophils # Lymphocytes 0.3 L (Manual) Lymphocytes # Reactive 0.0 Lymphocytes # Monocytes # Monocytes # 0.3 (Manual) Eosinophils # Basophils # Nucleated Red Blood Cells # Toxic 1+ Granulation Platelet SIG DECREASED Estimate Giant Platelets 10 H Polychromasia 1+ Anisocytosis 2+ Microcytosis 1+ Macrocytosis 2+ Spherocytes 2+ Target Cells 1+ Sodium Level 139 Potassium Level 3.1 L Chloride Level 98 Carbon Dioxide 22 Level Anion Gap 19 H Blood Urea 37 H Nitrogen Creatinine 1.95 H Est Glomerular 26 L Filtrat Rate mL/min Glucose Level 262 H Calcium Level 9.7 Phosphorus Level 0.9 L Magnesium Level 2.0 Blood Gas Blood arterial Specimen Source Arterial Blood 08/08/2018 7:50: Date Drawn 43 AM Arterial Blood 7.470 H pH (Temp corrected) Arterial Blood 31.3 L pCO2 (Temp correct) Arterial Blood 79.7 L pO2 (Temp corrected) Arterial Blood 22.3 HCO3 Arterial Blood -0.7 Base Excess Arterial Blood 95.8 Oxygen Saturatio n Barrie Test ACCEPTAB Arterial Blood Right Radial Gas Puncture Site Arterial 0.7 Blood Carboxyhem oglobin Arterial Blood 0.2 Methemoglobin Blood Gas A-a O2 169.5 H Differential Oxyhemoglobin 94.9 Percent Blood Gas 37.0 Temperature Blood Gas 28.0 Respiration Rate Blood Gas Actual 28 Respiration Rate Blood Gas VENT - AC Modality FiO2 40.0 Blood Gas Tidal 400.0 Volume Blood Gas Low 5.0 PEEP Setting Blood Gas DT Notified Whom Blood Gas 08/08/2018 8:14: Notified Time 13 AM Bedside Glucose 291 H Medications Current Medications Fentanyl (Sublimaze) 50 mcg Q3H PRN IV SEVERE PAIN LEVEL 7-10 Last administered on 08/02/18at 14:56; Admin Dose 50 MCG; Start 08/02/18 at 15:00 Midodrine (Proamatine) 10 mg TID PO Last administered on 08/08/18 08:49; Admin Dose 10 MG; Start 08/02/18 at 21:00 Multivit/Ca Carb/ B Cmplx/FA/Prenat (Brandie-Ledy) 1 tab DAILY PO Last administered on 08/08/18 08:51; Admin Dose 1 TAB; Start 08/03/18 at 09:00 Sevelamer Carbonate (Renvela) 0.8 gm WITH MEALS PO Last administered on 08/08/18 08:50; Admin Dose 0.8 GM; Start 08/02/18 at 18:00 Tramadol HCl (Ultram) 50 mg TID PRN PO PAIN 1-04/03; Start 08/02/18 at 17:30 Heparin Sodium (Porcine) (Heparin (1000 Units/ml)) 4,000 unit AFTER DIALYSIS CATHETER ; Start 08/02/18 at 19:00 Albumin Human 100 ml @ 100 mls/hr WITH DIALYSIS PRN IV SBP <90 DURING DIALYSIS Last administered on 08/04/18 06:00; Admin Dose 100 MLS/HR; Start 08/02/18 at 19:00 Sodium Chloride (NS) -To prime the dialy... DIRECTED FOR HD PRN IV HD; Start 08/02/18 at 19:00 Pantoprazole (Protonix Iv) 40 mg BID@06,18 IV Last administered on 08/08/18 06:26; Admin Dose 40 MG; Start 08/03/18 at 06:00 Miscellaneous Information (Pending Santyl Order For Wound Care) This patient marie... PRN PRN XX WOUND CARE; Start 08/02/18 at 20:30 Collagenase (Santyl) 1 applic DAILY TOP Last administered on 08/08/18at 08:50; Admin Dose 1 APPLIC; Start 08/02/18 at 20:30 Miscellaneous Information 1 ea NOTE XX ; Start 08/03/18 at 06:30 Glucose (Glutose) 15 gm Q15M PRN PO DECREASED GLUCOSE; Start 08/03/18 at 06:30 Glucose (Glutose) 22.5 gm Q15M PRN PO DECREASED GLUCOSE; Start 08/03/18 at 06:30 Glucagon (Glucagen) 1 mg Q15M PRN IM DECREASED GLUCOSE; Start 08/03/18 at 06:30 Glucose (Glutose) 15 gm Q15M PRN BUCCAL DECREASED GLUCOSE; Start 08/03/18 at 06: 30 Morphine Sulfate (morphine) 2 mg Q4H PRN IV SEVERE PAIN LEVEL 7-10 Last administered on 08/03/18 20:11; Admin Dose 2 MG; Start 08/03/18 at 13:30 Lorazepam (Ativan) 1 mg Q8H PRN IV anixety Last administered on 08/04/18 08:35; Admin Dose 1 MG; Start 08/03/18 at 13:30 Levalbuterol (Xopenex Neb) 1.25 mg Q4H RESP THERAPY PRN HHN SHORTNESS OF BREATH; Start 08/03/18 at 23:25 Phenylephrine HCl 80 mg/Dextrose 250 ml @ 18.75 mls/ hr TITRATE IV Last administered on 08/04/18 07:39; Admin Dose 56.25 MLS/HR; Start 08/04/18 at 02:30 Norepinephrine 250 ml @ 1.875 mls/ hr TITRATE IV Last administered on 08/07/18 19:18; Admin Dose 15 MLS/HR; Start 08/04/18 at 04:00 Vancomycin HCl (Vanco Iv Per Pharmacy) VANCOMYCIN PER PHARMACY PER PROTOCOL XX ; Start 08/04/18 at 05:00 Piperacillin Sod/ Tazobactam Sod 50 ml @ 100 mls/hr Q8 IVPB Last administered on 08/08/18 06:26; Admin Dose 100 MLS/HR; Start 08/04/18 at 06:00 Hydrocortisone (Solu-Cortef) 100 mg Q8 IV Last administered on 08/08/18 06:26; Admin Dose 100 MG; Start 08/04/18 at 14:00 Rifaximin (Xifaxan) 550 mg BID NGT Last administered on 08/08/18 08:49; Admin Dose 550 MG; Start 08/04/18 at 11:00 Fentanyl 100 ml @ 5 mls/hr TITRATE IV Last administered on 08/08/18 04:49; Admin Dose 5 MLS/HR; Start 08/04/18 at 16:00 Midazolam HCl 50 ml @ 1 mls/hr TITRATE IV Last administered on 08/07/18 19:32; Admin Dose 2 MLS/HR; Start 08/06/18 at 15:30 Lactulose (Enulose) 20 gm Q8 GTB Last administered on 08/08/18at 06:26; Admin Dose 20 GM; Start 08/06/18 at 22:00 Dextrose (D50w Syringe) 25 ml Q15M PRN IV .DECREASED GLUCOSE; Start 08/06/18 at 23:30 Dextrose (D50w Syringe) 50 ml Q15M PRN IV .DECREASED GLUCOSE; Start 08/06/18 at 23:30 Diagnostic Test (Pha) (Accu-Chek) 1 ea 02 XX Last administered on 08/08/18at 01:16; Admin Dose 1 EA; Start 08/08/18 at 02:00 Insulin Aspart (Novolog Insulin Pen) NOVOLOG *MILD* ALGORI... Q4 SC Last admini stered on 08/08/18at 08:57; Admin Dose 2 UNIT; Start 08/07/18 at 17:00 Acetaminophen (Tylenol Liquid) 650 mg Q6H PRN NGT MILD PAIN(1-3)OR ELEVATED TEMP Last administered on 08/07/18at 21:05; Admin Dose 650 MG; Start 08/07/18 at 21:00 Assessment/Plan Hospital Course (Demo Recall) Assessment/Plan (Daily) IMP: 1. Septic Shock now off vasopressors 2. Multifocal pneumonia mild radiographic improvement 3. Hypoxemic Resp Failure 4. UGIB 5. ESLD with numerous complications including thrombocytopenia 6. ERSD on HD RECS: 1. Continue mechanical ventilation, 2. Decrease vasopressors as tolerated 3. Broad spectrum abx 4. TF as tolerated. 5. decrease stress dose steroids. 6. HD per primary team Family considering terminal extubation this weekend. Critical care time 40 minutes. SHELLY CHRISTIAN MD, [facility] Aug 08, 2018 09:51
--- NOTE | 2018-08-08 10:10 | CONS ---
Assessment/Plan Assessment/Plan Assessment/Plan (Daily) 1. acute hypoxemic resp failure intubaed on ventilator 2. ESRD on HD - MWF schedule , missed HD yesterday- will get HD; 1 unit PRBC 3. Upper GI bleeidng S/p EGD showing Peptic ulcer disease 4. septic shock on levophed 5. H/o Liver Cirrhosis 6. H/o HTN 7. let basilar inftilrates with pleural effusion Plan: , s/p HD yesterday 2 L removed, pt remains intubated, family wished for terminal extubation on sunday, no plan for HD tomorrow DNR code status , s/p family meeting today will follow up Consultation Date/Type/Reason Admit Date/Time Aug 02, 2018 at 15:01 Initial Consult Date 08/02/18 Type of Consult NEPHROLOGY Requesting Provider: REGINA ORNELAS MD Date/Time of Note DATE: 08/08/18 TIME: 10:10 24 HR Interval Summary Free Text/Dictation , remains intubated, famiyl wished for terminal extubation on sunday Exam/Review of Systems Exam Vitals Vital Signs Date Temp Pulse Resp B/P (MAP) Pulse Ox O2 O2 Flow FiO2 Time Delivery Rate 08/08/18 96 28 93/68 (76) 98 Mechanical 10:00 Ventilator 08/08/18 98.4 08:00 08/08/18 40 06:02 Intake and Output 08/07/18 08/07/18 08/08/18 1515:00 23:00 07:00 IntakeIntake Total 131.875 ml 348.0 ml 272.25 ml OutputOutput Total 2600 ml 200 ml 150 ml BalanceBalance -2468.125 ml 148.0 ml 122.25 ml Exam Constitutional: distress ENMT: intubated Neck: supple, non-tender Respiratory: congested cough, crackles/rales, diminished breath sounds Cardiovascular: regular rate and rhythm, nl pulses Gastrointestinal: soft, non-tender Musculoskeletal: muscle weakness, swelling Extremities: normal pulses Neurological: other (sedated intubated on ventilator ) Skin: nl turgor Results Result Diagram: 08/08/18 0530 08/08/18 0530 Results 24hrs Laboratory Tests Test 08/07/18 10:43 08/07/18 11:37 08/07/18 13:20 08/07/18 15:13 Bedside Glucose 100 76 77 79 Test 08/07/18 18:39 08/07/18 20:46 08/08/18 01:11 08/08/18 04:45 Bedside Glucose 144 178 286 H 296 H Test 08/08/18 05:30 08/08/18 07:00 08/08/18 08:55 White Blood 8.4 Count Red Blood Count 2.97 L Hemoglobin 9.8 L Hematocrit 29.1 L Mean Corpuscular 98.0 Volume Mean Corpuscular 33.0 Hemoglobin Mean Corpuscular 33.7 Hemoglobin Melanie nt Red Cell 19.9 H Distribution Width Platelet Count 26 *L Mean Platelet 11.3 H Volume Immature 1.000 H Granulocytes % Neutrophils % Segmented 91 H Neutrophils % (Manual) Lymphocytes % Lymphocytes % 4 L (Manual) Reactive 1 H Lymphocytes % (Manual) Monocytes % Monocytes % 4 (Manual) Eosinophils % Basophils % Nucleated Red 1 H Blood Cells % Immature 0.080 H Granulocytes # Neutrophils # Lymphocytes 0.3 L (Manual) Lymphocytes # Reactive 0.0 Lymphocytes # Monocytes # Monocytes # 0.3 (Manual) Eosinophils # Basophils # Nucleated Red Blood Cells # Toxic 1+ Granulation Platelet SIG DECREASED Estimate Giant Platelets 10 H Polychromasia 1+ Anisocytosis 2+ Microcytosis 1+ Macrocytosis 2+ Spherocytes 2+ Target Cells 1+ Sodium Level 139 Potassium Level 3.1 L Chloride Level 98 Carbon Dioxide 22 Level Anion Gap 19 H Blood Urea 37 H Nitrogen Creatinine 1.95 H Est Glomerular 26 L Filtrat Rate mL/min Glucose Level 262 H Calcium Level 9.7 Phosphorus Level 0.9 L Magnesium Level 2.0 Blood Gas Blood arterial Specimen Source Arterial Blood 08/08/2018 7:50: Date Drawn 43 AM Arterial Blood 7.470 H pH (Temp corrected) Arterial Blood 31.3 L pCO2 (Temp correct) Arterial Blood 79.7 L pO2 (Temp corrected) Arterial Blood 22.3 HCO3 Arterial Blood -0.7 Base Excess Arterial Blood 95.8 Oxygen Saturatio n Barrie Test ACCEPTAB Arterial Blood Right Radial Gas Puncture Site Arterial 0.7 Blood Carboxyhem oglobin Arterial Blood 0.2 Methemoglobin Blood Gas A-a O2 169.5 H Differential Oxyhemoglobin 94.9 Percent Blood Gas 37.0 Temperature Blood Gas 28.0 Respiration Rate Blood Gas Actual 28 Respiration Rate Blood Gas VENT - AC Modality FiO2 40.0 Blood Gas Tidal 400.0 Volume Blood Gas Low 5.0 PEEP Setting Blood Gas DT Notified Whom Blood Gas 08/08/2018 8:14: Notified Time 13 AM Bedside Glucose 291 H Medications Medication Current Medications Fentanyl (Sublimaze) 50 mcg Q3H PRN IV SEVERE PAIN LEVEL 7-10 Last administered on 08/02/18 14:56; Admin Dose 50 MCG; Start 08/02/18 at 15:00 Midodrine (Proamatine) 10 mg TID PO Last administered on 08/08/18 08:49; Admin Dose 10 MG; Start 08/02/18 at 21:00 Multivit/Ca Carb/ B Cmplx/FA/Prenat (Brandie-Ledy) 1 tab DAILY PO Last administered on 08/08/18 08:51; Admin Dose 1 TAB; Start 08/03/18 at 09:00 Sevelamer Carbonate (Renvela) 0.8 gm WITH MEALS PO Last administered on 08/08/18 08:50; Admin Dose 0.8 GM; Start 08/02/18 at 18:00 Tramadol HCl (Ultram) 50 mg TID PRN PO PAIN 1-10/10; Start 08/02/18 at 17:30 Heparin Sodium (Porcine) (Heparin (1000 Units/ml)) 4,000 unit AFTER DIALYSIS CATHETER ; Start 08/02/18 at 19:00 Albumin Human 100 ml @ 100 mls/hr WITH DIALYSIS PRN IV SBP <90 DURING DIALYSIS Last administered on 08/04/18 06:00; Admin Dose 100 MLS/HR; Start 08/02/18 at 19:00 Sodium Chloride (NS) -To prime the dialy... DIRECTED FOR HD PRN IV HD; Start 08/02/18 at 19:00 Pantoprazole (Protonix Iv) 40 mg BID@06,18 IV Last administered on 08/08/18 06:26; Admin Dose 40 MG; Start 08/03/18 at 06:00 Miscellaneous Information (Pending Santyl Order For Wound Care) This patient marie... PRN PRN XX WOUND CARE; Start 08/02/18 at 20:30 Collagenase (Santyl) 1 applic DAILY TOP Last administered on 08/08/18 08:50; Admin Dose 1 APPLIC; Start 08/02/18 at 20:30 Miscellaneous Information 1 ea NOTE XX ; Start 08/03/18 at 06:30 Glucose (Glutose) 15 gm Q15M PRN PO DECREASED GLUCOSE; Start 08/03/18 at 06:30 Glucose (Glutose) 22.5 gm Q15M PRN PO DECREASED GLUCOSE; Start 08/03/18 at 06:30 Glucagon (Glucagen) 1 mg Q15M PRN IM DECREASED GLUCOSE; Start 08/03/18 at 06:30 Glucose (Glutose) 15 gm Q15M PRN BUCCAL DECREASED GLUCOSE; Start 08/03/18 at 06:30 Morphine Sulfate (morphine) 2 mg Q4H PRN IV SEVERE PAIN LEVEL 7-10 Last administered on 08/03/18at 20:11; Admin Dose 2 MG; Start 08/03/18 at 13:30 Lorazepam (Ativan) 1 mg Q8H PRN IV anixety Last administered on 08/04/18at 08:35; Admin Dose 1 MG; Start 08/03/18 at 13:30 Levalbuterol (Xopenex Neb) 1.25 mg Q4H RESP THERAPY PRN HHN SHORTNESS OF BREATH; Start 08/03/18 at 23:25 Phenylephrine HCl 80 mg/Dextrose 250 ml @ 18.75 mls/ hr TITRATE IV Last administered on 08/04/18at 07:39; Admin Dose 56.25 MLS/HR; Start 08/04/18 at 02:30 Norepinephrine 250 ml @ 1.875 mls/ hr TITRATE IV Last administered on 08/07/18at 19:18; Admin Dose 15 MLS/HR; Start 08/04/18 at 04:00 Vancomycin HCl (Vanco Iv Per Pharmacy) VANCOMYCIN PER PHARMACY PER PROTOCOL XX ; Start 08/04/18 at 05:00 Piperacillin Sod/ Tazobactam Sod 50 ml @ 100 mls/hr Q8 IVPB Last administered on 08/08/18at 06:26; Admin Dose 100 MLS/HR; Start 08/04/18 at 06:00 Rifaximin (Xifaxan) 550 mg BID NGT Last administered on 08/08/18 08:49; Admin Dose 550 MG; Start 08/04/18 at 11:00 Fentanyl 100 ml @ 5 mls/hr TITRATE IV Last administered on 08/08/18 04:49; Admin Dose 5 MLS/HR; Start 08/04/18 at 16:00 Midazolam HCl 50 ml @ 1 mls/hr TITRATE IV Last administered on 08/07/18at 19:32; Admin Dose 2 MLS/HR; Start 08/06/18 at 15:30 Lactulose (Enulose) 20 gm Q8 GTB Last administered on 08/08/18 06:26; Admin Dose 20 GM; Start 08/06/18 at 22:00 Dextrose (D50w Syringe) 25 ml Q15M PRN IV .DECREASED GLUCOSE; Start 08/06/18 at 23:30 Dextrose (D50w Syringe) 50 ml Q15M PRN IV .DECREASED GLUCOSE; Start 08/06/18 at 23:30 Diagnostic Test (Pha) (Accu-Chek) 1 ea 02 XX Last administered on 08/08/18at 01:16; Admin Dose 1 EA; Start 08/08/18 at 02:00 Insulin Aspart (Novolog Insulin Pen) NOVOLOG *MILD* ALGORI... Q4 SC Last administered on 08/08/18at 08:57; Admin Dose 2 UNIT; Start 08/07/18 at 17:00 Acetaminophen (Tylenol Liquid) 650 mg Q6H PRN NGT MILD PAIN(1-3)OR ELEVATED TEMP Last administered on 08/07/18at 21:05; Admin Dose 650 MG; Start 08/07/18 at 21:00 Hydrocortisone (Solu-Cortef) 50 mg Q8 IV ; Start 08/08/18 at 14:00 FERNANDA RODRIGUEZ MD Aug 08, 2018 10:10
[2018-08-08] MEDS: MIDAZOLAM (DRIP) 50 mg/50 mL 50 ML IV SCH (10:38)
[2018-08-08] MEDS ORDERED: INSULIN GLARGINE [LANTus] (100 UNITS/ML) SYG SC SCH (12:32)
[2018-08-08] MEDS: NORepinephrine 8MG/250 ML (PMX 250 ML IV SCH (12:43)
[2018-08-08] MEDS ORDERED: HYDROCORTISONE 100 MG INJ IV SCH (14:00)
[2018-08-08] MEDS: INSULIN GLARGINE [LANTus] (100 UNITS/ML) SYG SC SCH (14:33)
--- NOTE | 2018-08-08 15:14 | PN ---
Date/Time of Note Date/Time of Note DATE: 08/08/18 TIME: 15:10 Assessment/Plan VTE Prophylaxis Risk score (from Nsg)>0 risk: 10 Pharmacological prophylaxis: NA/contraindicated Pharm contraindication: liver dx Lines/Catheters IV Catheter Type (from Nrsg): Peripheral IV Urinary Cath still in place: No Assessment/Plan Hospital Course 57 yo female with h/o ESRD, cirrhosis, DMII recently discharged after hospitalization for SBP and salmonella bacteremia who returns with hematemesis and found to have PUD PULM Acute respiratory failure: - XR suggestive of pneumonia and/or volume overload, continue broad spectrum antibiotics with vancomycin and zosyn - Intubation, wean off vent as able -Pulmonology following CV: Septic shock: - Vasopressors to MAP > 65 HEME: Thrombocytopenia: - Transfuse platelets PRN Acute blood loss anemia 2/2 bleeding peptic ulcer: - Transfuse PRN > Hgb 7 - IV PPI - Maintain NPO for now, pending GI clearance GI: Cirrhosis: - Continue lactulose and rifaxin - No varices on EGD, duodenal ulcer noted, moderate diffuse gastritis with severe erosive esophagitis - IV PPI ENDO DMII: - Basal/bolus insulin Protein/calorie malnutrition: -Continue enteral feeding -Continue steroids for adrenal support ESRD: - HD per Dr Ankur SILVERIO planning: Patient is a DNR, palliative care consultation appreciated, plan is for terminal extubation tomorrow Result Diagram: 08/08/18 0530 08/08/18 0530 Results 24hrs Laboratory Tests Test 08/07/18 15:13 08/07/18 18:39 08/07/18 20:46 08/08/18 01:11 Bedside Glucose 79 144 178 286 H Test 08/08/18 04:45 08/08/18 05:30 08/08/18 07:00 08/08/18 08:55 Bedside Glucose 296 H 291 H White Blood 8.4 Count Red Blood Count 2.97 L Hemoglobin 9.8 L Hematocrit 29.1 L Mean Corpuscular 98.0 Volume Mean Corpuscular 33.0 Hemoglobin Mean Corpuscular 33.7 Hemoglobin Melanie nt Red Cell 19.9 H Distribution Width Platelet Count 26 *L Mean Platelet 11.3 H Volume Immature 1.000 H Granulocytes % Neutrophils % Segmented 91 H Neutrophils % (Manual) Lymphocytes % Lymphocytes % 4 L (Manual) Reactive 1 H Lymphocytes % (Manual) Monocytes % Monocytes % 4 (Manual) Eosinophils % Basophils % Nucleated Red 1 H Blood Cells % Immature 0.080 H Granulocytes # Neutrophils # Lymphocytes 0.3 L (Manual) Lymphocytes # Reactive 0.0 Lymphocytes # Monocytes # Monocytes # 0.3 (Manual) Eosinophils # Basophils # Nucleated Red Blood Cells # Toxic 1+ Granulation Platelet SIG DECREASED Estimate Giant Platelets 10 H Polychromasia 1+ Anisocytosis 2+ Microcytosis 1+ Macrocytosis 2+ Spherocytes 2+ Target Cells 1+ Sodium Level 139 Potassium Level 3.1 L Chloride Level 98 Carbon Dioxide 22 Level Anion Gap 19 H Blood Urea 37 H Nitrogen Creatinine 1.95 H Est Glomerular 26 L Filtrat Rate mL/min Glucose Level 262 H Calcium Level 9.7 Phosphorus Level 0.9 L Magnesium Level 2.0 Blood Gas Blood arterial Specimen Source Arterial Blood 08/08/2018 7:50: Date Drawn 43 AM Arterial Blood 7.470 H pH (Temp corrected) Arterial Blood 31.3 L pCO2 (Temp correct) Arterial Blood 79.7 L pO2 (Temp corrected) Arterial Blood 22.3 HCO3 Arterial Blood -0.7 Base Excess Arterial Blood 95.8 Oxygen Saturatio n Barrie Test ACCEPTAB Arterial Blood Right Radial Gas Puncture Site Arterial 0.7 Blood Carboxyhem oglobin Arterial Blood 0.2 Methemoglobin Blood Gas A-a O2 169.5 H Differential Oxyhemoglobin 94.9 Percent Blood Gas 37.0 Temperature Blood Gas 28.0 Respiration Rate Blood Gas Actual 28 Respiration Rate Blood Gas VENT - AC Modality FiO2 40.0 Blood Gas Tidal 400.0 Volume Blood Gas Low 5.0 PEEP Setting Blood Gas DT Notified Whom Blood Gas 08/08/2018 8:14: Notified Time 13 AM Test 08/08/18 12:22 08/08/18 14:25 Bedside Glucose 401 *H 360 H Subjective 24 Hr Interval Summary Subjective hx not possible: pt non-verbal Exam/Review of Systems Exam Vitals Vital Signs Date Temp Pulse Resp B/P (MAP) Pulse Ox O2 O2 Flow FiO2 Time Delivery Rate 08/08/18 102 28 85/58 (67) 100 14:15 08/08/18 Mechanical 14:00 Ventilator 08/08/18 40 13:20 08/08/18 98.4 12:00 Intake and Output 08/07/18 08/07/18 08/08/18 1515:00 23:00 07:00 IntakeIntake Total 131.875 ml 348.0 ml 362.75 ml OutputOutput Total 2600 ml 200 ml 150 ml BalanceBalance -2468.125 ml 148.0 ml 212.75 ml Constitutional: non-verbal ENMT: intubated Respiratory: clear to auscultation Cardiovascular: regular rate and rhythm Gastrointestinal: soft; No distended Musculoskeletal: nl extremities to inspection Results Results 24hrs Laboratory Tests Test 08/07/18 15:13 08/07/18 18:39 08/07/18 20:46 08/08/18 01:11 Bedside Glucose 79 144 178 286 H Test 08/08/18 04:45 08/08/18 05:30 08/08/18 07:00 08/08/18 08:55 Bedside Glucose 296 H 291 H White Blood 8.4 Count Red Blood Count 2.97 L Hemoglobin 9.8 L Hematocrit 29.1 L Mean Corpuscular 98.0 Volume Mean Corpuscular 33.0 Hemoglobin Mean Corpuscular 33.7 Hemoglobin Melanie nt Red Cell 19.9 H Distribution Width Platelet Count 26 *L Mean Platelet 11.3 H Volume Immature 1.000 H Granulocytes % Neutrophils % Segmented 91 H Neutrophils % (Manual) Lymphocytes % Lymphocytes % 4 L (Manual) Reactive 1 H Lymphocytes % (Manual) Monocytes % Monocytes % 4 (Manual) Eosinophils % Basophils % Nucleated Red 1 H Blood Cells % Immature 0.080 H Granulocytes # Neutrophils # Lymphocytes 0.3 L (Manual) Lymphocytes # Reactive 0.0 Lymphocytes # Monocytes # Monocytes # 0.3 (Manual) Eosinophils # Basophils # Nucleated Red Blood Cells # Toxic 1+ Granulation Platelet SIG DECREASED Estimate Giant Platelets 10 H Polychromasia 1+ Anisocytosis 2+ Microcytosis 1+ Macrocytosis 2+ Spherocytes 2+ Target Cells 1+ Sodium Level 139 Potassium Level 3.1 L Chloride Level 98 Carbon Dioxide 22 Level Anion Gap 19 H Blood Urea 37 H Nitrogen Creatinine 1.95 H Est Glomerular 26 L Filtrat Rate mL/min Glucose Level 262 H Calcium Level 9.7 Phosphorus Level 0.9 L Magnesium Level 2.0 Blood Gas Blood arterial Specimen Source Arterial Blood 08/08/2018 7:50: Date Drawn 43 AM Arterial Blood 7.470 H pH (Temp corrected) Arterial Blood 31.3 L pCO2 (Temp correct) Arterial Blood 79.7 L pO2 (Temp corrected) Arterial Blood 22.3 HCO3 Arterial Blood -0.7 Base Excess Arterial Blood 95.8 Oxygen Saturatio n Barrie Test ACCEPTAB Arterial Blood Right Radial Gas Puncture Site Arterial 0.7 Blood Carboxyhem oglobin Arterial Blood 0.2 Methemoglobin Blood Gas A-a O2 169.5 H Differential Oxyhemoglobin 94.9 Percent Blood Gas 37.0 Temperature Blood Gas 28.0 Respiration Rate Blood Gas Actual 28 Respiration Rate Blood Gas VENT - AC Modality FiO2 40.0 Blood Gas Tidal 400.0 Volume Blood Gas Low 5.0 PEEP Setting Blood Gas DT Notified Whom Blood Gas 08/08/2018 8:14: Notified Time 13 AM Test 08/08/18 12:22 08/08/18 14:25 Bedside Glucose 401 *H 360 H Medications Medication Current Medications Fentanyl (Sublimaze) 50 mcg Q3H PRN IV SEVERE PAIN LEVEL 7-10 Last administered on 08/02/18 14:56; Admin Dose 50 MCG; Start 08/02/18 at 15:00 Midodrine (Proamatine) 10 mg TID PO Last administered on 08/08/18 12:24; Admin Dose 10 MG; Start 08/02/18 at 21:00 Multivit/Ca Carb/ B Cmplx/FA/Prenat (Brandie-Ledy) 1 tab DAILY PO Last admin istered on 08/08/18 08:51; Admin Dose 1 TAB; Start 08/03/18 at 09:00 Sevelamer Carbonate (Renvela) 0.8 gm WITH MEALS PO Last administered on 08/08/18 10:38; Admin Dose 0.8 GM; Start 08/02/18 at 18:00 Tramadol HCl (Ultram) 50 mg TID PRN PO PAIN 1-10/10; Start 08/02/18 at 17:30 Heparin Sodium (Porcine) (Heparin (1000 Units/ml)) 4,000 unit AFTER DIALYSIS CATHETER ; Start 08/02/18 at 19:00 Albumin Human 100 ml @ 100 mls/hr WITH DIALYSIS PRN IV SBP <90 DURING DIALYSIS Last administered on 08/04/18 06:00; Admin Dose 100 MLS/HR; Start 08/02/18 at 19:00 Sodium Chloride (NS) -To prime the dialy... DIRECTED FOR HD PRN IV HD; Start 08/02/18 at 19:00 Pantoprazole (Protonix Iv) 40 mg BID@06,18 IV Last administered on 08/08/18at 06:26; Admin Dose 40 MG; Start 08/03/18 at 06:00 Miscellaneous Information (Pending Santyl Order For Wound Care) This patient marie... PRN PRN XX WOUND CARE; Start 08/02/18 at 20:30 Collagenase (Santyl) 1 applic DAILY TOP Last administered on 08/08/18at 08:50; Admin Dose 1 APPLIC; Start 08/02/18 at 20:30 Miscellaneous Information 1 ea NOTE XX ; Start 08/03/18 at 06:30 Glucose (Glutose) 15 gm Q15M PRN PO DECREASED GLUCOSE; Start 08/03/18 at 06:30 Glucose (Glutose) 22.5 gm Q15M PRN PO DECREASED GLUCOSE; Start 08/03/18 at 06:30 Glucagon (Glucagen) 1 mg Q15M PRN IM DECREASED GLUCOSE; Start 08/03/18 at 06:30 Glucose (Glutose) 15 gm Q15M PRN BUCCAL DECREASED GLUCOSE; Start 08/03/18 at 06:30 Morphine Sulfate (morphine) 2 mg Q4H PRN IV SEVERE PAIN LEVEL 7-10 Last administered on 08/03/18at 20:11; Admin Dose 2 MG; Start 08/03/18 at 13:30 Lorazepam (Ativan) 1 mg Q8H PRN IV anixety Last administered on 08/04/18at 08:35; Admin Dose 1 MG; Start 08/03/18 at 13:30 Levalbuterol (Xopenex Neb) 1.25 mg Q4H RESP THERAPY PRN HHN SHORTNESS OF BREATH; Start 08/03/18 at 23:25 Phenylephrine HCl 80 mg/Dextrose 250 ml @ 18.75 mls/ hr TITRATE IV Last administered on 08/04/18at 07:39; Admin Dose 56.25 MLS/HR; Start 08/04/18 at 02:30 Norepinephrine 250 ml @ 1.875 mls/ hr TITRATE IV Last administered on 08/08/18at 12:43; Admin Dose 15 MLS/HR; Start 08/04/18 at 04:00 Vancomycin HCl (Vanco Iv Per Pharmacy) VANCOMYCIN PER PHARMACY PER PROTOCOL XX ; Start 08/04/18 at 05:00 Piperacillin Sod/ Tazobactam Sod 50 ml @ 100 mls/hr Q8 IVPB Last administered on 08/08/18 14:29; Admin Dose 100 MLS/HR; Start 08/04/18 at 06:00 Rifaximin (Xifaxan) 550 mg BID NGT Last administered on 08/08/18 08:49; Admin Dose 550 MG; Start 08/04/18 at 11:00 Fentanyl 100 ml @ 5 mls/hr TITRATE IV Last administered on 08/08/18 04:49; Admin Dose 5 MLS/HR; Start 08/04/18 at 16:00 Midazolam HCl 50 ml @ 1 mls/hr TITRATE IV Last administered on 08/08/18 10:38; Admin Dose 3 MLS/HR; Start 08/06/18 at 15:30 Lactulose (Enulose) 20 gm Q8 GTB Last administered on 08/08/18 14:29; Admin Dose 20 GM; Start 08/06/18 at 22:00 Dextrose (D50w Syringe) 25 ml Q15M PRN IV .DECREASED GLUCOSE; Start 08/06/18 at 23:30 Dextrose (D50w Syringe) 50 ml Q15M PRN IV .DECREASED GLUCOSE; Start 08/06/18 at 23:30 Diagnostic Test (Pha) (Accu-Chek) 1 ea 02 XX Last administered on 08/08/18 01:16; Admin Dose 1 EA; Start 08/08/18 at 02:00 Insulin Aspart (Novolog Insulin Pen) NOVOLOG *MILD* ALGORI... Q4 SC Last administered on 08/08/18 12:27; Admin Dose 7 UNIT; Start 08/07/18 at 17:00 Acetaminophen (Tylenol Liquid) 650 mg Q6H PRN NGT MILD PAIN(1-3)OR ELEVATED TEMP Last administered on 08/07/18 21:05; Admin Dose 650 MG; Start 08/07/18 at 21:00 Hydrocortisone (Solu-Cortef) 50 mg Q8 IV Last administered on 08/08/18 14:29; Admin Dose 50 MG; Start 08/08/18 at 14:00 Insulin Glargine (Lantus) 10 units DAILY@0800 SC Last administered on 08/08/18 14:33; Admin Dose 10 UNITS; Start 08/08/18 at 13:30 PATRICK LYONS Aug 08, 2018 15:14
[2018-08-09] VITALS (61 sets, daily range): BP systolic 45–111; BP diastolic 32–75; PULSE 81–138; RESP 11–29
[2018-08-09] MEDS: INSULIN ASPART [NOVOLOG] 3 ML PEN SC SCH ×5 (01:12→12:18)
[2018-08-09] MEDS: ACCU-CHEK XX SCH (01:13)
[2018-08-09] MEDS: PIPER-TAZO 2.25 GM (PMX) 50 ML IVPB SCH ×2 (05:18→12:17)
[2018-08-09] MEDS: PANTOPRAZOLE 40 MG INJ IV SCH ×2 (05:18→12:18)
[2018-08-09] MEDS: LACTULOSE 30ML CUP GTB SCH ×2 (05:18→12:17)
[2018-08-09] MEDS: MIDAZOLAM (DRIP) 50 mg/50 mL 50 ML IV SCH (05:27)
[2018-08-09] MEDS: NORepinephrine 8MG/250 ML (PMX 250 ML IV SCH (06:15)
[2018-08-09] MEDS: MIDODRINE 5 MG TAB PO SCH ×2 (08:44→12:17)
[2018-08-09] MEDS: RIFAXIMIN 550 MG TAB NGT SCH (08:44)
[2018-08-09] MEDS: MULTIVIT/CA CARB/B CMPLX/FA TAB PO SCH (08:44)
[2018-08-09] MEDS: COLLAGENASE 5 GM (UD JAR) TOP SCH (08:45)
[2018-08-09] MEDS: BALSAM PERU/CASTOR OIL 60 GM TUBE TOP SCH (08:45)
[2018-08-09] MEDS: INSULIN GLARGINE [LANTus] (100 UNITS/ML) SYG SC SCH (08:55)
[2018-08-09] MEDS: SEVELAMER CARBONATE 0.8 GM PKT PO SCH ×3 (08:58→12:18)
--- NOTE | 2018-08-09 10:58 | CONS ---
Consult Date/Type/Reason Admit Date/Time Aug 02, 2018 at 15:01 Initial Consult Date 08/04/18 Type of Consult Pulmonary Requesting Provider: REGINA ORNELAS MD Date/Time of Note DATE: 08/09/18 TIME: 10:57 Subjective Patient remains somnolent on mechanical ventilation. Objective Vital Signs Date Temp Pulse Resp B/P (MAP) Pulse Ox O2 O2 Flow FiO2 Time Delivery Rate 08/09/18 90 25 95/68 (77) 100 09:30 08/09/18 Mechanical 09:00 Ventilator 08/09/18 98.2 08:00 08/09/18 40 07:45 Intake and Output 08/08/18 08/08/18 08/09/18 1414:59 22:59 06:59 IntakeIntake Total 418.5 ml 743.375 ml 487.0 ml OutputOutput Total 500 ml 150 ml 200 ml BalanceBalance -81.5 ml 593.375 ml 287.0 ml Exam GENERAL: Chronically ill-appearing lady orally intubated on mechanical ventilation. Jaundiced VITAL SIGNS: per chart NECK: Supple. No JVD or lymphadenopathy. CARDIAC EXAM: S1, S2. No added sounds or murmurs. CHEST: Diminished air entry bilaterally with rales ABDOMEN: Soft, nontender. No guarding or rebound. EXTREMITIES: No cyanosis, clubbing or edema. NEUROLOGIC: Generalized weakness. No focal deficits. Vent Setting Ventilator Support Mode: AC Fraction of Inspired Oxygen pe: 40 Positive End Expiratory Pressu: 5.0 Results/Medications Result Diagram: 08/08/18 0530 08/08/18 0530 Results 24 hrs Laboratory Tests Test 08/08/18 12:22 08/08/18 14:25 08/08/18 17:46 08/08/18 21:29 Bedside Glucose 401 *H 360 H 314 H 230 H Test 08/09/18 01:10 08/09/18 04:41 08/09/18 08:48 Bedside Glucose 261 H 295 H 337 H Medications Current Medications Fentanyl (Sublimaze) 50 mcg Q3H PRN IV SEVERE PAIN LEVEL 7-10 Last administered on 08/02/18at 14:56; Admin Dose 50 MCG; Start 08/02/18 at 15:00 Midodrine (Proamatine) 10 mg TID PO Last administered on 08/09/18at 08:44; Admin Dose 10 MG; Start 08/02/18 at 21:00 Multivit/Ca Carb/ B Cmplx/FA/Prenat (Brandie-Ledy) 1 tab DAILY PO Last administered on 08/09/18at 08:44; Admin Dose 1 TAB; Start 08/03/18 at 09:00 Sevelamer Carbonate (Renvela) 0.8 gm WITH MEALS PO Last administered on 08/09/18 08:58; Admin Dose 0.8 GM; Start 08/02/18 at 18:00 Tramadol HCl (Ultram) 50 mg TID PRN PO PAIN 1-04/03; Start 08/02/18 at 17:30 Heparin Sodium (Porcine) (Heparin (1000 Units/ml)) 4,000 unit AFTER DIALYSIS CATHETER ; Start 08/02/18 at 19:00 Albumin Human 100 ml @ 100 mls/hr WITH DIALYSIS PRN IV SBP <90 DURING DIALYSIS Last administered on 08/04/18at 06:00; Admin Dose 100 MLS/HR; Start 08/02/18 at 19:00 Sodium Chloride (NS) -To prime the dialy... DIRECTED FOR HD PRN IV HD; Start 08/02/18 at 19:00 Pantoprazole (Protonix Iv) 40 mg BID@06,18 IV Last administered on 08/09/18at 05:18; Admin Dose 40 MG; Start 08/03/18 at 06:00 Miscellaneous Information (Pending Santyl Order For Wound Care) This patient marie... PRN PRN XX WOUND CARE; Start 08/02/18 at 20:30 Collagenase (Santyl) 1 applic DAILY TOP Last administered on 08/09/18at 08:45; Admin Dose 1 APPLIC; Start 08/02/18 at 20:30 Miscellaneous Information 1 ea NOTE XX ; Start 08/03/18 at 06:30 Glucose (Glutose) 15 gm Q15M PRN PO DECREASED GLUCOSE; Start 08/03/18 at 06:30 Glucose (Glutose) 22.5 gm Q15M PRN PO DECREASED GLUCOSE; Start 08/03/18 at 06:30 Glucagon (Glucagen) 1 mg Q15M PRN IM DECREASED GLUCOSE; Start 08/03/18 at 06:30 Glucose (Glutose) 15 gm Q15M PRN BUCCAL DECREASED GLUCOSE; Start 08/03/18 at 06:30 Morphine Sulfate (morphine) 2 mg Q4H PRN IV SEVERE PAIN LEVEL 7-10 Last administered on 08/03/18at 20:11; Admin Dose 2 MG; Start 08/03/18 at 13:30 Lorazepam (Ativan) 1 mg Q8H PRN IV anixety Last administered on 08/04/18 08:35; Admin Dose 1 MG; Start 08/03/18 at 13:30 Levalbuterol (Xopenex Neb) 1.25 mg Q4H RESP THERAPY PRN HHN SHORTNESS OF BREATH; Start 08/03/18 at 23:25 Phenylephrine HCl 80 mg/Dextrose 250 ml @ 18.75 mls/ hr TITRATE IV Last administered on 08/04/18 07:39; Admin Dose 56.25 MLS/HR; Start 08/04/18 at 02:30 Norepinephrine 250 ml @ 1.875 mls/ hr TITRATE IV Last administered on 08/09/18 06:15; Admin Dose 15 MLS/HR; Start 08/04/18 at 04:00 Vancomycin HCl (Vanco Iv Per Pharmacy) VANCOMYCIN PER PHARMACY PER PROTOCOL XX ; Start 08/04/18 at 05:00 Piperacillin Sod/ Tazobactam Sod 50 ml @ 100 mls/hr Q8 IVPB Last administered on 08/09/18 05:18; Admin Dose 100 MLS/HR; Start 08/04/18 at 06:00 Rifaximin (Xifaxan) 550 mg BID NGT Last administered on 08/09/18 08:44; Admin Dose 550 MG; Start 08/04/18 at 11:00 Fentanyl 100 ml @ 5 mls/hr TITRATE IV Last administered on 08/08/18 04:49; Admin Dose 5 MLS/HR; Start 08/04/18 at 16:00 Midazolam HCl 50 ml @ 1 mls/hr TITRATE IV Last administered on 08/09/18 05:27; Admin Dose 3 MLS/HR; Start 08/06/18 at 15:30 Lactulose (Enulose) 20 gm Q8 GTB Last administered on 08/09/18 05:18; Admin Dose 20 GM; Start 08/06/18 at 22:00 Dextrose (D50w Syringe) 25 ml Q15M PRN IV .DECREASED GLUCOSE; Start 08/06/18 at 23:30 Dextrose (D50w Syringe) 50 ml Q15M PRN IV .DECREASED GLUCOSE; Start 08/06/18 at 23:30 Diagnostic Test (Pha) (Accu-Chek) 1 ea 02 XX Last administered on 08/09/18at 01:13; Admin Dose 1 EA; Start 08/08/18 at 02:00 Insulin Aspart (Novolog Insulin Pen) NOVOLOG *MILD* ALGORI... Q4 SC Last administered on 08/09/18at 09:03; Admin Dose 5 UNIT; Start 08/07/18 at 17:00 Acetaminophen (Tylenol Liquid) 650 mg Q6H PRN NGT MILD PAIN(1-3)OR ELEVATED TEMP Last administered on 08/07/18at 21:05; Admin Dose 650 MG; Start 08/07/18 at 21:00 Insulin Glargine (Lantus) 10 units DAILY@0800 SC Last administered on 08/09/18at 08:55; Admin Dose 10 UNITS; Start 08/08/18 at 13:30 Assessment/Plan Hospital Course (Demo Recall) Assessment/Plan (Daily) IMP: 1. Septic Shock now off vasopressors 2. Multifocal pneumonia mild radiographic improvement 3. Hypoxemic Resp Failure 4. UGIB 5. ESLD with numerous complications including thrombocytopenia 6. ERSD on HD Plan Extubation today transition to comfort care. Appreciate palliative care help. SHELLY CHRISTIAN MD, [facility] Aug 09, 2018 10:58
[2018-08-09] MEDS ORDERED: LORAZEPAM 2 MG INJ IV PRN (11:00)
[2018-08-09] MEDS: morphine (DRIP) 100 MG/100 ML 100 ML IV SCH ×3 (12:16→21:03)
--- NOTE | 2018-08-09 16:06 | CONS ---
Assessment/Plan Assessment/Plan Assessment/Plan (Daily) 1. acute hypoxemic resp failure intubaed on ventilator 2. ESRD on HD - MWF schedule , missed HD yesterday- will get HD; 1 unit PRBC 3. Upper GI bleeidng S/p EGD showing Peptic ulcer disease 4. septic shock on levophed 5. H/o Liver Cirrhosis 6. H/o HTN 7. let basilar inftilrates with pleural effusion Plan: , s/p HD yesterday 2 L removed, pt remains intubated, family wished for terminal extubation on sunday, no plan for HD tomorrow DNR code status , s/p family meeting today wilder ign off, call us if any questions Consultation Date/Type/Reason Admit Date/Time Aug 02, 2018 at 15:01 Initial Consult Date 08/02/18 Type of Consult NEPHROLOGY Requesting Provider: REGINA ORNELAS MD Date/Time of Note DATE: 08/09/18 TIME: 16:06 Exam/Review of Systems Exam Vitals Vital Signs Date Temp Pulse Resp B/P (MAP) Pulse Ox O2 O2 Flow FiO2 Time Delivery Rate 08/09/18 99 25 48/36 (40) 100 Mechanical 13:00 Ventilator 08/09/18 98.0 12:00 08/09/18 40 11:20 Intake and Output 08/08/18 08/08/18 08/09/18 1515:00 23:00 07:00 IntakeIntake Total 432.25 ml 689.625 ml 457.0 ml OutputOutput Total 500 ml 150 ml 200 ml BalanceBalance -67.75 ml 539.625 ml 257.0 ml Exam Constitutional: distress ENMT: intubated Neck: supple, non-tender Respiratory: congested cough, crackles/rales, diminished breath sounds Cardiovascular: regular rate and rhythm, nl pulses Gastrointestinal: soft, non-tender Musculoskeletal: muscle weakness, swelling Extremities: normal pulses Neurological: other (sedated intubated on ventilator ) Results Result Diagram: 08/08/1830 08/08/18 0530 Results 24hrs Laboratory Tests Test 08/08/18 17:46 08/08/18 21:29 08/09/18 01:10 08/09/18 04:41 Bedside Glucose 314 H 230 H 261 H 295 H Test 08/09/18 08:48 Bedside Glucose 337 H Medications Medication Current Medications Midodrine (Proamatine) 10 mg TID PO Last administered on 08/09/18 08:44; Admin Dose 10 MG; Start 08/02/18 at 21:00 Multivit/Ca Carb/ B Cmplx/FA/Prenat (Brandie-Ledy) 1 tab DAILY PO Last administered on 08/09/18 08:44; Admin Dose 1 TAB; Start 08/03/18 at 09:00 Sevelamer Carbonate (Renvela) 0.8 gm WITH MEALS PO Last administered on 08/09/18 08:58; Admin Dose 0.8 GM; Start 08/02/18 at 18:00 Tramadol HCl (Ultram) 50 mg TID PRN PO PAIN 1-04/03; Start 08/02/18 at 17:30 Heparin Sodium (Porcine) (Heparin (1000 Units/ml)) 4,000 unit AFTER DIALYSIS CATHETER ; Start 08/02/18 at 19:00 Albumin Human 100 ml @ 100 mls/hr WITH DIALYSIS PRN IV SBP <90 DURING DIALYSIS Last administered on 08/04/18at 06:00; Admin Dose 100 MLS/HR; Start 08/02/18 at 19:00 Sodium Chloride (NS) -To prime the dialy... DIRECTED FOR HD PRN IV HD; Start 08/02/18 at 19:00 Pantoprazole (Protonix Iv) 40 mg BID@06,18 IV Last administered on 08/09/18at 05:18; Admin Dose 40 MG; Start 08/03/18 at 06:00 Miscellaneous Information (Pending Santyl Order For Wound Care) This patient marie... PRN PRN XX WOUND CARE; Start 08/02/18 at 20:30 Collagenase (Santyl) 1 applic DAILY TOP Last administered on 08/09/18at 08:45; Admin Dose 1 APPLIC; Start 08/02/18 at 20:30 Miscellaneous Information 1 ea NOTE XX ; Start 08/03/18 at 06:30 Glucose (Glutose) 15 gm Q15M PRN PO DECREASED GLUCOSE; Start 08/03/18 at 06:30 Glucose (Glutose) 22.5 gm Q15M PRN PO DECREASED GLUCOSE; Start 08/03/18 at 06:30 Glucagon (Glucagen) 1 mg Q15M PRN IM DECREASED GLUCOSE; Start 08/03/18 at 06:30 Glucose (Glutose) 15 gm Q15M PRN BUCCAL DECREASED GLUCOSE; Start 08/03/18 at 06:30 Morphine Sulfate (morphine) 2 mg Q4H PRN IV SEVERE PAIN LEVEL 7-10 Last administered on 08/03/18at 20:11; Admin Dose 2 MG; Start 08/03/18 at 13:30 Lorazepam (Ativan) 1 mg Q8H PRN IV anixety Last administered on 08/04/18at 08:35; Admin Dose 1 MG; Start 08/03/18 at 13:30 Levalbuterol (Xopenex Neb) 1.25 mg Q4H RESP THERAPY PRN HHN SHORTNESS OF BREATH; Start 08/03/18 at 23:25 Phenylephrine HCl 80 mg/Dextrose 250 ml @ 18.75 mls/ hr TITRATE IV Last administered on 08/04/18at 07:39; Admin Dose 56.25 MLS/HR; Start 08/04/18 at 02:30 Norepinephrine 250 ml @ 1.875 mls/ hr TITRATE IV Last administered on 08/09/18at 06:15; Admin Dose 15 MLS/HR; Start 08/04/18 at 04:00 Vancomycin HCl (Vanco Iv Per Pharmacy) VANCOMYCIN PER PHARMACY PER PROTOCOL XX ; Start 08/04/18 at 05:00 Piperacillin Sod/ Tazobactam Sod 50 ml @ 100 mls/hr Q8 IVPB Last administered on 08/09/18 05:18; Admin Dose 100 MLS/HR; Start 08/04/18 at 06:00 Rifaximin (Xifaxan) 550 mg BID NGT Last administered on 08/09/18at 08:44; Admin Dose 550 MG; Start 08/04/18 at 11:00 Lactulose (Enulose) 20 gm Q8 GTB Last administered on 08/09/18at 05:18; Admin Dose 20 GM; Start 08/06/18 at 22:00 Dextrose (D50w Syringe) 25 ml Q15M PRN IV .DECREASED GLUCOSE; Start 08/06/18 at 23:30 Dextrose (D50w Syringe) 50 ml Q15M PRN IV .DECREASED GLUCOSE; Start 08/06/18 at 23:30 Diagnostic Test (Pha) (Accu-Chek) 02 XX Last administered on 08/09/18at 01:13; Admin Dose 1 EA; Start 08/08/18 at 02:00 Insulin Aspart (Novolog Insulin Pen) NOVOLOG *MILD* ALGORI... Q4 SC Last administered on 08/09/18 09:03; Admin Dose 5 UNIT; Start 08/07/18 at 17:00 Acetaminophen (Tylenol Liquid) 650 mg Q6H PRN NGT MILD PAIN(1-3)OR ELEVATED TEMP Last administered on 08/07/18at 21:05; Admin Dose 650 MG; Start 08/07/18 at 21:00 Insulin Glargine (Lantus) 10 units DAILY@0800 SC Last administered on 08/09/18at 08:55; Admin Dose 10 UNITS; Start 08/08/18 at 13:30 Morphine Sulfate/ Sodium Chloride 100 ml @ 1 mls/hr TITRATE IV Last administered on 08/09/18at 12:16; Admin Dose 1 MLS/HR; Start 08/09/18 at 11:00 Lorazepam (Ativan) 1 mg Q2 PRN IV sedation; Start 08/09/18 at 11:00 FERNANDA RODRIGUEZ MD Aug 09, 2018 16:06
--- NOTE | 2018-08-09 16:37 | PN ---
Date/Time of Note Date/Time of Note DATE: 08/09/18 TIME: 16:35 Assessment/Plan VTE Prophylaxis Risk score (from Nsg)>0 risk: 10 Pharmacological prophylaxis: NA/contraindicated Pharm contraindication: liver dx Lines/Catheters IV Catheter Type (from Nrsg): Saline Lock Urinary Cath still in place: No Assessment/Plan Hospital Course 57 yo female with h/o ESRD, cirrhosis, DMII recently discharged after hospitalization for SBP and salmonella bacteremia who returns with hematemesis and found to have PUD PULM Acute respiratory failure: - XR suggestive of pneumonia and/or volume overload, DC broad spectrum antibiotics with vancomycin and zosyn, terminal extubation today -Pulmonology following CV: Septic shock: -Status post vasopressors HEME: Thrombocytopenia: Acute blood loss anemia 2/2 bleeding peptic ulcer: - Transfuse PRN > Hgb 7 - IV PPI GI: Cirrhosis: - Continue lactulose and rifaxin - No varices on EGD, duodenal ulcer noted, moderate diffuse gastritis with severe erosive esophagitis - IV PPI ENDO DMII: - Basal/bolus insulin Protein/calorie malnutrition: -Continue enteral feeding -Status post steroids for adrenal support ESRD: - HD per Dr Ankur SILVERIO planning: Patient is a DNR, palliative care consultation appreciated, plan is for terminal extubation today Result Diagram: 08/08/18 0530 08/08/18 0530 Results 24hrs Laboratory Tests Test 08/08/18 17:46 08/08/18 21:29 08/09/18 01:10 08/09/18 04:41 Bedside Glucose 314 H 230 H 261 H 295 H Test 08/09/18 08:48 Bedside Glucose 337 H Subjective 24 Hr Interval Summary Subjective hx not possible: pt non-verbal Exam/Review of Systems Exam Vitals Vital Signs Date Temp Pulse Resp B/P (MAP) Pulse Ox O2 O2 Flow FiO2 Time Delivery Rate 08/09/18 98.1 130 14 75/52 (60) 94 Mechanical 16:00 Ventilator 08/09/18 40 11:20 Intake and Output 08/08/18 08/08/18 08/09/18 1515:00 23:00 07:00 IntakeIntake Total 432.25 ml 689.625 ml 457.0 ml OutputOutput Total 500 ml 150 ml 200 ml BalanceBalance -67.75 ml 539.625 ml 257.0 ml Constitutional: non-verbal ENMT: intubated Respiratory: clear to auscultation Cardiovascular: regular rate and rhythm Gastrointestinal: soft; No distended Musculoskeletal: nl extremities to inspection Results Results 24hrs Laboratory Tests Test 08/08/18 17:46 08/08/18 21:29 08/09/18 01:10 08/09/18 04:41 Bedside Glucose 314 H 230 H 261 H 295 H Test 08/09/18 08:48 Bedside Glucose 337 H Medications Medication Current Medications Midodrine (Proamatine) 10 mg TID PO Last administered on 08/09/18 08:44; Admin Dose 10 MG; Start 08/02/18 at 21:00 Multivit/Ca Carb/ B Cmplx/FA/Prenat (Brandie-Ledy) 1 tab DAILY PO Last adminis tered on 08/09/18 08:44; Admin Dose 1 TAB; Start 08/03/18 at 09:00 Sevelamer Carbonate (Renvela) 0.8 gm WITH MEALS PO Last administered on 08/09/18 08:58; Admin Dose 0.8 GM; Start 08/02/18 at 18:00 Tramadol HCl (Ultram) 50 mg TID PRN PO PAIN 1-04/03; Start 08/02/18 at 17:30 Heparin Sodium (Porcine) (Heparin (1000 Units/ml)) 4,000 unit AFTER DIALYSIS CATHETER ; Start 08/02/18 at 19:00 Albumin Human 100 ml @ 100 mls/hr WITH DIALYSIS PRN IV SBP <90 DURING DIALYSIS Last administered on 08/04/18 06:00; Admin Dose 100 MLS/HR; Start 08/02/18 at 19:00 Sodium Chloride (NS) -To prime the dialy... DIRECTED FOR HD PRN IV HD; Start 08/02/18 at 19:00 Pantoprazole (Protonix Iv) 40 mg BID@06,18 IV Last administered on 08/09/18 05:18; Admin Dose 40 MG; Start 08/03/18 at 06:00 Miscellaneous Information (Pending Santyl Order For Wound Care) This patient marie... PRN PRN XX WOUND CARE; Start 08/02/18 at 20:30 Collagenase (Santyl) 1 applic DAILY TOP Last administered on 08/09/18at 08:45; Admin Dose 1 APPLIC; Start 08/02/18 at 20:30 Miscellaneous Information 1 ea NOTE XX ; Start 08/03/18 at 06:30 Glucose (Glutose) 15 gm Q15M PRN PO DECREASED GLUCOSE; Start 08/03/18 at 06:30 Glucose (Glutose) 22.5 gm Q15M PRN PO DECREASED GLUCOSE; Start 08/03/18 at 06:30 Glucagon (Glucagen) 1 mg Q15M PRN IM DECREASED GLUCOSE; Start 08/03/18 at 06:30 Glucose (Glutose) 15 gm Q15M PRN BUCCAL DECREASED GLUCOSE; Start 08/03/18 at 06:30 Morphine Sulfate (morphine) 2 mg Q4H PRN IV SEVERE PAIN LEVEL 7-10 Last administered on 08/03/18at 20:11; Admin Dose 2 MG; Start 08/03/18 at 13:30 Lorazepam (Ativan) 1 mg Q8H PRN IV anixety Last administered on 08/04/18at 08:35; Admin Dose 1 MG; Start 08/03/18 at 13:30 Levalbuterol (Xopenex Neb) 1.25 mg Q4H RESP THERAPY PRN HHN SHORTNESS OF BREATH; Start 08/03/18 at 23:25 Phenylephrine HCl 80 mg/Dextrose 250 ml @ 18.75 mls/ hr TITRATE IV Last administered on 08/04/18at 07:39; Admin Dose 56.25 MLS/HR; Start 08/04/18 at 02:30 Norepinephrine 250 ml @ 1.875 mls/ hr TITRATE IV Last administered on 08/09/18at 06:15; Admin Dose 15 MLS/HR; Start 08/04/18 at 04:00 Vancomycin HCl (Vanco Iv Per Pharmacy) VANCOMYCIN PER PHARMACY PER PROTOCOL XX ; Start 08/04/18 at 05:00 Piperacillin Sod/ Tazobactam Sod 50 ml @ 100 mls/hr Q8 IVPB Last administered on 08/09/18at 05:18; Admin Dose 100 MLS/HR; Start 08/04/18 at 06:00 Rifaximin (Xifaxan) 550 mg BID NGT Last administered on 08/09/18at 08:44; Admin Dose 550 MG; Start 08/04/18 at 11:00 Lactulose (Enulose) 20 gm Q8 GTB Last administered on 08/09/18 05:18; Admin Dose 20 GM; Start 08/06/18 at 22:00 Dextrose (D50w Syringe) 25 ml Q15M PRN IV .DECREASED GLUCOSE; Start 08/06/18 at 23:30 Dextrose (D50w Syringe) 50 ml Q15M PRN IV .DECREASED GLUCOSE; Start 08/06/18 at 23:30 Diagnostic Test (Pha) (Accu-Chek) 1 ea 02 XX Last administered on 08/09/18at 01:13; Admin Dose 1 EA; Start 08/08/18 at 02:00 Insulin Aspart (Novolog Insulin Pen) NOVOLOG *MILD* ALGORI... Q4 SC Last administered on 08/09/18 09:03; Admin Dose 5 UNIT; Start 08/07/18 at 17:00 Acetaminophen (Tylenol Liquid) 650 mg Q6H PRN NGT MILD PAIN(1-3)OR ELEVATED TEMP Last administered on 08/07/18 21:05; Admin Dose 650 MG; Start 08/07/18 at 21:00 Insulin Glargine (Lantus) 10 units DAILY@0800 SC Last administered on 08/09/18at 08:55; Admin Dose 10 UNITS; Start 08/08/18 at 13:30 Morphine Sulfate/ Sodium Chloride 100 ml @ 1 mls/hr TITRATE IV Last administered on 08/09/18 12:16; Admin Dose 1 MLS/HR; Start 08/09/18 at 11:00 Lorazepam (Ativan) 1 mg Q2 PRN IV sedation; Start 08/09/18 at 11:00 PATRICK LYONS Aug 09, 2018 16:37
[2018-08-09] MEDS: LORAZEPAM 2 MG INJ IV PRN (16:42)
[2018-08-09] MEDS ORDERED: INSULIN GLARGINE [LANTus] (100 UNITS/ML) SYG SC SCH (20:00)
--- NOTE | 2018-08-22 17:17 | DES ---
Date/Time of Note Date/Time of Note DATE: 08/22/18 TIME: 17:14 Discharge/ Summary Admission/Discharge Info Admit Date/Time Aug 02, 2018 at 15:01 Date/Time August 09, 2018 Final Diagnosis Cardiopulmonary failure secondary to end-stage liver disease from hepatitis C and end-stage renal disease Preliminary Cause of Cardiopulmonary failure secondary to end-stage liver disease from hepatitis C and end-stage renal disease Hospital Course Patient is a 57 yo female with h/o ESRD, cirrhosis, DMII recently discharged after hospitalization for SBP and salmonella bacteremia who returns with hematemesis and found to have PUD. Patient was in respiratory failure secondary to volume overload and required intubation. Patient was in shock and required vasopressors. Patient was seen by GI and EGD showed no varices, duodenal ulcer was noted. Patient did have a poor prognosis and was seen by palliative care and family decided on terminal expiration. Patient was pronounced on 08/09/2018 at 2348. PATRICK LYONS Aug 22, 2018 17:17
== END 2018-08-10 03:00 | disposition expired | DRG 870 ==
LOC: E/R 13:46 → TEL 15:01 → ICU 08-03 23:47 → 2NE 08-09 19:05 → UNDODISIN 08-10 03:00
PROVIDERS: ADMIT Internal Medicine; ATTEND Internal Medicine
PROC: 0DJ08ZZ Inspection of Upper Intestinal Tract, Via Natural or Artificial Opening Endoscopic (ICD-10-PCS; principal; 2018-08-02 17:25)
PROC: 5A1D70Z Performance of Urinary Filtration, Intermittent, Less than 6 Hours Per Day (ICD-10-PCS; 2018-08-03)
PROC: 30233R1 Transfusion of Nonautologous Platelets into Peripheral Vein, Percutaneous Approach (ICD-10-PCS; 2018-08-03)
PROC: 30233N1 Transfusion of Nonautologous Red Blood Cells into Peripheral Vein, Percutaneous Approach (ICD-10-PCS; 2018-08-03)
PROC: 5A1955Z Respiratory Ventilation, Greater than 96 Consecutive Hours (ICD-10-PCS; 2018-08-04)
PROC: 0BH17EZ Insertion of Endotracheal Airway into Trachea, Via Natural or Artificial Opening (ICD-10-PCS; 2018-08-04)
PROC: 06HY33Z Insertion of Infusion Device into Lower Vein, Percutaneous Approach (ICD-10-PCS; 2018-08-04)
DX: A41.9 Sepsis, unspecified organism (principal); K26.0 Acute duodenal ulcer with hemorrhage; N18.6 End stage renal disease; J18.9 Pneumonia, unspecified organism; R65.21 Severe sepsis with septic shock; J96.01 Acute respiratory failure with hypoxia; K22.11 Ulcer of esophagus with bleeding; K29.01 Acute gastritis with bleeding; D62 Acute posthemorrhagic anemia; E46 Unspecified protein-calorie malnutrition; G93.40 Encephalopathy, unspecified; J90 Pleural effusion, not elsewhere classified; B19.20 Unspecified viral hepatitis C without hepatic coma; D69.6 Thrombocytopenia, unspecified; E11.22 Type 2 diabetes mellitus with diabetic chronic kidney disease; E87.70 Fluid overload, unspecified; K74.60 Unspecified cirrhosis of liver; R25.2 Cramp and spasm; Z66 Do not resuscitate; Z51.5 Encounter for palliative care; Z99.2 Dependence on renal dialysis; Z68.20 Body mass index [BMI] 20.0-20.9, adult; Z79.4 Long term (current) use of insulin
CPT/HCPCS: 31500; 36430; 36600; 70450; 71045; 74176; 74177; 76604; 80048; 80053; 80202; 82140; 82150; 82803; 82962; 83605; 83690; 83735; 84100; 84484; 85025; 85610; 85730; 86644; 86850; 86900; 86901; 86920; 86945; 87040; 87081; 87338; 90935; 93005; 94002; 94003; 94660; 94664; 94770; 96374; 96375; C9113; J1720; J1815; J2060; J2250; J2270; J2370; J2405; J2543; J2765; J3010; J3370; J7040; J7070; P9016; P9035; P9047; Q9967